=== PATIENT | female | born 1960 | race Caucasian/White ===

== ENCOUNTER 2019-12-05 07:01 | Outpatient (REF) | payer OTHER, SELFPAY ==
[2019-12-05 08:02] LABS: Alanine Aminotransferase 41 U/L (0-31); Albumin Level 3.9 g/dL (3.5-5.0); Alkaline Phosphatase 91 U/L (39-117); Anion Gap 11 (12-20); Aspartate Amino Transferase 25 U/L (5-31); Bilirubin Total 0.2 mg/dL (0.0-1.0); Blood Urea Nitrogen 30 mg/dL (9-16); Calcium 10.3 mg/dL (8.4-10.2); Carbon Dioxide 30 mmol/L (22-29); Chloride 102 mmol/L (96-108); Cholesterol 210 mg/dL; Estimated Glomerular Filt Rate > 60; Glucose Fasting 180 mg/dL (60-99); HDL Cholesterol 51 mg/dL; LDL Cholesterol Calculated 131 mg/dl; Potassium 4.8 mmol/l (3.3-5.1); Sodium 138 mmol/L (135-145); Triglycerides 143 mg/dL
[2019-12-05 08:11] LABS: Creatinine Urine 54.71 mg/dL
[2019-12-05 08:23] LABS: Microalbum/Creatinine Ratio Ur 1612.1 ug/mg cr
== END 2019-12-05 07:02 | disposition home or self-care (01) ==
LOC: HO.LAB 07:01
PROVIDERS: PCP Internal Medicine; Visit Provider Internal Medicine
DX: E11.29 Type 2 diabetes mellitus with other diabetic kidney complication (principal)
CPT/HCPCS: 80053; 80061; 82043

== ENCOUNTER → 2019-12-25 08:56 | Outpatient (BNVA) | payer OTHER, SELFPAY | PROVIDERS: PCP Internal Medicine; Visit Provider Surgery Vascular Surgery | DX: I73.9 Peripheral vascular disease, unspecified (principal) | CPT/HCPCS: 99212 ==

== ENCOUNTER 2020-03-13 09:48 | Outpatient (REF) | payer OTHER, SELFPAY ==
[2020-03-13 10:31] LABS: MANUAL DIFF FLAG NO
[2020-03-13 10:33] LABS: Basophils Absolute Auto 0.1 X10*3/uL (0.0-0.2); Eosinophils Absolute Auto 0.2 X10*3/uL (0.0-0.4); Hemoglobin 12.7 g/dl (12.0-16.0); Imm Gran Abs Auto 0.01 X10*3/uL (0.00-0.03); Imm Gran Pct Auto 0.2 % (0.0-0.4); Lymphocytes Absolute Auto 2.4 X10*3/uL (1.2-4.9); Lymphocytes Percent Auto 40.1 % (20-40); Mean Corpuscular HGB Conc 31.8 g/dl (31.0-35.0); Mean Corpuscular Hemoglobin 26.8 pg (27.0-33.0); Mean Corpuscular Volume 84.6 fL (80-98); Mean Platelet Volume 11.4 fL (9.4-12.3); Monocytes Absolute Auto 0.5 X10*3/uL (0.1-1.2); Monocytes Percent Auto 7.6 % (2-11); Neutrophils Absolute Auto 2.9 X10*3/uL (2.0-8.3); Neutrophils Percent Auto 48.1 % (45-73); Platelet Count 348 X10*3/uL (160-400); Red Blood Count 4.73 X10*6/uL (4.20-5.50); Red Cell Distribution Width 12.9 % (11.0-16.0); White Blood Count 6.1 X10*3/uL (4.8-10.8)
[2020-03-13 10:47] LABS: Glucose Urine UA NEG (NEG); Leukocyte Esterase Urine NEG (NEG); Nitrite Urine NEG (NEG); Specific Gravity - Urine 1.015 (1.005-1.025); Urine Blood NEG (NEG); Urine Ketones NEG (NEG); Urine Protein 2+ MG/DL (NEG-TRACE)
[2020-03-13 10:50] LABS: Appearance Urine CLEAR; Color Urine YELLOW
[2020-03-13 10:58] LABS: Alanine Aminotransferase 17 U/L (0-31); Albumin Level 4.1 g/dL (3.5-5.0); Alkaline Phosphatase 94 U/L (39-117); Anion Gap 13 (12-20); Aspartate Amino Transferase 14 U/L (5-31); Bilirubin Total 0.3 mg/dL (0.0-1.0); Blood Urea Nitrogen 22 mg/dL (9-16); Calcium 9.4 mg/dL (8.4-10.2); Carbon Dioxide 29 mmol/L (22-29); Chloride 102 mmol/L (96-108); Cholesterol 175 mg/dL; Estimated Glomerular Filt Rate > 60; Glucose Fasting 155 mg/dL (60-99); HDL Cholesterol 47 mg/dL; LDL Cholesterol Calculated 104 mg/dl; Potassium 4.7 mmol/l (3.3-5.1); Sodium 139 mmol/L (135-145); Triglycerides 124 mg/dL
[2020-03-13 11:00] LABS: Anion Gap 13 (12-20); Blood Urea Nitrogen 22 mg/dL (9-16); Calcium 9.3 mg/dL (8.4-10.2); Carbon Dioxide 29 mmol/L (22-29); Chloride 103 mmol/L (96-108); Estimated Glomerular Filt Rate > 60; Magnesium 1.6 mg/dL (1.6-2.6); Potassium 4.9 mmol/l (3.3-5.1); Sodium 140 mmol/L (135-145)
[2020-03-13 11:03] LABS: RBC Urine 0-2 /HPF (0); Renal w Reflex-LAB USE ONLY Order Verified; Squamous Epithelial Cell Urine TRACE /LPF; WBC Urine 0-2 /HPF (0-4)
[2020-03-13 11:05] LABS: Protein/Creatinine Ratio, Ur 1.93 (<0.2); Total Protein Urine Random 92 mg/dL (<12)
[2020-03-13 11:22] LABS: Vitamin D 25-OH Total 25.4 ng/mL (>30)
[2020-03-13 11:29] LABS: Creatinine Urine 48.06 mg/dL; Total Protein Urine Random 90 mg/dL (<12)
[2020-03-13 11:49] LABS: Microalbum/Creatinine Ratio Ur 1344.1 ug/mg cr
[2020-03-13 13:31] LABS: Renal w Reflex Lab Use Only Order verified
[2020-03-15 16:22] LABS: Calcium (PTHI) 9.7 mg/dL (8.6-10.4); PTHI 48 pg/mL (14-64)
== END 2020-03-13 09:49 | disposition home or self-care (01) ==
LOC: HO.LAB 09:48
PROVIDERS: Absent Provider Internal Medicine; PCP Internal Medicine; Visit Provider Internal Medicine Nephrology
DX: E11.29 Type 2 diabetes mellitus with other diabetic kidney complication (principal); E11.22 Type 2 diabetes mellitus with diabetic chronic kidney disease; I12.9 Hypertensive chronic kidney disease with stage 1 through stage 4 chronic kidney disease, or unspecified chronic kidney disease; N18.2 Chronic kidney disease, stage 2 (mild); I10 Essential (primary) hypertension; R80.9 Proteinuria, unspecified
CPT/HCPCS: 36415; 80051; 80053; 80061; 81001; 82040; 82043; 82306; 82310; 82565; 83735; 83970; 84100; 84156; 84520; 85025

== ENCOUNTER 2020-04-17 10:40 | Outpatient (REF) | payer OTHER, SELFPAY ==
--- NOTE | ~2020-04-17 | MM_ITS ---
EXAMINATION: MM SCREENING DIGITAL BREAST TOMOSYNTHESIS, BILATERAL CLINICAL INFORMATION: Screening. Asymptomatic. The lifetime risk of breast cancer based on the Tyrer-Cuzick Model is 5%. COMPARISON: Mammography: 04/12/2019, 04/06/2018, 03/31/2017 TECHNIQUE: Digital breast tomosynthesis is performed in both the craniocaudal and mediolateral oblique views along with computer-aided detection (CAD). Synthesized 2D images are generated from the tomosynthesis. Additional left MLO view is provided. FINDINGS: There are scattered areas of fibroglandular density (ACR BI-RADS breast composition Category b). There are no significant masses, abnormal calcifications, or other abnormalities. Parenchymal pattern is similar to prior exams. No significant changes. MM/MM tomosynthesis screening BI IMPRESSION: No mammographic evidence of malignancy. ASSESSMENT: BI-RADS 1: Negative RECOMMENDATION: Routine annual mammography screening. This patient's information was entered into a reminder system with a target due date for their next mammogram.
== END 2020-04-17 10:41 | disposition home or self-care (01) ==
LOC: HO.MAMMO 10:40
PROVIDERS: PCP Internal Medicine; Visit Provider Internal Medicine
DX: Z12.31 Encounter for screening mammogram for malignant neoplasm of breast (principal)
CPT/HCPCS: 77063; 77067

== ENCOUNTER 2020-07-07 13:44 | Outpatient (REF) | payer OTHER, SELFPAY ==
--- NOTE | ~2020-07-07 | US_ITS ---
EXAMINATION: US NONINVASIVE ASSESSMENT OF THE ARTERIES OF BOTH LOWER EXTREMITIES INCLUDING PVR EXAM AND BILATERAL LOWER EXTREMITY DUPLEX CLINICAL INFORMATION: Occlusion and stenosis of unspecified carotid artery. COMPARISON: Lower extremity ultrasound 11/11/2019 TECHNIQUE: Ankle pulse volume recordings, ankle pressure measurements and ankle brachial indices were obtained of the lower extremity arterial system bilaterally in addition to duplex Doppler techniques with wave form analysis and measurement of velocities in the common femoral, profunda femoral, superficial femoral, popliteal, tibial and peroneal arteries. The study was performed only at rest. FINDINGS: RIGHT LEG 1. Right Ankle-Brachial Index: 0.64, previously 0.61 >0.97-1.25 = normal - no significant arterial disease 0.75-0.96 = mild peripheral arterial disease 0.5-0.74 = moderate peripheral arterial disease <0.50 = severe peripheral arterial disease <0.30 = critical arterial disease 2. Segmental Pressures (mmHg): Ankle: PT 93, DP 94 3. PVR Waveforms: Ankle: Somewhat low amplitude, question decreased dicrotic notch. 4. Direct Duplex: Common femoral artery: 205 cm/s, multiphasic Profunda femoris artery: 154 cm/s, monophasic Superficial femoral artery (proximal): 134 cm/s, monophasic. A collateral vessel arises at this level. Superficial femoral artery (mid): 99 cm/s, monophasic. There appears to be reversal of direction of flow. While an occlusion of the proximal/mid SFA is not directly visualized, this would be suggestive of either a severe stenosis or occlusion. Superficial femoral artery (distal): There is turbulent flow at a distal segment SFA in the region of a collateral joining vessel at this level. In the region of the turbulent flow, flow velocity measures 350 cm/s. Beyond this level of turbulent flow, the peak systolic velocity is 60.1 cm/s, and waveform is monophasic. Popliteal artery: 54.6 cm/s, monophasic Mid posterior tibial artery: 41.6 cm/s, monophasic Peroneal artery: 38.1 cm/s, monophasic LEFT LE. Left Ankle-Brachial Index: 0.62 , previously 0.54 >0.97-1.25 = normal - no significant arterial disease 0.75-0.96 = mild peripheral arterial disease 0.5-0.74 = moderate peripheral arterial disease <0.50 = severe peripheral arterial disease <0.30 = critical arterial disease 2. Segmental Pressures: Ankle: PT 90, DP 93 3. PVR Waveforms: Ankle: Somewhat low amplitude, question decreased dicrotic notch. 4. Direct Duplex: Common femoral artery: 250 cm/s, biphasic Profunda femoris artery: 309 cm/s, biphasic Superficial femoral artery (proximal): 189 cm/s, monophasic. There is significant plaque at the junction of the proximal and middle thirds of the SFA. Superficial femoral artery (mid): 49.3 cm/s, monophasic. A collateral vessel is visualized at this level. Superficial femoral artery (distal): Two collateral vessels join the SFA at this level. At the level of anastomosis, there is somewhat turbulent flow velocities measured as high as 244 cm/s. In a nonturbulent segment of the vessel, velocity measures 85.6 to 176 cm/s, and waveform is monophasic. Popliteal artery: 51.9 cm/s, monophasic Mid posterior tibial artery: 37.3 cm/s, monophasic Peroneal artery: 30.6 cm/s, monophasic US/US arterial duplex LE BI IMPRESSION: FITO on the right 0.64 and on the left 0.62 indicative of at least moderate peripheral arterial disease. On direct duplex evaluation, there are collateral vessels to the superficial femoral artery bilaterally. In particular, on the right, there is retrograde flow within the midportion of the SFA suggestive of a severe stenosis or occlusion of the SFA which was not directly visualized. On the left, there is a region of significant plaque at the proximal to midportion beyond which there is significant drop in peak systolic velocity suggestive of a severe, near-occlusive stenosis. Further evaluation could be obtained with CTA runoff.
== END 2020-07-07 13:45 | disposition home or self-care (01) ==
LOC: HO.US 13:44
PROVIDERS: PCP Internal Medicine; Visit Provider Surgery Vascular Surgery
DX: I70.213 Atherosclerosis of native arteries of extremities with intermittent claudication, bilateral legs (principal); I65.29 Occlusion and stenosis of unspecified carotid artery
CPT/HCPCS: 93923; 93925

== ENCOUNTER 2020-07-31 06:45 | Outpatient (REF) | payer OTHER, SELFPAY ==
[2020-07-31 08:46] LABS: Alanine Aminotransferase 18 U/L (0-31); Albumin Level 3.9 g/dL (3.5-5.0); Alkaline Phosphatase 81 U/L (39-117); Anion Gap 12 (12-20); Aspartate Amino Transferase 15 U/L (5-31); Bilirubin Total 0.2 mg/dL (0.0-1.0); Blood Urea Nitrogen 28 mg/dL (9-16); Calcium 9.5 mg/dL (8.4-10.2); Carbon Dioxide 30 mmol/L (22-29); Chloride 104 mmol/L (96-108); Cholesterol 178 mg/dL; Estimated Glomerular Filt Rate > 60; Glucose Fasting 92 mg/dL (60-99); HDL Cholesterol 47 mg/dL; LDL Cholesterol Calculated 112 mg/dl; Potassium 4.5 mmol/L (3.3-5.1); Sodium 141 mmol/L (135-145); Total Protein 6.8 g/dL (6.5-8.0); Triglycerides 95 mg/dL
[2020-07-31 08:55] LABS: Creatinine Urine 34.71 mg/dL
[2020-07-31 09:22] LABS: Microalbum/Creatinine Ratio Ur 1820.8 ug/mg cr
[2020-08-03 20:32] LABS: Vitamin D 25-OH, D2 <4 ng/mL; Vitamin D 25-OH, D3 41 ng/mL; Vitamin D 25-OH, Total 41 ng/mL (30-100)
== END 2020-07-31 06:46 | disposition home or self-care (01) ==
LOC: HO.LAB 06:45
PROVIDERS: PCP Internal Medicine; Visit Provider Internal Medicine
DX: R80.9 Proteinuria, unspecified (principal); E55.9 Vitamin D deficiency, unspecified; E11.29 Type 2 diabetes mellitus with other diabetic kidney complication; E78.5 Hyperlipidemia, unspecified; Z79.4 Long term (current) use of insulin
CPT/HCPCS: 36415; 80053; 80061; 82043; 82306

== ENCOUNTER → 2020-08-02 14:35 | Outpatient (BNVA) | payer OTHER, SELFPAY | PROVIDERS: PCP Internal Medicine; Visit Provider Surgery Vascular Surgery | DX: I73.9 Peripheral vascular disease, unspecified (principal) | CPT/HCPCS: 99212 ==

== ENCOUNTER 2020-09-23 10:31 | Outpatient (REF) | payer OTHER, SELFPAY ==
[2020-09-26 14:31] LABS: TS Negative Control Passed; TS Panel A 23; TS Panel B 7; TS Positive Control Passed; TSpotTB POSITIVE (SeeBelow)
== END 2020-09-23 10:32 | disposition home or self-care (01) ==
LOC: HO.LAB 10:31
PROVIDERS: PCP Internal Medicine; Visit Provider Internal Medicine
DX: Z11.1 Encounter for screening for respiratory tuberculosis (principal)
CPT/HCPCS: 36415; 86481

== ENCOUNTER 2020-10-01 12:27 | Outpatient (REF) | payer OTHER, SELFPAY ==
--- NOTE | ~2020-10-01 | XR_ITS ---
EXAMINATION: XR CHEST CLINICAL INFORMATION: Respiratory tuberculosis. COMPARISON: None TECHNIQUE: 2 views of the chest were obtained. FINDINGS: The lungs are clear. The cardiomediastinal silhouette is normal in size. There is no pleural effusion or pneumothorax. No acute osseous abnormality. XR/XR chest 2V IMPRESSION: No acute cardiopulmonary findings.
== END 2020-10-01 12:28 | disposition home or self-care (01) ==
LOC: HO.XRAY 12:27
PROVIDERS: PCP Internal Medicine; Visit Provider Nurse Practitioner Family
DX: Z11.1 Encounter for screening for respiratory tuberculosis (principal)
CPT/HCPCS: 71046

== ENCOUNTER 2020-11-06 07:32 | Outpatient (REF) | payer OTHER, SELFPAY ==
[2020-11-06 07:51] LABS: MANUAL DIFF FLAG NO
[2020-11-06 08:02] LABS: Basophils Absolute Auto 0.1 X10*3/uL (0.0-0.2); Basophils Percent Auto 0.7 % (0-2); Eosinophils Absolute Auto 0.1 X10*3/uL (0.0-0.4); Hematocrit 39.3 % (37-47); Hemoglobin 12.4 g/dl (12.0-16.0); Imm Gran Abs Auto 0.03 X10*3/uL (0.00-0.03); Imm Gran Pct Auto 0.4 % (0.0-0.4); Lymphocytes Absolute Auto 2.3 X10*3/uL (1.2-4.9); Lymphocytes Percent Auto 30.4 % (20-40); Mean Corpuscular HGB Conc 31.6 g/dl (31.0-35.0); Mean Corpuscular Hemoglobin 26.1 pg (27.0-33.0); Mean Corpuscular Volume 82.6 fL (80-98); Mean Platelet Volume 11.2 fL (9.4-12.3); Monocytes Absolute Auto 0.5 X10*3/uL (0.1-1.2); Monocytes Percent Auto 6.8 % (2-11); Neutrophils Absolute Auto 4.7 X10*3/uL (2.0-8.3); Neutrophils Percent Auto 60.7 % (45-73); Platelet Count 353 X10*3/uL (160-400); Red Blood Count 4.76 X10*6/uL (4.20-5.50); Red Cell Distribution Width 13.8 % (11.0-16.0); White Blood Count 7.7 X10*3/uL (4.8-10.8)
[2020-11-06 10:09] LABS: Appearance Urine CLEAR; Color Urine STRAW; Glucose Urine UA NEG (NEG); Leukocyte Esterase Urine NEG (NEG); Nitrite Urine NEG (NEG); Urine Blood NEG (NEG); Urine Ketones NEG (NEG); Urine Protein 2+ MG/DL (NEG-TRACE)
[2020-11-06 10:14] LABS: Anion Gap 12 (12-20); Blood Urea Nitrogen 17 mg/dL (9-16); Calcium 9.4 mg/dL (8.4-10.2); Carbon Dioxide 28 mmol/L (22-29); Chloride 105 mmol/L (96-108); Cholesterol 207 mg/dL; Estimated Glomerular Filt Rate > 60; HDL Cholesterol 57 mg/dL; LDL Cholesterol Calculated 130 mg/dl; Magnesium 1.5 mg/dL (1.6-2.6); Phosphorus 3.2 mg/dL (2.7-4.5); Potassium 4.4 mmol/L (3.3-5.1); Sodium 141 mmol/L (135-145); Triglycerides 102 mg/dL
[2020-11-06 10:24] LABS: RBC Urine 0 /HPF (0); Squamous Epithelial Cell Urine TRACE /LPF; WBC Urine 0-2 /HPF (0-4)
[2020-11-06 10:41] LABS: Creatinine Urine 26.56 mg/dL; Protein/Creatinine Ratio, Ur 6.51 (<0.2); Total Protein Urine Random 173 mg/dL (<12)
[2020-11-06 10:58] LABS: Microalbum/Creatinine Ratio Ur 4442.7 ug/mg cr
== END 2020-11-06 07:33 | disposition home or self-care (01) ==
LOC: HO.LAB 07:32
PROVIDERS: Internal Medicine Nephrology; PCP Internal Medicine; Visit Provider Internal Medicine
DX: R80.8 Other proteinuria (principal); I12.9 Hypertensive chronic kidney disease with stage 1 through stage 4 chronic kidney disease, or unspecified chronic kidney disease; N18.2 Chronic kidney disease, stage 2 (mild); E11.22 Type 2 diabetes mellitus with diabetic chronic kidney disease; E11.21 Type 2 diabetes mellitus with diabetic nephropathy
CPT/HCPCS: 36415; 80051; 80061; 81001; 82043; 82310; 82565; 83735; 84100; 84156; 84520; 85025; 87086

== ENCOUNTER 2020-12-24 09:58 | Outpatient (REF) | payer OTHER, SELFPAY ==
--- NOTE | ~2020-12-24 | XR_ITS ---
EXAMINATION: XR FOOT, RIGHT CLINICAL INFORMATION: Pain in the right foot COMPARISON: 10/08/2017 TECHNIQUE: AP, lateral, and oblique views of the right foot. FINDINGS: There is a mildly impacted fracture of the distal shaft of the third digit proximal phalanx. Alignment is otherwise maintained. No definite intra-articular extension. Joint spaces are maintained. Soft tissue swelling at the fracture site. Moderate hypertrophic spurring at the plantar aponeurosis and Achilles insertion to the calcaneus. XR/XR foot RT 2V IMPRESSION: Mildly impacted fracture of the distal shaft of the third digit proximal phalanx.
== END 2020-12-24 09:59 | disposition home or self-care (01) ==
LOC: HO.XRAY 09:58
PROVIDERS: PCP Internal Medicine; Visit Provider Nurse Practitioner Family
DX: M79.671 Pain in right foot (principal); M79.674 Pain in right toe(s)
CPT/HCPCS: 73620

== ENCOUNTER → 2020-12-27 13:20 | Outpatient (BNVA) | payer OTHER, SELFPAY | PROVIDERS: PCP Internal Medicine; Visit Provider Physician Assistant Medical | DX: S92.524D Nondisplaced fracture of middle phalanx of right lesser toe(s), subsequent encounter for fracture with routine healing (principal); W22.8XXD Striking against or struck by other objects, subsequent encounter | CPT/HCPCS: 99203 ==

== ENCOUNTER 2020-12-30 08:40 | Outpatient (REF) | payer OTHER, SELFPAY ==
--- NOTE | ~2020-12-30 | XR_ITS ---
EXAMINATION: XR FOOT, RIGHT CLINICAL INFORMATION: Fracture third toe. Follow-up. COMPARISON: Radiographs right foot 12/24/2020. TECHNIQUE: Right foot is imaged in 3 views. FINDINGS: Fracture involving head/neck third toe proximal phalanx is without significant change in alignment from prior study 12/24/2020. Fracture lines are still visible. There is no new fracture or dislocation or destructive process. Again, there are posterior and plantar calcaneal spurs. XR/XR foot RT min 3V IMPRESSION: Fracture third toe without significant change in alignment from recent exam 12/24/2020. No acute bony abnormality.
== END 2020-12-30 08:41 | disposition home or self-care (01) ==
LOC: HO.HOSX 08:40
PROVIDERS: Visit Provider Physician Assistant
DX: S92.911A Unspecified fracture of right toe(s), initial encounter for closed fracture (principal)
CPT/HCPCS: 73630; 99202

== ENCOUNTER 2021-04-02 07:10 | Outpatient (REF) | payer OTHER, SELFPAY ==
[2021-04-02 08:16] LABS: Alanine Aminotransferase 35 U/L (0-31); Albumin Level 3.9 g/dL (3.5-5.0); Alkaline Phosphatase 67 U/L (39-117); Anion Gap 11 (12-20); Aspartate Amino Transferase 23 U/L (5-31); Bilirubin Total < 0.2 mg/dL (0.0-1.0); Blood Urea Nitrogen 31 mg/dL (9-16); Calcium 10.2 mg/dL (8.4-10.2); Carbon Dioxide 32 mmol/L (22-29); Chloride 102 mmol/L (96-108); Cholesterol 180 mg/dL; Estimated Glomerular Filt Rate 56; Glucose Fasting 88 mg/dL (60-99); HDL Cholesterol 49 mg/dL; LDL Cholesterol Calculated 115 mg/dl; Potassium 4.4 mmol/L (3.3-5.1); Sodium 141 mmol/L (135-145); Total Protein 6.8 g/dL (6.5-8.0); Triglycerides 80 mg/dL
[2021-04-02 08:17] LABS: Creatinine Urine 92.43 mg/dL
[2021-04-02 08:29] LABS: Microalbum/Creatinine Ratio Ur 2137.8 ug/mg cr
[2021-04-07 13:11] LABS: Vitamin D 25-OH, D2 <4 ng/mL; Vitamin D 25-OH, D3 34 ng/mL; Vitamin D 25-OH, Total 34 ng/mL (30-100)
== END 2021-04-02 07:11 | disposition home or self-care (01) ==
LOC: HO.LAB 07:10
PROVIDERS: PCP Internal Medicine; Visit Provider Internal Medicine
DX: E78.5 Hyperlipidemia, unspecified (principal); E55.9 Vitamin D deficiency, unspecified; E11.29 Type 2 diabetes mellitus with other diabetic kidney complication; R80.9 Proteinuria, unspecified; Z79.4 Long term (current) use of insulin
CPT/HCPCS: 36415; 80053; 80061; 82043; 82306

== ENCOUNTER 2021-04-13 10:49 | Outpatient (REF) | payer OTHER, SELFPAY ==
--- NOTE | ~2021-04-13 | MM_ITS ---
EXAMINATION: BONE DENSITOMETRY CLINICAL INDICATION: Unspecified fracture of right toe(s), initial. COMPARISON: None (current study represents initial baseline exam). TECHNIQUE: Using a [employer] DXA System (software version: 13.1) manufactured by [employer], dual-energy x-ray absorptiometry was performed of the lumbar spine and left hip. The images are of good technical quality. Summary results are attached. FINDINGS: AP SPINE L1-L4: BMD 1.144 g/cm2, Z-score 0.9, T-score -0.3, normal. LEFT FEMUR, NECK: BMD 1.014 g/cm2, Z-score 1.1, T-score -0.2, normal. LEFT FEMUR, TOTAL: BMD 1.046 g/cm2, Z-score 1.2, T-score 0.3, normal. IDENTIFIED RISK FACTORS: Menopause, secondary osteoporosis. HISTORY OF FRACTURE: None listed. MEDICATIONS: Vitamin D. MM/XR DEXA axial skeleton IMPRESSION: 1. DIAGNOSIS: Normal bone density based on the lowest T-score value of -0.3 in the lumbar spine applying World Health Organization criteria. 2. 10-YEAR FRACTURE RISK PREDICTION, FRAX: According to the guidelines, FRAX calculation should only be performed on patients in the osteopenia bone density category. Therefore, FRAX was not performed on this patient. 3. Treatment Recommendations: NOF guidelines recommend consideration for treatment in postmenopausal women and men age 50 and older presenting with the following: -A hip or vertebral (clinical or morphometric) fracture. -T-score less than or equal to -2.5 at the femoral neck or spine after appropriate evaluation to exclude secondary causes. -Low bone mass at the hip or spine and a 10-year fracture probability by FRAX of greater than or equal to 3% for hip fracture or greater than or equal to 20% for major osteoporotic fracture based on the [place] adapted WHO algorithm. 4. Other Recommendations: All treatment decisions require clinical judgment and consideration of individual patient factors, including patient preferences, comorbidities, previous drug use, risk factors not captured in the FRAX model (e.g. frailty, falls, vitamin D deficiency, increased bone turnover, interval significant decline in bone density) and possible under or overestimation of fracture risk by FRAX. FUTURE SCAN RECOMMENDATION: People with diagnosed cases of osteoporosis or at high risk for fracture should have regular bone mineral density tests. For patients eligible for Medicare, routine testing is allowed once every 2 years. The testing frequency can be increased to one year for patients who have rapidly progressing disease, those who are receiving or discontinuing medical therapy to restore bone mass, or have additional risk factors.
== END 2021-04-13 10:50 | disposition home or self-care (01) ==
LOC: HO.MAMMO 10:49
PROVIDERS: Visit Provider Nurse Practitioner Family
DX: Z13.820 Encounter for screening for osteoporosis (principal); S92.911D Unspecified fracture of right toe(s), subsequent encounter for fracture with routine healing; Z78.0 Asymptomatic menopausal state; Z79.899 Other long term (current) drug therapy
CPT/HCPCS: 77080

== ENCOUNTER 2021-07-23 06:57 | Outpatient (REF) | payer OTHER, SELFPAY ==
[2021-07-23 07:09] LABS: MANUAL DIFF FLAG NO
[2021-07-23 07:58] LABS: Basophils Absolute Auto 0.1 X10*3/uL (0.0-0.2); Basophils Percent Auto 0.7 % (0-2); Eosinophils Absolute Auto 0.1 X10*3/uL (0.0-0.4); Eosinophils Percent Auto 1.5 % (0-4); Hematocrit 43.9 % (37.0-47.0); Hemoglobin 13.8 g/dl (12.0-16.0); Imm Gran Abs Auto 0.02 X10*3/uL (0.00-0.03); Imm Gran Pct Auto 0.3 % (0.0-0.4); Lymphocytes Absolute Auto 2.1 X10*3/uL (1.2-4.9); Lymphocytes Percent Auto 28.5 % (20-40); Mean Corpuscular HGB Conc 31.4 g/dl (31.0-35.0); Mean Corpuscular Volume 82.7 fL (80.0-98.0); Mean Platelet Volume 11.4 fL (9.4-12.3); Monocytes Absolute Auto 0.5 X10*3/uL (0.1-1.2); Monocytes Percent Auto 6.8 % (2-11); Neutrophils Absolute Auto 4.6 x10*3/uL (2.0-8.3); Neutrophils Percent Auto 62.2 % (45-73); Platelet Count 365 X10*3/uL (160-400); Red Blood Count 5.31 X10*6/uL (4.20-5.50); Red Cell Distribution Width 13.2 % (11.0-16.0); White Blood Count 7.5 X10*3/uL (4.8-10.8)
[2021-07-23 08:40] LABS: Creatinine Urine 36.99 mg/dL
[2021-07-23 08:44] LABS: Alanine Aminotransferase 27 U/L (0-31); Albumin Level 4.1 g/dL (3.5-5.0); Alkaline Phosphatase 85 U/L (39-117); Anion Gap 15 (12-20); Aspartate Amino Transferase 20 U/L (5-31); Bilirubin Total 0.3 mg/dL (0.0-1.0); Blood Urea Nitrogen 34 mg/dL (9-16); Calcium 10.9 mg/dL (8.4-10.2); Carbon Dioxide 27 mmol/L (22-29); Chloride 102 mmol/L (96-108); Cholesterol 168 mg/dL; Estimated Glomerular Filt Rate 57; Glucose Fasting 91 mg/dL (60-99); HDL Cholesterol 50 mg/dL; LDL Cholesterol Calculated 93 mg/dl; Potassium 4.9 mmol/L (3.3-5.1); Sodium 139 mmol/L (135-145); Total Protein 7.4 g/dL (6.5-8.0); Triglycerides 126 mg/dL
[2021-07-23 09:40] LABS: Microalbum/Creatinine Ratio Ur 6166.5 ug/mg cr
[2021-07-28 12:46] LABS: Vitamin D 25-OH, D2 <4 ng/mL; Vitamin D 25-OH, D3 34 ng/mL; Vitamin D 25-OH, Total 34 ng/mL (30-100)
== END 2021-07-23 06:58 | disposition home or self-care (01) ==
LOC: HO.LAB 06:57
PROVIDERS: PCP Internal Medicine; Visit Provider Internal Medicine
DX: E78.5 Hyperlipidemia, unspecified (principal); E11.29 Type 2 diabetes mellitus with other diabetic kidney complication; R80.9 Proteinuria, unspecified; D64.9 Anemia, unspecified; E55.9 Vitamin D deficiency, unspecified; Z79.4 Long term (current) use of insulin
CPT/HCPCS: 36415; 80053; 80061; 82043; 82306; 85025

== ENCOUNTER 2021-09-27 13:44 | Outpatient (REF) | payer OTHER, SELFPAY ==
[2021-10-01 18:42] LABS: Glutamic acid decarboxylase Ab <5 IU/mL (<5)
== END 2021-09-27 13:45 | disposition home or self-care (01) ==
LOC: HO.LAB 13:44
PROVIDERS: PCP Internal Medicine; Visit Provider Internal Medicine Endocrinology, Diabetes & Metabolism
DX: E11.29 Type 2 diabetes mellitus with other diabetic kidney complication (principal); R80.9 Proteinuria, unspecified; Z79.4 Long term (current) use of insulin
CPT/HCPCS: 36415; 82947; 86341; 99202

== ENCOUNTER 2021-09-28 12:30 | Outpatient (REF) | payer OTHER, SELFPAY ==
--- NOTE | ~2021-09-28 | US_ITS ---
EXAMINATION: COLOR-FLOW DUPLEX IMAGING OF THE BILATERAL LOWER EXTREMITY ARTERIAL SYSTEM. VELOCITY MEASUREMENTS THROUGHOUT THE FEMORAL ARTERIES WITH ANKLE-BRACHIAL PERIPHERAL ARTERIAL TESTING. Interventional Radiologist: Levi Hidalgo M.D., F.S.I.R., F.A.C.R. CLINICAL INFORMATION: This is a 61-year-old female with bilateral peripheral vascular disease. COMPARISON: Comparison is made to the previous study dated 07/07/2020. TECHNIQUE: Ankle pulse volume recordings, ankle pressure measurements and ankle brachial indices were obtained of the lower extremity arterial system bilaterally in addition to duplex Doppler techniques with wave form analysis and measurement of velocities in the common femoral, profunda femoral, superficial femoral, popliteal, tibial and peroneal arteries. The study was performed only at rest. FINDINGS: RIGHT LEG 1. Right Ankle-Brachial Index: 0.68, previously 0.64 >0.97-1.25 = normal - no significant arterial disease 0.75-0.96 = mild peripheral arterial disease 0.5-0.74 = moderate peripheral arterial disease <0.50 = severe peripheral arterial disease <0.30 = critical arterial disease 2. Segmental Pressures (mmHg): Ankle: PT 94, DP 100 3. PVR Waveforms: Ankle: Low amplitude with decreased notch.. 4. Direct Duplex: Common femoral artery: 147 cm/s and monophasic. Previously, 205 cm/s, multiphasic Profunda femoris artery: 118 cm/s and triphasic. Previously, 154 cm/s, monophasic Superficial femoral artery (proximal): The proximal right superficial femoral artery now appears to be occluded. Previously, 134 cm/s, monophasic. A collateral vessel arises at this level. Superficial femoral artery (mid): 310 cm/s and monophasic. Previously, 99 cm/s, monophasic. Superficial femoral artery (distal): 52 cm/s and monophasic. Previously, Popliteal artery: 43 cm/s and monophasic. Previously, 54.6 cm/s, monophasic Mid posterior tibial artery: 33 cm/s and monophasic. Previously, 41.6 cm/s, monophasic LEFT LE. Left Ankle-Brachial Index: 0.59. Previously, 0.62 , >0.97-1.25 = normal - no significant arterial disease 0.75-0.96 = mild peripheral arterial disease 0.5-0.74 = moderate peripheral arterial disease <0.50 = severe peripheral arterial disease <0.30 = critical arterial disease 2. Segmental Pressures: Ankle: PT 77, DP 88 3. PVR Waveforms: Ankle: Low amplitude, question decreased dicrotic notch. 4. Direct Duplex: Common femoral artery: 78 cm/s and monophasic. Previously, 250 cm/s, biphasic Profunda femoris artery: 91 cm/s and monophasic. Previously, 309 cm/s, biphasic Superficial femoral artery (proximal): 64 cm/s and monophasic. Previously, 189 cm/s, monophasic. Superficial femoral artery (mid): Occluded. Previously, 49.3 cm/s, monophasic. Superficial femoral artery (distal): 49 cm/s and monophasic. Previously, Two collateral vessels join the SFA at this level. At the level of anastomosis, there is somewhat turbulent flow velocities measured as high as 244 cm/s. In a nonturbulent segment of the vessel, velocity measures 85.6 to 176 cm/s, and waveform is monophasic. Popliteal artery: 36 cm/s and monophasic. Previously, 51.9 cm/s, monophasic Mid posterior tibial artery: 30 cm/s. Previously, 37.3 cm/s, monophasic US/US arterial duplex LE BI IMPRESSION: 1. RIGHT SIDE: There is moderate hemodynamically significant peripheral vascular disease on the right. There now appears to be an occlusion present within the superficial femoral artery. 2. LEFT SIDE: There is a moderate hemodynamically significant peripheral vascular disease on the left. There now appears to be an occlusion present within the superficial femoral artery.
== END 2021-09-28 12:31 | disposition home or self-care (01) ==
LOC: HO.US 12:30
PROVIDERS: Visit Provider Surgery Vascular Surgery
DX: I73.9 Peripheral vascular disease, unspecified (principal)
CPT/HCPCS: 93923; 93925

== ENCOUNTER 2021-11-05 07:10 | Outpatient (REF) | payer OTHER, SELFPAY ==
[2021-11-05 08:25] LABS: Anion Gap 14 (12-20); Blood Urea Nitrogen 37 mg/dL (9-16); Calcium 9.9 mg/dL (8.4-10.2); Carbon Dioxide 27 mmol/L (22-29); Chloride 105 mmol/L (96-108); Estimated Glomerular Filt Rate 59; Potassium 5.2 mmol/L (3.3-5.1); Sodium 141 mmol/L (135-145)
[2021-11-05 09:23] LABS: Appearance Urine Clear; Color Urine Yellow; Glucose Urine UA >=1000 mg/dL (Negative); Leukocyte Esterase Urine Trace (Negative); Nitrite Urine Negative (Negative); PH 5.5 (5.0-9.0); UMIC TRIGGER UA YES; Urine Blood Negative (Negative); Urine Ketones Negative (Negative); Urine Protein 300 (3+) mg/dL (Neg-Trace)
[2021-11-05 09:26] LABS: Bacteria Urine None Seen (None Seen); Hyaline Casts Urine 0-2 /LPF (0-2); RBC Urine 0-2 /HPF (0-2); Squamous Epithelial Cell Urine 0-2 /HPF (0-2); WBC Urine 0-5 /HPF (0-5)
[2021-11-05 10:00] LABS: Creatinine Urine 44.95 mg/dL; Total Protein Urine Random 187 mg/dL (<12)
[2021-11-05 10:19] LABS: Microalbum/Creatinine Ratio Ur 3038.9 ug/mg cr
== END 2021-11-05 07:11 | disposition home or self-care (01) ==
LOC: HO.LAB 07:10
PROVIDERS: PCP Internal Medicine; Visit Provider Internal Medicine Nephrology
DX: N18.2 Chronic kidney disease, stage 2 (mild) (principal); N04.1 Nephrotic syndrome with focal and segmental glomerular lesions
CPT/HCPCS: 36415; 80051; 81001; 82043; 82310; 82565; 84156; 84520

== ENCOUNTER → 2021-11-15 14:48 | Outpatient (BNVA) | payer OTHER, SELFPAY | PROVIDERS: PCP Internal Medicine; Visit Provider Surgery Vascular Surgery | DX: I73.9 Peripheral vascular disease, unspecified (principal) | CPT/HCPCS: 99212 ==

== ENCOUNTER → 2021-11-21 13:31 | Outpatient (BNVA) | payer OTHER, SELFPAY | PROVIDERS: PCP Internal Medicine; Visit Provider Dietitian, Registered | DX: E11.29 Type 2 diabetes mellitus with other diabetic kidney complication (principal); R80.9 Proteinuria, unspecified; Z79.4 Long term (current) use of insulin; Z71.3 Dietary counseling and surveillance | CPT/HCPCS: 97802 ==

== ENCOUNTER 2021-12-03 07:12 | Outpatient (REF) | payer OTHER, SELFPAY ==
[2021-12-03 08:13] LABS: Alanine Aminotransferase 27 U/L (0-31); Alkaline Phosphatase 73 U/L (39-117); Anion Gap 17 (12-20); Aspartate Amino Transferase 20 U/L (5-31); Bilirubin Total 0.2 mg/dL (0.0-1.0); Blood Urea Nitrogen 37 mg/dL (9-16); Carbon Dioxide 26 mmol/L (22-29); Chloride 104 mmol/L (96-108); Cholesterol 144 mg/dL; Estimated Glomerular Filt Rate 53; Glucose Fasting 79 mg/dL (60-99); HDL Cholesterol 50 mg/dL; LDL Cholesterol Calculated 77 mg/dl; Potassium 4.5 mmol/L (3.3-5.1); Sodium 142 mmol/L (135-145); Triglycerides 87 mg/dL
[2021-12-03 08:35] LABS: Vitamin D 25-OH Total 42.6 ng/mL (>30)
[2021-12-03 14:06] LABS: Creatinine Urine 55.19 mg/dL
== END 2021-12-03 07:13 | disposition home or self-care (01) ==
LOC: HO.LAB 07:12
PROVIDERS: PCP Internal Medicine; Visit Provider Internal Medicine
DX: E11.29 Type 2 diabetes mellitus with other diabetic kidney complication (principal); R80.9 Proteinuria, unspecified; E55.9 Vitamin D deficiency, unspecified; E78.5 Hyperlipidemia, unspecified; Z79.4 Long term (current) use of insulin
CPT/HCPCS: 36415; 80053; 80061; 82043; 82306

== ENCOUNTER → 2022-01-18 14:44 | Outpatient (BNVA) | payer OTHER, SELFPAY | PROVIDERS: PCP Internal Medicine; Visit Provider Internal Medicine Endocrinology, Diabetes & Metabolism | DX: E11.29 Type 2 diabetes mellitus with other diabetic kidney complication (principal); R80.9 Proteinuria, unspecified; Z79.4 Long term (current) use of insulin; Z79.84 Long term (current) use of oral hypoglycemic drugs | CPT/HCPCS: 82947; 99212 ==

== ENCOUNTER → 2022-02-28 14:46 | Outpatient (BNVA) | payer OTHER, SELFPAY | PROVIDERS: PCP Internal Medicine; Visit Provider Registered Nurse Diabetes Educator | DX: E11.29 Type 2 diabetes mellitus with other diabetic kidney complication (principal); R80.9 Proteinuria, unspecified; Z79.4 Long term (current) use of insulin | CPT/HCPCS: 99211 ==

== ENCOUNTER → 2022-03-28 14:04 | Outpatient (BNVA) | payer OTHER, SELFPAY | PROVIDERS: PCP Internal Medicine; Visit Provider Internal Medicine Endocrinology, Diabetes & Metabolism | DX: Z13.89 Encounter for screening for other disorder (principal) ==

== ENCOUNTER 2022-04-08 07:01 | Outpatient (REF) | payer OTHER, SELFPAY ==
[2022-04-08 08:28] LABS: Creatinine Urine 48.93 mg/dL
[2022-04-08 08:41] LABS: Alanine Aminotransferase 24 U/L (0-31); Albumin Level 3.7 g/dL (3.5-5.0); Alkaline Phosphatase 70 U/L (39-117); Anion Gap 14 (12-20); Aspartate Amino Transferase 21 U/L (5-31); Bilirubin Total 0.2 mg/dL (0.0-1.0); Blood Urea Nitrogen 27 mg/dL (9-16); Calcium 9.7 mg/dL (8.4-10.2); Carbon Dioxide 27 mmol/L (22-29); Chloride 107 mmol/L (96-108); Cholesterol 161 mg/dL; Estimated Glomerular Filt Rate 57; Glucose Fasting 80 mg/dL (60-99); HDL Cholesterol 48 mg/dL; LDL Cholesterol Calculated 100 mg/dl; Potassium 5.1 mmol/L (3.3-5.1); Sodium 143 mmol/L (135-145); Total Protein 6.4 g/dL (6.5-8.0); Triglycerides 67 mg/dL
[2022-04-08 08:42] LABS: Microalbum/Creatinine Ratio Ur 1927.2 ug/mg cr
[2022-04-08 08:49] LABS: Vitamin D 25-OH Total 43.3 ng/mL (>30)
== END 2022-04-08 07:02 | disposition home or self-care (01) ==
LOC: HO.LAB 07:01
PROVIDERS: PCP Internal Medicine; Visit Provider Internal Medicine
DX: Z00.00 Encounter for general adult medical examination without abnormal findings (principal); E55.9 Vitamin D deficiency, unspecified; E78.5 Hyperlipidemia, unspecified; E11.9 Type 2 diabetes mellitus without complications
CPT/HCPCS: 36415; 80053; 80061; 82043; 82306

== ENCOUNTER → 2022-04-11 15:33 | Outpatient (BNVA) | payer OTHER, SELFPAY | PROVIDERS: PCP Internal Medicine; Visit Provider Internal Medicine Endocrinology, Diabetes & Metabolism | DX: E11.29 Type 2 diabetes mellitus with other diabetic kidney complication (principal); R80.9 Proteinuria, unspecified; Z79.4 Long term (current) use of insulin; Z79.84 Long term (current) use of oral hypoglycemic drugs | CPT/HCPCS: 82947; 99212 ==

== ENCOUNTER 2022-04-18 12:40 | Outpatient (REF) | payer OTHER, SELFPAY ==
[2022-04-19 02:17] LABS: CT PCR NOT DETECTED (Not Detect.); NG PCR NOT DETECTED (Not Detect.)
[2022-04-19 13:17] LABS: BV Int Neg Control Negative (Negative); BV Int Pos Control Positive (Positive)
[2022-04-20 22:03] LABS: HPV mRNA E6/E7 rflx Not Detected (Not Detected)
== END 2022-04-18 12:41 | disposition home or self-care (01) ==
LOC: HO.LNP 12:40
PROVIDERS: PCP Internal Medicine; Visit Provider Advanced Practice Midwife
DX: Z01.419 Encounter for gynecological examination (general) (routine) without abnormal findings (principal); Z11.51 Encounter for screening for human papillomavirus (HPV); I10 Essential (primary) hypertension; N95.2 Postmenopausal atrophic vaginitis
CPT/HCPCS: 0353U; 87480; 87510; 87624; 87660; 88142

== ENCOUNTER 2022-05-04 14:46 | Outpatient (REF) | payer OTHER, SELFPAY ==
--- NOTE | ~2022-05-04 | US_ITS ---
EXAMINATION: US PELVIS CLINICAL INFORMATION: Malignant neoplasm of cervix. COMPARISON: None available. TECHNIQUE: Ultrasound of the pelvis is performed using both transabdominal and transvaginal transducers along with Doppler. Transvaginal imaging is performed due to inadequate visualization transabdominally. FINDINGS: UTERUS: The uterus demonstrates heterogeneous echotexture with multiple fibroids and is retroflexed and retroverted measuring 7.1 x 4.0 x 5.1 cm for a volume of 76 mL. The double wall endometrial thickness is 1.1 mm. The uterus has multiple fibroids with the 4 largest ranging in size from 1.5 to 2.0 cm. There are some calcifications seen in the cervix. ADNEXA: Both ovaries are visualized. There is normal color flow to the adnexa. There is no ovarian torsion. There is a small amount of pelvic fluid. Right ovary measures 2.1 x 1.2 x 1.4 cm for a volume 1.8 mL. Left ovary measures 2.4 x 0.9 x 1.3 cm for a volume of 1.5 mL. US/US pelvic and transvaginal IMPRESSION: Multiple uterine fibroids.
== END 2022-05-04 14:47 | disposition home or self-care (01) ==
LOC: HO.US 14:46
PROVIDERS: Visit Provider Advanced Practice Midwife
DX: N95.2 Postmenopausal atrophic vaginitis (principal); I10 Essential (primary) hypertension
CPT/HCPCS: 76830; 76856

== ENCOUNTER 2022-05-22 16:10 | Outpatient (REF) | payer OTHER, SELFPAY ==
--- NOTE | ~2022-05-22 | MM_ITS ---
EXAMINATION: MM SCREENING DIGITAL BREAST TOMOSYNTHESIS, BILATERAL CLINICAL INFORMATION: Screening. Asymptomatic. The lifetime risk of breast cancer based on the Tyrer-Cuzick Model is 5%. COMPARISON: Mammography: 04/17/2020, 04/12/2019, 04/06/2018 TECHNIQUE: Digital breast tomosynthesis is performed in both the craniocaudal and mediolateral oblique views along with computer-aided detection (CAD). Synthesized 2D images are generated from the tomosynthesis. FINDINGS: There are scattered areas of fibroglandular density (ACR BI-RADS breast composition Category b). There are no significant masses, abnormal calcifications, or other abnormalities. Parenchymal pattern is similar to prior studies. There is no developing density or architectural abnormality. The axilla and skin contours are unremarkable. No significant changes. MM/MM tomosynthesis screening BI IMPRESSION: No mammographic evidence of malignancy. ASSESSMENT: BI-RADS 1: Negative RECOMMENDATION: Routine annual mammography screening. This patient's information was entered into a reminder system with a target due date for their next mammogram.
== END 2022-05-22 16:11 | disposition home or self-care (01) ==
LOC: HO.MAMMO 16:10
PROVIDERS: PCP Internal Medicine; Visit Provider Internal Medicine
DX: Z12.31 Encounter for screening mammogram for malignant neoplasm of breast (principal)
CPT/HCPCS: 77063; 77067

== ENCOUNTER → 2022-05-25 13:26 | Outpatient (BNVA) | payer OTHER, SELFPAY | PROVIDERS: PCP Internal Medicine; Visit Provider Advanced Practice Midwife | DX: N95.2 Postmenopausal atrophic vaginitis (principal); Z12.4 Encounter for screening for malignant neoplasm of cervix; D21.9 Benign neoplasm of connective and other soft tissue, unspecified | CPT/HCPCS: 99212 ==

== ENCOUNTER → 2022-06-21 14:06 | Outpatient (BNVA) | payer OTHER, SELFPAY | PROVIDERS: PCP Internal Medicine; Visit Provider Dietitian, Registered | DX: E11.29 Type 2 diabetes mellitus with other diabetic kidney complication (principal); R80.9 Proteinuria, unspecified; Z79.4 Long term (current) use of insulin; Z71.3 Dietary counseling and surveillance | CPT/HCPCS: 97803 ==

== ENCOUNTER → 2022-07-13 14:46 | Outpatient (BNVA) | payer OTHER, SELFPAY | PROVIDERS: PCP Internal Medicine; Visit Provider Internal Medicine Endocrinology, Diabetes & Metabolism | DX: E11.29 Type 2 diabetes mellitus with other diabetic kidney complication (principal); R80.9 Proteinuria, unspecified; Z79.4 Long term (current) use of insulin | CPT/HCPCS: 82947; 83036; 99212 ==

== ENCOUNTER 2022-08-04 06:08 | Outpatient (REF) | payer OTHER, SELFPAY ==
[2022-08-10 21:03] LABS: Apolipoprotein B 90 mg/dL (<90)
[2022-08-10 23:07] LABS: Lipoprotein A 552 nmol/L (<75)
[2022-08-12 09:09] LABS: Lipoprotein Asso Phospholip A2 67 (<124)
== END 2022-08-04 06:09 | disposition home or self-care (01) ==
LOC: HO.LAB 06:08
PROVIDERS: PCP Internal Medicine; Visit Provider Internal Medicine
DX: E78.00 Pure hypercholesterolemia, unspecified (principal)
CPT/HCPCS: 36415; 82172; 83695; 83698

== ENCOUNTER 2022-09-28 14:13 | Outpatient (AMB) | payer OTHER, SELFPAY ==
--- NOTE | 2022-09-28 14:55 | MHC.AMDMED ---
Intake Intake Visit Reasons: DM Tool Maker Required: Yes Tool Maker Language: Explosives Worker Name: Christen [id number] Information Interpreted: non-clinical & clinical Accompanied by: Self / Same As Patient Allergies No Known Allergies [No Known Allergies*] Allergy (Verified 08/07/22 16:05) HPI Comprehensive Diabetes Asmnt Most Recent Diabetes Results: No Data to Display [facility] Medical History Diabetes mellitus Essential hypertension Hypovitaminosis D Latent tuberculosis by blood test Microalbuminuria Pure hypercholesterolemia S/P angiogram of extremity (~02/13/19) Surgical History History of bilateral tubal ligation History of renal artery stenosis Family History Father No problems noted. Mother Hypertension Social History Housing: Apartment Alcohol intake: never Patient Tobacco Use Status: Never used Tobacco e-Cigarette/Vaping Use: Never Used Second Hand Smoke Exposure: No service: No Current occupational status: employed Current occupational exposures/hazards: No Cognitive needs: No Hearing needs: No Vision needs: No Assessment & Plan Assessment & Plan (1) Diabetes mellitus: Code(s): E11.9 - Type 2 diabetes mellitus without complications Qualifiers: Diabetes mellitus type: type 2 Diabetes mellitus correction insulin use: with correction use Diabetes mellitus complication status: with kidney complications Diabetes mellitus complication detail: with microalbuminuria Qualified Code(s): E11.29 - Type 2 diabetes mellitus with other diabetic kidney complication; R80.9 - Proteinuria, unspecified; Z79.4 - skilled nursing (current) use of insulin Plan: Personal Continuous Glucose Monitor: Patients CGM information reviewed Reviewed patient's sensor data: Hypoglycemia: ? 2% Hyperglycemia:? 18% Time in Range:? 80 % Average glucose for the last 2 weeks?141 mg/dL Patient is having overnight and if you postprandial hypoglycemic event Patient is currently taking Toujeo 40 units Lispro 18 units before meals Trulicity 3 mg weekly Jardiance 10 mg daily Reviewed with patient how to treat hypoglycemia with rule of 15s, hypoglycemia treatment Stateless handout given Instructed patient to reduce Toujeo to 36 units If she continues to experience hypoglycemia contact Diabetes Education Reviewed how to interpret trend arrows Reminded patient that to check finger sticks if symptoms do not match sensor reading. Discussed lag time between finger stick and sensor data.? Patient able to insert sensor independently at home without issue.? Follow-up with early childhood special educator in 3 months Patient Instructions: Reducir toujeo de 40 unidades a 36 unidades Tratar cualquier episodio de hipoglucemia, con pennie de 15 Seguimiento con enfermera de Educaci?n en Diabetes en 3 meses Coding Level of Care Code Est Pt Level 1 (66281) Diagnoses Diabetes mellitus E11.29; R80.9; Z79.4 Diabetes mellitus type: type 2 Diabetes mellitus correction insulin use: with tank terminal gauger use Diabetes mellitus complication status: with kidney complications Diabetes mellitus complication detail: with microalbuminuria
== END 2022-09-28 14:58 | disposition home or self-care (01) ==
PROVIDERS: PCP Internal Medicine; Visit Provider Registered Nurse Diabetes Educator
DX: E11.29 Type 2 diabetes mellitus with other diabetic kidney complication (principal); R80.9 Proteinuria, unspecified; Z79.4 Long term (current) use of insulin

== ENCOUNTER → 2022-09-28 14:13 | Outpatient (BNVA) | payer OTHER, SELFPAY | PROVIDERS: Visit Provider Registered Nurse Diabetes Educator | DX: E11.29 Type 2 diabetes mellitus with other diabetic kidney complication (principal); R80.9 Proteinuria, unspecified; Z79.4 Long term (current) use of insulin | CPT/HCPCS: 99211 ==

== ENCOUNTER 2022-10-21 07:01 | Outpatient (REF) | payer OTHER, SELFPAY ==
[2022-10-21 07:23] LABS: MANUAL DIFF FLAG NO
[2022-10-21 08:03] LABS: Basophils Absolute Auto 0.1 X10*3/uL (0.0-0.2); Eosinophils Absolute Auto 0.3 X10*3/uL (0.0-0.4); Eosinophils Percent Auto 6.1 % (0-4); Hematocrit 44.7 % (37.0-47.0); Hemoglobin 14.1 g/dl (12.0-16.0); Imm Gran Abs Auto 0.01 X10*3/uL (0.00-0.03); Imm Gran Pct Auto 0.2 % (0.0-0.4); Lymphocytes Absolute Auto 2.5 X10*3/uL (1.2-4.9); Lymphocytes Percent Auto 46.4 % (20-40); Mean Corpuscular HGB Conc 31.5 g/dl (31.0-35.0); Mean Corpuscular Volume 85.5 fL (80.0-98.0); Mean Platelet Volume 11.4 fL (9.4-12.3); Monocytes Absolute Auto 0.5 X10*3/uL (0.1-1.2); Monocytes Percent Auto 8.5 % (2-11); Neutrophils Percent Auto 36.8 % (45-73); Platelet Count 321 X10*3/uL (160-400); Red Blood Count 5.23 X10*6/uL (4.20-5.50); Red Cell Distribution Width 13.3 % (11.0-16.0); White Blood Count 5.4 X10*3/uL (4.8-10.8)
[2022-10-21 08:09] LABS: Appearance Urine Clear; Color Urine Yellow; Glucose Urine UA >=1000 mg/dL (Negative); Leukocyte Esterase Urine Negative (Negative); Nitrite Urine Negative (Negative); PH 5.5 (5.0-9.0); UMIC TRIGGER UA YES; Urine Blood Negative (Negative); Urine Ketones Negative (Negative); Urine Protein 300 (3+) mg/dL (Neg-Trace)
[2022-10-21 08:15] LABS: Bacteria Urine None Seen (None Seen); Hyaline Casts Urine 0-2 /LPF (0-2); RBC Urine 0-2 /HPF (0-2); Squamous Epithelial Cell Urine 0-2 /HPF (0-2); WBC Urine 0-5 /HPF (0-5)
[2022-10-21 08:21] LABS: Calcium 10.1 mg/dL (8.4-10.2); Magnesium 2.1 mg/dL (1.6-2.6); Phosphorus 3.7 mg/dL (2.7-4.5)
[2022-10-21 08:31] LABS: Protein/Creatinine Ratio, Ur 2.86 (<0.2); Total Protein Urine Random 199 mg/dL (<12)
[2022-10-22 14:59] LABS: Calcium (PTHI) 9.8 mg/dL (8.6-10.4); PTHI 50 pg/mL (16-77)
== END 2022-10-21 07:02 | disposition home or self-care (01) ==
LOC: HO.LAB 07:01
PROVIDERS: PCP Internal Medicine; Visit Provider Internal Medicine Nephrology
DX: R80.1 Persistent proteinuria, unspecified (principal); E11.21 Type 2 diabetes mellitus with diabetic nephropathy; I12.9 Hypertensive chronic kidney disease with stage 1 through stage 4 chronic kidney disease, or unspecified chronic kidney disease; E11.22 Type 2 diabetes mellitus with diabetic chronic kidney disease; N18.2 Chronic kidney disease, stage 2 (mild); I10 Essential (primary) hypertension
CPT/HCPCS: 36415; 81001; 81003; 82040; 82310; 82570; 83735; 83970; 84100; 84156; 85025; 87086

== ENCOUNTER 2022-10-24 14:16 | Outpatient (AMB) | payer OTHER, SELFPAY ==
[2022-10-24 14:26] VITALS: BMI 23.6
--- NOTE | 2022-10-24 14:26 | A.OFFVIS_ITS ---
Intake VS Expanded 10/24/22 14:26 Height 5 ft 6 in Weight 146 lb 6.191 oz BMI 23.6 Intake Visit Reasons: T2DM Allergies No Known Allergies [No Known Allergies*] Allergy (Verified 08/07/22 16:05) HPI Nutrition Presentation Details Pt presents for MNT for T2DM. Pt expresses concerns with blood sugar fluctuation regardless of what she consumes. Pt has met with DM Educator, last bg report in 09/2022 showed 80% of bg within target. Pt reports having questions regarding carbohydrates, simple sugar food frequency fruits: 0-1/d ve-5/wk dairy: 3 daily protein: fish/beef/pork/poultry 8-12 oz/d starches > 20 serving fluids: water, juice, soda, coffee varies physical activity: walks [place] ETOH/Smoking: denies PMH-Vnzqpoy-Bv.Jeor Equation Height 5 ft 6 in Weight 147 lb Resting Metabolic Rate 1257.66 Calculated Activity Level Mild Activity Calories Needed to Maintain Weight 1729.28 Diagnosis Nutrition problem #1 food nutri know defi As related to (etiology) #1 diagnosis As evidenced by (sign/symptom) #1 knowledge deficit of diet Monitoring/Goals Nutrition problem monitoring level of knowledge/skill and total CHO intake Nutrition goal/outcome list 3 CHO foods and list 3 high fiber foods Most Recent Diabetes Results: Calcium 10.1 mg/dL (8.4-10.2) 10/21/22 Albumin 4.0 g/dL (3.5-5.0) 10/21/22 [facility] Medical History Diabetes mellitus Essential hypertension Hypovitaminosis D Latent tuberculosis by blood test Microalbuminuria Pure hypercholesterolemia S/P angiogram of extremity (~02/13/19) Surgical History History of bilateral tubal ligation History of renal artery stenosis Family History Father No problems noted. Mother Hypertension Social History Housing: Apartment Alcohol intake: never Patient Tobacco Use Status: Never used Tobacco e-Cigarette/Vaping Use: Never Used Second Hand Smoke Exposure: No service: No Current occupational status: employed Current occupational exposures/hazards: No Cognitive needs: No Hearing needs: No Vision needs: No Assessment & Plan Assessment & Plan (1) Diabetes mellitus: Code(s): E11.9 - Type 2 diabetes mellitus without complications Qualifiers: Diabetes mellitus type: type 2 Diabetes mellitus senior living insulin use: with senior living use Diabetes mellitus complication status: with kidney co mplications Diabetes mellitus complication detail: with microalbuminuria Qualified Code(s): E11.29 - Type 2 diabetes mellitus with other diabetic kidney complication; R80.9 - Proteinuria, unspecified; Z79.4 - long-term (current) use of insulin Plan: wt: 66 kg Est kcal needs as per MSJ: 1700 (40% carb, 30% protein/fat) Est fluid needs as per 25-30 ml/d: 1700 Est prot per day as per 1 g/kg bw: 66 Recommend fiber intake : 8-10 g per day and gradually increase to 25-28 g per day for women and 35-38 g for men or as tolerated Recommend sodium intake per day : less than 1500 mg less than 2000 mg Educated patient on: ( R = reviewed V = verbalizes understanding N/R = needs review N/A = not applicable * Food sources of carbohydrate, adequate serving sizes and its role in various health conditions: R * Differences between complex carbohydrates a simple carbohydrates, role of fiber in diet: R * Differences between types of fats and role in diet (mono on saturated fat fatty acids, saturated fatty acids, trans fats): R low fat basic * Food sources of sodium in salt and healthy modifications for heart health in kidney health: NR * Healthy plate method concept: R V * Physical activity: Benefits a precaution: R * Hypoglycemia protocol (rule of 15): R * Dietary prevention of Hyperglycemia: R Patient Instructions: Become familiar with amount of carbohydrate at a meal Measure portion sizes and count g of carbs - see list of foods /carbs per serving size, read labels, Familiaricese con la cantidad de g de carbohidratos en alok comida. Mida la racion, cuente los gramos de carbohidratos en la divya (alok comida ) bakari la lista de comidas/porciones y gramos de carb, yvonne las etiquetas Coding Level of Care Code Nutr Indiv Intake (29893) Diagnoses Type 2 diabetes mellitus with microalbuminuria, with long-term current use of insulin E11.29; R80.9; Z79.4 Diabetes mellitus type: type 2 Diabetes mellitus senior living insulin use: with terminal operator use Diabetes mellitus complication status: with kidney complications Diabetes mellitus complication detail: with microalbuminuria Time Spent (min) 30
[2022-10-30 11:28] VITALS: BMI 23.7
== END 2022-10-24 15:12 | disposition home or self-care (01) ==
PROVIDERS: PCP Internal Medicine; Visit Provider Dietitian, Registered
DX: E11.29 Type 2 diabetes mellitus with other diabetic kidney complication (principal); R80.9 Proteinuria, unspecified; Z79.4 Long term (current) use of insulin

== ENCOUNTER → 2022-10-24 14:16 | Outpatient (BNVA) | payer OTHER, SELFPAY | PROVIDERS: Visit Provider Dietitian, Registered | DX: E11.29 Type 2 diabetes mellitus with other diabetic kidney complication (principal); R80.9 Proteinuria, unspecified; Z79.4 Long term (current) use of insulin; Z71.3 Dietary counseling and surveillance | CPT/HCPCS: 97802 ==

== ENCOUNTER 2022-11-14 14:33 | Outpatient (AMB) | payer OTHER, SELFPAY ==
[2022-11-14 14:39] VITALS: BP 172/80; PULSE 106; BMI 23.5
--- NOTE | 2022-11-14 14:39 | MHC.OFFVIS ---
Intake Vital Signs 11/14/22 14:39 Height 5 ft 6 in Weight 145 lb 11.609 oz BMI 23.5 BP 172/80 H Blood Pressure Location Lt brachial Position Sitting Pulse 106 H Pulse Source Pulse Oximeter Intake Visit Reasons: f/u Type 2 DM/LVM Intake Note: Patient presents today to follow up on Type 2 Diabetes Mellitus. Patient receives DME supplies through: Last Diabetic Eye exam: 06/2022 Last Podiatry Visit:None Random Glucose 136: mg/dl HgA1C: 8.0% Poultry Buyer Required: Yes Poultry Buyer Language: Developmental Mathematics Instructor Name: Rebeca- Medical staff Information Interpreted: non-clinical & clinical Accompanied by: Self / Same As Patient Allergies No Known Allergies [No Known Allergies*] Allergy (Verified 11/14/22 14:45) HPI HPI Comments History of Present Illness Details 62 YO F who is seen in consultation for T2DM at the request of PCP. Initially diagnosed with T2DM in 7-8 yrs ago . Saw jaden when first diagnosed Was initially started on treatment with metformin . Current regimen Jardiance 10 mg QD metformin 1000 mg BID Toujeo 40 units . Humalog pre breakfast and pre lunch 151-200 4 units , 201-250 6 units and >250 8 units Trulicity 3 mg Qwkly Rosa Isela download shows she use the sensor 96% of the time. Average glucose 158 with G mi of 7.1% and variability 34.3%. 74% range with 26% hyperglycemia and no hypoglycemia. Hypoglycemia is occurring primarily after breakfast but pt states POC goes up without eating No hypoglycemia No Family history of T2DM. Has eyes checked yearly, last eye exam last appt 07/14/2022 , has retinopathy. Denies neuropathy, , does not sees podiatry. Has nephropathy, on MALACHI/ARB. Has HLD, on statin. Denies CAD. Not Had diabetes education. [facility] Medical History Diabetes mellitus Essential hypertension Hypovitaminosis D Latent tuberculosis by blood test Microalbuminuria Pure hypercholesterolemia S/P angiogram of extremity (~02/13/19) Surgical History History of bilateral tubal ligation History of renal artery stenosis Family History Father No problems noted. Mother Hypertension Social History Housing: Apartment Alcohol intake: never Patient Tobacco Use Status: Never used Tobacco e-Cigarette/Vaping Use: Never Used Second Hand Smoke Exposure: No service: No Current occupational status: employed Current occupational exposures/hazards: No Cognitive needs: No Hearing needs: No Vision needs: No Physical Exam Vital Signs: Last Vital Signs Pulse 106 H 11/14/22 14:39 BP 172/80 H 11/14/22 14:39 BMI result Body Mass Index 23.5 Absence of Cushingoid features. Absence of acromegalic features. Neck exam reveals nl size thyroid about 15 gms. No thyroid nodules palpable. No carotid bruits present. Lungs CTA. Heart S1 S2, Reg R/R. No M/R/ G. Skin exam reveals absence of vitiligo or acanthosis nigricans. Abdominal exam reveals Soft NT/ND with NA BS. No organomegaly present. Neck Other: . Extrem Other: Visual exam of foot performed. No ulcerations or open lesions. No onchomycosis, no callouses.Pulses 2 + distally Sensation intact to monofilament exam. Vibratory sensation sensed is intact with 128 Hz tuning fork Results AMB Hemoglobin A1c AMB Hemoglobin A1c 8.0 % Last Edit by Sabi Sifuentes on 11/14/22 14:59 Results Reviewed Results Reviewed: 11/14/22 14:49 Glucose, Whole Blood Routine Laboratory Last Values Glucose (Clinic) 136 mg/dL (60-115) H 11/14/22 14:49 Hgb A1c (Clinic) 8.0 % (4.0-6.0) H 11/14/22 14:53 Assessment & Plan Assessment & Plan (1) Diabetes mellitus: Code(s): E11.9 - Type 2 diabetes mellitus without complications Qualifiers: Diabetes mellitus type: type 2 Diabetes mellitus shelter insulin use: with executive coordinator use Diabetes mellitus complication status: with kidney complications Diabetes mellitus complication detail: with microalbuminuria Qualified Code(s): E11.29 - Type 2 diabetes mellitus with other diabetic kidney complication; R80.9 - Proteinuria, unspecified; Z79.4 - orientation and mobility instructor (current) use of insulin Plan: This 62-year-old female with a history of type 2 diabetes being treated with metformin, Janett Worthingtonance and basal-bolus insulin with improved good glycemic control and known microvascular and macrovascular complications namely PVD and microalbuminuria The plan is to increase the Humalog pre breakfast by 4 units. We also talked about modifying the diet and possibly meal substitution with Glucerna shakes. Orders: Orders AMB Hemoglobin A1c Today E11.9 - Type 2 diabetes mellitus without complications Coding Level of Care Code Est Pt Level 4 (44352) Diagnoses Type 2 diabetes mellitus with microalbuminuria, with long-term current use of insulin E11.29; R80.9; Z79.4 Diabetes mellitus type: type 2 Diabetes mellitus executive coordinator insulin use: with shelter use Diabetes mellitus complication status: with kidney complications Diabetes mellitus complication detail: with microalbuminuria
[2022-11-14 14:53] LABS: Glucose, Whole Blood 136 mg/dL (60-115)
== END 2022-11-14 15:13 | disposition home or self-care (01) ==
PROVIDERS: PCP Internal Medicine; Visit Provider Internal Medicine Endocrinology, Diabetes & Metabolism
DX: E11.29 Type 2 diabetes mellitus with other diabetic kidney complication (principal); R80.9 Proteinuria, unspecified; Z79.4 Long term (current) use of insulin
CPT/HCPCS: 99214

== ENCOUNTER → 2022-11-14 14:33 | Outpatient (BNVA) | payer OTHER, SELFPAY | PROVIDERS: Visit Provider Internal Medicine Endocrinology, Diabetes & Metabolism | DX: E11.29 Type 2 diabetes mellitus with other diabetic kidney complication (principal); R80.9 Proteinuria, unspecified; Z79.4 Long term (current) use of insulin | CPT/HCPCS: 82947; 83036; 99212 ==

== ENCOUNTER 2022-12-28 14:29 | Outpatient (AMB) | payer OTHER, SELFPAY ==
--- NOTE | 2022-12-28 14:55 | A.OFFVIS_ITS ---
Intake Intake Visit Reasons: DM Stone Sandblaster Required: Yes Stone Sandblaster Language: Power Shovel Mechanic Name: Tom Valdovinos Accompanied by: Self / Same As Patient Allergies No Known Allergies [No Known Allergies*] Allergy (Verified 11/14/22 14:45) HPI Comprehensive Diabetes Asmnt Most Recent Diabetes Results: Calcium 10.1 mg/dL (8.4-10.2) 10/21/22 Albumin 4.0 g/dL (3.5-5.0) 10/21/22 [facility] Medical History Diabetes mellitus Essential hypertension Hypovitaminosis D Latent tuberculosis by blood test Microalbuminuria Pure hypercholesterolemia S/P angiogram of extremity (~02/13/19) Surgical History History of renal artery stenosis History of bilateral tubal ligation Family History Father No problems noted. Mother Hypertension Social History Housing: Apartment Alcohol intake: never Patient Tobacco Use Status: Never used Tobacco e-Cigarette/Vaping Use: Never Used Second Hand Smoke Exposure: No service: No Current occupational status: employed Current occupational exposures/hazards: No Cognitive needs: No Hearing needs: No Vision needs: No Assessment & Plan Assessment & Plan (1) Diabetes mellitus: Code(s): E11.9 - Type 2 diabetes mellitus without complications Qualifiers: Diabetes mellitus type: type 2 Diabetes mellitus retirement insulin use: with retirement use Diabetes mellitus complication status: with kidney complications Diabetes mellitus complication detail: with microalbuminuria Qualified Code(s): E11.29 - Type 2 diabetes mellitus with other diabetic kidney complication; R80.9 - Proteinuria, unspecified; Z79.4 - terminal operations manager (current) use of insulin Plan: Learning objectives: The patient was provided with verbal and written education on the following topics as outlined below. Assess patient education level/literacy/barriers Patient questions/concerns, patient did not bring meter to today's visit were unable to review patient's glucose numbers. patient denies having hypoglycemia since last visit. At last visit recommended to patient to decrease Toujeo to 36 unit, however patient continues to take 40 units. patient's last A1c on 11/14/2022 8% The patient met all learning objectives and was able to verbalize understanding and provide teach back of education topics discussed . The patient was provided with the opportunity to ask questions and all questions were answered. Topics covered in today?s session included: Insulin/Injectables (If applicable) ? Storage/care of insulin? Injection sites? Site rotation? Onset, peak, duration ? Drawing up insulin? Injecting insulin/other injectables? Sharps disposal Continuous blood glucose monitoring (if applicable) Hypoglycemia and Hyperglycemia ? Signs and symptoms? Causes? Treatment? Preventing hypoglycemia? When to seek medical attention ?Blood glucose targets and how you feel when your blood glucose is in and out of your target ranges. ?Monitoring and knowing your A1C. ?What can make blood glucose go up and down and preventing high and low blood glucose. ?Review of blood sugar targets in expected goal range and outside of expected goal range. ?Problem solving and preventing hyper/hypoglycemia. ?Sick day management of diabetes. ?Using blood sugar results in decision making process in managing diabetes. ?Patient was receptive to information provided and participated in the discussion. Asked?appropriate questions and demonstrated good understanding of the topics discussed.? ? Educational Materials: The patient was provided with the following written educational materials: Target Goal handout New Smart Goal: patient will bring meter to every visit Patient Response to instructions: Comprehension of Instructions: fair Readiness to make changes:? pre contemplation How confident they feel about making changes: fair Patient Instructions: patient follow-up with Diabetes Education nurse 5 months Coding Level of Care Code Est Pt Level 1 (75833) Diagnoses Type 2 diabetes mellitus with microalbuminuria, with long-term current use of insulin E11.29; R80.9; Z79.4 Diabetes mellitus type: type 2 Diabetes mellitus termite control representative insulin use: with retirement use Diabetes mellitus complication status: with kidney complications Diabetes mellitus complication detail: with microalbuminuria
== END 2022-12-28 15:01 | disposition home or self-care (01) ==
PROVIDERS: PCP Internal Medicine; Visit Provider Registered Nurse Diabetes Educator
DX: E11.29 Type 2 diabetes mellitus with other diabetic kidney complication (principal); R80.9 Proteinuria, unspecified; Z79.4 Long term (current) use of insulin

== ENCOUNTER → 2022-12-28 14:29 | Outpatient (BNVA) | payer OTHER, SELFPAY | PROVIDERS: PCP Internal Medicine; Visit Provider Registered Nurse Diabetes Educator | DX: E11.29 Type 2 diabetes mellitus with other diabetic kidney complication (principal); R80.9 Proteinuria, unspecified; Z79.4 Long term (current) use of insulin | CPT/HCPCS: 99211 ==

== ENCOUNTER 2023-01-06 07:24 | Outpatient (REF) | payer OTHER, SELFPAY ==
[2023-01-06 08:56] LABS: Alanine Aminotransferase 27 U/L (0-31); Albumin Level 3.9 g/dL (3.5-5.0); Alkaline Phosphatase 75 U/L (39-117); Anion Gap 11 (12-20); Aspartate Amino Transferase 23 U/L (5-31); Bilirubin Total 0.2 mg/dL (0.0-1.0); Blood Urea Nitrogen 33 mg/dL (9-16); Carbon Dioxide 26 mmol/L (22-29); Chloride 109 mmol/L (96-108); Cholesterol 145 mg/dL (<200); Estimated Glomerular Filt Rate 49; Glucose Random 134 mg/dL (60-115); HDL Cholesterol 44 mg/dL (>40); LDL Cholesterol Calculated 88 mg/dL (<100); Potassium 4.8 mmol/L (3.3-5.1); Sodium 141 mmol/L (135-145); Total Protein 7.2 g/dL (6.5-8.0); Triglycerides 69 mg/dL (<150)
== END 2023-01-06 07:25 | disposition home or self-care (01) ==
LOC: HO.LAB 07:24
PROVIDERS: PCP Internal Medicine; Visit Provider Internal Medicine
DX: E11.29 Type 2 diabetes mellitus with other diabetic kidney complication (principal); E78.5 Hyperlipidemia, unspecified; R80.9 Proteinuria, unspecified; Z79.4 Long term (current) use of insulin
CPT/HCPCS: 36415; 80053; 80061; 82043; 82570

== ENCOUNTER 2023-01-09 16:09 | Outpatient (AMB) | payer OTHER, SELFPAY ==
--- NOTE | 2023-01-09 16:18 | A.OFFPC_ITS ---
Vital Signs 01/09/23 16:20 Height 5 ft 6 in Weight 142 lb BMI 22.9 BP 152/80 H Blood Pressure Location Lt brachial Position Sitting Intake Visit Reasons: Annual exam Intake Note: Patient here for an annual physical exam Shaper Operator Required: No Accompanied by: Self / Same As Patient Allergies No Known Allergies [No Known Allergies*] Allergy (Verified 01/09/23 16:34) Medication List - Last Reconciled 01/09/23 by Urszula Taylor MD atorvastatin 80 mg PO BEDTIME 90 days blood sugar diagnostic (FreeStyle Lite Strips) As directed 1-2x daily blood-glucose meter (FreeStyle Lite Meter kit) As directed chlorthalidone 25 mg PO DAILY 90 days cholecalciferol (vitamin D3) 25 mcg PO DAILY 90 days clonidine HCl 0.2 mg PO TID 90 days dulaglutide (Trulicity) 3 mg (0.5 mL) subcut QWEEK empagliflozin (Jardiance) 10 mg PO DAILY ezetimibe 10 mg PO DAILY 90 days flash glucose scanning reader (HeyAnitaStyle Rosa Isela 2 Riner) As directed flash glucose sensor (FreeStyle Rosa Isela 2 Sensor kit) USE DIRECTED TO TEST BLOOD SUGAR CHANGE EVERY 14 DAYS insulin glargine U-300 conc (Toujeo SoloStar U-300 Insulin) 40 units (0.1333 mL) subcut BEDTIME insulin lispro 4 - 8 units (0.04 - 0.08 mL) subcut BID lancets (TRUEplus Lancets) TEST BLOOD SUGAR ONE OR TWO TIMES DAILY DIRECTED losartan 100 mg PO DAILY metformin 1,000 mg PO BID 90 days miscellaneous medical supply (Blood Pressure Cuff) As directed pen needle, diabetic (Pentips) As directed Tobacco use date assessed: 04/11/22 Dental Screening Dental Screen Date: 01/09/23 Did you have a dental visit in the last 12 months?: Yes Did you have a dental problem in the last 6 months where you did not have access to dental care?: No Was dental information given to patient?: Patient has dentist HPI HPI Comments History of Present Illness Details This is a 62-year-old female with diabetes mellitus type 2 that comes for her physical exam. Last A1c was elevated and this is follow by Endocrinology. Last mammogram was 2022 and was normal. Last Pap smear was 2022 and was normal. Last colonoscopy was 2015 showing hyperplastic polyp and next colonoscopy should be 2025. No chest pain or shortness of breath. Follows with Nephrology her microalbuminuria. Blood pressure elevated and I will increase clonidine from 0.2 mg 3 times a day to 0.3 mg 3 times a day. [facility] Medical History (Updated 01/09/23 @ 16:48 by Urszula Taylor MD) Latent tuberculosis by blood test Hypovitaminosis D S/P angiogram of extremity (~02/13/19) Microalbuminuria Pure hypercholesterolemia Diabetes mellitus Essential hypertension Surgical History History of renal artery stenosis History of bilateral tubal ligation Family History Father No problems noted. Mother Hypertension Housing: Apartment Alcohol intake: never Patient Tobacco Use Status: Never used Tobacco e-Cigarette/Vaping Use: Never Used Second Hand Smoke Exposure: No service: No Current occupational status: employed Current occupational exposures/hazards: No Cognitive needs: No Hearing needs: No Vision needs: No Questionnaire Thrive Questionnaire Date Thrive assessed: 04/11/22 LIA-7 AMB Questionnaire LIA-7 Date LIA - 7 assessed: 04/11/22 Source: Developed by Drs. Saurabh Cason, Reina Marcelo, Orlando Ivey and colleagues, with an educational seema from [employer]. Review of Systems Const All systems reviewed & are unremarkable except as noted in HPI and below Eyes Reports no additional complaints, Denies change in vision and Denies other visual disturbances Card Denies chest pain at rest, Denies chest pain with activity, Denies edema, Denies irregular heart rhythm, Denies claudication, Denies dyspnea, Denies dyspnea on exertion, Denies orthopnea, Denies paroxysmal nocturnal dyspnea and Denies slow heart rate Resp Denies cough, Denies dyspnea and Denies dyspnea on exertion GI Denies abdominal pain, Denies change in bowel habits, Denies excessive flatus, Denies nausea and Denies vomiting Denies urinary incontinence, Denies urinary hesitancy and Denies urinary urgency Musc Denies abnormal gait, Denies atrophy, Denies deformity and Denies limited range of motion Skin/Breast Denies bleeding lesions, Denies changing lesions and Denies rash Neuro Denies abnormal gait and Denies lack of coordination Physical exam (Primary Care) Vital Signs: Last Vital Signs BP 152/80 H 01/09/23 16:20 BMI result Body Mass Index 22.9 Tobacco/Smoking Status: Tobacco use Status Tobacco use date assessed 04/11/22 01/09/23 16:18 Patient Tobacco Use Status Never used Tobacco 01/09/23 16:18 e-Cigarette/Vaping Use Never Used 01/09/23 16:18 Thrive Assessment: Date of Thrive Assessment Date Thrive assessed 04/11/22 01/09/23 16:18 Const Orientation/consciousness: patient oriented x3 HENMT Head: Yes normal to inspection, Yes normocephalic and Yes atraumatic Ears: external ears normal Eyes General: appearance normal, both eyes and all related structures Eyelids: Yes eyelids normal Conjunctivae: conjunctivae normal Neck Neck: Yes normal visual inspection and Yes supple Resp Effort & Inspection: normal respiratory effort Auscultation: clear to auscultation bilaterally Cardio Jugular venous distension: no JVD Rate: regular rate Rhythm: regular rhythm Heart sounds: S1 normal heart sound present and S2 normal heart sound present GI Inspection: Yes normal to inspection Palpation (GI): Soft to palpation and nontender Auscultation: normal bowel sounds Skin General skin exam: no rashes or lesions noted Neuro General: patient oriented x3 and no focal motor deficits Extrem General: Yes full ROM Psych Appearance: grossly normal Office Procedures Flu Questionnaire Does the patient have a severe egg allergy?: No Does the patient have severe life threatening allergies?: No Does the patient have a fever or illness today?: No Has the patient ever had Guillain-[place] Syndrome?: No Has the patient ever had any past reaction to a flu shot?: No Immunizations flu vacc [id number] 6mos up(PF) 60 mcg(15 mcgx4)/0.5 mL IM syringe Performing Provider: Urszula Taylor MD [facility] Administered by: ROSLYN Hernandez on 01/09/23 16:58 Dose Route Admin Location Dispensed Lot Number Expiration Date NDC Principal Accounts Clerk 0.5 mL IM Right Deltoid 0.5 mL [id number] 08/19/23 [id number] [place] VIS Given Date VIS Provided VIS Publication Date 01/09/23 Single Vaccine 20 Eligibility Eligibility Date Funding Source Not [facility] Eligible 01/09/23 Private Assessment and Plan Assessment & Plan (1) Physical exam: Code(s): Z00.00 - Encounter for general adult medical examination without abnormal findings Plan: Repeat in a year. (2) Diabetes mellitus: Code(s): E11.9 - Type 2 diabetes mellitus without complications Qualifiers: Diabetes mellitus type: type 2 Diabetes mellitus termination clerk insulin use: with termination clerk use Diabetes mellitus complication status: with kidney complications Diabetes mellitus complication detail: with microalbuminuria Francisco lified Code(s): E11.29 - Type 2 diabetes mellitus with other diabetic kidney complication; R80.9 - Proteinuria, unspecified; Z79.4 - bed bug exterminator (current) use of insulin Plan: Continue insulin. Follow-up with endocrinology. A1c goal is equal or less than 7% Orders: Orders Influenza [id number] Immunization 01/09/23 Z23 - Encounter for immunization Lipid Panel 4 Months E78.5 - Hyperlipidemia, unspecified Vitamin D 25-OH Total 4 Months E55.9 - Vitamin D deficiency, unspecified Comprehensive [place]. Panel Fast 4 Months Z00.00 - Encounter for general adult medical examination without abnormal findings Microalbumin, Random (w Creat) 4 Months E11.9 - Type 2 diabetes mellitus without complications Referrals Orthopedics Referral M65.331 - Trigger finger, right middle finger Medications: New clonidine HCl 0.3 mg PO TID 270 tabs 0RF 90 days empagliflozin (Jardiance) 25 mg PO DAILY 90 tabs 1RF 90 days E11.9 - Type 2 diabetes mellitus without complications Discontinued clonidine HCl Discontinued Reason: Patient Completed Course 0.2 mg PO TID 90 days 270 tabs 3RF Coding Level of Care Code Est Pt Prev Care 40-64y(70530) Diagnoses Physical exam Z00.00 Type 2 diabetes mellitus with microalbuminuria, with long-term current use of insulin E11.29; R80.9; Z79.4 Diabetes mellitus type: type 2 Diabetes mellitus intermediate insulin use: with intermediate use Diabetes mellitus complication status: with kidney complications Diabetes mellitus complication detail: with microalbuminuria Time Spent (min) 33
[2023-01-09 16:20] VITALS: BP 152/80; BMI 22.9
== END 2023-01-09 16:54 | disposition home or self-care (01) ==
PROVIDERS: Visit Provider Internal Medicine
DX: Z23 Encounter for immunization (principal)
CPT/HCPCS: 90471; 90686; 99396

== ENCOUNTER 2023-01-16 14:19 | Outpatient (AMB) | payer OTHER, SELFPAY ==
[2023-01-16 14:53] VITALS: BMI 22.3
--- NOTE | 2023-01-16 14:53 | A.OFFVIS_ITS ---
Intake Vital Signs 01/16/23 14:53 Height 5 ft 6 in Weight 138 lb BMI 22.3 Intake Visit Reasons: Newprob-Trigger finger, right middle finger Intake Note: Joy 62 yr old female who is right hand dominant presents today for a new problem visit for her right ring finger is locking. States this started about 5- 6 months ago and has worsen. States she is not able to fully extend her finger. Patient is diabetic , last A1C was 11/09/22 at 8.0. No injury she can recall. Denies numbness or tingling in hands. Allergies cortison Adverse Reaction (Mild, Uncoded 01/16/23 14:58) elevated sugers HPI Newprob-Trigger finger, right middle finger HPI Details Joy is a 62 year old right hand dominant Upper Sorbian speaking woman who presents with complaints of painful locking of her right middle finger. She complains of locking of her right middle finger, which has been present for ~6 months. She says this is worst in the mornings and she wakes up with her finger locked. She denies any falls or known injury. She denies any numbness or tingling. She is a Diabetic and is not particularly well controlled. Her most recent HgA1c was 8.0% on 11/14/22. She says she had an allergic reaction to a previous cortisone shot, resulting in elevated blood sugars and blood pressure. She says she had a more recent HgA1c but this is not on file yet. [facility] Medical History Latent tuberculosis by blood test Hypovitaminosis D S/P angiogram of extremity (~02/13/19) Microalbuminuria Pure hypercholesterolemia Diabetes mellitus Essential hypertension Surgical History History of renal artery stenosis History of bilateral tubal ligation Family History Father No problems noted. Mother Hypertension Social History Housing: Apartment Alcohol intake: never Patient Tobacco Use Status: Never used Tobacco e-Cigarette/Vaping Use: Never Used Second Hand Smoke Exposure: No service: No Current occupational status: employed Current occupational exposures/hazards: No Cognitive needs: No Hearing needs: No Vision needs: No Review of Systems Const All systems reviewed & are unremarkable except as noted in HPI and below Physical Exam Vital Signs: BMI result Body Mass Index 22.3 Const General: cooperative, healthy appearing and no acute distress Orientation/consciousness: patient oriented x3 HEENT Head: Yes normocephalic and Yes atraumatic Eyes EOM: EOMs intact bilaterally Resp Effort & Inspection: normal respiratory effort and able to speak in complete sentences Cardio Jugular venous distension: no JVD Skin General skin exam: turgor normal Rashes: no rashes Neuro General: patient oriented x3 Extrem Other: Evaluation of Right Upper Extremity: The patient is alert, oriented, and in no acute distress Neuro: Median, Ulnar, Radial nerves motor and sensory intact and sensation is normal to the tips of all digits Vascular: Cap refill brisk ROM: She can make a fist and extend all her digits No locking or catching visible today in clinic Tender over the a1 dustin of the middle finger Skin: No lacerations or abrasions. General: No Ecchymosis. No Erythema or evidence of infection. Psych Appearance: grossly normal Affect: normal affect Attitude: cooperative Assessment & Plan Assessment & Plan (1) Trigger middle finger of right hand: Code(s): M65.331 - Trigger finger, right middle finger (2) Diabetes mellitus: Code(s): E11.9 - Type 2 diabetes mellitus without complications Qualifiers: Diabetes mellitus complication detail: with microalbuminuria Diabetes mellitus complication status: with kidney complications Diabetes mellitus alf insulin use: with legal coordinator use Diabetes mellitus type: type 2 Qualified Code(s): E11.29 - Type 2 diabetes mellitus with other diabetic kidney complication; R80.9 - Proteinuria, unspecified; Z79.4 - pharmacy district manager (current) use of insulin Plan Assessment & Plan: 1. Right middle finger trigger finger I educated her about this condition I discussed operative and non-operative treatment options The patient would like to proceed witsurgery The risks and benefits of operative treatment were discussed with the patient and the patient wishes to proceed with surgery. These risks include, but are not limited to risk of damage to blood vessels, nerves, tendons, infection, recurrence, incomplete relief of preoperative symptoms, persistent pain, possible need for further surgery and the risks associated with regional blocks and anesthesia. The plan is to take the patient to the operating room sometime in the next few weeks for the following procedures: 1. Right middle finger trigger release, under local All of the preoperative paperwork including the consent was filled out today. All the patient's questions were answered. The patient understands that they will be contacted by our computer processing scheduler soon to schedule this procedure She denies blood thinners, asthma, heart, lung, kidney issues She is a Diabetic, her most recent HgA1c was 8.0% on 11/14/22. She reports having a more recent HgA1c but we do not have this on reinaldo. i explained that in order to proceed with surgery her HgA1c needs to be <8.0%. She wants to wait and signed the consent on the day of surgery or after she knows about her hemoglobin A1c. Scribed for Tasneem Collins MD by Ruben Baker, medical records technician, on 01/16/23 at 3:05 PM, EST. Coding Level of Care Code Est Pt Level 4 (82433) Diagnoses Trigger middle finger of right hand M65.331 Type 2 diabetes mellitus with microalbuminuria, with long-term current use of in sulin E11.29; R80.9; Z79.4 Diabetes mellitus complication detail: with microalbuminuria Diabetes mellitus complication status: with kidney complications Diabetes mellitus legal coordinator insulin use: with alf use Diabetes mellitus type: type 2
== END 2023-01-16 15:25 | disposition home or self-care (01) ==
LOC: HO.HOS 14:19
PROVIDERS: PCP Internal Medicine; Visit Provider Orthopaedic Surgery
DX: M65.331 Trigger finger, right middle finger (principal); E11.29 Type 2 diabetes mellitus with other diabetic kidney complication; R80.9 Proteinuria, unspecified; Z79.4 Long term (current) use of insulin
CPT/HCPCS: 99214

== ENCOUNTER → 2023-01-16 14:19 | Outpatient (BNVA) | payer OTHER, SELFPAY | PROVIDERS: PCP Internal Medicine; Visit Provider Orthopaedic Surgery | DX: M65.331 Trigger finger, right middle finger (principal); E11.29 Type 2 diabetes mellitus with other diabetic kidney complication; R80.9 Proteinuria, unspecified; Z79.4 Long term (current) use of insulin | CPT/HCPCS: 99212 ==

== ENCOUNTER 2023-02-03 00:18 | Emergency (ER) | payer OTHER, SELFPAY ==
[2023-02-03 00:32] VITALS: BP 140/84; BP 161/74; PULSE 86; PULSE 94; RESP 20; TEMP 36.9; O2SAT 100; BMI 25.1
--- NOTE | 2023-02-03 00:46 | PC.NURSE ---
pt brought in by ambulance. Pt reports she woke up approximately 30 minutes ago with leg cramps that she has never experienced before; reporting unable to walk . Abdominal pain 2/10 burning in nature across abdomen
--- NOTE | 2023-02-03 01:11 | ECG_ITS ---
Test Reason : WEAKNESS Blood Pressure : / mmHG Vent. Rate : 085 BPM Atrial Rate : 085 BPM P-R Int : 152 ms QRS Dur : 080 ms QT Int : 376 ms P-R-T Axes : 030 009 041 degrees QTc Int : 447 ms Normal sinus rhythm Normal ECG When compared with ECG of 06-MAY-2018 18:12, No significant change was found Referred By: Josie Davey Electronically Signed By:Fredy Corbett
--- NOTE | 2023-02-03 01:16 | ED.GENADULT ---
HPI - General Adult General Chief complaint: General Medical Stated complaint: unwell left leg pain Time Seen by Provider: 02/03/23 00:42 History of Present Illness HPI narrative: Patient is a 62-year-old female presents today with having leg cramps for about 2 3 minutes. Question abdominal pain has completely gone away patient is totally asymptomatic has a history of diabetes. No fever no chills. Positive history of hypertension. History of peripheral vascular disease. Patient from home. There is no chest pain. There is no diaphoresis. There was cramping in the legs that has completely gone. Related Data Home Medications Medication Instructions Recorded Confirmed losartan 100 mg tablet 100 mg PO DAILY 12/08/19 01/09/23 pen needle, diabetic 32 gauge x #50 ea 07/13/22 01/09/23 (Pentips) Previous Rx's Medication Instructions Recorded blood-glucose meter (FreeStyle #1 ea 07/24/20 Lite Meter kit) miscellaneous medical supply #1 ea 04/21/21 (Blood Pressure Cuff) lancets 33 gauge (TRUEplus Lancets) ##100 09/26/21 cholecalciferol (vitamin D3) 25 25 mcg PO DAILY 90 days #90 caps 06/21/22 mcg (1,000 unit) capsule flash glucose scanning reader #1 ea 07/13/22 (FreeStyle Rosa Isela 2 Newberry) ezetimibe 10 mg tablet 10 mg PO DAILY 90 days #90 tabs 09/18/22 insulin glargine U-300 conc 300 40 unit (0.1333 mL) subcut BEDTIME 09/25/22 unit/mL (1.5 mL) subcutaneous pen #13.5 mL (Toujeo SoloStar U-300 Insulin) blood sugar diagnostic (FreeStyle #100 ea 10/02/22 Lite Strips) atorvastatin 80 mg tablet 80 mg PO BEDTIME 90 days #90 tabs 10/03/22 insulin lispro 100 unit/mL 4 - 8 unit (0.04 - 0.08 mL) subcut 11/28/22 subcutaneous pen BID #15 mL chlorthalidone 25 mg tablet 25 mg PO DAILY 90 days #90 tabs 12/24/22 metformin 1,000 mg tablet 1,000 mg PO BID 90 days #180 tabs 12/24/22 dulaglutide 3 mg/0.5 mL 3 mg (0.5 mL) subcut QWEEK #2 mL 12/26/22 subcutaneous pen injector (TrulicAutekBio) flash glucose sensor (FreeStyle #2 kits 12/26/22 Rosa Isela 2 Sensor kit) clonidine HCl 0.3 mg tablet 0.3 mg PO TID 90 days #270 tabs 01/09/23 empagliflozin 25 mg tablet 25 mg PO DAILY 90 days #90 tabs 01/09/23 (Jardiance) Allergies Allergy/AdvReac Type Severity Reaction Status Date / Time cortison AdvReac Mild elevated Uncoded 02/03/23 00:29 amy Review of Systems Review of Systems: No fever no chills no focal weakness PMFSH Past Medical History Attestation statement: The following information was validated with the patient. Medical History Latent tuberculosis by blood test Hypovitaminosis D S/P angiogram of extremity (~02/13/19) Microalbuminuria Pure hypercholesterolemia Diabetes mellitus Essential hypertension Surgical History History of renal artery stenosis History of bilateral tubal ligation Family History Family History Father No problems noted. Mother Hypertension Social History Social History Housing: Apartment Alcohol intake: never Patient Tobacco Use Status: Never used Tobacco e-Cigarette/Vaping Use: Never Used Second Hand Smoke Exposure: No Advance Directives: No Advance Directives Information Provided: No service: No Current occupational status: employed Current occupational exposures/hazards: No Cognitive needs: No Hearing needs: No Vision needs: No Physical Exam ED Vital Signs: Vital Signs - 24 hr 02/03/23 00:32 02/03/23 01:25 Temperature 98.4 F 98.8 F Pulse Rate 86 83 Respiratory Rate 20 18 Blood Pressure 161/74 H 128/68 Pulse Oximetry 100 97 Oxygen Delivery Method Room Air Room Air BMI result Body Mass Index 25.1 Appearance: Alert. Oriented X3. No acute distress. Eyes: Pupils equal, round and reactive to light. ENT: Pharynx normal. Neck: Normal inspection. Neck supple. No lymph nodes noted. No crepitus CVS: Normal heart rate and rhythm. Pulses normal. Normal S1 and S2 Respiratory: No respiratory distress. Breath sounds normal. No Wheezing. No rales Abdomen: Soft and nontender. No rigidity. No distention. good BS x4 Skin: Skin warm and dry. Normal skin color. Normal skin turgor. Extremities: No lower extremity edema. Neurovascular intact to all extremities. No Lacerations. No Rash Neuro: Oriented X 3. No motor deficit. No sensory deficit. Moving all extermities. No slurred speech Medical Decision Making Medical Decision Making [facility] Narrative: Patient's sugar was normal there is no evidence of hypoglycemia. Electrolytes unremarkable. Symptom has completely resolved. There is no pain in the legs bilaterally. Patient had cramping earlier. Potassium is normal. Patient denies any focal weakness. My interpretation of patient's EKG showed a sinus rhythm heart rate is 60 MA QRS QTC within normal limits shows no acute ST segment elevations. Differential Diagnosis Differential Diagnoses: The differential diagnosis associated with the presentation includes Well-appearing no distress neurologically intact positive crampy to bilateral lower extremity which has resolved. Will discharge patient home. There is no evidence of electrolyte disturbances no evidence of hypoglycemia EKG is normal there is no evidence of arrhythmia she is currently in stable condition her hemoglobin is 12.8 she had had that in the past Admission/Observation Consideration of admission/observation: Escalation of care including admission/observation considered Not needed as patient's symptoms completely resolved Lab Data [facility] Lab Attestation statement: I reviewed the patient's lab results. 02/03/23 01:24 02/03/23 01:24 Labs: Lab Results 02/03/23 Range/Units 01:24 WBC 6.9 (4.8-10.8) X10*3/uL RBC 4.44 (4.20-5.50) X10*6/uL Hgb 12.2 (12.0-16.0) g/dl Hct 36.8 L (37.0-47.0) % MCV 82.9 (80.0-98.0) fL MCH 27.5 (27.0-33.0) pg MCHC 33.2 (31.0-35.0) g/dl RDW 13.0 (11.0-16.0) % Plt Count 264 (160-400) X10*3/uL MPV 10.5 (9.4-12.3) fL Immature Gran % (Auto) 0.3 (0.0-0.4) % Neut % (Auto) 54.9 (45-73) % Lymph % (Auto) 30.5 (20-40) % [place] % (Auto) 9.3 (2-11) % Eos % (Auto) 3.8 (0-4) % Baso % (Auto) 1.2 (0-2) % Lymph # (Auto) 2.1 (1.2-4.9) X10*3/uL [place] # (Auto) 0.6 (0.1-1.2) X10*3/uL Eos # (Auto) 0.3 (0.0-0.4) X10*3/uL Baso # (Auto) 0.1 (0.0-0.2) X10*3/uL Abs Immat Gran (auto) 0.02 (0.00-0.03) X10*3/uL Absolute Neuts (auto) 3.8 (2.0-8.3) x10*3/uL Absolute Nucleated RBC 0.000 (0.0-0.012) X10*3/uL Nucleated RBC % (auto) 0.0 (0.0-0.2) /100WBC Sodium 140 (135-145) mmol/L Potassium 3.8 D (3.3-5.1) mmol/L Chloride 107 (96-108) mmol/L Carbon Dioxide 23 (22-29) mmol/L Anion Gap 14 (12-20) BUN 46 H (9-16) mg/dL Creatinine 1.14 (0.5-1.4) mg/dL Estim Creat Clear Calc 49.1 Estimated GFR 49 Random Glucose 96 (60-115) mg/dL Calcium 9.3 D (8.4-10.2) mg/dL Magnesium 2.1 (1.6-2.6) mg/dL Total Bilirubin 0.2 (0.0-1.0) mg/dL Direct Bilirubin < 0.2 (0.0-0.5) mg/dL AST 20 (5-31) U/L ALT 24 (0-31) U/L Alkaline Phosphatase 80 (39-117) U/L Total Protein 6.8 (6.5-8.0) g/dL Albumin 3.6 (3.5-5.0) g/dL Independent Interpretation I performed an independent interpretation of an: EKG (Sinus heart rate is 80 MA QRS QTC within normal limits is no acute ST segment elevation) External Record Review External record reviewed: Office record Previous primary care note reviewed Prescription Management No additional medications will be given Chronic Conditions Patient?s care impacted by: Diabetes and Hypertension Discharge Plan Discharge Clinical Impression: Cramp in lower leg Patient Disposition: Home, Self-Care Instructions: Leg Cramps (ED) Prescriptions: No Action (DME) blood-glucose meter [FreeStyle Lite Meter] Kit See Rx Instructions .ROUTE .MEDSUPPLY Qty: 1 0RF Rx Instructions: As directed (DME) lancets [TRUEplus Lancets] 33 gauge misc See Rx Instructions .ROUTE .COMPLEX Qty: 100 12RF Dose Instruction: TEST BLOOD SUGAR ONE OR TWO TIMES DAILY DIRECTED Rx Instructions: TEST BLOOD SUGAR ONE OR TWO TIMES DAILY DIRECTED cholecalciferol (vitamin D3) 25 mcg (1,000 unit) capsule 25 mcg PO DAILY 90 Days Qty: 90 3RF ezetimibe 10 mg tablet 10 mg PO DAILY 90 Days Qty: 90 1RF Toujeo SoloStar U-300 Insulin 300 unit/mL (1.5 mL) insulin pen 40 unit subcut BEDTIME Qty: 13.5 1RF (DME) FreeStyle Lite Strips Strip See Rx Instructions .ROUTE .MEDSUPPLY Qty: 100 12RF Rx Instructions: As directed 1-2x daily atorvastatin 80 mg tablet 80 mg PO BEDTIME 90 Days Qty: 90 1RF insulin lispro 100 unit/mL insulin pen 4 - 8 unit subcut BID Qty: 15 3RF chlorthalidone 25 mg tablet 25 mg PO DAILY 90 Days Qty: 90 1RF metformin 1,000 mg tablet 1,000 mg PO BID 90 Days Qty: 180 1RF Trulicity 3 mg/0.5 mL pen injector 3 mg subcut QWEEK Qty: 2 5RF (DME) FreeStyle Rosa Isela 2 Sensor Kit See Rx Instructions .ROUTE .COMPLEX Qty: 2 5RF Dose Instruction: USE DIRECTED TO TEST BLOOD SUGAR CHANGE EVERY 14 DAYS Rx Instructions: USE DIRECTED TO TEST BLOOD SUGAR CHANGE EVERY 14 DAYS losartan 100 mg tablet 100 mg PO DAILY clonidine HCl 0.3 mg tablet 0.3 mg PO TID 90 Days Qty: 270 0RF Jardiance 25 mg tablet 25 mg PO DAILY 90 Days Qty: 90 1RF (DME) Blood Pressure Cuff Misc See Rx Instructions .Route Qty: 1 0RF Rx Instructions: As directed (DME) pen needle, diabetic [Pentips] 32 gauge x 5/32 needle See Rx Instructions .ROUTE .MEDSUPPLY Qty: 50 Rx Instructions: As directed (DME) FreeStyle Rosa Isela 2 Newberry Misc See Rx Instructions .Route Qty: 1 0RF Rx Instructions: As directed Referrals: Urszula Reyna MD [Primary Care Provider] - 02/05/23
[2023-02-03 01:25] VITALS: BP 128/68; PULSE 83; RESP 18; TEMP 37.1; O2SAT 97
--- NOTE | 2023-02-03 01:27 | MHC.EDTECH ---
Patient came in by ambulance changed into hospital attire,EKG and vitals taken. Labs were obtained and sent to lab.family at bedside and call flaherty within reach
[2023-02-03 01:30] LABS: MANUAL DIFF FLAG NO
[2023-02-03 01:32] LABS: Basophils Absolute Auto 0.1 X10*3/uL (0.0-0.2); Basophils Percent Auto 1.2 % (0-2); Eosinophils Absolute Auto 0.3 X10*3/uL (0.0-0.4); Eosinophils Percent Auto 3.8 % (0-4); Hematocrit 36.8 % (37.0-47.0); Hemoglobin 12.2 g/dl (12.0-16.0); Imm Gran Abs Auto 0.02 X10*3/uL (0.00-0.03); Imm Gran Pct Auto 0.3 % (0.0-0.4); Lymphocytes Absolute Auto 2.1 X10*3/uL (1.2-4.9); Lymphocytes Percent Auto 30.5 % (20-40); Mean Corpuscular HGB Conc 33.2 g/dl (31.0-35.0); Mean Corpuscular Hemoglobin 27.5 pg (27.0-33.0); Mean Corpuscular Volume 82.9 fL (80.0-98.0); Mean Platelet Volume 10.5 fL (9.4-12.3); Monocytes Absolute Auto 0.6 X10*3/uL (0.1-1.2); Monocytes Percent Auto 9.3 % (2-11); Neutrophils Absolute Auto 3.8 x10*3/uL (2.0-8.3); Neutrophils Percent Auto 54.9 % (45-73); Platelet Count 264 X10*3/uL (160-400); Red Blood Count 4.44 X10*6/uL (4.20-5.50); White Blood Count 6.9 X10*3/uL (4.8-10.8)
[2023-02-03 01:59] LABS: Alanine Aminotransferase 24 U/L (0-31); Albumin Level 3.6 g/dL (3.5-5.0); Alkaline Phosphatase 80 U/L (39-117); Anion Gap 14 (12-20); Aspartate Amino Transferase 20 U/L (5-31); Bilirubin Direct < 0.2 mg/dL (0.0-0.5); Bilirubin Total 0.2 mg/dL (0.0-1.0); Blood Urea Nitrogen 46 mg/dL (9-16); Calcium 9.3 mg/dL (8.4-10.2); Carbon Dioxide 23 mmol/L (22-29); Chloride 107 mmol/L (96-108); Creatinine Clr Calc Pharmacy 49.1; Estimated Glomerular Filt Rate 49; Glucose Random 96 mg/dL (60-115); Magnesium 2.1 mg/dL (1.6-2.6); Potassium 3.8 mmol/L (3.3-5.1); Sodium 140 mmol/L (135-145); Total Protein 6.8 g/dL (6.5-8.0)
== END 2023-02-03 02:30 | disposition home or self-care (01) ==
PROVIDERS: Emergency Provider Emergency Medicine Emergency Medical Services; PCP Internal Medicine
DX: R25.2 Cramp and spasm (principal); M79.605 Pain in left leg; E11.9 Type 2 diabetes mellitus without complications; I10 Essential (primary) hypertension; E78.00 Pure hypercholesterolemia, unspecified; Z79.4 Long term (current) use of insulin; Z79.02 Long term (current) use of antithrombotics/antiplatelets; Z79.899 Other long term (current) drug therapy
CPT/HCPCS: 36415; 80048; 80076; 83735; 85025; 93005; 99283; 99284

== ENCOUNTER → 2023-02-03 01:11 | Outpatient (BNV) | payer OTHER, SELFPAY | PROVIDERS: Emergency Provider Emergency Medicine Emergency Medical Services; PCP Internal Medicine; Visit Provider Internal Medicine Cardiovascular Disease | DX: R53.1 Weakness (principal) | CPT/HCPCS: 93010 ==

== ENCOUNTER 2023-02-13 09:09 | Outpatient (REF) | payer OTHER, SELFPAY ==
--- NOTE | ~2023-02-13 | US_ITS ---
EXAMINATION: US VENOUS ULTRASOUND WITH DOPPLER LOWER EXTREMITY, BILATERAL CLINICAL INFORMATION: Rule out DVT, pain in right leg. COMPARISON: Arterial exam 09/28/2021. TECHNIQUE: Ultrasound of the deep veins is performed from the hip to the calf with compression sonography and color and pulse Doppler assessment. Spectral analysis with color-flow imaging is performed. FINDINGS: RIGHT: There is normal venous compression and respiratory variation and augmented flow. The visualized common femoral vein, superficial femoral vein, profunda femoral vein, popliteal vein, and the trifurcation region shows no evidence of deep venous thrombosis. There is no significant popliteal fossa cyst. LEFT: There is normal venous compression and respiratory variation and augmented flow. The visualized common femoral vein, superficial femoral vein, profunda femoral vein, popliteal vein, and the trifurcation region shows no evidence of deep venous thrombosis. There is no significant popliteal fossa cyst. Incidental note of mid left SFA occlusion known from the 09/28/2021 arterial exam. US/US venous duplex LE BI IMPRESSION: No DVT demonstrated in the bilateral lower extremity.
== END 2023-02-13 09:10 | disposition home or self-care (01) ==
LOC: HO.US 09:09
PROVIDERS: PCP Internal Medicine; Visit Provider Internal Medicine
DX: M79.604 Pain in right leg (principal); M79.605 Pain in left leg
CPT/HCPCS: 93970

== ENCOUNTER 2023-02-17 07:22 | Outpatient (REF) | payer OTHER, SELFPAY ==
[2023-02-17 07:34] LABS: MANUAL DIFF FLAG NO
[2023-02-17 07:46] LABS: Basophils Absolute Auto 0.1 X10*3/uL (0.0-0.2); Basophils Percent Auto 1.3 % (0-2); Eosinophils Absolute Auto 0.4 X10*3/uL (0.0-0.4); Eosinophils Percent Auto 5.9 % (0-4); Hematocrit 41.2 % (37.0-47.0); Hemoglobin 13.1 g/dl (12.0-16.0); Imm Gran Abs Auto 0.01 X10*3/uL (0.00-0.03); Imm Gran Pct Auto 0.2 % (0.0-0.4); Lymphocytes Absolute Auto 2.5 X10*3/uL (1.2-4.9); Lymphocytes Percent Auto 40.4 % (20-40); Mean Corpuscular HGB Conc 31.8 g/dl (31.0-35.0); Mean Corpuscular Hemoglobin 27.2 pg (27.0-33.0); Mean Corpuscular Volume 85.5 fL (80.0-98.0); Monocytes Absolute Auto 0.5 X10*3/uL (0.1-1.2); Monocytes Percent Auto 8.3 % (2-11); Neutrophils Absolute Auto 2.7 x10*3/uL (2.0-8.3); Neutrophils Percent Auto 43.9 % (45-73); Platelet Count 292 X10*3/uL (160-400); Red Blood Count 4.82 X10*6/uL (4.20-5.50); Red Cell Distribution Width 13.2 % (11.0-16.0); White Blood Count 6.2 X10*3/uL (4.8-10.8)
[2023-02-17 08:19] LABS: Albumin Level 3.9 g/dL (3.5-5.0); Anion Gap 14 (12-20); Blood Urea Nitrogen 31 mg/dL (9-16); Calcium 9.6 mg/dL (8.4-10.2); Carbon Dioxide 25 mmol/L (22-29); Chloride 106 mmol/L (96-108); Estimated Glomerular Filt Rate 53; Phosphorus 4.6 mg/dL (2.7-4.5); Potassium 4.5 mmol/L (3.3-5.1); Sodium 140 mmol/L (135-145)
[2023-02-17 08:36] LABS: Vitamin D 25-OH Total 36.6 ng/mL (>30)
[2023-02-17 08:56] LABS: Appearance Urine Clear; Color Urine Yellow; Glucose Urine UA >=1000 mg/dL (Negative); Leukocyte Esterase Urine Negative (Negative); Nitrite Urine Negative (Negative); PH 5.5 (5.0-9.0); UMIC TRIGGER UA YES; Urine Blood Negative (Negative); Urine Ketones Negative (Negative); Urine Protein 100 (2+) mg/dL (Neg-Trace)
[2023-02-17 09:00] LABS: Bacteria Urine None Seen (None Seen); Hyaline Casts Urine 0-2 /LPF (0-2); RBC Urine 0-2 /HPF (0-2); Squamous Epithelial Cell Urine 0-2 /HPF (0-2); WBC Urine 0-5 /HPF (0-5)
[2023-02-17 09:17] LABS: Creatinine Urine 53.31 mg/dL; Protein/Creatinine Ratio, Ur 2.36 (<0.2); Total Protein Urine Random 126 mg/dL (<12)
[2023-02-17 09:30] LABS: Microalbum/Creatinine Ratio Ur 1663.8 ug/mg cr (<30)
== END 2023-02-17 07:23 | disposition home or self-care (01) ==
LOC: HO.LAB 07:22
PROVIDERS: PCP Internal Medicine; Visit Provider Internal Medicine Nephrology
DX: E11.21 Type 2 diabetes mellitus with diabetic nephropathy (principal); R80.1 Persistent proteinuria, unspecified; E11.22 Type 2 diabetes mellitus with diabetic chronic kidney disease; N18.2 Chronic kidney disease, stage 2 (mild)
CPT/HCPCS: 36415; 80051; 81001; 82040; 82043; 82306; 82310; 82565; 82570; 83735; 83970; 84100; 84156; 84520; 85025; 87086

== ENCOUNTER 2023-03-07 14:12 | Outpatient (AMB) | payer OTHER, SELFPAY ==
[2023-03-07 14:28] VITALS: BMI 24.8
--- NOTE | 2023-03-07 14:28 | A.OFFVIS_ITS ---
Intake VS Expanded 03/07/23 14:28 Height 5 ft 4 in Weight 144 lb 9.972 oz BMI 24.8 Intake Visit Reasons: T2DM/LVM Allergies cortison Adverse Reaction (Mild, Uncoded 02/03/23 00:29) elevated sugers HPI Nutrition Presentation Details Pt presents for MNT f/u for T2DM Pt reports irregular eating pattern Drinking water 24-23 oz -fish : 0-1 x/wk -beans: 3 x/wk non starchy ve x/wk milk/yogurt: 1 daily oatmeal nuts: 3 times/wk BG: did not bring to this appt Most Recent Diabetes Results: Microalb/Creat Ratio 1663.8 ug/mg cr (<30) H 02/17/23 Cholesterol 145 mg/dL (<200) 01/06/23 HDL Cholesterol 44 mg/dL (>40) 01/06/23 Triglycerides 69 mg/dL (<150) 01/06/23 Creatinine 1.05 mg/dL (0.5-1.4) 02/17/23 Blood Urea Nitrogen 31 mg/dL (9-16) H 02/17/23 Sodium 140 mmol/L (135-145) 02/17/23 Potassium 4.5 mmol/L (3.3-5.1) 02/17/23 Chloride 106 mmol/L (96-108) 02/17/23 Carbon Dioxide 25 mmol/L (22-29) 02/17/23 Calcium 9.6 mg/dL (8.4-10.2) 02/17/23 AST 20 U/L (5-31) 02/03/23 ALT 24 U/L (0-31) 02/03/23 Total Protein 6.8 g/dL (6.5-8.0) 02/03/23 Albumin 3.9 g/dL (3.5-5.0) 02/17/23 [facility] Medical History Latent tuberculosis by blood test Hypovitaminosis D S/P angiogram of extremity (~02/13/19) Microalbuminuria Pure hypercholesterolemia Diabetes mellitus Essential hypertension Surgical History History of renal artery stenosis History of bilateral tubal ligation Family History Father No problems noted. Mother Hypertension Social History Housing: Apartment Alcohol intake: never Patient Tobacco Use Status: Never used Tobacco e-Cigarette/Vaping Use: Never Used Second Hand Smoke Exposure: No service: No Current occupational status: employed Current occupational exposures/hazards: No Cognitive needs: No Hearing needs: No Vision needs: No Assessment & Plan Assessment & Plan (1) Diabetes mellitus: Code(s): E11.9 - Type 2 diabetes mellitus without complications Qualifiers: Diabetes mellitus type: type 2 Diabetes mellitus medical terminologist insulin use: with medical terminologist use Diabetes mellitus complication status: with kidney complications Diabetes mellitus complication detail: with microalbuminuria Qualified Code(s): E11.29 - Type 2 diabetes mellitus with other diabetic kidney complication; R80.9 - Proteinuria, unspecified; 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 Plan: wt: 65 kg (03/14) Est kcal needs as per MSJ: 1700 (40% carb, 30% protein/fat) Est fluid needs as per 25-30 ml/d: 1700 Est prot per day as per 1 g/kg bw: 66 Recommend fiber intake : 8-10 g per day and gradually increase to 25-28 g per day for women and 35-38 g for men or as tolerated Recommend sodium intake per day : less than 1500 mg less than 2000 mg Educated patient on: ( R = reviewed V = verbalizes understanding N/R = needs review N/A = not applicable * Food sources of carbohydrate, adequate serving sizes and its role in various health conditions: R * Differences between complex carbohydrates a simple carbohydrates, role of fiber in diet: R * Differences between types of fats and role in diet (mono on saturated fat fatty acids, saturated fatty acids, trans fats): R low fat basic * Food sources of sodium in salt and healthy modifications for heart health in kidney health: R * Healthy plate method concept: R V * Physical activity: Benefits a precaution: R * Hypoglycemia protocol (rule of 15): R * Dietary prevention of Hyperglycemia: R Patient Instructions: Choose low sodium foods choices- see list of options Continue working on following healthy plate method Monitor your blood sugar, fasting and 2 hours after a meal, communicate with your doctor if blood sugar are below 70 or higher than 180 for further assessment. Coding Level of Care Code Nutr Indiv Subseq (29122) Diagnoses Type 2 diabetes mellitus with microalbuminuria, with long-term current use of insulin E11.29; R80.9; Z79.4 Diabetes mellitus type: type 2 Diabetes mellitus medical terminologist insulin use: with medical terminologist use Diabetes mellitus complication status: with kidney complications Diabetes mellitus complication detail: with microalbuminuria Time Spent (min) 23
== END 2023-03-07 14:55 | disposition home or self-care (01) ==
PROVIDERS: PCP Internal Medicine; Visit Provider Dietitian, Registered
DX: E11.29 Type 2 diabetes mellitus with other diabetic kidney complication (principal); R80.9 Proteinuria, unspecified; Z79.4 Long term (current) use of insulin

== ENCOUNTER → 2023-03-07 14:12 | Outpatient (BNVA) | payer OTHER, SELFPAY | PROVIDERS: PCP Internal Medicine; Visit Provider Dietitian, Registered | DX: E11.29 Type 2 diabetes mellitus with other diabetic kidney complication (principal); R80.9 Proteinuria, unspecified; Z79.4 Long term (current) use of insulin; Z71.3 Dietary counseling and surveillance | CPT/HCPCS: 97803 ==

== ENCOUNTER 2023-03-22 14:12 | Outpatient (AMB) | payer OTHER, SELFPAY ==
[2023-03-22 14:14] VITALS: BP 180/82; PULSE 90; BMI 24.5
--- NOTE | 2023-03-22 14:14 | MHC.OFFVIS ---
Intake Vital Signs 03/22/23 14:14 Height 5 ft 4 in Weight 142 lb 10.225 oz BMI 24.5 BP 180/82 H Blood Pressure Location Lt brachial Position Sitting Pulse 90 Pulse Source Pulse Oximeter Intake Visit Reasons: f/u Type 2 DM-confirmed Intake Note: Patient presents today to follow up on D2MT. Last Diabetic Eye exam: 06/2022 Last Podiatry Visit:None Random Glucose: 111 mg/dl HgA1C:8.2% Deposit Refund Clerk Required: Yes Deposit Refund Clerk Language: Automatic Wheel Line Operator Name: Marni medical staff Information Interpreted: non-clinical & clinical Accompanied by: Self / Same As Patient Allergies cortison Adverse Reaction (Mild, Uncoded 02/03/23 00:29) elevated sugers Medication List - Last Reconciled 03/22/23 by Saurabh Parsons MD atorvastatin 80 mg PO BEDTIME 90 days blood sugar diagnostic (FreeStyle Lite Strips) As directed 1-2x daily blood-glucose meter (FreeStyle Lite Meter kit) As directed blood-glucose meter (FreeStyle [place] Lite kit) USE DIRECTED chlorthalidone 25 mg PO DAILY 90 days cholecalciferol (vitamin D3) 25 mcg PO DAILY 90 days clonidine HCl 0.3 mg PO TID 90 days dulaglutide (Trulicity) 3 mg (0.5 mL) subcut QWEEK empagliflozin (Jardiance) 25 mg PO DAILY 90 days ezetimibe 10 mg PO DAILY 90 days flash glucose scanning reader (FreeStyle Rosa Isela 2 [place]) As directed insulin glargine U-300 conc (Toujeo SoloStar U-300 Insulin) 40 units (0.1333 mL) subcut BEDTIME insulin lispro 4 - 8 units (0.04 - 0.08 mL) subcut BID lancets (TRUEplus Lancets) TEST BLOOD SUGAR ONE OR TWO TIMES DAILY DIRECTED losartan 100 mg PO DAILY metformin 1,000 mg PO BID 90 days miscellaneous medical supply (Blood Pressure Cuff) As directed pen needle, diabetic (Pentips) As directed HPI HPI Comments History of Present Illness Details 62 YO F who is seen in consultation for T2DM at the request of PCP. Initially diagnosed with T2DM in 7-8 yrs ago . Saw jaden when first diagnosed Was initially started on treatment with metformin . Current regimen Jardiance 25 mg QD metformin 1000 mg BID Toujeo 40 units . Humalog pre breakfast and pre lunch 151-200 4 units , 201-250 6 units and >250 8 units Trulicity 3 mg Qwkly Rosa Isela download shows she use the sensor 70% of the time. Average glucose 157 with G mi of 7.1% and variability 28.8%. 70% range with 29% hyperglycemia and 1% hypoglycemia. Hypoglycemia is occurring primarily after dinner but pt states POC goes up without eating Very infrequent hypoglycemia No Family history of T2DM. Has eyes checked yearly, last eye exam last appt 07/14/2022 , has retinopathy. Denies neuropathy, , does not sees podiatry. Has nephropathy, on MALACHI/ARB. Has HLD, on statin. Denies CAD. Not Had diabetes education. [facility] Medical History Latent tuberculosis by blood test Hypovitaminosis D S/P angiogram of extremity (~02/13/19) Microalbuminuria Pure hypercholesterolemia Diabetes mellitus Essential hypertension Surgical History History of renal artery stenosis History of bilateral tubal ligation Family History Father No problems noted. Mother Hypertension Social History Housing: Apartment Alcohol intake: never Patient Tobacco Use Status: Never used Tobacco e-Cigarette/Vaping Use: Never Used Second Hand Smoke Exposure: No service: No Current occupational status: employed Current occupational exposures/hazards: No Cognitive needs: No Hearing needs: No Vision needs: No Physical Exam Vital Signs: Last Vital Signs Pulse 90 03/22/23 14:14 BP 180/82 H 03/22/23 14:14 BMI result Body Mass Index 24.5 Absence of Cushingoid features. Absence of acromegalic features. Neck exam reveals nl size thyroid about 15 gms. No thyroid nodules palpable. No carotid bruits present. Lungs CTA. Heart S1 S2, Reg R/R. No M/R/ G. Skin exam reveals absence of vitiligo or acanthosis nigricans. Abdominal exam reveals Soft NT/ND with NA BS. No organomegaly present. Neck Other: . Extrem Other: Visual exam of foot performed. No ulcerations or open lesions. No onchomycosis, no callouses.Pulses 2 + distally Sensation intact to monofilament exam. Vibratory sensation sensed is intact with 128 Hz tuning fork Results Reviewed Results Reviewed: Laboratory Last Values Glucose (Clinic) 111 mg/dL (60-115) 03/22/23 14:23 Assessment & Plan Assessment & Plan (1) Diabetes mellitus: Code(s): E11.9 - Type 2 diabetes mellitus without complications Qualifiers: Diabetes mellitus complication detail: with microalbuminuria Diabetes mellitus complication status: with kidney complications Diabetes mellitus skilled nursing insulin use: with skilled nursing use Diabetes mellitus type: type 2 Qualified Code(s): E11.29 - Type 2 diabetes mellitus with other diabetic kidney complication; R80.9 - Proteinuria, unspecified; 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 Her Rosa Isela suggest much better control recently and blood sugars are target then A1c would reflect The plan is to i continue the current therapy. At This point, patient returned to the care of her primary care provider back to endocrinology should her HbA1c deteriorate Coding Level of Care Code Est Pt Level 4 (05621) Diagnoses Type 2 diabetes mellitus with microalbuminuria, with long-term current use of insulin E11.29; R80.9; Z79.4 Diabetes mellitus complication detail: with microalbuminuria Diabetes mellitus complication status: with kidney complications Diabetes mellitus terminal make up operator insulin use: with terminal make up operator use Diabetes mellitus type: type 2
[2023-03-22 14:27] LABS: Glucose, Whole Blood 111 mg/dL (60-115)
== END 2023-03-22 14:46 | disposition home or self-care (01) ==
PROVIDERS: PCP Internal Medicine; Visit Provider Internal Medicine Endocrinology, Diabetes & Metabolism
DX: E11.9 Type 2 diabetes mellitus without complications (principal)
CPT/HCPCS: 99214

== ENCOUNTER → 2023-03-22 14:12 | Outpatient (BNVA) | payer OTHER, SELFPAY | PROVIDERS: PCP Internal Medicine; Visit Provider Internal Medicine Endocrinology, Diabetes & Metabolism | DX: E11.29 Type 2 diabetes mellitus with other diabetic kidney complication (principal); R80.9 Proteinuria, unspecified; Z79.4 Long term (current) use of insulin | CPT/HCPCS: 82947; 83036; 99212 ==

== ENCOUNTER 2023-05-05 06:54 | Outpatient (REF) | payer OTHER, SELFPAY ==
[2023-05-05 07:46] LABS: Alanine Aminotransferase 37 U/L (0-31); Albumin Level 3.9 g/dL (3.5-5.0); Alkaline Phosphatase 93 U/L (39-117); Anion Gap 14 (12-20); Aspartate Amino Transferase 24 U/L (5-31); Bilirubin Total 0.3 mg/dL (0.0-1.0); Blood Urea Nitrogen 28 mg/dL (9-16); Carbon Dioxide 27 mmol/L (22-29); Chloride 106 mmol/L (96-108); Cholesterol 141 mg/dL (<200); Estimated Glomerular Filt Rate > 60; Glucose Fasting 97 mg/dL (60-99); HDL Cholesterol 46 mg/dL (>40); LDL Cholesterol Calculated 80 mg/dL (<100); Potassium 4.8 mmol/L (3.3-5.1); Sodium 142 mmol/L (135-145); Total Protein 7.3 g/dL (6.5-8.0); Triglycerides 79 mg/dL (<150)
[2023-05-05 08:04] LABS: Vitamin D 25-OH Total 47.9 ng/mL (>30)
[2023-05-05 08:25] LABS: Creatinine Urine 47.06 mg/dL
== END 2023-05-05 06:55 | disposition home or self-care (01) ==
LOC: HO.LAB 06:54
PROVIDERS: PCP Internal Medicine; Visit Provider Internal Medicine
DX: Z00.00 Encounter for general adult medical examination without abnormal findings (principal); E78.5 Hyperlipidemia, unspecified; E11.9 Type 2 diabetes mellitus without complications; E55.9 Vitamin D deficiency, unspecified
CPT/HCPCS: 36415; 80053; 80061; 82043; 82306; 82570

== ENCOUNTER 2023-05-10 16:04 | Outpatient (AMB) | payer OTHER, SELFPAY ==
[2023-05-10 16:23] VITALS: BP 152/80; BMI 24.5
--- NOTE | 2023-05-10 16:23 | MHC.PC.OV ---
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 Required: No Accompanied by: Self / Same As Patient Allergies cortison Adverse Reaction (Mild, Uncoded 05/10/23 16:47) elevated sugers Medication List - Last Reconciled 05/10/23 by Urszula Taylor MD atorvastatin 80 mg PO BEDTIME 90 days blood sugar diagnostic (FreeStyle Lite Strips) As directed 1-2x daily blood-glucose meter (FreeStyle Lite Meter kit) As directed blood-glucose meter (FreeStyle [place] Lite kit) USE DIRECTED chlorthalidone 25 mg PO DAILY 90 days cholecalciferol (vitamin D3) 25 mcg PO DAILY 90 days clonidine HCl 0.3 mg PO TID 90 days dulaglutide (Trulicity) 3 mg (0.5 mL) subcut QWEEK empagliflozin (Jardiance) 25 mg PO DAILY 90 days ezetimibe 10 mg PO DAILY 90 days flash glucose scanning reader (FreeStyle Rosa Isela [address] [place]) As directed insulin glargine U-300 conc (Toujeo SoloStar U-300 Insulin) 40 units (0.1333 mL) subcut BEDTIME insulin lispro 4 - 8 units (0.04 - 0.08 mL) subcut BID lancets (TRUEplus Lancets) TEST BLOOD SUGAR ONE OR TWO TIMES DAILY DIRECTED losartan 100 mg PO DAILY metformin 1,000 mg PO BID 90 days miscellaneous medical supply (Blood Pressure Cuff) As directed pen needle, diabetic (Pentips) As directed Tobacco use date assessed: 05/10/23 Dental Screening Dental Screen Date: 05/10/23 Did you have a dental visit in the last 12 months?: Yes Did you have a dental problem in the last 6 months where you did not have access to dental care?: No Was dental information given to patient?: Patient has dentist HPI HPI Comments History of Present Illness Details This is 62-year-old female with diabetes mellitus type 2, hypertension, pure hypercholesterolemia, microalbuminuria and peripheral arterial disease that comes today for follow-up on her conditions. A1c within goal. LDL within goal. Blood pressure elevated and I will add verapamil. She use amlodipine in the past having leg edema. Microalbuminuria is follow by Nephrology. Has peripheral arterial disease evaluated by vascular surgery in January and she missed an appointment and would like to reconnect again. Vascular surgery has for a new referral. She denies any chest pain or shortness of breath. Blood pressure will be recheck in 3 weeks by nurse navigator. [facility], LAT[facility] Medical History (Updated 05/11/23 @ 08:40 by Urszula Taylor MD) Femoral artery occlusion Latent tuberculosis by blood test Hypovitaminosis D S/P angiogram of extremity (~02/13/19) Microalbuminuria Pure hypercholesterolemia Diabetes mellitus Essential hypertension Surgical History History of renal artery stenosis History of bilateral tubal ligation Family History Father No problems noted. Mother Hypertension Social History Housing: Apartment Alcohol intake: never Patient Tobacco Use Status: Never used Tobacco e-Cigarette/Vaping Use: Never Used Second Hand Smoke Exposure: No service: No Current occupational status: employed Current occupational exposures/hazards: No Cognitive needs: No Hearing needs: No Vision needs: No Questionnaire PHQ-9 Over the last 2 weeks, how often have you been bothered by any of the following problems? 1. Little interest or pleasure in doing things: not at all 2. Feeling down, depressed, or hopeless: not at all 3. Trouble falling or staying asleep, or sleeping too much: not at all 4. Feeling tired or having little energy: not at all 5. Poor appetite or overeating: not at all 6. Feeling bad about yourself - or that you are a failure or have let yourself or your family down: not at all 7. Trouble concentrating on things, such as reading the newspaper or watching television: not at all 8. Moving or speaking so slowly that other people could have noticed. Or the opposite - being so fidgety or restless that you have been moving around a lot more than usual: not at all 9. Thoughts that you would be better off or of hurting yourself in some way: not at all Total score: 0 Depression Screening Interpretation: Negative Depression Screening Done: Yes 48759 - PHQ-9 Billing: Yes Source: Developed by Drs. Saurabh Cason, Orlando Ware and colleagues, with an educational seema from [employer]. Thrive Questionnaire Date Thrive assessed: 05/10/23 I am a: Patient What is your living situation today?: I have a steady place to live Within the past 12 months, did the food you bought not last and you didn't have the money to get more?: Never true Within the past 12 months, did you worry whether your food would run out before you got money to buy more?: Never true Do you have trouble paying for medicines?: No Do you have trouble getting transportation to medical appointments?: No Do you have trouble paying your heating and electricity bill?: No Do you have trouble taking care of your child, family member or friend?: No Do you have trouble with day-to-day activities such as bathing, preparing meals, shopping, managing finances, etc.?: No Are you currently unemployed and looking for a job?: No Are you interested in more education?: No Please select the resources that you would like help with: None Currently or been in a relationship where the following occur: no concerns reported THRIVE Score: 0 AUDIT C Alcohol Use Questionnaire (AUDIT-C) 1. How often do you have a drink containing alcohol?: Never Total Score: 0 Score Reviewed/Action Taken: No LIA-7 AMB Questionnaire LIA-7 Date LIA - 7 assessed: 05/10/23 Feeling nervous, anxious, or on edge: 0 = Not at all Not being able to stop or control worryin = Not at all Worrying too much about different things: 0 = Not at all Trouble relaxin = Not at all Being so restless that it is hard to sit still: 0 = Not at all Becoming easily annoyed or irritable: 0 = Not at all Feeling afraid as if something awful might happen: 0 = Not at all Total LIA-7 score (0-4 normal; 5-9 mild; 10-14 moderate; 15-21 severe): 0 Source: Developed by Reina Burdick Kurt Kroenke and colleagues, with an educational seema from [employer]. LIA-7 Assessment Billing LIA-7 Assessment Tool: LIA-7 Assessment 10278 Review of Systems Const All systems reviewed & are unremarkable except as noted in HPI and below Eyes Reports no additional complaints, Denies change in vision and Denies other visual disturbances Card Denies chest pain at rest, Denies chest pain with activity, Denies edema, Denies irregular heart rhythm, Denies claudication, Denies dyspnea, Denies dyspnea on exertion, Denies orthopnea, Denies paroxysmal nocturnal dyspnea and Denies slow heart rate Resp Denies cough, Denies dyspnea and Denies dyspnea on exertion GI Denies abdominal pain, Denies change in bowel habits, Denies excessive flatus, Denies nausea and Denies vomiting Denies urinary incontinence, Denies urinary hesitancy and Denies urinary urgency Musc Denies abnormal gait, Denies atrophy, Denies deformity and Denies limited range of motion Skin/Breast Denies bleeding lesions, Denies changing lesions and Denies rash Neuro Denies abnormal gait and Denies lack of coordination Physical exam (Primary Care) Vital Signs: Last Vital Signs BP 152/80 H 05/10/23 16:23 BMI result Body Mass Index 24.5 Tobacco/Smoking Status: Tobacco use Status Tobacco use date assessed 05/10/23 05/10/23 16:30 Patient Tobacco Use Status Never used Tobacco 05/10/23 16:30 e-Cigarette/Vaping Use Never Used 05/10/23 16:30 PHQ-9: PHQ-9 Score PHQ-9: Total score 0 05/10/23 16:50 Depression Screening Interpretation: Negative Thrive Assessment: Date of Thrive Assessment Date Thrive assessed 05/10/23 05/10/23 16:30 Currently or been in a relationship where the following occur: no concerns reported Eyes General: appearance normal, both eyes and all related structures Eyelids: Yes eyelids normal Conjunctivae: conjunctivae normal Neck Neck: Yes normal visual inspection and Yes supple Resp Effort & Inspection: normal respiratory effort Auscultation: clear to auscultation bilaterally Cardio Jugular venous distension: no JVD Rate: regular rate Rhythm: regular rhythm Heart sounds: S1 normal heart sound present and S2 normal heart sound present Extrem General: Yes full ROM Assessment and Plan Assessment & Plan (1) Diabetes mellitus: Code(s): E11.9 - Type 2 diabetes mellitus without complications Qualifiers: Diabetes mellitus type: type 2 Diabetes mellitus terminal system operator insulin use: with correction use Diabetes mellitus complication status: with kidney complications Diabetes mellitus complication detail: with microalbuminuria Qualified Code(s): E11.29 - Type 2 diabetes mellitus with other diabetic kidney complication; R80.9 - Proteinuria, unspecified; 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 A1c goal is equal or less than 7%. (2) Essential hypertension: Code(s): I10 - Essential (primary) hypertension Plan: Continue losartan, chlorthalidone and clonidine. Start verapamil. Blood pressure goal is equal or less than 130/80. Recheck blood pressure with nurse navigator in 3 weeks. (3) Pure hypercholesterolemia: Code(s): E78.00 - Pure hypercholesterolemia, unspecified Plan: Continue statins and Zetia. LDL goal is less than 70. (4) Microalbuminuria: Code(s): R80.9 - Proteinuria, unspecified Plan: Follow-up with nephrology. Get blood pressure within goal. Avoid NSAIDs. (5) PAD (peripheral artery disease): Comment: 02/13/2019- left common iliac stent Code(s): I73.9 - Peripheral vascular disease, unspecified Plan: Referred to vascular surgery again Orders: Referrals Vascular Surgery Referral I70.209 - Unspecified atherosclerosis of the [place] arteries of extremities, unspecified extremity, I73.9 - Peripheral vascular disease, unspecified Medications: New verapamil ER 120 mg PO DAILY 90 days 90 caps 0RF Coding Level of Care Code Est Pt Level 4 (85769) Diagnoses Type 2 diabetes mellitus with microalbuminuria, with long-term current use of insulin E11.29; R80.9; Z79.4 Diabetes mellitus type: type 2 Diabetes mellitus terminal system operator insulin use: with correction use Diabetes mellitus complication status: with kidney complications Diabetes mellitus complication detail: with microalbuminuria Essential hypertension I10 Pure hypercholesterolemia E78.00 Microalbuminuria R80.9 PAD (peripheral artery disease) I73.9 Additional Codes LIA-7 Assessment Billing - LIA-7 Assessment Tool: LIA-7 Assessment 99753 ([id number]) Time Spent (min) 25
[2023-05-11 08:36] VITALS: BP 150/80
== END 2023-05-10 16:58 | disposition home or self-care (01) ==
LOC: HO.HMGH 16:04
PROVIDERS: PCP Internal Medicine; Visit Provider Internal Medicine
DX: E11.29 Type 2 diabetes mellitus with other diabetic kidney complication (principal); Z79.4 Long term (current) use of insulin; I73.9 Peripheral vascular disease, unspecified; R80.9 Proteinuria, unspecified; I10 Essential (primary) hypertension; E78.00 Pure hypercholesterolemia, unspecified
CPT/HCPCS: 99214

== ENCOUNTER 2023-05-23 14:36 | Outpatient (AMB) | payer OTHER, SELFPAY ==
[2023-05-23 14:37] VITALS: BP 160/62; BMI 24.7
--- NOTE | 2023-05-23 14:37 | MHC.OFFVIS ---
Intake Vital Signs 05/23/23 14:37 Height 5 ft 4 in Weight 144 lb BMI 24.7 BP 160/62 H Intake Visit Reasons: Annual Life Skills Specialist Required: Yes Life Skills Specialist Language: Norwegian Information Interpreted: non-clinical & clinical Needle Grinder: Needle Grinder Present (Xeniayn) Allergies cortison Adverse Reaction (Mild, Uncoded 05/23/23 14:40) elevated sugers Medication List - Last Reconciled 05/23/23 by Temitope Alcantara CNM atorvastatin 80 mg PO BEDTIME 90 days blood sugar diagnostic (FreeStyle Lite Strips) As directed 1-2x daily blood-glucose meter (FreeStyle Lite Meter kit) As directed blood-glucose meter (FreeStyle [place] Lite kit) USE DIRECTED chlorthalidone 25 mg PO DAILY 90 days cholecalciferol (vitamin D3) 25 mcg PO DAILY 90 days clonidine HCl 0.3 mg PO TID 90 days dulaglutide (Trulicity) 3 mg (0.5 mL) subcut QWEEK empagliflozin (Jardiance) 25 mg PO DAILY 90 days ezetimibe 10 mg PO DAILY 90 days flash glucose scanning reader (FreeStyle Rosa Isela 2 [place]) As directed insulin glargine U-300 conc (Toujeo SoloStar U-300 Insulin) 40 units (0.1333 mL) subcut BEDTIME insulin lispro 4 - 8 units (0.04 - 0.08 mL) subcut BID lancets (TRUEplus Lancets) TEST BLOOD SUGAR ONE OR TWO TIMES DAILY DIRECTED losartan 100 mg PO DAILY metformin 1,000 mg PO BID 90 days miscellaneous medical supply (Blood Pressure Cuff) As directed pen needle, diabetic (Pentips) As directed verapamil ER 120 mg PO DAILY 90 days Is last menstrual period known: No Post menopausal: Yes Patient : No HPI Annual HPI Details 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 She follows up with Dr. Ortez every 3 months. She has her mammogram tomorrow she and her are not very sexually active and have not had sex in about 7 years and neither them are interested at this time there other health concerns. 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 She keeps herself healthy. [facility] Medical History Femoral artery occlusion Latent tuberculosis by blood test Hypovitaminosis D S/P angiogram of extremity (~02/13/19) Microalbuminuria Pure hypercholesterolemia Diabetes mellitus Essential hypertension Surgical History History of renal artery stenosis History of bilateral tubal ligation Family History Father No problems noted. Mother Hypertension Social History Housing: Apartment Alcohol intake: never Patient Tobacco Use Status: Never used Tobacco e-Cigarette/Vaping Use: Never Used Second Hand Smoke Exposure: No service: No Current occupational status: employed Current occupational exposures/hazards: No Cognitive needs: No Hearing needs: No Vision needs: No Female Reproductive History Menstrual Age of Menarche: 18 control method: other (tubal ligation) Total pregnancies: 3 Full term: 3 Number of Living Children: 3 Date of last pap smear: 04/19/22 (negative) History of abnormal pap smear: No Date of Mammogram: 05/22/22 Date of last Bone Density Screenin04/13/21 Physical Exam Vital Signs: Last Vital Signs BP 160/62 H 05/23/23 14:37 BMI result Body Mass Index 24.7 Const General: healthy appearing, comfortable, no acute distress, well developed and alert Nutritional Appearance: average body habitus Orientation/consciousness: patient oriented x3 Limitations: no limitations HEENT Head: Yes normocephalic Neck Neck: Yes normal visual inspection Chest Chest palpation & inspection: normal inspection of the chest Breast/axilla inspection: normal inspection of the breasts and normal inspection of the axillae Breast/axilla palpation: normal palpation of the breasts and normal palpation of the axillae Resp Effort & Inspection: normal respiratory effort GI Inspection: Yes normal to inspection, No Abdominal wall edema and No distended Palpation (GI): Soft to palpation and nontender Other: Vagina atrophic cervix small but palpable no uterine enlargement that could be discerned, (fibroids seen on ultrasound). No adnexal tenderness unable to communicate how to do a Kegel during the exam to test muscle tone.I am giving her instructions in Norwegian so she can practice them at home should she need to. General: Yes bladder normal to palpation External Female Exam: normal external appearance and normal appearance of the urethra Speculum Exam - Vagina: normal appearance of the vagina, normal palpation and normal vaginal discharge Speculum Exam - Cervix: normal appearance of the cervix, normal palpation and nontender Bimanual exam- vagina & uterus: normal bimanual exam, normal palpation, uterine size normal, bladder normal to palpation, consistency normal, normal palpation, uterine mobility normal, uterine shape normal, No Cervical tenderness present, non-tender and no cervical motion tenderness Bimanual Exam- Adnexa, other: normal adnexae, no masses, normal and No adnexal tenderness Neuro General: patient oriented x3 Results Reviewed Results Reviewed: Name: Monikagiancarlo Ford VilaJoy Z Age/Sex: 61/F Attending: Temitope Alcantara CNM : 1960 Submitted by: Temitope Alcantara CNM Copies to: Urszula Reyna MD MR #: [id number] Status: DEP REF Collected: 04/18/22 Location: [facility] Received: 04/19/22 Interpretation Satisfactory for evaluation. Negative for intraepithelial lesion or malignancy. Obscuring inflammation. Atrophic. HPV mRNA E6/E7: NOT DETECTED This assay detects E6/E7 viral messenger RNA (mRNA) from 14 high-risk HPV types (16, 18, 31, 33, 35, 39, 45, 51, 52, 56, 58, 59, 66, 68) HPV testing performed by [facility], [place], [place]. See reference laboratory portion of the EMR for entire report. Clinical Information LMP: No menses Previous PAP test: Unknown Material Received ThinPrep-Cervical Copies To Temitope Alcantara CNM [address] [place] [address] Dr. Ortez [address] [place] [address] Urszula Reyna MD [address] [place] [address] Dr. [address] [place] [address] Electronically Signed By: Chuyita Panda 04/23/22 1543 The Pap Test is a screening procedure with the inherent possibility of both false negative and false positive results. Results should be interpreted in the context of historic and current clinical findings. Reliability of the Pap Test is enhanced by performing the test on a regular repetitive basis. Patient: Joy Cristina Age/Sex: 61/F MR#: [id number] Page [address] of [address] [address] Ultrasound Report Signed Patient: Joy Cristina MR#: [id number] : 1960 Acct:[id number] Age/Sex: 61 / F ADM Date: 05/04/22 Loc: . Attending Dr: Temitope Alcantara CNM Ordering Physician: Temitope Alcantara CNM Date of Service: 05/04/22 Procedure(s): US pelvic and transvaginal Accession Number(s): [id number] cc: Temitope Alcantara CNM~ EXAMINATION: US PELVIS CLINICAL INFORMATION: Malignant neoplasm of cervix. COMPARISON: None available. TECHNIQUE: Ultrasound of the pelvis is performed using both transabdominal and transvaginal transducers along with Doppler. Transvaginal imaging is performed due to inadequate visualization transabdominally. FINDINGS: UTERUS: The uterus demonstrates heterogeneous echotexture with multiple fibroids and is retroflexed and retroverted measuring 7.1 x 4.0 x 5.1 cm for a volume of 76 mL. The double wall endometrial thickness is 1.1 mm. The uterus has multiple fibroids with the 4 largest ranging in size from 1.5 to 2.0 cm. There are some calcifications seen in the cervix. ADNEXA: Both ovaries are visualized. There is normal color flow to the adnexa. There is no ovarian torsion. There is a small amount of pelvic fluid. Right ovary measures 2.1 x 1.2 x 1.4 cm for a volume 1.8 mL. Left ovary measures 2.4 x 0.9 x 1.3 cm for a volume of 1.5 mL. US/US pelvic and transvaginal IMPRESSION: Multiple uterine fibroids. Assessment & Plan Assessment & Plan (1) Fibroids: Code(s): D21.9 - Benign neoplasm of connective and other soft tissue, unspecified (2) Postmenopausal atrophic vaginitis: Comment: Unable to fully palpate and visualize cervix will get ultrasound to verify structures; fibroids noted on ultrasound. Unable to communicate how to do Kegel during exam so I can not say if she has poor or strong tone but I did give her instructions on Kegel exercises nevertheless. Patient states she has no longer sexually active or interested. Code(s): N95.2 - Postmenopausal atrophic vaginitis (3) Cervical cancer screening: Comment: unable to visualize cervix ( ? vs vag cuff???)pap taken, but await pap results, and u/s. 04/18/2022 Pap is negative with negative HPV, atrophic...... Await ultrasound as well...-within normal limits with fibroids Code(s): Z12.4 - Encounter for screening for malignant neoplasm of cervix (4) Women's annual routine gynecological examination: Code(s): Z01.419 - Encounter for gynecological examination (general) (routine) without abnormal findings (5) Breast cancer screening: Comment: Getting yearly mammograms, next 1 is tomorrow. Code(s): Z12.39 - Encounter for other screening for malignant neoplasm of breast Plan -----Discussed in this visit the following: healthy balanced diet, regular and consistent exercise, getting recommended health screens, doing the best she can for her particular health concerns, kegel exercises, pap smear screening and followup recommendations, mammography screening and SBE, normal changes in cycles in her life stage--- .---I tried to have the patient and demonstrate a Kegel contraction at the end of the exam, in order to explain a Kegel exercise, and instructed the patient on doing the same exercises several times a day with increasing strength each time. HOWEVER I WAS UNABLE TO EXPLAIN HOW TO DO THIS SUFFICIENTLY DURING THE EXAM AND SO I GAVE HER WRITTEN INSTRUCTIONS IN BRAZILIAN INSTEAD One useful tool is to imagine pursestring around the vagina and pulling it tight and upwards as if raising the vagina, or imagining that her tight muscles are on the 1st floor and she is trying to pull them up to the 5th floor and then slowly letting them go down. To try to do these several times a day but focus on the quality and the strength of the exercises more than the quantity, and tried isolate just those muscles and not involve other body parts. I gave her written instructions in Norwegian cyst I was not able to communicate during the exam about how to try to do them. She is getting her mammogram tomorrow. She follows up with her primary care provider as eat in moderation and healthfully to moderate her blood sugars. She is wearing the sensor now She is not interested in sex anymore and neither is her and that is okay with them. I did discuss atrophic vaginal changes and that if she did try to have sex now it would probably be uncomfortable. Speculum exam was done very gently. She is keeping herself healthy by being active and working. Coding Level of Care Code Est Pt Prev Care 40-64y(05932) Diagnoses Fibroids D21.9 Postmenopausal atrophic vaginitis N95.2 Cervical cancer screening Z12.4 Women's annual routine gynecological examination Z01.419 Breast cancer screening Z12.39
== END 2023-05-23 15:30 | disposition home or self-care (01) ==
LOC: HO.HWS 14:36
PROVIDERS: PCP Internal Medicine; Visit Provider Advanced Practice Midwife
DX: Z01.419 Encounter for gynecological examination (general) (routine) without abnormal findings (principal); D21.9 Benign neoplasm of connective and other soft tissue, unspecified; N95.2 Postmenopausal atrophic vaginitis
CPT/HCPCS: 99396

== ENCOUNTER → 2023-05-23 14:36 | Outpatient (BNVA) | payer OTHER, SELFPAY | PROVIDERS: PCP Internal Medicine; Visit Provider Advanced Practice Midwife | DX: Z01.419 Encounter for gynecological examination (general) (routine) without abnormal findings (principal); N95.2 Postmenopausal atrophic vaginitis; D21.9 Benign neoplasm of connective and other soft tissue, unspecified; Z98.51 Tubal ligation status; Z78.0 Asymptomatic menopausal state | CPT/HCPCS: 99396 ==

== ENCOUNTER 2023-05-24 14:34 | Outpatient (REF) | payer OTHER, SELFPAY | END 2023-05-24 14:35 | disposition home or self-care (01) | LOC: HO.MAMMO 14:34 | PROVIDERS: PCP Internal Medicine; Visit Provider Internal Medicine | DX: Z12.31 Encounter for screening mammogram for malignant neoplasm of breast (principal) | CPT/HCPCS: 77063; 77067 ==

== ENCOUNTER → 2023-05-24 15:15 | Outpatient (BNV) | payer OTHER, SELFPAY | PROVIDERS: PCP Internal Medicine; Visit Provider Radiology Diagnostic Radiology | DX: Z12.31 Encounter for screening mammogram for malignant neoplasm of breast (principal) | CPT/HCPCS: 77063; 77067 ==

== ENCOUNTER 2023-06-05 13:32 | Outpatient (REF) | payer OTHER, SELFPAY ==
--- NOTE | ~2023-06-05 | US_ITS ---
EXAMINATION: NONINVASIVE ASSESSMENT OF THE ARTERIES OF BOTH LOWER EXTREMITIES Jayson Anderson MD CLINICAL INFORMATION: Peripheral vascular disease TECHNIQUE: Bilateral lower extremity duplex ultrasound was performed with velocity measurements and waveform analysis in the common femoral arteries, profunda femoris arteries, proximal mid and distal superficial femoral arteries, popliteal arteries and tibial vessels. ABIs were also calculated. This study was performed only at rest. COMPARISON: None FINDINGS: Velocities in cm/sec and phasicity as well as the presence of plaque are reported below. RIGHT LEG: Some mild plaque is present proximally. The mid SFA is occluded. There is a tight stenosis seen in the reconstituted distal SFA. Monophasic flow is present throughout. FITO: 0.67 (previously 0.68) Common Femoral: 126 Profunda Femoris: 107 Proximal SFA: 26 Mid SFA: Occluded Distal SFA: 205 Popliteal: 52 Posterior tibial: 31 Peroneal: 35 Anterior tibial artery: 29 Dorsalis pedis artery 28 LEFT LEG: Common femoral demonstrates mild plaque. Moderate plaque present in the profunda femoris with the stenosis and velocity acceleration to 185. The proximal SFA is diseased with a stenosis. Left-sided triphasic flow down to the level of an occluded mid SFA with monophasic flow noted beyond this FITO: 0.53 (previously 0.59) Common Femoral: 145 Profunda Femoris: 185 Proximal SFA: 165 Mid SFA: Occluded Distal SFA: Occluded Popliteal: 36 Posterior tibial: 21 Peroneal: 18 Anterior tibial: 4 Dorsalis pedis: 6 US/US arterial duplex BI w/ FITO IMPRESSION: 1. Bilateral SFA occlusions with monophasic flow beyond the occlusions. 2. ABIs are significantly decreased bilaterally consistent with moderate peripheral vascular disease.
== END 2023-06-05 13:33 | disposition home or self-care (01) ==
LOC: HO.US 13:32
PROVIDERS: PCP Internal Medicine; Visit Provider Surgery Vascular Surgery
DX: I70.213 Atherosclerosis of native arteries of extremities with intermittent claudication, bilateral legs (principal)
CPT/HCPCS: 93922; 93925

== ENCOUNTER 2023-06-06 08:11 | Outpatient (AMB) | payer OTHER, SELFPAY ==
--- NOTE | 2023-06-06 08:35 | A.OFFVIS_ITS ---
Intake Intake Visit Reasons: DM/CONFIRMED Allergies cortison Adverse Reaction (Mild, Uncoded 05/23/23 14:40) elevated [facility] Diabetes Asmnt Most Recent Diabetes Results: Microalb/Creat Ratio 2354.4 ug/mg cr (<30) H 05/05/23 Cholesterol 141 mg/dL (<200) 05/05/23 HDL Cholesterol 46 mg/dL (>40) 05/05/23 Triglycerides 79 mg/dL (<150) 05/05/23 Creatinine 0.92 mg/dL (0.5-1.4) 05/05/23 Blood Urea Nitrogen 28 mg/dL (9-16) H 05/05/23 Sodium 142 mmol/L (135-145) 05/05/23 Potassium 4.8 mmol/L (3.3-5.1) 05/05/23 Chloride 106 mmol/L (96-108) 05/05/23 Carbon Dioxide 27 mmol/L (22-29) 05/05/23 Calcium 10.0 mg/dL (8.4-10.2) 05/05/23 AST 24 U/L (5-31) 05/05/23 ALT 37 U/L (0-31) H 05/05/23 Total Protein 7.3 g/dL (6.5-8.0) 05/05/23 Albumin 3.9 g/dL (3.5-5.0) 05/05/23 [facility] Medical History Femoral artery occlusion Latent tuberculosis by blood test Hypovitaminosis D S/P angiogram of extremity (~02/13/19) Microalbuminuria Pure hypercholesterolemia Diabetes mellitus Essential hypertension Surgical History History of renal artery stenosis History of bilateral tubal ligation Family History Father No problems noted. Mother Hypertension Social History Housing: Apartment Alcohol intake: never Patient Tobacco Use Status: Never used Tobacco e-Cigarette/Vaping Use: Never Used Second Hand Smoke Exposure: No service: No Current occupational status: employed Current occupational exposures/hazards: No Cognitive needs: No Hearing needs: No Vision needs: No Female Reproductive History Menstrual Age of Menarche: 18 Assessment & Plan Assessment & Plan (1) Diabetes mellitus: Code(s): E11.9 - Type 2 diabetes mellitus without complications Qualifiers: Diabetes mellitus type: type 2 Diabetes mellitus jail insulin use: with manager steel use Diabetes mellitus complication status: with kidney complications Diabetes mellitus complication detail: with microalbuminuria Qualified Code(s): E11.29 - Type 2 diabetes mellitus with other diabetic kidney complication; R80.9 - Proteinuria, unspecified; Z79.4 - [facility] (current) use of insulin Plan: Learning objectives: The patient was provided with verbal and written education on the following topics as outlined below. The patient met all learning objectives and was able to verbalize understanding and provide teach back of education topics discussed . The patient was provided with the opportunity to ask questions and all questions were answered. Patient Assessment Assess patient education level/literacy/barriers Patient questions/concerns, patient's last A1c on then to 03/10/2023 8.2%, patient uses uTest Rosa Isela 2 to monitor glucose Patient's average glucose for the past 14 days 150 mg/dL Above target 22% At target 78% Below target 0% Patient did have some hypoglycemia events on CGM report, however patient reports that she test blood sugar with glucometer when glucose sensor gives her warning glucose is generally within target. Patient does report if she experiences glucose under 70 mg/dL she drinks fruit juice to treat Exercise Medical clearance Effect of exercise on blood sugar Start slowly and gradually increase pace/duration over time Goal amount of exercise Checking blood glucose/have a source of carbs with you Medications (If applicable) * Name of medication * Dosing/administration instructions * Mechanism of action * Potential side effects * Potential adverse reaction and appropriate treatment * Review onset, peak, duration Assess for concerns re: insurance coverage, cost, barriers to compliance Insulin/Injectables (If applicable) * Storage/care of insulin * Injection sites * Site rotation * Onset, peak, duration * Drawing up insulin * Injecting insulin/other injectables * Sharps disposal Continuous blood glucose monitoring (if applicable) Hypoglycemia and Hyperglycemia * Signs and symptoms * Causes * Treatment * Preventing hypoglycemia * When to seek medical attention Medical alert bracelet Lifestyle * Work * Travel * Stress management * Problem solving Know your goals * A1C * Blood sugar targets * Blood pressure * Cholesterol/LDL Urine microalbumin New Goal:?Have A1c drawn in the next 3 months Educational Materials: The patient was provided with the following written educational materials: ADCES 7 Self-Care Behavior Patient Response to instructions: Comprehension of Instructions: good Readiness to make changes: action How confident they feel about making changes: positive Patient Instructions: Incluir actividad diaria regular. ADA recomienda 30 minutos de ejercicio 5 d?as a la semana. P?rdida de peso, hable con el PCP o el cardi?logo antes de comenzar un nuevo plan. Mida el nivel de az?car en la taylor seg?n las indicaciones; Ayuno y comida m?s rodrigo de 2hpp. Observe las tendencias en los resultados. Utilice los resultados y eval?e c?mo los alimentos, la actividad f?irving y los medicamentos afectan los resultados de az?car en la taylor. Lleve el gluc?metro o CGM a la pr?xima visita. Conocer los medicamentos para la diabetes, horn acci?n, los efectos secundarios, la eficacia, la toxicidad, la dosis prescrita, el momento y la frecuencia de administraci?n apropiados, el efecto de las dosis olvidadas y retrasadas y las instrucciones de almacenamiento, viaje y seguridad. T?cnicas de resoluci?n de problemas para el seguimiento de episodios de hipo/hiperglucemia y tratamientos. Reducir los comportamientos de reducci?n de riesgos, dejar de fumar, ex?menes regulares de ojos, pies y dentales. Coding Level of Care Code Est Pt Level 1 (10609) Diagnoses Type 2 diabetes mellitus with microalbuminuria, with long-term current use of insulin E11.29; R80.9; Z79.4 Diabetes mellitus type: type 2 Diabetes mellitus manager steel insulin use: with manager steel use Diabetes mellitus complication status: with kidney complications Diabetes mellitus complication detail: with microalbuminuria
== END 2023-06-06 08:53 | disposition home or self-care (01) ==
PROVIDERS: PCP Internal Medicine; Visit Provider Registered Nurse Diabetes Educator
DX: E11.29 Type 2 diabetes mellitus with other diabetic kidney complication (principal); R80.9 Proteinuria, unspecified; Z79.4 Long term (current) use of insulin

== ENCOUNTER → 2023-06-06 08:11 | Outpatient (BNVA) | payer OTHER, SELFPAY | PROVIDERS: PCP Internal Medicine; Visit Provider Registered Nurse Diabetes Educator | DX: E11.29 Type 2 diabetes mellitus with other diabetic kidney complication (principal); R80.9 Proteinuria, unspecified; Z79.4 Long term (current) use of insulin | CPT/HCPCS: 99211 ==

== ENCOUNTER 2023-07-19 14:13 | Outpatient (AMB) | payer OTHER, SELFPAY ==
--- NOTE | 2023-07-19 14:16 | A.OFFVIS_ITS ---
Intake Visit Reasons: Follow Up 06/04 Arterial US Intake Note: Patient presents for follow up 06/04 arterial US. Patient states she has no swelling or cramping. She also states she gets what she believes is muscle spasms at night in her left calf. Allergies cortison Adverse Reaction (Mild, Uncoded 05/23/23 14:40) elevated sugers HPI HPI Follow Up 06/04 Arterial US: Details: Pleasant 63-year-old female presents for follow-up regarding peripheral vascular disease. She would undergone previous left iliac stenting nearly 5 years ago. Reports she is ambulating fairly well and has had no significant interval issues. She now presents for surveillance follow-up with noninvasive arterial testing. [facility] Medical History Femoral artery occlusion Latent tuberculosis by blood test Hypovitaminosis D S/P angiogram of extremity (~02/13/19) Microalbuminuria Pure hypercholesterolemia Diabetes mellitus Essential hypertension Surgical History History of renal artery stenosis History of bilateral tubal ligation Family History Father No problems noted. Mother Hypertension Social History Housing: Apartment Alcohol intake: never Patient Tobacco Use Status: Never used Tobacco e-Cigarette/Vaping Use: Never Used Second Hand Smoke Exposure: No service: No Current occupational status: employed Current occupational exposures/hazards: No Cognitive needs: No Hearing needs: No Vision needs: No Female Reproductive History Menstrual Age of Menarche: 18 Review of Systems Const All systems reviewed & are unremarkable except as noted in HPI and below Reports no additional complaints ENT Reports Normal hearing present Card Denies chest pain, Denies chest pain at rest, Denies chest pain with activity and Denies pedal edema Resp Denies cough GI Denies abdominal pain Musc Denies abnormal gait, Denies muscle cramps and Denies radiating pain into limb Skin/Breast Denies skin ulcer and Denies wounds Neuro Reports Normal hearing present and Denies abnormal gait Psych Reports no additional complaints Physical Exam Const General: cooperative, healthy appearing and comfortable Orientation/consciousness: oriented to person, oriented to place and oriented to time HEENT Head: Yes normal to inspection Neck Neck: Yes normal visual inspection Carotids: no bruits Chest Chest palpation & inspection: normal inspection of the chest Resp Effort & Inspection: normal respiratory effort and able to speak in complete sentences Auscultation: clear to auscultation bilaterally, no crackles, no rales, no rhonchi and no wheezes Cardio Other: Bilateral DP signals Rate: regular rate Rhythm: regular rhythm Heart sounds: S1 normal heart sound present and S2 normal heart sound present Bruits: no carotid bruits GI Inspection: Yes normal to inspection Skin Wounds: no wounds Hair: normal Neuro General: oriented to person, oriented to place and oriented to time Cranial nerves: Yes CN's II-XII intact bilaterally and Yes Normal hearing present Cognition (Neuro): normal cognition Motor exam (neuro): 5/5 motor strength present throughout Extrem Other: venous exam: No significant superficial varicosities or spider telangiectasias, minimal edema General: No clubbing, No cyanosis and No edema Psych Appearance: grossly normal Mental Status: mental status grossly normal Speech and movement: Normal speech and movement present Results Reviewed Results Reviewed: Noninvasive arterial testing dated [id number] demonstrates FITO on the right of 0.67 and on the left 0.53. She does have bilateral SFA occlusions. Written report and images were reviewed. Assessment & Plan Assessment & Plan (1) PAD (peripheral artery disease): Comment: 02/13/2019- left common iliac stent Code(s): I73.9 - Peripheral vascular disease, unspecified Category: Medical Plan: In short patient has stable claudication. I did review the pathophysiology of peripheral vascular disease with the patient. In addition we did discuss routi ne conservative measures including a healthy diet and the importance of exercise and ambulation. We did discuss risk factor modification. The patient will continue to to follow-up with surveillance follow-up in approximately 1 year. Thank you for allowing us to participate in this patient's care. If there are any questions or concerns please do not hesitate to contact us. Orders: Orders US arterial duplex LE BI 1 Year I73.9 - Peripheral vascular disease, unspecified US abdominal aortic aneurysm 1 Year I73.9 - Peripheral vascular disease, unspecified Coding Level of Care Code Est Pt Level 4 (98342) Diagnoses PAD (peripheral artery disease) I73.9
== END 2023-07-19 14:38 | disposition home or self-care (01) ==
PROVIDERS: PCP Internal Medicine; Visit Provider Surgery Vascular Surgery
DX: I73.9 Peripheral vascular disease, unspecified (principal)
CPT/HCPCS: 99213

== ENCOUNTER → 2023-07-19 14:13 | Outpatient (BNVA) | payer OTHER, SELFPAY | PROVIDERS: PCP Internal Medicine; Visit Provider Surgery Vascular Surgery | DX: I73.9 Peripheral vascular disease, unspecified (principal) | CPT/HCPCS: 99212 ==

== ENCOUNTER 2023-08-04 07:15 | Outpatient (REF) | payer OTHER, SELFPAY ==
[2023-08-04 07:45] LABS: Appearance Urine Clear; Color Urine Yellow; Glucose Urine UA >=1000 mg/dL (Negative); Leukocyte Esterase Urine Negative (Negative); Nitrite Urine Negative (Negative); PH 5.5 (5.0-9.0); UMIC TRIGGER UA YES; Urine Blood Negative (Negative); Urine Ketones Negative (Negative); Urine Protein 300 (3+) mg/dL (Neg-Trace)
[2023-08-04 07:50] LABS: Bacteria Urine None Seen (None Seen); Hyaline Casts Urine 0-2 /LPF (0-2); RBC Urine 0-2 /HPF (0-2); Squamous Epithelial Cell Urine 0-2 /HPF (0-2); WBC Urine 0-5 /HPF (0-5)
[2023-08-04 08:17] LABS: Anion Gap 11 (12-20); Blood Urea Nitrogen 30 mg/dL (9-16); Calcium 9.6 mg/dL (8.4-10.2); Carbon Dioxide 26 mmol/L (22-29); Chloride 109 mmol/L (96-108); Estimated Glomerular Filt Rate > 60; Potassium 4.3 mmol/L (3.3-5.1); Sodium 142 mmol/L (135-145)
[2023-08-04 08:19] LABS: Creatinine Urine 73.42 mg/dL; Protein/Creatinine Ratio, Ur 1.96 (<0.2); Total Protein Urine Random 144 mg/dL (<12)
[2023-08-04 08:29] LABS: Microalbum/Creatinine Ratio Ur 1391.9 ug/mg cr (<30)
== END 2023-08-04 07:16 | disposition home or self-care (01) ==
LOC: HO.LAB 07:15
PROVIDERS: PCP Internal Medicine; Visit Provider Internal Medicine Nephrology
DX: N18.2 Chronic kidney disease, stage 2 (mild) (principal); R80.1 Persistent proteinuria, unspecified; E11.21 Type 2 diabetes mellitus with diabetic nephropathy
CPT/HCPCS: 36415; 80051; 81001; 82043; 82310; 82565; 82570; 84156; 84520

== ENCOUNTER 2023-09-17 06:59 | Outpatient (REF) | payer OTHER, SELFPAY ==
[2023-09-17 07:50] LABS: Anion Gap 12 (12-20); Blood Urea Nitrogen 40 mg/dL (9-16); Calcium 10.7 mg/dL (8.4-10.2); Carbon Dioxide 27 mmol/L (22-29); Chloride 106 mmol/L (96-108); Estimated Glomerular Filt Rate 49; Potassium 4.9 mmol/L (3.3-5.1); Sodium 140 mmol/L (135-145)
== END 2023-09-17 07:00 | disposition home or self-care (01) ==
LOC: HO.LAB 06:59
PROVIDERS: PCP Internal Medicine; Visit Provider Internal Medicine Nephrology
DX: E11.21 Type 2 diabetes mellitus with diabetic nephropathy (principal); R80.1 Persistent proteinuria, unspecified
CPT/HCPCS: 36415; 80051; 82310; 82565; 84520

== ENCOUNTER 2023-10-15 14:16 | Outpatient (AMB) | payer OTHER, SELFPAY ==
[2023-10-15 14:28] VITALS: BMI 25.7
--- NOTE | 2023-10-15 14:28 | A.OFFVIS_ITS ---
VS Expanded 10/15/23 14:28 Height 5 ft 4 in Weight 149 lb 14.629 oz BMI 25.7 Intake Visit Reasons: T2DM Allergies cortison Adverse Reaction (Mild, Uncoded 05/23/23 14:40) elevated sugers Nutrition Presentation Details: Pt presents for MNT f/u for T2DM Pt reports feeling well, working on diet modifications reports not including fruits related to amount of carbs BS Monitoring Most Recent Diabetes Results: Microalb/Creat Ratio 1391.9 ug/mg cr (<30) H 08/04/23 Creatinine 1.13 mg/dL (0.5-1.4) 09/17/23 Blood Urea Nitrogen 40 mg/dL (9-16) H 09/17/23 Sodium 140 mmol/L (135-145) 09/17/23 Potassium 4.9 mmol/L (3.3-5.1) 09/17/23 Chloride 106 mmol/L (96-108) 09/17/23 Carbon Dioxide 27 mmol/L (22-29) 09/17/23 Calcium 10.7 mg/dL (8.4-10.2) H 09/17/23 [facility] Medical History Femoral artery occlusion Latent tuberculosis by blood test Hypovitaminosis D S/P angiogram of extremity (~02/13/19) Microalbuminuria Pure hypercholesterolemia Diabetes mellitus Essential hypertension Surgical History History of renal artery stenosis History of bilateral tubal ligation Family History Father No problems noted. 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: with intermodal truck driver use Diabetes mellitus complication status: with kidney complications Diabetes mellitus complication detail: with microalbuminuria Qualified Code(s): E11.29 - Type 2 diabetes mellitus with other diabetic kidney complication; R80.9 - Proteinuria, unspecified; Z79.4 - residential (current) use of insulin Plan: Review misconceptions regarding fruits and its carb content wt: 65 kg (03/14) Est kcal needs as per MSJ: 1700 (40% carb, 30% protein/fat) Est fluid needs as per 25-30 ml/d: 1700 Est prot per day as per 1 g/kg bw: 66 Recommend fiber intake : 8-10 g per day and gradually increase to 25-28 g per day for women and 35-38 g for men or as tolerated Recommend sodium intake per day : less than 1500 mg less than 2000 mg Educated patient on: ( R = reviewed V = verbalizes understanding N/R = needs review N/A = not applicable * Food sources of carbohydrate, adequate serving sizes and its role in various health conditions: R * Differences between complex carbohydrates a simple carbohydrates, role of fiber in diet: R * Differences between types of fats and role in diet (mono on saturated fat fatty acids, saturated fatty acids, trans fats): R low fat basic * Food sources of sodium in salt and healthy modifications for heart health in kidney health: R * Healthy plate method concept: R V * Physical activity: Benefits a precaution: R * Hypoglycemia protocol (rule of 15): R * Dietary prevention of Hyperglycemia: R Patient Instructions: Have a fruit in place of pastries/cookies , working on reducing salt/sodium intake Coding Level of Care Code Nutr Indiv Subseq (69141) Diagnoses Type 2 diabetes mellitus with microalbuminuria, with long-term current use of insulin E11.29; R80.9; Z79.4 Diabetes mellitus type: type 2 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
== END 2023-10-15 14:46 | disposition home or self-care (01) ==
PROVIDERS: PCP Internal Medicine; Visit Provider Dietitian, Registered
DX: E11.29 Type 2 diabetes mellitus with other diabetic kidney complication (principal); R80.9 Proteinuria, unspecified; Z79.4 Long term (current) use of insulin

== ENCOUNTER → 2023-10-15 14:16 | Outpatient (BNVA) | payer OTHER, SELFPAY | PROVIDERS: PCP Internal Medicine; Visit Provider Dietitian, Registered | DX: E11.29 Type 2 diabetes mellitus with other diabetic kidney complication (principal); R80.9 Proteinuria, unspecified; Z79.4 Long term (current) use of insulin | CPT/HCPCS: 97803 ==

== ENCOUNTER 2023-10-27 07:06 | Outpatient (REF) | payer OTHER, SELFPAY ==
[2023-10-27 09:05] LABS: Alanine Aminotransferase 23 U/L (0-31); Albumin Level 3.9 g/dL (3.5-5.0); Alkaline Phosphatase 85 U/L (39-117); Anion Gap 14 (12-20); Aspartate Amino Transferase 17 U/L (5-31); Bilirubin Total 0.3 mg/dL (0.0-1.0); Blood Urea Nitrogen 35 mg/dL (9-16); Carbon Dioxide 24 mmol/L (22-29); Chloride 107 mmol/L (96-108); Cholesterol 143 mg/dL (<200); Estimated Glomerular Filt Rate 51; Glucose Fasting 76 mg/dL (60-99); HDL Cholesterol 43 mg/dL (>40); LDL Cholesterol Calculated 82 mg/dL (<100); Potassium 4.6 mmol/L (3.3-5.1); Sodium 140 mmol/L (135-145); Total Protein 7.4 g/dL (6.5-8.0); Triglycerides 94 mg/dL (<150)
[2023-10-27 09:22] LABS: Vitamin D 25-OH Total 37.2 ng/mL (>30)
[2023-10-27 09:43] LABS: Creatinine Urine 64.11 mg/dL
[2023-10-27 09:53] LABS: Microalbum/Creatinine Ratio Ur 1350.8 ug/mg cr (<30)
== END 2023-10-27 07:07 | disposition home or self-care (01) ==
LOC: HO.LAB 07:06
PROVIDERS: PCP Internal Medicine; Visit Provider Internal Medicine
DX: E78.5 Hyperlipidemia, unspecified (principal); E11.29 Type 2 diabetes mellitus with other diabetic kidney complication; R80.9 Proteinuria, unspecified; Z79.4 Long term (current) use of insulin; E11.9 Type 2 diabetes mellitus without complications; E55.9 Vitamin D deficiency, unspecified
CPT/HCPCS: 36415; 80053; 80061; 82043; 82306; 82570

== ENCOUNTER 2023-11-01 15:13 | Outpatient (AMB) | payer OTHER, SELFPAY ==
[2023-11-01 15:19] VITALS: BP 184/82; BMI 25.7
--- NOTE | 2023-11-01 15:19 | A.OFFPC_ITS ---
Vital Signs 11/01/23 15:19 Height 5 ft 4 in Weight 150 lb BMI 25.7 BP 184/82 H Blood Pressure Location Lt brachial Position Sitting Intake Visit Reasons: PHYSICAL Intake Note: Patient here for a physical exam Personal Banking Officer Required: No Accompanied by: Self / Same As Patient Allergies cortison Adverse Reaction (Mild, Uncoded 11/01/23 15:35) elevated sugers Medication List - Last Reconciled 11/01/23 by Urszula Taylor MD atorvastatin 80 mg PO BEDTIME 90 days blood sugar diagnostic (FreeStyle Lite Strips) As directed 1-2x daily blood-glucose meter (FreeStyle Lite Meter kit) As directed blood-glucose meter (FreeStyle [place] Lite kit) USE DIRECTED chlorthalidone 25 mg PO DAILY 90 days cholecalciferol (vitamin D3) 25 mcg PO DAILY 90 days clonidine HCl 0.3 mg PO TID 90 days dulaglutide (Trulicity) 3 mg (0.5 mL) subcut QWEEK empagliflozin (Jardiance) 25 mg PO DAILY 90 days ezetimibe 10 mg PO DAILY 90 days flash glucose scanning reader (FreeStyle Rosa Isela 2 [place]) As directed flash glucose sensor (FreeStyle Rosa Isela 2 Sensor kit) As directed change every 14 days insulin glargine U-300 conc (Toujeo SoloStar U-300 Insulin) 40 units (0.1333 mL) subcut BEDTIME insulin lispro 4 - 8 units (0.04 - 0.08 mL) subcut BID lancets (TRUEplus Lancets) TEST BLOOD SUGAR ONE OR TWO TIMES DAILY DIRECTED losartan 100 mg PO DAILY metformin 1,000 mg PO BID 90 days miscellaneous medical supply (Blood Pressure Cuff) As directed pen needle, diabetic (Pentips) USE DIRECTED THREE TIMES DAILY WITH INSULIN verapamil ER 120 mg PO DAILY 90 days Tobacco use date assessed: 05/10/23 Dental Screening Dental Screen Date: 05/10/23 HPI HPI Comments History of Present Illness Details This is a 63-year-old female with diabetes mellitus type 2 and peripheral arterial disease that comes for her physical exam. A1c has improved and diabetes is follow by Endocrinology. Mammogram done 2023 was normal. Pap smear done 2022. Colonoscopy done 2015 and next colonoscopy should be 2025. Blood pressure elevated and will be recheck in 3 weeks by nurse navigator. Pe ripheral arterial disease follow by vascular surgery. PENDING SALE TO [facility] Medical History Femoral artery occlusion Latent tuberculosis by blood test Hypovitaminosis D S/P angiogram of extremity (~02/13/19) Microalbuminuria Pure hypercholesterolemia Diabetes mellitus Essential hypertension Surgical History History of renal artery stenosis History of bilateral tubal ligation Family History Father No problems noted. Mother Hypertension Social History Housing: Apartment Alcohol intake: never Patient Tobacco Use Status: Never used Tobacco e-Cigarette/Vaping Use: Never Used Second Hand Smoke Exposure: No service: No Current occupational status: employed Current occupational exposures/hazards: No Cognitive needs: No Hearing needs: No Vision needs: No Female Reproductive History Menstrual Age of Menarche: 18 Questionnaire Thrive Questionnaire Date Thrive assessed: 05/10/23 LIA-7 AMB Questionnaire LIA-7 Date LIA - 7 assessed: 05/10/23 Source: Developed by Drs. Saurabh Cason, Reina Marcelo, Orlando Ivey and colleagues, with an educational seema from [employer]. Review of Systems Const All systems reviewed & are unremarkable except as noted in HPI and below Card Denies chest pain at rest, Denies chest pain with activity, Denies edema, Denies irregular heart rhythm, Denies claudication, Denies dyspnea, Denies dyspnea on exertion, Denies orthopnea, Denies paroxysmal nocturnal dyspnea and Denies slow heart rate Resp Denies cough, Denies dyspnea and Denies dyspnea on exertion GI Denies abdominal pain, Denies change in bowel habits, Denies excessive flatus, Denies nausea and Denies vomiting Denies urinary incontinence, Denies urinary hesitancy and Denies urinary urgency Musc Denies atrophy, Denies deformity and Denies limited range of motion Skin/Breast Denies bleeding lesions, Denies changing lesions and Denies rash Physical exam (Primary Care) Vital Signs: Last Vital Signs BP 184/82 H 11/01/23 15:19 BMI result Body Mass Index 25.7 Tobacco/Smoking Status: Tobacco use Status Tobacco use date assessed 05/10/23 11/01/23 15:24 Patient Tobacco Use Status Never used Tobacco 11/01/23 15:24 e-Cigarette/Vaping Use Never Used 11/01/23 15:24 Thrive Assessment: Date of Thrive Assessment Date Thrive assessed 05/10/23 11/01/23 15:24 [facility] Head: Yes normal to inspection, Yes normocephalic and Yes atraumatic Ears: external ears normal Eyes General: appearance normal, both eyes and all related structures Eyelids: Yes eyelids normal Conjunctivae: conjunctivae normal Neck Neck: Yes normal visual inspection and Yes supple Resp Effort & Inspection: normal respiratory effort Auscultation: clear to auscultation bilaterally Cardio Jugular venous distension: no JVD Rate: regular rate Rhythm: regular rhythm Heart sounds: S1 normal heart sound present and S2 normal heart sound present GI Inspection: Yes normal to inspection Palpation (GI): Soft to palpation and nontender Auscultation: normal bowel sounds Skin General skin exam: no rashes or lesions noted Neuro General: no focal motor deficits Extrem General: Yes full ROM Psych Appearance: grossly normal Results AMB Hemoglobin A1c AMB Hemoglobin A1c 7.6 % Last Edit by ROSLYN Hernandez on 11/01/23 15:2 6 Results Reviewed Results Reviewed: Laboratory Last Values Hgb A1c (Clinic) 7.6 % (4.0-6.0) H 11/01/23 15:24 Assessment and Plan Assessment & Plan (1) Physical exam: Code(s): Z00.00 - Encounter for general adult medical examination without abnormal findings Plan: Repeat in a year. (2) Diabetes mellitus: Code(s): E11.9 - Type 2 diabetes mellitus without complications Qualifiers: Diabetes mellitus type: type 2 Diabetes mellitus residential insulin use: with residential use Diabetes mellitus complication status: with kidney complications Diabetes mellitus complication detail: with microalbuminuria Qualified Code(s): E11.29 - Type 2 diabetes mellitus with other diabetic kidney complication; R80.9 - Proteinuria, unspecified; Z79.4 - intermediate (current) use of insulin Plan: Continue insulin. A1c goal is equal or less than 7%. (3) PAD (peripheral artery disease): Comment: 02/13/2019- left common iliac stent Code(s): I73.9 - Peripheral vascular disease, unspecified Plan: Follow-up with vascular surgery. Orders: Orders Lipid Panel 4 Months E78.5 - Hyperlipidemia, unspecified Microalbumin, Random (w Creat) 4 Months E11.9 - Type 2 diabetes mellitus without complications AMB Hemoglobin A1c Today E11.29 - Type 2 diabetes mellitus with other diabetic kidney complication, R80.9 - Proteinuria, unspecified, Z79.4 - terminal carman (current) use of insulin Vitamin D 25-OH Total 4 Months E55.9 - Vitamin D deficiency, unspecified Comprehensive [place]. Panel Fast 4 Months E11.29 - Type 2 diabetes mellitus with other diabetic kidney complication, R80.9 - Proteinuria, unspecified, Z79.4 - intermediate (current) use of insulin Medications: Refilled empagliflozin (Jardiance) 25 mg PO DAILY 90 days 90 tabs 1RF E11.9 - Type 2 diabetes mellitus without complications Coding Level of Care Code Est Pt Prev Care 40-64y(63573) Diagnoses Physical exam Z00.00 Type 2 diabetes mellitus with microalbuminuria, with long-term current use of insulin E11.29; R80.9; Z79.4 Diabetes mellitus type: type 2 Diabetes mellitus residential insulin use: with long term care phlebotomist use Diabetes mellitus complication status: with kidney complications Diabetes mellitus complication detail: with microalbuminuria PAD (peripheral artery disease) I73.9 Time Spent (min) 32
== END 2023-11-01 15:46 | disposition home or self-care (01) ==
PROVIDERS: PCP Internal Medicine; Visit Provider Internal Medicine
DX: Z00.00 Encounter for general adult medical examination without abnormal findings (principal); E11.29 Type 2 diabetes mellitus with other diabetic kidney complication; Z79.4 Long term (current) use of insulin; I73.9 Peripheral vascular disease, unspecified; R80.9 Proteinuria, unspecified
CPT/HCPCS: 83036; 99396

== ENCOUNTER 2023-11-06 15:49 | Outpatient (AMB) | payer OTHER, SELFPAY ==
--- NOTE | 2023-11-06 15:05 | A.OFFVIS_ITS ---
Vital Signs 11/06/23 15:57 Height 5 ft 4 in Weight 149 lb 14.629 oz BMI 25.7 BP 132/78 Blood Pressure Location Rt brachial Position Sitting Pulse 85 Pulse Source Pulse Oximeter Intake Visit Reasons: T2DM/CONFIRMED Intake Note: Patient presents today to re-establish treatment for Diabetes Mellitus Type 2: Last Diabetic eye exam was on: DUE Last Podiatry exam was on: Does not see a Proofer Black And White Most recent HbA1c: 7.6%, 11/01/2023 Random Glucose- 193 mg/dL, Today Tire Servicer Required: Yes Tire Servicer Language: Tube Room Cashier Services: Tire Servicer Present Tire Servicer Name: ROSLYN Gonzalez/SIMA BARRERA Information Interpreted: non-clinical & clinical Accompanied by: Self / Same As Patient Allergies cortison Adverse Reaction (Mild, Uncoded 11/06/23 16:01) elevated sugers HPI Comments Details: 63 YO F who is seen in followup for type 2 diabetes. She was last seen by the special educator 06/12 for general diabetes education and by Dr. Parsons 03/22/2023. Her most recent A1c was 7.6% on 11/01/2023. This was down from 8.4% earlier in the year. Initially diagnosed with T2DM in 2014. She was seen by endocrine when first diagnosed and has been followed by Dr. Parsons since 09/2021. Was initially started on treatment with metformin . Current regimen Jardiance 25 mg QD metformin 1000 mg BID Toujeo 40 units Humalog twice per day 8 with breakfast 12 units with supper Trulicity 3 mg Qwkly Toujeo had been increased by her PCP to 50 units however, it was reduced back to 40 units due to lows. She is checking her glucose 1-2 times daily via fingerstick. She ran out of FS 2 sensors and was unable to refill. Am readings:118-150, occ higher (She reports she has been under a great deal of stress secondary to sister in laws murder) later in the day:few scattered readings 73,, 87 150's No Family history of T2DM. Has eyes checked yearly, last eye exam 11/12 stable retinopathy Neuropathy: denies no c/o numbness, tingling and cramping, does not see podiatry. Has nephropathy, on MALACHI labs: 10/26/2022 eGFR [address]album[address] Stovall, last seen september 2023 Has HLD, on statin. Most recent ldl: 82 on 10/27/2023 CAD Denies PVD: followed by vascular last seen 06/2023 Has had diabetes education [id number] [facility] screen Fibrosis-4 (Fib-4) Index for liver fibrosis (calculated on lab work done: 10/27/23) [0.74 ] points Advanced fibrosis [excluded ] Approximate Fibrosis stage Radha [0-1 ] *Use with caution in patients <35 or >65 years old, as the score has been shown to be less reliable in these patients. Prior Imaging [] Action Plan: [] rescreen two years from date of screening labs[10/2025 ] FORMERLY [facility] Medical History Femoral artery occlusion Latent tuberculosis by blood test Hypovitaminosis D S/P angiogram of extremity (~02/13/19) Microalbuminuria Pure hypercholesterolemia Diabetes mellitus Essential hypertension Surgical History History of renal artery stenosis History of bilateral tubal ligation Family History Father No problems noted. Mother Hypertension Social History Housing: Apartment Alcohol intake: never Patient Tobacco Use Status: Never used Tobacco e-Cigarette/Vaping Use: Never Used Second Hand Smoke Exposure: No service: No Current occupational status: employed Current occupational exposures/hazards: No Cognitive needs: No Hearing needs: No Vision needs: No Female Reproductive History Menstrual Age of Menarche: 18 Physical Exam Vital Signs: Last Vital Signs Pulse 85 11/06/23 15:57 BP 132/78 11/06/23 15:57 BMI result Body Mass Index 25.7 Const Other: Absence of Cushingoid features. Absence of acromegalic features. Neck exam reveals nl size thyroid about 15 gms. No thyroid nodules palpable. No carotid br uits present. Lungs CTA. Heart S1 S2, Reg R/R. No M/R G. Skin exam reveals absence of vitiligo or acanthosis nigricans. No edema Extrem Other: Visual exam of foot performed. No ulcerations or open lesions. No inter digit maceration or fissuring. No onychomycosis, no callouses. Sensation intact to monofilament exam. Vibratory sensation is normal with 128 Hz tuning fork. Results Reviewed Results Reviewed: Laboratory Last Values Glucose (Clinic) 193 mg/dL (60-115) H 11/06/23 16:07 Laboratory Tests 03/22/23 11/01/23 15:28 15:24 Hgb A1c (Clinic) 8.2 H 7.6 H Laboratory Tests 10/27/23 11/01/23 07:40 15:24 Hgb A1c (Clinic) 7.6 H Calcium 10.0 D AST 17 ALT 23 Urine Creatinine 64.11 Urine Microalbumin 866.0 Laboratory Tests 02/17/23 10/27/23 07:34 07:40 Plt Count 292 Potassium 4.6 Creatinine 1.09 Estimated GFR 51 Cholesterol 143 LDL Cholesterol, Calc 82 HDL Cholesterol 43 25-OH Vitamin D Total 37.2 Microalb/Creat Ratio 1350.8 H Assessment & Plan Assessment & Plan (1) Diabetes mellitus: Code(s): E11.9 - Type 2 diabetes mellitus without complications Category: Medical Qualifiers: Diabetes mellitus complication detail: with microalbuminuria Diabetes mellitus complication status: with kidney complications Diabetes mellitus long term care social worker insulin use: with long term care social worker use Diabetes mellitus type: type 2 Qualified Code(s): E11.29 - Type 2 diabetes mellitus with other diabetic kidney complication; R80.9 - Proteinuria, unspecified; Z79.4 - long term care social worker (current) use of insulin Plan: Type 2 diabetic with stable retinopathy, nephropathy followed by Nephrology and PVD followed by vascular with improving A1C. Last A1c was 7.6%. Did not titrate short-acting insulin doses today as patient is primarily testing just once daily. She will go back on a freestyle Rosa Isela 2 and scan both pre and 2 hours postprandial and follow back up in 3 months. Medications: Refilled flash glucose sensor (FreeStyle Rosa Isela 2 Sensor kit) As directed change every 14 days 2 ea 11RF Patient Instructions: The patient was counseled to achieve a target A1C of 7% (154 avg). Fasting blood sugars should be 90-130 in the morning and less than 180 two hours after meals. Reviewed the relationship between poor diabetic control and the developeent of complications Coding Level of Care Code Est Pt Level 4 (32454) Complex EM visit Add On G2211 Diagnoses Type 2 diabetes mellitus with microalbuminuria, with long-term current use of insulin E11.29; R80.9; Z79.4 Diabetes mellitus complication detail: with microalbuminuria Diabetes mellitus complication status: with kidney complications Diabetes mellitus long term care social worker insulin use: with long term care social worker use Diabetes mellitus type: type 2 Time Spent (min) 40 Comment Time spent reviewing labs/provider notes, face to face, chart doc
[2023-11-06 15:57] VITALS: BP 132/78; PULSE 85; BMI 25.7
[2023-11-06 16:11] LABS: Glucose, Whole Blood 193 mg/dL (60-115)
== END 2023-11-06 16:25 | disposition home or self-care (01) ==
PROVIDERS: PCP Internal Medicine; Visit Provider Nurse Practitioner Adult Health
DX: E11.29 Type 2 diabetes mellitus with other diabetic kidney complication (principal); R80.9 Proteinuria, unspecified; Z79.4 Long term (current) use of insulin
CPT/HCPCS: 99214; G2211

== ENCOUNTER → 2023-11-06 15:49 | Outpatient (BNVA) | payer OTHER, SELFPAY | PROVIDERS: PCP Internal Medicine; Visit Provider Nurse Practitioner Adult Health | DX: E11.29 Type 2 diabetes mellitus with other diabetic kidney complication (principal); R80.9 Proteinuria, unspecified; Z79.4 Long term (current) use of insulin | CPT/HCPCS: 82947; 99212 ==

== ENCOUNTER 2024-03-05 14:14 | Outpatient (AMB) | payer OTHER, SELFPAY ==
[2024-03-05 14:25] VITALS: BP 128/74; PULSE 75; BMI 26.1
--- NOTE | 2024-03-05 14:25 | A.OFFVIS_ITS ---
Vital Signs 03/05/24 14:25 Height 5 ft Weight 152 lb 1.903 oz BMI 29.7 Intake Visit Reasons: T2DM Intake Note: Patient presents today for a follow-up on Diabetes Mellitus Type 2: Last Diabetic eye exam was on: DUE Last Podiatry exam was on: Does not see a Transfer Operator Most recent HbA1c: due%, 03/05/2024 Random Glucose- mg/dL, Today Esthetics Instructor Required: Yes Esthetics Instructor Language: Rn Surgery Icu Services: Esthetics Instructor Present Esthetics Instructor Name: ROSLYN Gonzalez/SIMA BARRERA Information Interpreted: non-clinical & clinical Accompanied by: Self / Same As Patient Allergies cortison Adverse Reaction (Mild, Uncoded 11/06/23 16:01) elevated sugers [facility] Medical History Femoral artery occlusion Latent tuberculosis by blood test Hypovitaminosis D S/P angiogram of extremity (~02/13/19) Microalbuminuria Pure hypercholesterolemia Diabetes mellitus Essential hypertension Surgical History History of renal artery stenosis History of bilateral tubal ligation Family History Father No problems noted. Mother Hypertension Social History Housing: Apartment Alcohol intake: never Patient Tobacco Use Status: Never used Tobacco e-Cigarette/Vaping Use: Never Used Second Hand Smoke Exposure: No service: No Current occupational status: employed Current occupational exposures/hazards: No Cognitive needs: No Hearing needs: No Vision needs: No Female Reproductive History Menstrual Age of Menarche: 18 Coding
--- NOTE | 2024-03-05 14:31 | A.OFFVIS_ITS ---
Vital Signs 03/05/24 14:25 Height 5 ft 4 in Weight 152 lb 1.903 oz BMI 26.1 BP 128/74 Blood Pressure Location Rt brachial Position Sitting Pulse 75 Pulse Source Pulse Oximeter Intake Visit Reasons: T2DM Intake Note: Patient presents today for a follow-up on Diabetes Mellitus Type 2: Last Diabetic eye exam was on: DUE Last Podiatry exam was on: Does not see a Enamel Dipper Most recent HbA1c: 7.9%, 03/05/2024 Random Glucose- 132 mg/dL, Today Breadman Required: Yes Breadman Language: Manager Language Services: Breadman Present Breadman Name: ROSLYN Gonzalez/SIMA BARRERA Information Interpreted: non-clinical & clinical Accompanied by: Self / Same As Patient Allergies cortison Adverse Reaction (Mild, Uncoded 03/05/24 14:34) elevated sugers HPI Comments Details: 63 YO F who is seen in followup for type 2 diabetes. She was last seen by the remarketing rep 06/12 for general diabetes education and by myself in October. 03/05/24 7.9%, A1c was 7.6% on 11/01/2023. This was down from 8.4% earlier in the year. Initially diagnosed with T2DM in 2014. She was seen by endocrine when first diagnosed and has been followed by Dr. Parsons since 09/2021. Was initially started on treatment with metformin . Current regimen Jardiance 25 mg QD metformin 1000 mg BID Toujeo 40 units Lispro twice per day 8 with breakfast 12 units with supper Trulicity 3 mg Qwkly She is on a sensor which she did not bring in today. She reports her readings in the morning are 90-110. Later in the day is high as 230 No Family history of T2DM. Has eyes checked yearly, last eye exam 07/12 stable retinopathy goes twice yearly ususally Neuropathy: denies no c/o numbness, tingling and cramping, does not see podiatry. Has nephropathy, on MALACHI labs: 10/26/2022 eGFR 51 microalbumin [address] Stovall, last seen september 2023 Has HLD, on statin. Most recent ldl: 82 on 10/27/2023 CAD Denies PVD: followed by vascular last seen 06/2023 seen annually Has had diabetes education [id number] [facility] screen Fibrosis-4 (Fib-4) Index for liver fibrosis (calculated on lab work done: 10/27/23) [0.74 ] points Advanced fibrosis [excluded ] Approximate Fibrosis stage Radha [0-1 ] *Use with caution in patients <35 or >65 years old, as the score has been shown to be less reliable in these patients. Prior Imaging [] Action Plan: [] rescreen two years from date of screening labs[10/2025 ] [facility]LY [facility] Medical History (Updated 03/05/24 @ 14:58 by Davina Erazo NP) Goiter Femoral artery occlusion Latent tuberculosis by blood test Hypovitaminosis D S/P angiogram of extremity (~02/13/19) Microalbuminuria Pure hypercholesterolemia Diabetes mellitus Essential hypertension Surgical History History of renal artery stenosis History of bilateral tubal ligation Family History Father No problems noted. Mother Hypertension Social History Housing: Apartment Alcohol intake: never Patient Tobacco Use Status: Never used Tobacco e-Cigarette/Vaping Use: Never Used Second Hand Smoke Exposure: No service: No Current occupational status: employed Current occupational exposures/hazards: No Cognitive needs: No Hearing needs: No Vision needs: No Female Reproductive History Menstrual Age of Menarche: 18 Physical Exam Vital Signs: Last Vital Signs Pulse 75 03/05/24 14:25 BP 128/74 03/05/24 14:25 BMI result Body Mass Index 26.1 Const Other: Absence of Cushingoid features. Absence of acromegalic features. Neck exam revealsslight enlarged thyroid gland. No thyroid nodules palpable. No carotid bruits present. Lungs CTA. Heart S1 S2, Reg R/R. No M/R G. Skin exam reveals absence of vitiligo or acanthosis nigricans. No edema Visual exam of foot performed. No ulcerations or open lesions. No inter digit maceration or fissuring. No onychomycosis, no callouses. Sensation intact to monofilament exam. Vibratory sensation is normal with 128 Hz tuning fork. Good capillary refill with positive pulses. Results AMB Hemoglobin A1c AMB Hemoglobin A1c 7.9 % Last Edit by ROSLYN Gonzalez on 03/05/24 14:49 Results Reviewed Results Reviewed: Laboratory Last Values Glucose (Clinic) 132 mg/dL (60-115) H 03/05/24 14:31 Hgb A1c (Clinic) 7.9 % (4.0-6.0) H 03/05/24 14:48 Assessment & Plan Assessment & Plan (1) Diabetes mellitus: Code(s): E11.9 - Type 2 diabetes mellitus without complications Category: Medical Qualifiers: Diabetes mellitus complication detail: with microalbuminuria Diabetes mellitus complication status: with kidney complications Diabetes mellitus termite helper insulin use: with assisted use Diabetes mellitus type: type 2 Qualified Code(s): E11.29 - Type 2 diabetes mellitus with other diabetic kidney complication; R80.9 - Proteinuria, unspecified; Z79.4 - intermediate school teacher (current) use of insulin Plan: 63-year-old type 2 diabetic with stable retinopathy and stable nephropathy followed by alarm installation technician with good a.m. readings but higher postprandial. Increase pre meal insulin. She was asked to call and ask to speak with the [place]-speaking MA next week to report her numbers if not improving otherwise I will see her in 4 weeks' time. New dosing Jardiance 25 mg QD metformin 1000 mg BID Toujeo 40 units Lispro twice per day 10 with breakfast 14 units with supper Trulicity 3 mg Qwkly small goiter: ultrasound of the thyroid was ordered She was encouraged to continue to follow up with vascular, Nephrology and Ophthalmology The patient had an opportunity to ask questions regarding treatment plan. The patient expressed understanding and agreement with the above treatment plan. The patient is aware they should contact our office by phone for worsening glucose readings or for any low blood sugars which may warrant a change in diabetes medication. Compliance is encouraged with medications and any followup testing/consults which may have been ordered. Plan Jardiance 25 mg QD metformin 1000 mg BID Toujeo 40 units Lispro twice per day 10 with breakfast 14 units with supper Trulicity 3 mg Qwkly Orders: Orders US thyroid Today E04.9 - Nontoxic goiter, unspecified AMB Hemoglobin A1c Today E11.29 - Type 2 diabetes mellitus with other diabetic kidney complication, R80.9 - Proteinuria, unspecified, Z79.4 - snf (current) use of insulin Patient Instructions: The patient was counseled to always carry a source of sugar and on the rule of 15's: Take 3 glucose tablets and repeat again in 15 minutes if blood sugar is not in normal range. Continue to repeat every 15 minutes until blood sugar is normal. Check your feet daily looking for any signs of infection, ulceration and seek medical attention if this occurs. Break in shoes gradually and do not wear open-toed shoes or walk barefooted. The patient was counseled to achieve a target A1C of 7% (154 avg). Fasting blood sugars should be 90-130 in the morning and less than 180 two hours after meals. Reviewed the relationship between poor diabetic control and the development of complications. Coding Level of Care Code Est Pt Level 4 (53580) Complex EM visit Add On G2211 Diagnoses Type 2 diabetes mellitus with microalbuminuria, with long-term current use of insulin E11.29; R80.9; Z79.4 Diabetes mellitus complication detail: with microalbuminuria Diabetes mellitus complication status: with kidney complications Diabetes mellitus termite helper insulin use: with termite helper use Diabetes mellitus type: type 2 Time Spent (min) 30 Comment Time spent reviewing labs/provider notes, face to face, chart doc
[2024-03-05 14:40] LABS: Glucose, Whole Blood 132 mg/dL (60-115)
== END 2024-03-05 14:57 | disposition home or self-care (01) ==
PROVIDERS: PCP Internal Medicine; Visit Provider Nurse Practitioner Adult Health
DX: E11.29 Type 2 diabetes mellitus with other diabetic kidney complication (principal); R80.9 Proteinuria, unspecified; Z79.4 Long term (current) use of insulin

== ENCOUNTER → 2024-03-05 14:14 | Outpatient (BNVA) | payer OTHER, SELFPAY | PROVIDERS: PCP Internal Medicine; Visit Provider Nurse Practitioner Adult Health | DX: E11.29 Type 2 diabetes mellitus with other diabetic kidney complication (principal); R80.9 Proteinuria, unspecified; E04.9 Nontoxic goiter, unspecified; Z79.84 Long term (current) use of oral hypoglycemic drugs; Z79.899 Other long term (current) drug therapy | CPT/HCPCS: 82947; 83036; 99212 ==

== ENCOUNTER 2024-03-14 06:11 | Outpatient (REF) | payer OTHER, SELFPAY ==
--- OUTSIDE RECORDS SUMMARY | 2024-03-14 06:14 | XMS_ITS | Encounter Summary ---
Author Organization [facility] Address [address] [place] [address] Care Team Providers Care Greenhouse Transplanter Name Role Phone Unavailable Primary Care Provider Unavailabl e Encounter Details Date Type Department Care Team (Latest Contact Info) Description 02/24/[address] [facility] CONVERSIONS Dental, Provider, DDS Social History Tobacco Use Types Packs/Day Years Used Date Smoking Tobacco: Never Assessed Comments Unknown Sex and Gender Information Value Date Recorded Sex Assigned at Female 12/19/2021 10:28 AM EDT Legal Sex Female 10:28 AM EDT Gender Identity Female 12/19/2021 10:28 AM EDT Sexual Orientation Straight 12/19/2021 10 :28 AM EDT documented as of this encounter Plan of Treatment Upcoming Encounters Date Type Department Care Team (Late st Contact Info) Description 05/20/2024 3:00 PM EDT Office Visit [facility] ADULT DENTAL [address] [place] [address] Dariusz Joy [address] [place] [address] documented as of this encounter Visit Diagnoses Not on filedocumented in this encounter
--- OUTSIDE RECORDS SUMMARY | 2024-03-14 06:14 | XMS_ITS | Encounter Summary ---
Author Organization [facility] Address [address] [place] [address] Care Team Providers Care Medical Claims Analyst Name Role Phone Unavailable Primary Care Provider Unavailabl e Encounter Details Date Type Department Care Team (Latest Contact Info) Description 06/23/2020 Abstract [facility] CONVERSIONS Dental, Provider, DDS Social History [...] Description 05/20/2024 3:00 PM EDT Office Visit [facility] ADULT DENTAL [address] [place] [address] Joy Arzola [address] [place] [address] documented as of this encounter Visit Diagnoses Not on filedocumented in this encounter
--- OUTSIDE RECORDS SUMMARY | 2024-03-14 06:14 | XMS_ITS | Clinical Summary ---
Author Organization [employer] Address [address] [place] [address] Care Team Providers Care Economic Research Analyst Name Role Phone Unavailable Primary Care Provider Unavailabl e Allergies No known active allergies Medications atorvastatin (Lipitor) 80 MG tablet Take 80 mg by mouth at bedtime. 3 Active chlorthalidone (Hygroton) 25 MG tablet Take 25 mg by mouth in the morning. 3 Active Vitamin D High Potency 25 MCG (1000 UT) capsule Take 25 mcg by mouth in the morning. 3 Active cloNIDine (Catapres) 0.2 MG tablet Take 0.2 mg by mouth 3 times daily. 3 Active Trulicity 1.5 MG/0.5ML solution pen-injector INJECT ONE PEN (=1.5MG) SUBCUTANEOUSLY ONCE A WEEK DIRECTED 3 Active Jardiance 10 MG Take 10 mg by mouth in the morning. 3 Active ezetimibe (Zetia) 10 MG tablet Take 10 mg by mouth in the morning. 3 Active Toujeo SoloStar 300 UNIT/ML injection INJECT 40 UNITS SUBCUTANEOUSLY AT BEDTIME 3 Active insulin lispro (HumaLOG) 100 UNIT/ML injection INJECT 4 TO 8 UNITS SUBCUTANEOUSLY TWICE DAILY BEFORE BREAKFAST AND LUNCH 3 Active losartan (Cozaar) 100 MG tablet Take 100 mg by mouth in the morning. 3 Active metFORMIN (Glucophage) 1000 MG tablet Take 1,000 mg by mouth 2 times daily. 3 Active Active Problems Problem Noted Date Diagnosed Date Missing teeth, acquired 11/19/2023 Dental calculus 07/14/2022 Localized gingival recession 07/14/2022 Social History Tobacco Use Types Packs/Day Years Used Date Smoking Tobacco: Never Smokeless Tobacco: Never Tobacco Cessation:Counseling Given: Not Answered Comments Unknown Sex and Gender Information Value Date Recorded Sex Assigned at Female 12/19/2021 10:28 AM EDT Legal Sex Female 10:28 AM EDT Gender Identity Female 12/19/2021 10:28 AM EDT Sexual Orientation Straight 12/19/2021 10 :28 AM EDT Last Filed Vital Signs Vital Sign Reading Time Taken Comments Blood Pressure 126/68 11/19/2023 2:53 PM EDT Pulse 74 03/28/2023 2:37 PM EST Temperature - - Respiratory Rate - - Oxygen Saturation - - Inhaled Oxygen Concentration - - Weight - - Height - - Body Mass Index - - Plan of Treatment Upcoming Encounters Date Type Department Care Team (Late st Contact Info) Description 05/20/2024 3:00 PM EDT Office Visit [facility] D[facility] [address] [place] [address] Dariusz, Joy [address] [place] [address] Health Maintenance Due Date Last Done Comments CT Colonography 1962 Colonoscopy 1962 Colorectal Cancer Screening 1962 Depression Screening 1962 FIT DNA/Cologuard 1962 FIT 1962 FOBT 1962 HIV Screening 1962 Lipid Panel 1962 SDOH Screening 1962 Sigmoidoscopy 1962 Alcohol/Substance Use Screening 1974 Hepatitis C Screening 1980 Pap Smear 07/13/1983 Cervical Cancer Screening 1992 HPV/Cotest 1992 Mammogram 2002 Zoster Vaccines (1 of 2) 2012 Dental X-Ray: Full Mouth 06/25/2023 021, 04/23/2015, 11/30/2014 Dental Oral Exam 09/27/2023 03/28/2023, , 10/05/2021, Additional history exists COVID-19 Vaccine ( season) 2023 02/02/2021 Influenza Vaccine (#1) 2023 , 12/07/2017, 11/10/2016, Additional history exists Dental X-Ray: Bitewings 03/29/2024 03/28/19 24, 07/14/2022, 10/05/2021, Additional history exists Dental Prophylaxis 05/19/2024 11/19/2023, 0 03/28/2023, 07/14/2022, Additional history exists Tobacco Screening 11/18/2024 11/19/2023 DTaP/Tdap/Td Vaccines (2 - Td or Tdap) 12/14/2025 12/15/2015 RSV Patients and Patients Aged 60 years or older (1 - 1-dose 75+ series) 2037 HIB Vaccines Aged Out No longer eligi ble based on patient's age to complete this topic HPV Vaccines Aged Out No longer eligi ble based on patient's age to complete this topic Hepatitis A Vaccines Aged Out No long er eligible based on patient's age to complete this topic Hepatitis B Vaccines Aged Out No long er eligible based on patient's age to complete this topic IPV Vaccines Aged Out No longer eligi ble based on patient's age to complete this topic Meningococcal Vaccine Aged Out No yesenia erwin eligible based on patient's age to complete this topic Pneumococcal Vaccine: Pediatrics (0 to 5 Years) and At-Risk Patients (6 to 64 Years) Aged Out No longer eligible based on patient's age to complete this topic RSV under 20 months Aged Out No longe r eligible based on patient's age to complete this topic Rotavirus Vaccines Aged Out No longer eligible based on patient's age to complete this topic Procedures Procedure Name Priority Date/Time Associated Diagnosis Comments PROPHYLAXIS - ADULT Routine 11/19/2023 3 :00 PM EDT Dental calculus BITEWINGS - 4 RADIOGRAPHIC IMAGES Routine 03/28/2023 3:00 PM EST Localized gingival recession Dental calculus PERIODIC ORAL EVALUATION - ESTABLISHED PATIENT Routine 03/28/2023 3:00 PM EST DIAGNOSTIC - DIAGNOSTIC IMAGING - INTRAORAL - COMPREHENSIVE SERIES OF RADIOGRAPHIC IMAGES Routine 06/23/2020 12:00 AM EDT from Last 3 Months or Most Recently Relevant to Health Maintenance Insurance [facility] MEDICAID STAND ADULT [facility]
--- OUTSIDE RECORDS SUMMARY | 2024-03-14 06:14 | XMS_ITS | Encounter Summary ---
Author Organization [facility] Address [address] [facility] [address] [place] [address] Phone Care Team Providers Care Biology Teacher Name Role Phone Urszula Reyna MD Primary Care Provider [phone] Encounter Details Date Type Department Care Team (Late st Contact Info) Description 12/12/2021 Documentation Only [facility] [address] [facility] [address] [place] [phone] Isabella Sifuentes Social History Tobacco Use Types Packs/Day Years Used Date Smoking Tobacco: Never Alcohol Use Standard Drinks/Week Comments No 0 (1 standard drink = 0.6 oz pur e alcohol) Comments Unknown Sex and Gender Information Value Date Recorded Sex Assigned at Not on file Legal Sex Female 4:42 PM EST Gender Identity Not on file Sexual Orientation Not on file documented as of this encounter Plan of Treatment Upcoming Encounters Date Type Department Care Team (Late st Contact Info) Description 06/16/2024 4:15 PM EDT Office Visit [facility] [address] [place] [address] Saad Stovall MD [address] [facility] [address] [place] [phone] documented as of this encounter Visit Diagnoses Not on filedocumented in this encounter Care Teams Biology Teacher Relationship Specialty Start Date End Date Urszula Reyna MD [address] [place], [place] PCP - General 03/01/20 documented as of this encounter
--- OUTSIDE RECORDS SUMMARY | 2024-03-14 06:14 | XMS_ITS | Clinical Summary ---
Author Organization [facility] Facility Address [address] [facility] [address] [place] [address] Care Team Providers Care Continuing Education Instructor Name Role Phone Urszula Reyna MD Primary Care Provider [phone] Allergies No known active allergies Medications insulin glargine (Lantus) 100 UNIT/ML injection Active Toujeo SoloStar 300 UNIT/ML solution pen-injector INJECT 60 UNITS SUBCUTANEOUSLY AT BEDTIME 1 Active cloNIDine (CATAPRES) 0.2 MG tablet 0.3 mg in the morning and 0.3 mg in the evening. 6 Active chlorthalidone (HYGROTON) 25 MG tablet Take 1 tablet by mouth 1 (one) time each day 9 Active aspirin (ST ISAAK) 81 MG EC tablet Take 1 tablet by mouth 1 (one) time each day Active atorvastatin (LIPITOR) 80 MG tablet Take 80 mg by mouth at bed time 1 Active metFORMIN (GLUCOPHAGE) 1000 MG tablet Take 1,000 mg by mouth 2 (two) times a day 1 Active isoniazid (NYDRAZID) 300 MG tablet TAKE 1 TABLET BY MOUTH EVERY DAY por 90 DAYS 1 Active FREESTYLE LITE test strip TEST BLOOD SUGAR ONE OR TWO TIMES DAILY DIRECTED 1 Active rifAMPin (RIFADIN) 300 MG capsule TAKE 2 CAPSULES BY MOUTH EVERY DAY por 90 DAYS 1 Active losartan (COZAAR) 100 MG tablet TAKE 1 TABLET BY MOUTH EVERY DAY 30 tablet 3 4 Active Finerenone (Kerendia) 10 MG tablet Take 10 mg by mouth 1 (one) time each day 90 tablet 2 4 025 Active Active Problems Problem Noted Date Diagnosed Date Localized gingival recession 07/14/20223 Dental calculus 07/14/2022 10/26/2022 Chronic kidney disease stage 2 07/05/2020 Essential hypertension 07/05/2020 Proteinuria 07/05/2020 Renal disorder due to type 2 diabetes mellitus 0 07/05/2020 Encounters Date Type Department Care Team Description 02/06/2024 Office Communication [facility] [address] [phone] Saad Stovall MD 02/06/2024 Telephone [facility] [address] [phone] Isabella Christensen 02/06/2024 Orders Only [facility] [address] [phone] Saad Stovall MD Chronic kidney disease, stage 4 (severe) (HCC) (Primary Dx); Anemia in chronic kidney disease; Hyperkalemia; Hypertension from Last 3 Months Family History Medical History Relation Comments Hypertension Father Hypertension Mother Relation Status Comments Father Mother Social History Tobacco Use Types Packs/Day Years Used Date Smoking Tobacco: Never Alcohol Use Standard Drinks/Week Comments No 0 (1 standard drink = 0.6 oz pur e alcohol) Comments Unknown Sex and Gender Information Value Date Recorded Sex Assigned at Not on file Legal Sex Female 4:42 PM EST Gender Identity Not on file Sexual Orientation Not on file Last Filed Vital Signs Vital Sign Reading Time Taken Comments Blood Pressure 150/82 08/06/2023 3:47 PM EDT Pulse 100 08/06/2023 3:47 PM EDT Temperature - - Respiratory Rate - - Oxygen Saturation 98% 08/06/2023 3:47 PM EDT Inhaled Oxygen Concentration - - Weight 67 kg (147 lb 9.6 oz) 08/06/2023 3:47 PM EDT Height 162.6 cm (5' 4 ) 03/11/2019 12:00 PM EST Body Mass Index 25.34 03/11/2019 12:00 PM EST Plan of Treatment Upcoming Encounters Date Type Department Care Team (Late st Contact Info) Description 06/16/2024 4:15 PM EDT Office Visit [facility] [address] [place] [address] Saad Stovall MD [address] [facility] [address] [place] [address] Health Maintenance Due Date Last Done Comments Breast Cancer Screening 1962 Pneumococcal Vaccine: Pediat rics (0 to 5 Years) and At-Risk Patients (6 to 64 Years) (1 of 2 - PCV) 1968 Colorectal Cancer Screening: Annual FOBT 07/13/2011 Colorectal Cancer Screening: Colonoscopy 07/13/2011 Colorectal Cancer Screening: Sigmoidoscopy 07/13/2011 Diabetes: Hemoglobin A1C 03/21/2020 Diabetes: Ophthalmology Exam 03/21/2020 Diabetes: Pedal Pulse Checked 03/21/2020 Diabetes: Sensory Foot Exam 03/21/2020 Diabetes: Visual Foot Exam 03/21/2020 Influenza Vaccine (#1) 2023 Hepatitis B Vaccine Aged Out No longe r eligible based on patient's age to complete this topic Insurance Care Teams Continuing Education Instructor Relationship Specialty Start Date End Date Urszula Reyna MD [address] [address] [address] [place], [place] PCP - General 03/01/20
--- OUTSIDE RECORDS SUMMARY | 2024-03-14 06:14 | XMS_ITS | Encounter Summary ---
Author Organization [facility] Address [address] [facility] 7t [place] [address] Care Team Providers Care Boarder Machine Name Role Phone Unavailable Primary Care Provider Unavailabl e Encounter Details Date Type Department Care Team (Latest Contact Info) Description 10/05/2021 Abstract [facility] CONVERSIONS Dental, Provider, DDS Social History Tobacco [...] Description 05/20/2024 3:00 PM EDT Office Visit [facility] ADULT DENTAL [address] [place] [address] Joy Arzola [address] [place] [address] documented as of this encounter Visit Diagnoses Not on filedocumented in this encounter
[2024-03-14 07:35] LABS: Alanine Aminotransferase 31 U/L (0-31); Albumin Level 3.8 g/dL (3.5-5.0); Alkaline Phosphatase 88 U/L (39-117); Anion Gap 11 (12-20); Aspartate Amino Transferase 25 U/L (5-31); Bilirubin Total 0.3 mg/dL (0.0-1.0); Blood Urea Nitrogen 32 mg/dL (9-16); Calcium 9.2 mg/dL (8.4-10.2); Carbon Dioxide 27 mmol/L (22-29); Chloride 107 mmol/L (96-108); Cholesterol 164 mg/dL (<200); Estimated Glomerular Filt Rate 54; Glucose Fasting 93 mg/dL (60-99); HDL Cholesterol 50 mg/dL (>40); LDL Cholesterol Calculated 98 mg/dL (<100); Potassium 4.3 mmol/L (3.3-5.1); Sodium 141 mmol/L (135-145); Total Protein 7.6 g/dL (6.5-8.0); Triglycerides 80 mg/dL (<150)
[2024-03-14 07:49] LABS: Vitamin D 25-OH Total 36.9 ng/mL (>30)
[2024-03-14 11:12] LABS: Microalbum/Creatinine Ratio Ur 2305.6 ug/mg cr (<30)
== END 2024-03-14 06:12 | disposition home or self-care (01) ==
LOC: HO.LAB 06:11
PROVIDERS: PCP Internal Medicine; Visit Provider Internal Medicine
DX: E78.5 Hyperlipidemia, unspecified (principal); E55.9 Vitamin D deficiency, unspecified; E11.29 Type 2 diabetes mellitus with other diabetic kidney complication; R80.9 Proteinuria, unspecified; Z79.4 Long term (current) use of insulin
CPT/HCPCS: 36415; 80053; 80061; 82043; 82306; 82570

== ENCOUNTER 2024-03-19 15:11 | Outpatient (AMB) | payer OTHER, SELFPAY ==
[2024-03-19 15:27] VITALS: BP 132/70; PULSE 98; TEMP 36.2; O2SAT 97; BMI 25.9
--- NOTE | 2024-03-19 15:27 | MHC.PC.OV ---
Vital Signs 03/19/24 15:27 Height 5 ft 4 in Weight 151 lb 2 oz BMI 25.9 BP 132/70 Blood Pressure Location Lt brachial Position Sitting Pulse 98 Pulse Source Pulse Oximeter Temp 97.1 F Temp Source Temporal Artery Scan Pulse Oximetry (%) 97 Intake Visit Reasons: dm Career Development Counselor Required: Yes Career Development Counselor Language: Assistant Administrator Name: Urszula Taylor MD Information Interpreted: non-clinical & clinical Accompanied by: Self / Same As Patient Allergies cortison Adverse Reaction (Mild, Uncoded 03/19/24 16:01) elevated sugers Medication List - Last Reconciled 03/19/24 by Urszula Taylor MD atorvastatin 80 mg PO BEDTIME 90 days blood sugar diagnostic (FreeStyle Lite Strips) As directed 1-2x daily blood-glucose meter (FreeStyle Lite Meter kit) As directed blood-glucose meter (FreeStyle [place] Lite kit) USE DIRECTED chlorthalidone 25 mg PO DAILY 90 days cholecalciferol (vitamin D3) 25 mcg PO DAILY 90 days clonidine HCl 0.3 mg PO TID 90 days dulaglutide (Trulicity) 1 mg (0.1667 mL) subcut QWEEK empagliflozin (Jardiance) 25 mg PO DAILY 90 days ezetimibe 10 mg PO DAILY 90 days finerenone (Kerendia) 10 mg PO DAILY 90 days flash glucose scanning reader (FreeStyle Rosa Isela 2 [place]) As directed flash glucose sensor (FreeStyle Rosa Isela 2 Sensor kit) As directed change every 14 days insulin degludec (Tresiba FlexTouch U-200 insulin) 40 units (0.2 mL) subcut DAILY 30 days insulin lispro 4 - 8 units (0.04 - 0.08 mL) subcut BID lancets (TRUEplus Lancets) TEST BLOOD SUGAR ONE OR TWO TIMES DAILY DIRECTED losartan 100 mg PO DAILY metformin 1,000 mg PO BID 90 days miscellaneous medical supply (Blood Pressure Cuff) As directed pen needle, diabetic (Pentips Pen Needle) USE DIRECTED THREE TIMES DAILY WITH INSULIN verapamil ER 120 mg PO DAILY 90 days Tobacco use date assessed: 05/10/23 Dental Screening Dental Screen Date: 05/10/23 HPI HPI Comments History of Present Illness Details The patient is a 63-year-old female presenting with diabetes mellitus which is poorly controlled as noted by an A1c of 7.9%. She monitors her blood glucose at home, reporting a spike to 200-300 mg/dL post-prandial, although morning levels are within target range. She reports a history of microalbuminuria with regular monitoring, and recent chronic kidney disease management has included medication adjustments. The patient has hypertension managed with clonidine and chlorthalidone, with current readings of 132/70 mmHg. She also has hyperlipidemia successfully managed with atorvastatin, maintaining LDL levels around 98 mg/dL. She is currently undergoing endocrine evaluation. She is complaining about vaginal pruritus most likely due to Jardiance and I will prescribe fluconazole. Patient will let me know if vaginal pruritus due to candidiasis is still present and then I will have to consider discontinuing Jardiance. [facility] Medical History (Updated 03/19/24 @ 19:56 by Urszula Taylor MD) PAD (peripheral artery disease) Goiter Femoral artery occlusion Latent tuberculosis by blood test Hypovitaminosis D S/P angiogram of extremity (~02/13/19) Microalbuminuria Pure hypercholesterolemia Diabetes mellitus Essential hypertension Surgical History History of renal artery stenosis History of bilateral tubal ligation Family History Father No problems noted. Mother Hypertension Social History Housing: Apartment Alcohol intake: never Patient Tobacco Use Status: Never used Tobacco e-Cigarette/Vaping Use: Never Used Second Hand Smoke Exposure: No service: No Current occupational status: employed Current occupational exposures/hazards: No Cognitive needs: No Hearing needs: No Vision needs: No Female Reproductive History Menstrual Age of Menarche: 18 Questionnaire PHQ-9 Over the last 2 weeks, how often have you been bothered by any of the following problems? 1. Little interest or pleasure in doing things: not at all 2. Feeling down, depressed, or hopeless: not at all 3. Trouble falling or staying asleep, or sleeping too much: not at all 4. Feeling tired or having little energy: not at all 5. Poor appetite or overeating: not at all 6. Feeling bad about yourself - or that you are a failure or have let yourself or your family down: not at all 7. Trouble concentrating on things, such as reading the newspaper or watching television: not at all 8. Moving or speaking so slowly that other people could have noticed. Or the opposite - being so fidgety or restless that you have been moving around a lot more than usual: not at all 9. Thoughts that you would be better off or of hurting yourself in some way: not at all Total score: 0 Depression Screening Interpretation: Negative Depression Screening Done: Yes 93599 - PHQ-9 Billing: Yes Source: Developed by Drs. Saurabh Cason, Reina Marcelo, Orlando Ivey and colleagues, with an educational seema from [employer]. Thrive Questionnaire Date Thrive assessed: 03/19/24 I am a: Patient What is your living situation today?: I have a steady place to live Within the past 12 months, did the food you bought not last and you didn't have the money to get more?: Never true Within the past 12 months, did you worry whether your food would run out before you got money to buy more?: Never true Do you have trouble paying for medicines?: No Do you have trouble getting transportation to medical appointments?: No Do you have trouble paying your heating and electricity bill?: No Do you have trouble taking care of your child, family member or friend?: No Do you have trouble with day-to-day activities such as bathing, preparing meals, shopping, managing finances, etc.?: No Are you currently unemployed and looking for a job?: No Are you interested in more education?: No Please select the resources that you would like help with: None Currently or been in a relationship where the following occur: No concerns reported THRIVE Score: 0 AUDIT C Alcohol Use Questionnaire (AUDIT-C) 1. How often do you have a drink containing alcohol?: Never 3. How often do you have six or more drinks on one occasion?: Never Total Score: 0 LIA-7 AMB Questionnaire LIA-7 Date LIA - 7 assessed: 03/19/24 Feeling nervous, anxious, or on edge: 0 = Not at all Not being able to stop or control worryin = Not at all Worrying too much about different things: 0 = Not at all Trouble relaxin = Not at all Being so restless that it is hard to sit still: 0 = Not at all Becoming easily annoyed or irritable: 0 = Not at all Feeling afraid as if something awful might happen: 0 = Not at all Total LIA-7 score (0-4 normal; 5-9 mild; 10-14 moderate; 15-21 severe): 0 Source: Developed by Drs. Saurabh Cason, Reina Marcelo, Orlando Ivey and colleagues, with an educational seema from [employer]. LIA-7 Assessment Billing LIA-7 Assessment Tool: LIA-7 Assessment 29748 Review of Systems Const All systems reviewed & are unremarkable except as noted in HPI and below Card Denies chest pain at rest, Denies chest pain with activity, Denies edema, Denies irregular heart rhythm, Denies claudication, Denies dyspnea, Denies dyspnea on exertion, Denies orthopnea, Denies paroxysmal nocturnal dyspnea and Denies slow heart rate Resp Denies cough, Denies dyspnea and Denies dyspnea on exertion Skin/Breast Denies bleeding lesions, Denies changing lesions and Denies rash Physical exam (Primary Care) Vital Signs: Last Vital Signs Temp 97.1 F 03/19/24 15:27 Pulse 98 03/19/24 15:27 BP 132/70 03/19/24 15:27 Pulse Ox 97 03/19/24 15:27 BMI result Body Mass Index 25.9 Tobacco/Smoking Status: Tobacco use Status Tobacco use date assessed 05/10/23 03/19/24 15:32 Patient Tobacco Use Status Never used Tobacco 03/19/24 15:32 e-Cigarette/Vaping Use Never Used 03/19/24 15:32 PHQ-9: PHQ-9 Score PHQ-9: Total score 0 03/19/24 16:05 Depression Screening Interpretation: Negative Thrive Assessment: Date of Thrive Assessment Date Thrive assessed 03/19/24 03/19/24 15:34 Currently or been in a relationship where the following occur: No concerns reported Resp Effort & Inspection: normal respiratory effort Auscultation: clear to auscultation bilaterally Cardio Jugular venous distension: no JVD Rate: regular rate Rhythm: regular rhythm Heart sounds: S1 normal heart sound present and S2 normal heart sound present Extrem General: Yes full ROM Coding Level of Care Code Est Pt Level 4 (07515) Complex EM visit Add On G2211 Diagnoses Type 2 diabetes mellitus with microalbuminuria, with long-term current use of insulin E11.29; R80.9; Z79.4 Diabetes mellitus type: type 2 Diabetes mellitus manager long term care insulin use: with residential use Diabetes mellitus complication status: with kidney complications Diabetes mellitus complication detail: with microalbuminuria Essential hypertension I10 Pure hypercholesterolemia E78.00 Vaginal candidiasis B37.31 Microalbuminuria R80.9 Additional Codes LIA-7 Assessment Billing - LIA-7 Assessment Tool: LIA-7 Assessment 45708 ([id number]) PHQ-9 - 81823 - PHQ-9 Billing: Yes ([id number]) Time Spent (min) 22 Assessment & Plan Assessment & Plan (1) Diabetes mellitus: Code(s): E11.9 - Type 2 diabetes mellitus without complications Category: Medical Qualifiers: Diabetes mellitus type: type 2 Diabetes mellitus manager long term care insulin use: with manager long term care use Diabetes mellitus complication status: with kidney complications Diabetes mellitus complication detail: with microalbuminuria Qualified Code(s): E11.29 - Type 2 diabetes mellitus with other diabetic kidney complication; R80.9 - Proteinuria, unspecified; Z79.4 - residential (current) use of insulin (2) Essential hypertension: Code(s): I10 - Essential (primary) hypertension Category: Medical (3) Pure hypercholesterolemia: Code(s): E78.00 - Pure hypercholesterolemia, unspecified Category: Medical (4) Vaginal candidiasis: Code(s): B37.31 - Acute candidiasis of vulva and vagina Category: Medical (5) Microalbuminuria: Code(s): R80.9 - Proteinuria, unspecified Category: Medical Plan - Adjust Tresiba insulin to 45 units to better manage blood sugar levels. - Continue atorvastatin and monitor lipid profile. - Continue current hypertension management with clonidine and chlorthalidone. - Monitor microalbuminuria and renal function via future urine tests. - Address endocrine disorder through ongoing consultation with personnel technician. Patient was informed and verbally consented to the use of an ambient scribe for clinic note documentation during this visit. I discussed with the patient the need to increase her insulin dosage to improve glycemic control. We reviewed her current A1c levels and blood glucose readings, and the importance of maintaining her LDL at current levels with atorvastatin. The potential side effects of increased insulin and its benefits were explained, along with the need for regular follow-ups with her personnel technician. The risks of uncontrolled diabetes were outlined, including potential impact on kidney health, and strategies for urine monitoring were discussed. Orders: Orders Lipid Panel 4 Months E78.5 - Hyperlipidemia, unspecified Microalbumin, Random (w Creat) 4 Months R80.9 - Proteinuria, unspecified Comprehensive [place]. Panel Fast 4 Months E11.29 - Type 2 diabetes mellitus with other diabetic kidney complication, R80.9 - Proteinuria, unspecified, Z79.4 - residential (current) use of insulin Medications: New fluconazole 150 mg PO Q3D 2 tabs 0RF 2 doses B37.31 - Acute candidiasis of vulva and vagina Changed From insulin degludec (Tresiba FlexTouch U-200 insulin) 40 units (0.2 mL) subcut DAILY 30 days 6 mL 5RF E11.29 - Type 2 diabetes mellitus with other diabetic kidney complication, R80.9 - Proteinuria, unspecified, Z79.4 - joint terminal attack controller (current) use of insulin To insulin degludec (Tresiba FlexTouch U-200 insulin) 45 units (0.225 mL) subcut DAILY 6.75 mL 5RF 30 days E11.29 - Type 2 diabetes mellitus with other diabetic kidney complication, R80.9 - Proteinuria, unspecified, Z79.4 - residential (current) use of insulin Patient Instructions: - Begin increased dose of Tresiba insulin at 45 units as directed. - Continue current medications for blood pressure and cholesterol. - Monitor blood sugar levels continuously and maintain dietary adjustments as per personnel technician's advice. - Schedule a follow-up with the personnel technician. - Report any significant changes in symptoms, especially related to blood pressure, cholesterol, or blood sugar levels.
== END 2024-03-19 16:10 | disposition home or self-care (01) ==
PROVIDERS: PCP Internal Medicine; Visit Provider Internal Medicine
DX: E11.29 Type 2 diabetes mellitus with other diabetic kidney complication (principal); R80.9 Proteinuria, unspecified; Z79.4 Long term (current) use of insulin; I10 Essential (primary) hypertension; E78.00 Pure hypercholesterolemia, unspecified; B37.31 Acute candidiasis of vulva and vagina

== ENCOUNTER → 2024-03-19 15:11 | Outpatient (BNVA) | payer OTHER, SELFPAY | PROVIDERS: PCP Internal Medicine; Visit Provider Internal Medicine | DX: E11.29 Type 2 diabetes mellitus with other diabetic kidney complication (principal); R80.9 Proteinuria, unspecified; Z79.4 Long term (current) use of insulin; I10 Essential (primary) hypertension; E78.00 Pure hypercholesterolemia, unspecified; B37.31 Acute candidiasis of vulva and vagina | CPT/HCPCS: 96127; 99212 ==

== ENCOUNTER 2024-04-10 15:11 | Outpatient (REF) | payer OTHER, SELFPAY ==
--- OUTSIDE RECORDS SUMMARY | 2024-04-10 16:12 | XMS_ITS | Clinical Summary ---
Author Organization [employer] Address [address] [facility] 7t [place] [address] Care Team Providers Care Pig Machine Supervisor Name Role Phone Unavailable Primary Care Provider [...] Description 05/20/2024 3:00 PM EDT Office Visit [facility]ULT D[facility] [address] [place] [address] Dariusz Joy [address] [place] [address] Health Maintenance Due Date Last Done Comments CT Colonography 1962 Colonoscopy 1962 Colorectal Cancer Screening 1962 Depression Screening 1962 FIT DNA/Cologuard 1962 FIT 1962 FOBT 1962 HIV Screening 1962 Lipid Panel 1962 SDOH Screening 1962 Sigmoidoscopy 1962 Alcohol/Substance Use Screening 1974 Hepatitis C Screening 1980 Pap Smear 07/13/1983 Cervical Cancer Screening 1992 HPV/Cotest 1992 Mammogram 2002 Pneumococcal Vaccine: 50+ Years (1 of 1 - PCV) 2012 Zoster Vaccines (1 of 2) 2012 Dental X-Ray: Full Mouth 06/25/2023 021, 04/23/2015, 11/30/2014 Dental Oral Exam 09/27/2023 03/28/2023, , 10/05/2021, Additional history exists COVID-19 Vaccine ( - season) 2023 02/02/2021 Influenza Vaccine (#1) 2023 9, 12/07/2017, 11/10/2016, Additional history exists Dental X-Ray: [...] ESTABLISHED PATIENT Routine 03/28/2023 3:00 PM EST INTRAORAL - COMPLETE SERIES OF RADIOGRAPHIC IMAGES Routine 06/23/2020 12:00 AM EDT from Last 3 Months or Most Recently Relevant to Health Maintenance Insurance [facility] STAND ADULT [facility]
--- OUTSIDE RECORDS SUMMARY | 2024-04-10 16:12 | XMS_ITS | Clinical Summary ---
Author Organization [facility] Facility Address [address] [facility] [address] RODRIG[address]Z [address] [place] [address] Care Team Providers Care Civil Lawyer Name Role Phone Urszula Reyna MD Primary Care Provider [phone] Allergies No known active allergies Medications insulin glargine (Lantus) 100 UNIT/ML injection Active Toujeo SoloStar 300 UNIT/ML solution pen-injector INJECT 60 UNITS SUBCUTANEOUSLY AT BEDTIME 06/29/19 21 Active cloNIDine (CATAPRES) 0.2 MG tablet 0.3 mg in the morning and 0.3 mg in the evening. 03/04/19 16 Active chlorthalidon e (HYGROTON) 25 MG tablet Take 1 tablet by mouth 1 (one) time each day 11/19/19 19 Active aspirin (ST ISAAK) 81 MG EC tablet Take 1 tablet by mouth 1 (one) time each day Active atorvastatin (LIPITOR) 80 MG tablet Take 80 mg by mouth at bed time 11/04/19 21 Active metFORMIN (GLUCOPHAGE) 1000 MG tablet Take 1,000 mg by mouth 2 (two) times a day 10/30/19 21 Active isoniazid (NYDRAZID) 300 MG tablet TAKE 1 TABLET BY MOUTH EVERY DAY por 90 DAYS 11/03/19 21 Active FREESTYLE LITE test strip TEST BLOOD SUGAR ONE OR TWO TIMES DAILY DIRECTED 09/21/19 21 Active rifAMPin (RIFADIN) 300 MG capsule TAKE 2 CAPSULES BY MOUTH EVERY DAY por 90 DAYS 11/03/19 21 Active Finerenone (Kerendia) 10 MG tablet Take 10 mg by mouth 1 (one) time each day 90 tablet 2 02/06/20 24 2024 Active losartan (COZAAR) 100 MG tablet TAKE 1 TABLET BY MOUTH EVERY DAY 30 tablet 3 03/17/19 25 Active losartan (COZAAR) 100 MG tablet TAKE 1 TABLET BY MOUTH EVERY DAY 30 tablet 3 12/06/19 24 2024 Discontinued Active Problems Problem Noted Date Diagnosed Date Localized gingival recession 07/14/202208/2022 Dental calculus 07/14/2022 10/26/2022 Chronic kidney disease stage 2 07/05/2020 Essential hypertension 07/05/2020 Proteinuria 07/05/2020 Renal disorder due to type 2 diabetes mellitus 0 07/05/2020 Encounters Date Type Department Care Team Description 03/16/2024 Refill [facility] [address] [place] [address] Saad Stovall MD 02/06/2024 Office Communication [facility] [address] [facility] [address] [place] [phone] Saad Stovall MD 02/06/2024 Telephone [facility] [address] [facility] [address] [place] [phone] Isabella Christensen 02/06/2024 Orders Only [facility] [address] [facility] [address] [place] [address] Saad Stovall MD Chronic kidney disease, stage [...] Visit [facility] [address] RODRIGUEZ [address] [place] [phone] Saad Stovall MD [address] [facility] [address] [place] [phone] Health Maintenance Due Date Last Done Comments [...] patient's age to complete this topic Insurance [facility] Care Teams Civil Lawyer Relationship Specialty Start Date End Date Urszula Reyna MD [address] [place], [place] PCP - General 03/01/20
--- OUTSIDE RECORDS SUMMARY | 2024-04-10 16:12 | XMS_ITS | Encounter Summary ---
Author Organization [facility] Address [address] [address] Phone Care Team Providers Care Fire Investigation Lieutenant Name Role Phone Urszula Reyna MD Primary Care Provider [phone] Encounter Details Date Type Department Care Team (Late st Contact Info) Description 02/06/2024 Office Communication [facility] [address] [place] [address] Saad Stovall MD [address] [address] Social History Tobacco Use Types Packs/Day Years [...] Office Visit [facility] [address] [place] [address] Saad Stovall MD [address] [address] documented as of this encounter Visit Diagnoses Not on filedocumented in this encounter Care Teams Fire Investigation Lieutenant Relationship Specialty Start Date End Date Urszula Reyna MD [address] [place], [place] PCP - General 03/01/20 documented as of this encounter
--- OUTSIDE RECORDS SUMMARY | 2024-04-10 16:12 | XMS_ITS | Encounter Summary ---
Author Organization [facility] Address [address] [employer] 7t [place] [address] Care Team Providers Care Outside Residential Sales Professional Name Role Phone Unavailable Primary Care Provider Unavailabl e Encounter Details Date Type Department Care Team (Latest Contact Info) Description 06/23/2020 Abstract [facility] CONVERSIONS Dental, Provider, DDS Social History [...] Description 05/20/2024 3:00 PM EDT Office Visit [facility] ADULT DENTAL [address] [place] [address] Joy Arzola [address] [place] [address] documented as of this encounter Visit Diagnoses Not on filedocumented in this encounter
--- OUTSIDE RECORDS SUMMARY | 2024-04-10 16:12 | XMS_ITS | Encounter Summary ---
Author Organization [employer] [facility] Address [address] [facility] 7t [place] [address] Care Team Providers Care Director Of Cardiac Cath Lab Name Role Phone Unavailable Primary Care Provider Unavailabl e Encounter Details Date Type Department Care Team (Latest Contact Info) Description 10/05/2021 Abstract [facility] CONVERSIONS Dental, Provider, DDS Social History [...] Description 05/20/2024 3:00 PM EDT Office Visit [facility] ADULT DENTAL [address] [place] [address] Joy Arzola [address] [place] [address] documented as of this encounter Visit Diagnoses Not on filedocumented in this encounter
--- OUTSIDE RECORDS SUMMARY | 2024-04-10 16:12 | XMS_ITS | Encounter Summary ---
Author Organization [employer] [facility] Address [address] [facility] 7t [place] [address] Care Team Providers Care Barber Shop Manager Name Role Phone Unavailable Primary Care Provider Unavailabl e Encounter Details Date Type Department Care Team (Latest Contact Info) Description 02/24/2019 Abstract [facility] CONVERSIONS Dental, Provider, DDS Social History Tobacco [...] Description 05/20/2024 3:00 PM EDT Office Visit [facility] ADULT DENTAL [address] [place] [address] Dariusz Joy [address] [place] [address] documented as of this encounter Visit Diagnoses Not on filedocumented in this encounter
--- OUTSIDE RECORDS SUMMARY | 2024-04-10 16:12 | XMS_ITS | Encounter Summary ---
Author Organization [facility] Address [address] [facility] [address] [place] [address] Phone Care Team Providers Care Cable Assembler And Swager Name Role Phone Urszula Reyna MD Primary Care Provider [phone] Reason for Visit * Reason Comments Med Refill Encounter Details Date Type Department Care Team (Late Contact Info) Description 03/16/2024 Refill [facility] [address] [facility] [address] [place] [address] Saad Stovall MD [address] [address] Social History Tobacco Use Types [...] Visit [facility] [address] [place] [address] Saad Stovall MD [address] [address] documented as of this encounter Visit Diagnoses Not on filedocumented in this encounter Care Teams Cable Assembler And Swager Relationship Specialty Start Date End Date Urszula Reyna MD [address] [place], [place] PCP - General 03/01/20 documented as of this encounter
--- OUTSIDE RECORDS SUMMARY | 2024-04-10 16:12 | XMS_ITS | Encounter Summary ---
Author Organization [facility] Address [address] [facility] 200 [place] [address] Phone Care Team Providers Care Gas Shovel Operator Name Role Phone Urszula Reyna MD Primary Care Provider [phone] Encounter Details Date Type Department Care Team (Late st Contact Info) Description 12/12/2021 Documentation Only [facility] [address] [facility] [address] [place] [phone] Isabella Sifuentes Social History Tobacco Use Types [...] Visit [facility] [address] [place] [address] Saad Stovall MD [address] [facility] [address] [place] [phone] documented as of this encounter Visit Diagnoses Not on filedocumented in this encounter Care Teams Gas Shovel Operator Relationship Specialty Start Date End Date Urszula Reyna MD [address] [place], [place] PCP - General 03/01/20 documented as of this encounter
== END 2024-04-10 15:12 | disposition home or self-care (01) ==
LOC: HO.US 15:11
PROVIDERS: PCP Internal Medicine; Visit Provider Nurse Practitioner Adult Health
DX: E04.9 Nontoxic goiter, unspecified (principal)
CPT/HCPCS: 76536

== ENCOUNTER → 2024-04-10 15:13 | Outpatient (BNV) | payer OTHER, SELFPAY | PROVIDERS: PCP Internal Medicine; Visit Provider Radiology Diagnostic Radiology | DX: E04.1 Nontoxic single thyroid nodule (principal) | CPT/HCPCS: 76536 ==

== ENCOUNTER 2024-05-22 14:18 | Outpatient (AMB) | payer OTHER, SELFPAY ==
[2024-05-22 14:28] VITALS: BMI 26.3
--- NOTE | 2024-05-22 14:28 | A.OFFVIS_ITS ---
VS Expanded 05/22/24 14:28 Height 5 ft 4 in Weight 153 lb 7.068 oz BMI 26.3 Intake Visit Reasons: T2DM Allergies cortison Adverse Reaction (Mild, Uncoded 06/06/24 14:47) elevated sugers Nutrition Presentation Details: Pt presents for MNT f/u for t2DM Pt reports working on having small meals throughout the day, no consistency in portions beverages: water, diluted juices with water reading foods labels: on an off food frequency fish : 2/wk fruits: 2-3/d starches 18-20/d combination of starchy vegetables dairy: variety including non dairy alternative 1-2/d vex/wk BS Monitoring Most Recent Diabetes Results: Microalb/Creat Ratio 2305.6 ug/mg cr (<30) H 03/14/24 Cholesterol 164 mg/dL (<200) 03/14/24 HDL Cholesterol 50 mg/dL (>40) 03/14/24 Triglycerides 80 mg/dL (<150) 03/14/24 Creatinine 1.04 mg/dL (0.5-1.4) 03/14/24 Blood Urea Nitrogen 32 mg/dL (9-16) H 03/14/24 Sodium 141 mmol/L (135-145) 03/14/24 Potassium 4.3 mmol/L (3.3-5.1) 03/14/24 Chloride 107 mmol/L (96-108) 03/14/24 Carbon Dioxide 27 mmol/L (22-29) 03/14/24 Calcium 9.2 mg/dL (8.4-10.2) 03/14/24 AST 25 U/L (5-31) 03/14/24 ALT 31 U/L (0-31) 03/14/24 Total Protein 7.6 g/dL (6.5-8.0) 03/14/24 Albumin 3.8 g/dL (3.5-5.0) 03/14/24 VZH-Gsihdzv-Hm.Jeor Equation Height: 5 ft 4 in Weight: 153 lb Resting Metabolic Rate: 1248.18 Calculated Activity Level: Mild Activity Calories Needed to Maintain Weight: 1716.25 [facility] Medical History PAD (peripheral artery disease) Goiter Femoral artery occlusion Latent tuberculosis by blood test Hypovitaminosis D S/P angiogram of extremity (~02/13/19) Microalbuminuria Pure hypercholesterolemia Diabetes mellitus Essential hypertension Surgical History History of renal artery stenosis History of bilateral tubal ligation Family History Father No problems noted. Mother Hypertension Social History (System 06/06/24 @ 14:47 by Tatiana Webb) Housing: Apartment Alcohol intake: never Patient Tobacco Use Status: Never used Tobacco e-Cigarette/Vaping Use: Never Used Second Hand Smoke Exposure: No service: No Current occupational status: employed Current occupational exposures/hazards: No Cognitive needs: No Hearing needs: No Vision needs: No Female Reproductive History Menstrual Age of Menarche: 18 Assessment & Plan Assessment & Plan (1) Diabetes mellitus: Code(s): E11.9 - Type 2 diabetes mellitus without complications Category: Medical Qualifiers: Diabetes mellitus complication detail: with microalbuminuria Diabetes mellitus complication status: with kidney complications Diabetes mellitus skilled nursing insulin use: with skilled nursing use Diabetes mellitus type: type 2 Qualified Code(s): E11.29 - Type 2 diabetes mellitus with other diabetic kidney complication; R80.9 - Proteinuria, unspecified; Z79.4 - longterm (current) use of insulin Plan: Review misconceptions regarding fruits and its carb content wt: 65 kg (03/14), 69.5 (06/13) Est kcal needs as per MSJ: 1700 (40% carb, 30% protein/fat) Est fluid needs as per 25-30 ml/d: 1700 Est prot per day as per 1 g/kg bw: 66 Recommend fiber intake : 8-10 g per day and gradually increase to 25-28 g per day for women and 35-38 g for men or as tolerated Recommend sodium intake per day : less than 1500 mg less than 2000 mg Educated patient on: ( R = reviewed V = verbalizes understanding N/R = needs review N/A = not applicable * Food sources of carbohydrate, adequate serving sizes and its role in various health conditions: R * Differences between complex carbohydrates a simple carbohydrates, role of fiber in diet: R * Differences between types of fats and role in diet (mono on saturated fat fatty acids, saturated fatty acids, trans fats): R low fat basic * Food sources of sodium in salt and healthy modifications for heart health in kidney health: R * Healthy plate method concept: R V * Physical activity: Benefits a precaution: R * Hypoglycemia protocol (rule of 15): R * Dietary prevention of Hyperglycemia: R Patient Instructions: Have a fruit in place of crackers - working on choosing fiber rich and low sodium snack Try tofu as your protein in the evening Work on consistency in amount of carb ,example 1 cup portion of cooked starches at dinner time (45- 60 g carbs) Coding Level of Care Code Nutr Indiv Subseq (80332) Diagnoses Type 2 diabetes mellitus with microalbuminuria, with long-term current use of insulin E11.29; R80.9; Z79.4 Diabetes mellitus complication detail: with microalbuminuria Diabetes mellitus complication status: with kidney complications Diabetes mellitus maintenance department manager insulin use: with maintenance department manager use Diabetes mellitus type: type 2 Time Spent (min) 30
--- OUTSIDE RECORDS SUMMARY | 2024-05-22 15:46 | XMS_ITS | Encounter Summary ---
Author Organization [employer] [facility] Address [address] [place] [address] 7t [place] [address] Care Team Providers Care Phone Specialist Name Role Phone Unavailable Primary Care Provider Unavailabl e Reason for Visit * Reason Comments Routine Cleaning Dental Exam FMX Perio chart Encounter Details Date Type Department Care Team (Late st Contact Info) Description 05/20/2024 3:00 PM EDT Office Visit [facility] ADULT DENTAL [address] [place] [address] Joy Arzola [address] [place] [address] Dental calculus (Primary Dx); Localized gingival recession; Missing teeth, acquired Social History Tobacco Use Types Packs/Day Years Used Date Smoking Tobacco: Never Smokeless Tobacco: Never Comments Unknown Sex and Gender Information Value Date Recorded Sex Assigned at Female 12/19/2021 10:28 AM EDT Legal Sex Female 10:28 AM EDT Gender Identity Female 12/19/2021 10:28 AM EDT Sexual Orientation Straight 12/19/2021 10 :28 AM EDT documented as of this encounter Last Filed Vital Signs Vital Sign Reading Time Taken Comments Blood Pressure 122/70 05/20/2024 2:39 PM EDT Pulse - - Temperature - - Respiratory Rate - - Oxygen Saturation - - Inhaled Oxygen Concentration - - Weight - - Height - - Body Mass Index - - documented in this encounter Progress Notes * Joy Arzola - 05/20/2024 3:00 PM EDT Patient ID: Joy Vila is a 63 y.o. female. Time Out: Timeout Date: 05/20/24, Timeout Time: 1441 (FMX, Prophy, Perio chart, P. exam.) Location: [facility] Tooth: Maxilla and Mandible Procedure: Exam, X-rays, Prophylaxis, and Perio chart Verified the above with patient, recruitment and outreach assistant, and provider. Confirmed via patient's chart, intraorally and by radiographs. Senior Risk Analyst: not applicable Medical Hx: Vitals: Blood pressure 122/70. Medications, Med Hx reviewed with patient and updated in chart. Treatment Provided Dental procedures in this visit D0210 - INTRAORAL - COMPLETE SERIES OF RADIOGRAPHIC IMAGES (Completed) Service provider: Joy Arzola Billgael provider: Carlos Woodard DDS D1110 - PROPHYLAXIS - ADULT (Completed) Service provider: Joy Arzola Billgael provider: Carlos Woodard DDS D1330 - ORAL HYGIENE INSTRUCTIONS (Completed) Service provider: Joy Park provider: Carlos Woodard DDS D9450 - CASE PRESENTATION, DETAILED AND EXTENSIVE TREATMENT PLANNING (Completed) Service provider: Joy Park provider: Carlos Woodard DDS Instruments Used: Ultrasonic Scalers, Hand Scalers, and Prophy angle Fluoride: N/A Oral Cancer Screening: No lesions Head/Neck Exam: No Lesions Calculus: Light Plaque: Light Stain: Light Bleeding: Light Gingiva: Recession- localized and pink OH: Good Perio Chart: Completed Oral hygiene instructions provided to patient including brushing technique and flossing. Recommendations: [place] two times daily, modified santillan technique, Floss daily, Electric toothbrush, Soft bristle toothbrush, [place] Tongue, Anti-sensitivity toothpaste Recall Frequency: 6 mo NV: 6 months Hygienist: Joy Arzola RDH * Carlos Woodard DDS - 05/20/2024 3:00 PM EDT Dental procedures in this visit D0210 - INTRAORAL - COMPLETE SERIES OF RADIOGRAPHIC IMAGES (Completed) Service provider: Joy Park provider: JAYASHREE Melendez - PROPHYLAXIS - ADULT (Completed) Service provider: Joy Arzola Billgael provider: Carlos Woodard DDS D1330 - ORAL HYGIENE INSTRUCTIONS (Completed) Service provider: Joy Arzola Billgael provider: Carlos Woodard DDS D9450 - CASE PRESENTATION, DETAILED AND EXTENSIVE TREATMENT PLANNING (Completed) Service provider: Joy Arzola Billing provider: Carlos Woodard DDS D0120 - PERIODIC ORAL EVALUATION - ESTABLISHED PATIENT (Completed) Service provider: Carlos Woodard DDS Billing provider: Carlos Woodard DDS Patient ID: Joy Vila is a 63 y.o. female. Time Out: Timeout Date: 05/20/24, Timeout Time: 1441 (FMX, Prophy, Perio chart, P. exam.) Location: [facility] Tooth: Maxilla and Mandible Procedure: Exam, X-rays, and Prophylaxis Verified the above with patient, recruitment and outreach assistant, and provider. Confirmed via patient's chart, intraorally and by radiographs. Senior Risk Analyst: not applicable Chief Complaint Patient presents with Routine Cleaning Dental Exam FMX Perio chart Medical Hx: Vitals: Blood pressure 122/70. Past Medical History: Diagnosis Date Diabetes mellitus ([facility]) High cholesterol Hypertension Medications: Outpatient Encounter Medications as of 05/20/2024 Medication Sig Dispense Refill atorvastatin (Lipitor) 80 MG tablet Take 80 mg by mouth at bedtime. chlorthalidone (Hygroton) 25 MG tablet Take 25 mg by mouth in the morning. cloNIDine (Catapres) 0.2 MG tablet Take 0.2 mg by mouth 3 times daily. ezetimibe (Zetia) 10 MG tablet Take 10 mg by mouth in the morning. insulin lispro (HumaLOG) 100 UNIT/ML injection INJECT 4 TO 8 UNITS SUBCUTANEOUSLY TWICE DAILY BEFORE BREAKFAST AND LUNCH Jardiance 10 MG Take 10 mg by mouth in the morning. Kerendia 10 MG tablet Take 1 tablet by mouth Once per day. losartan (Cozaar) 100 MG tablet Take 100 mg by mouth in the morning. metFORMIN (Glucophage) 1000 MG tablet Take 1,000 mg by mouth 2 times daily. Toujeo SoloStar 300 UNIT/ML injection INJECT 40 UNITS SUBCUTANEOUSLY AT BEDTIME Trulicity 1.5 MG/0.5ML solution pen-injector INJECT ONE PEN (=1.5MG) SUBCUTANEOUSLY ONCE A WEEK DIRECTED Vitamin D High Potency 25 MCG (1000 UT) capsule Take 25 mcg by mouth in the morning. No facility-administered encounter medications on file as of 05/20/2024. Objective HPI Asymptomatic Head and Neck Exam: Lymph Nodes, Lips, Palate, Buccal Mucosa, Floor of Mouth, Tongue, Tonsils, Alveolar Ridges, Oropharynx, Salivary Ducts, and Vestibules presents normal appearance. Details: Skin WNL OCS: negative Dental Exam As charted Plaque Calculus Loc Recession Restorations functionally sound Reference tooth chart for additional findings. Oral Cancer Risk: Low Risk Oral Hygiene Instructions: [place] two times daily, modified santillan technique, Floss daily, Electric toothbrush, Soft bristle toothbrush, [place] Tongue Caries Risk Assessment: Low- no risk factor Assessment/Plan SHANNAN X rays Hygiene Patient tolerated procedure well, all questions answered and expressed understanding. Dismissed in good condition. NV: 6 mos recall Transplant Rn: Joy Arzola RDH Dentist: Carlos Woodard DDS documented in this encounter Plan of Treatment Upcoming Encounters Date Type Department Care Team (Late st Contact Info) Description 11/21/2024 3:00 PM EDT Office Visit [facility] ADULT DENTAL [address] [place] [address] Joy Arzola [address] [place] [address] Scheduled Orders Name Type Priority Associated Diagnoses Orde r Schedule PROPHYLAXIS - ADULT Dental Routine 1 Occ urrences starting 05/20/2024 ORAL HYGIENE INSTRUCTIONS Dental Routine 1 Occurrences starting 05/20/2024 CASE PRESENTATION, DETAILED AND EXTENSIVE TREATMENT PLANNING Dental Routine 1 Occurrences starting 05/20/2024 documented as of this encounter Procedures Procedure Name Priority Date/Time Associated Diagnosis Comments PROPHYLAXIS - ADULT Routine 05/20/2024 3 :00 PM EDT Dental calculus PERIODIC ORAL EVALUATION - ESTABLISHED PATIENT Routine 05/20/2024 3:00 PM EDT ORAL HYGIENE INSTRUCTIONS Routine 05/20/2024 3:00 PM EDT Dental calculus Localized gingival recession Missing teeth, acquired INTRAORAL - COMPLETE SERIES OF RADIOGRAPHIC IMAGES Routine 05/20/2024 3:00 PM EDT Dental calculus Localized gingival recession Missing teeth, acquired CASE PRESENTATION, DETAILED AND EXTENSIVE TREATMENT PLANNING Routine 05/20/2024 3:00 PM EDT Dental calculus Localized gingival recession Missing teeth, acquired documented in this encounter Visit Diagnoses Diagnosis Dental calculus- Primary Accretions on teeth Localized gingival recession Gingival recession, localized Missing teeth, acquired documented in this encounter
--- OUTSIDE RECORDS SUMMARY | 2024-05-22 15:46 | XMS_ITS | Encounter Summary ---
Author Organization [employer] [facility] Address [address] [facility] 7t [place] [address] Care Team Providers Care Business Office Specialist Name Role Phone Unavailable Primary Care Provider Unavailabl e Encounter Details Date Type Department Care Team (Latest Contact Info) Description 02/24/[address] [facility] CONVERSIONS Dental, Provider, DDS Social History [...] Description 11/21/2024 3:00 PM EDT Office Visit [facility] ADULT DENTAL [address] [place] [address] Dariusz Joy [address] [place] [address] documented as of this encounter Visit Diagnoses Not on filedocumented in this encounter
--- OUTSIDE RECORDS SUMMARY | 2024-05-22 15:46 | XMS_ITS | Encounter Summary ---
Author Organization [facility] Address [address] [facility] [address] [place] [address] Phone Care Team Providers Care Rivers And Lakes Leverman Name Role Phone Urszula Reyna MD Primary Care Provider [phone] Encounter Details Date Type Department Care Team (Late st Contact Info) Description 12/12/2021 Documentation Only [facility] [address] [facility] [address] [place] [phone] Isabella Sifuentes Social History Tobacco Use Types [...] Visit [facility] [address] [place] [address] Saad Stovall MD [address] [facility] [address] [place] [phone] documented as of this encounter Visit Diagnoses Not on filedocumented in this encounter Care Teams [place] Leverman Relationship Specialty Start Date End Date Urszula Reyna MD [address] [place], [place] PCP - General 03/01/20 documented as of this encounter
--- OUTSIDE RECORDS SUMMARY | 2024-05-22 15:46 | XMS_ITS | Clinical Summary ---
Author Organization [facility] Address [address] [facility] [address] [place] [address] Care Team Providers Care Game Tester Name Role Phone Urszula Reyna MD Primary Care Provider [phone] Allergies No known active allergies Medications insulin [...] EVERY DAY por 90 DAYS 1 Active Finerenone (Kerendia) 10 MG tablet Take 10 mg by mouth 1 (one) time each day 90 tablet 2 4 025 Active losartan (COZAAR) 100 MG tablet TAKE 1 TABLET BY MOUTH EVERY DAY 30 tablet 3 5 Active Active Problems Problem Noted Date Diagnosed Date Localized gingival recession 07/14/20223 Dental calculus 07/14/2022 10/26/2022 Chronic kidney disease stage 2 07/05/2020 Essential hypertension 07/05/2020 Proteinuria 07/05/2020 Renal disorder due to type 2 diabetes mellitus 0 07/05/2020 Encounters Date Type Department Care Team Description 03/16/2024 Refill [facility] [address] [facility] [address] [place] [phone] Saad Stovall MD from Last 3 Months Family History Medical [...] Visit [facility] [address] [place] [address] Saad Stovall MD [address] [facility] [address] [place] [phone] Health Maintenance Due Date Last Done Comments [...] on patient's age to complete this topic Care Teams Game Tester Relationship Specialty Start Date End Date Urszula Reyna MD [address] [place], [place] PCP - General 03/01/20
--- OUTSIDE RECORDS SUMMARY | 2024-05-22 15:46 | XMS_ITS | Encounter Summary ---
Author Organization [employer] [facility] Address [address] [facility] 7t [place] [address] Care Team Providers Care Deep Fat Cook Fry Name Role Phone Unavailable Primary Care Provider Unavailabl e Encounter Details Date Type Department Care Team (Latest Contact Info) Description 10/05/2021 Abstract [facility] CONVERSIONS Dental, Provider, DDS Social History Tobacco [...] Description 11/21/2024 3:00 PM EDT Office Visit [facility] ADULT DENTAL [address] [place] [address] Joy Arzola [address] [place] [address] documented as of this encounter Visit Diagnoses Not on filedocumented in this encounter
--- OUTSIDE RECORDS SUMMARY | 2024-05-22 15:46 | XMS_ITS | Encounter Summary ---
Author Organization [employer] [facility] Address [address] [facility] 7t [place] [address] Care Team Providers Care Guitar Repairer Name Role Phone Unavailable Primary Care Provider Unavailabl e Encounter Details Date Type Department Care Team (Latest Contact Info) Description 06/23/2020 Abstract [facility] CONVERSIONS Dental, Provider, DDS Social History [...] Description 11/21/2024 3:00 PM EDT Office Visit [facility] ADULT DENTAL [address] [place] [address] Joy Arzola [address] [place] [address] documented as of this encounter Visit Diagnoses Not on filedocumented in this encounter
--- OUTSIDE RECORDS SUMMARY | 2024-05-22 15:46 | XMS_ITS | Clinical Summary ---
Author Organization [employer] Address [address] [facility] 7t [place] [address] Care Team Providers Care Apricot Washer Name Role Phone Unavailable Primary Care Provider [...] by mouth 2 times daily. 3 Active Kerendia 10 MG tablet Take 1 tablet by mouth Once per day. Active Active Problems Problem Noted Date Diagnosed Date Missing teeth, acquired 11/19/2023 Dental calculus 07/14/2022 Localized gingival recession 07/14/2022 Encounters Date Type Department Care Team Description 05/20/2024 3:00 PM EDT Office Visit [facility] ADULT D[facility]AL [address] [place] [address] Joy Arzola Dental calculus (Primary Dx); Localized gingival recession; Missing teeth, acquired from Last 3 Months Social History Tobacco Use Types Packs/Day Years [...] Pressure 122/70 05/20/2024 2:39 PM EDT Pulse 74 03/28/2023 2:37 PM EST Temperature - - Respiratory Rate - - Oxygen Saturation - - Inhaled Oxygen Concentration - - Weight - - Height - - Body Mass Index - - Plan of Treatment Upcoming Encounters Date Type Department Care Team (Late st Contact Info) Description 11/21/2024 3:00 PM EDT Office Visit [facility] ADULT [facility] [address] [place] [address] Joy Arzola [address] [place] [address] Health Maintenance Due Date Last Done Comments [...] 2012 Zoster Vaccines (1 of 2) 2012 COVID-19 Vaccine ( season) 2023 02/02/2021 Influenza Vaccine (#1) 2023 9, 12/07/2017, 11/10/2016, Additional history exists Dental Oral Exam 11/20/2024 05/20/2024, 08/2023, 07/14/2022, Additional history exists Dental Prophylaxis 11/20/2024 05/20/2024, 0 11/19/2023, 03/28/2023, Additional history exists Tobacco Screening 05/20/2025 05/20/2024 Dental X-Ray: Bitewings 05/21/2025 05/21/19, 03/28/2023, 07/14/2022, Additional history exists DTaP/Tdap/Td Vaccines (2 - Td or Tdap) 12/14/2025 12/15/2015 Dental X-Ray: Full Mouth 05/22/2027 025, 06/23/2020, 04/23/2015, Additional history exists RSV Patients and Patients Aged 60 years [...] Procedure Name Priority Date/Time Associated Diagnosis Comments PERIODIC ORAL EVALUATION - ESTABLISHED PATIENT Routine 05/20/2024 3:00 PM EDT CASE PRESENTATION, DETAILED AND EXTENSIVE TREATMENT PLANNING Routine 05/20/2024 3:00 PM EDT Dental calculus Localized gingival recession Missing teeth, acquired ORAL HYGIENE INSTRUCTIONS Routine 05/20/2024 3:00 PM EDT Dental calculus Localized gingival recession Missing teeth, acquired PROPHYLAXIS - ADULT Routine 05/20/2024 3 :00 PM EDT Dental calculus INTRAORAL - COMPLETE SERIES OF RADIOGRAPHIC IMAGES Routine 05/20/2024 3:00 PM EDT Dental calculus Localized gingival recession Missing teeth, acquired from Last 3 Months Insurance [facility] DENTAL - HSN PARTIAL (MEDICAID)
[2024-06-10 14:14] VITALS: BMI 26.3
== END 2024-05-22 14:59 | disposition home or self-care (01) ==
PROVIDERS: PCP Internal Medicine; Visit Provider Dietitian, Registered
DX: E11.29 Type 2 diabetes mellitus with other diabetic kidney complication (principal); R80.9 Proteinuria, unspecified; Z79.4 Long term (current) use of insulin

== ENCOUNTER → 2024-05-22 14:18 | Outpatient (BNVA) | payer OTHER, SELFPAY | PROVIDERS: PCP Internal Medicine; Visit Provider Dietitian, Registered | DX: E11.29 Type 2 diabetes mellitus with other diabetic kidney complication (principal); R80.9 Proteinuria, unspecified; Z79.4 Long term (current) use of insulin | CPT/HCPCS: 97803 ==

== ENCOUNTER 2024-05-27 14:30 | Outpatient (AMB) | payer OTHER, SELFPAY ==
[2024-05-27 14:48] VITALS: BMI 26.1
--- NOTE | 2024-05-27 14:48 | A.OFFVIS_ITS ---
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 Assistant Health Educator Services: Assistant Health Educator Present Information Interpreted: clinical only Allergies cortison Adverse Reaction (Mild, Uncoded 05/27/24 14:49) elevated sugers Medication List - Last Reconciled 05/27/24 by Temitope Alcantara CNM atorvastatin 80 mg PO BEDTIME 90 days blood sugar diagnostic (FreeStyle Lite Strips) As directed 1-2x daily blood-glucose meter (FreeStyle Lite Meter kit) As directed blood-glucose meter (FreeStyle [place] Lite kit) USE DIRECTED chlorthalidone 25 mg PO DAILY 90 days cholecalciferol (vitamin D3) 25 mcg PO DAILY 90 days clonidine HCl 0.3 mg PO TID 90 days dulaglutide (Trulicity) 1 mg (0.1667 mL) subcut QWEEK empagliflozin (Jardiance) 25 mg PO DAILY 90 days ezetimibe 10 mg PO DAILY 90 days finerenone (Kerendia) 10 mg PO DAILY 90 days flash glucose scanning reader (FreeStyle Rosa Isela 2 Picacho) As directed flash glucose sensor (FreeStyle Rosa Isela 2 Sensor kit) As directed change every 14 days fluconazole 150 mg PO Q3D 2 doses insulin glargine U-300 conc (Toujeo Max U-300 SoloStar) 45 units (0.15 mL) subcut BEDTIME 30 days insulin lispro 4 - 8 units (0.04 - 0.08 mL) subcut BID lancets (TRUEplus Lancets) TEST BLOOD SUGAR ONE OR TWO TIMES DAILY DIRECTED losartan 100 mg PO DAILY metformin 1,000 mg PO BID 90 days miscellaneous medical supply (Blood Pressure Cuff) As directed pen needle, diabetic (Pentips Pen Needle) USE DIRECTED THREE TIMES DAILY WITH INSULIN verapamil ER 120 mg PO DAILY 90 days Post menopausal: Yes HPI 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 She is not having any insurance appraiser problems or concerns whatsoever. She is what she is no longer sexually active. She is not having any concerns at all about infection or anything else she has never had an abnormal Pap smear and her last Pap smear was negative in 2022. She is menopausal she is diabetic and she says her sugars are more or less controlled. She follows up with her primary care provider for all over appointments as she does with all of the other care provider's including getting I checks. She says she is up-to-date on her mammograms as well. . She walks for exercise and takes care of herself. [facility] Medical History PAD (peripheral artery disease) Goiter Femoral artery occlusion Latent tuberculosis by blood test Hypovitaminosis D S/P angiogram of extremity (~02/13/19) Microalbuminuria Pure hypercholesterolemia Diabetes mellitus Essential hypertension Surgical History History of renal artery stenosis History of bilateral tubal ligation Family History Father No problems noted. Mother Hypertension Social History Housing: Apartment Alcohol intake: never Patient Tobacco Use Status: Never used Tobacco e-Cigarette/Vaping Use: Never Used Second Hand Smoke Exposure: No service: No Current occupational status: employed Current occupational exposures/hazards: No Cognitive needs: No Hearing needs: No Vision needs: No Female Reproductive History Menstrual Age of Menarche: 18 control method: permanent sterilization Total pregnancies: 5 Full term: 5 Date of last pap smear: 04/19/22 (negative) Physical Exam Vital Signs: BMI result Body Mass Index 26.1 Const General: healthy appearing, comfortable, no acute distress, well developed and alert Nutritional Appearance: average body habitus Orientation/consciousness: patient oriented x3 Limitations: no limitations HEENT Head: Yes normocephalic Neck Neck: Yes normal visual inspection Chest Chest palpation & inspection: normal inspection of the chest Breast/axilla inspection: normal inspection of the breasts and normal inspection of the axillae Breast/axilla palpation: normal palpation of the breasts and normal palpation of the axillae Resp Effort & Inspection: normal respiratory effort GI Inspection: Yes normal to inspection, No Abdominal wall edema and No distended Palpation (GI): Soft to palpation and nontender Other: postmenopausal changes evident atrophic changes to vagina but mucosa is moist. Cervix long close thick mobile nontender uterus midposition mobile nontender adnexa nontender nonenlarged good tone with Kegel. General: Yes bladder normal to palpation External Female Exam: normal external appearance and normal appearance of the urethra Speculum Exam - Vagina: normal appearance of the vagina, normal palpation and normal vaginal discharge Speculum Exam - Cervix: normal appearance of the cervix, normal palpation and nontender Bimanual exam- vagina & uterus: normal bimanual exam, normal palpation, uterine size normal, bladder normal to palpation, consistency normal, normal palpation, uterine mobility normal, uterine shape normal, No Cervical tenderness present, non-tender and no cervical motion tenderness Bimanual Exam- Adnexa, other: normal adnexae, no masses, normal and No adnexal tenderness Neuro General: patient oriented x3 Assessment & Plan Assessment & Plan (1) Cervical cancer screening: Comment: unable to visualize cervix ( ? vs vag cuff???)pap taken, but await pap results, and u/s. 04/18/2022 Pap is negative with negative HPV, atrophic...... Await ultrasound as well...-within normal limits with fibroids Code(s): Z12.4 - Encounter for screening for malignant neoplasm of cervix Category: Medical (2) Postmenopausal atrophic vaginitis: Comment: Unable to fully palpate and visualize cervix will get ultrasound to verify structures; fibroids noted on ultrasound. Unable to communicate how to do Kegel during exam so I can not say if she has poor or strong tone but I did give her instructions on Kegel exercises nevertheless. Patient states she has no longer sexually active or interested. Code(s): N95.2 - Postmenopausal atrophic vaginitis Category: Medical (3) Breast cancer screening: Comment: Getting yearly mammograms, next 1 is tomorrow. Code(s): Z12.39 - Encounter for other screening for malignant neoplasm of breast Category: Medical (4) Women's annual routine gynecological examination: Code(s): Z01.419 - Encounter for gynecological examination (general) (routine) without abnormal findings Category: Medical Plan -----Discussed in this visit the following: healthy balanced diet, regular and consistent exercise, getting recommended health screens, doing the best she can for her particular health concerns, kegel exercises, pap smear screening and followup recommendations, mammography screening and SBE, normal changes in cycles in her life stage--- . reviewed that she will probably only need 1 more Pap smear which will probably lands when she is about 66 years old and that is screening for somebody with no history of abnormals would end At age 67. reviewed how well she is taking care of herself. Discussed that if she has no insurance appraiser concerns at all if she wanted to space her insurance appraiser annual to 2 years that would be acceptable. Coding Level of Care Code Est Pt Prev Care 40-64y(65688) Diagnoses Cervical cancer screening Z12.4 Postmenopausal atrophic vaginitis N95.2 Breast cancer screening Z12.39 Women's annual routine gynecological examination Z01.419
--- OUTSIDE RECORDS SUMMARY | 2024-05-27 17:39 | XMS_ITS | Clinical Summary ---
Author Organization [employer] Address [address] [facility] 7t [place] [address] Care Team Providers Care Compugraph Operator Name Role Phone Unavailable Primary Care Provider [...] Description 05/20/2024 3:00 PM EDT Office Visit [facility] ADULT DENTAL [address] [place] [address] Joy Arzola Dental calculus (Primary Dx); Localized [...] Description 11/21/2024 3:00 PM EDT Office Visit [facility] ADULT DENT[facility] [address] [place] [address] Joy Arzola [address] [place] [address] Health Maintenance Due Date Last Done Comments [...] teeth, acquired from Last 3 Months Insurance [facility] DENTAL - HSN PARTIAL (MEDICAID)
--- OUTSIDE RECORDS SUMMARY | 2024-05-27 17:40 | XMS_ITS | Encounter Summary ---
Author Organization [employer] [facility] Address [address] [facility] 7t [place] [address] Care Team Providers Care Payroll Coordinator Name Role Phone Unavailable Primary Care Provider Unavailabl e Encounter Details Date Type Department Care Team (Latest Contact Info) Description 02/24/2019 Abstract [facility] CONVERSIONS Dental, Provider, DDS Social History Tobacco [...] Office Visit [facility] ADULT DENTAL [address] [place] [address] Joy Arzola [address] [place] [address] documented as of this encounter Visit Diagnoses Not on filedocumented in this encounter
--- OUTSIDE RECORDS SUMMARY | 2024-05-27 17:40 | XMS_ITS | Clinical Summary ---
Author Organization [facility] Address [address] [facility] [address] [place] [address] Care Team Providers Care Pecan Cleaner Name Role Phone Urszula Reyna MD Primary Care Provider [phone] Allergies No known active allergies Medications insulin [...] [facility] [address] [facility] [address] [place] [phone] Saad Stovall MD from Last 3 Months [...] Visit [facility] [address] [place] [address] Saad Stovall MD [address] [facility] [address] [place] [phone] Health Maintenance Due Date Last Done Comments [...] Diabetes: Visual Foot Exam 03/21/2020 Influenza Vaccine (Season Ended) 2024 Hepatitis B Vaccine Aged Out No longe r eligible based on patient's age to complete this topic Care Teams Pecan Cleaner Relationship Specialty Start Date End Date Urszula Reyna MD [address] [place], [place] PCP - General 03/01/20
--- OUTSIDE RECORDS SUMMARY | 2024-05-27 17:40 | XMS_ITS | Encounter Summary ---
Author Organization [facility] Address [address] [facility] 7t [place] [address] Care Team Providers Care Sheet Cutting Operator Name Role Phone Unavailable Primary Care Provider Unavailabl e Encounter Details Date Type Department Care Team (Latest Contact Info) Description 06/23/2020 Abstract [facility] CONVERSIONS Dental, Provider, DDS Social History [...] Description 11/21/2024 3:00 PM EDT Office Visit [facility] ADULT DENTAL [address] [place] [address] Joy Arzola [address] [place] [address] documented as of this encounter Visit Diagnoses Not on filedocumented in this encounter
--- OUTSIDE RECORDS SUMMARY | 2024-05-27 17:40 | XMS_ITS | Encounter Summary ---
Author Organization [employer] [facility] Address [address] [facility] 7t [place] [address] Care Team Providers Care Mountain Guide Name Role Phone Unavailable Primary Care Provider Unavailabl e Encounter Details Date Type Department Care Team (Latest Contact Info) Description 10/05/2021 Abstract [facility] CONVERSIONS Dental, Provider, DDS Social History [...] Description 11/21/2024 3:00 PM EDT Office Visit [facility] ADULT DENTAL [address] [place] [address] Joy Arzola [address] [place] [address] documented as of this encounter Visit Diagnoses Not on filedocumented in this encounter
--- OUTSIDE RECORDS SUMMARY | 2024-05-27 17:40 | XMS_ITS | Encounter Summary ---
Author Organization [facility] Address [address] [facility] [address] [place] [address] Phone Care Team Providers Care Instrument Repair Supervisor Name Role Phone Urszula Reyna MD Primary Care Provider Encounter Details Date Type Department Care Team (Late st Contact Info) Description 12/12/2021 Documentation Only [facility] [address] [facility] [address] [place] [phone] Isabella Sifuentes Social History Tobacco Use Types [...] Visit [facility] [address] [place] [address] Saad Stovall MD [address] [facility] [address] [place] [phone] documented as of this encounter Visit Diagnoses Not on filedocumented in this encounter Care Teams Instrument Repair Supervisor Relationship Specialty Start Date End Date Urszula Reyna MD [address] [place], [place] PCP - General 03/01/20 documented as of this encounter
== END 2024-05-27 16:03 | disposition home or self-care (01) ==
LOC: HO.HWSM 14:30
PROVIDERS: PCP Internal Medicine; Visit Provider Advanced Practice Midwife
DX: Z01.419 Encounter for gynecological examination (general) (routine) without abnormal findings (principal); N95.2 Postmenopausal atrophic vaginitis
CPT/HCPCS: 99396; 99459

== ENCOUNTER → 2024-05-27 14:30 | Outpatient (BNVA) | payer OTHER, SELFPAY | PROVIDERS: PCP Internal Medicine; Visit Provider Advanced Practice Midwife | DX: Z01.419 Encounter for gynecological examination (general) (routine) without abnormal findings (principal); Z12.39 Encounter for other screening for malignant neoplasm of breast; Z12.4 Encounter for screening for malignant neoplasm of cervix; N95.2 Postmenopausal atrophic vaginitis | CPT/HCPCS: 99396; 99459 ==

== ENCOUNTER 2024-06-12 07:15 | Outpatient (REF) | payer OTHER, SELFPAY ==
--- OUTSIDE RECORDS SUMMARY | 2024-06-12 07:19 | XMS_ITS | Encounter Summary ---
Author Organization [facility] Address [address] [facility] [address] [place] [address] Phone Care Team Providers Care Melter Supervisor Name Role Phone Urszula Reyna MD Primary Care Provider [phone] Encounter Details Date Type Department Care Team (Late st Contact Info) Description 12/12/2021 Documentation Only [facility] [address] [facility] [address] [place] [phone] Isabella Sifuentes Social History Tobacco Use Types [...] Visit [facility] [address] [place] [address] Saad Stovall MD [address] [facility] [address] [place] [phone] documented as of this encounter Visit Diagnoses Not on filedocumented in this encounter Care Teams Melter Supervisor Relationship Specialty Start Date End Date Urszula Reyna MD [address] [place], [place] PCP - General 03/01/20 documented as of this encounter
--- OUTSIDE RECORDS SUMMARY | 2024-06-12 07:19 | XMS_ITS | Encounter Summary ---
Author Organization [employer] [facility] Address [address] [facility] 7t [place] [address] Care Team Providers Care Archaeology Professor Name Role Phone Unavailable Primary Care Provider Unavailabl e Encounter Details Date Type Department Care Team (Latest Contact Info) Description 02/24/2019 Abstract [facility] CONVERSIONS Dental, Provider, DDS Social History Tobacco [...] Description 11/21/2024 3:00 PM EDT Office Visit [facility] ADULT DENTAL [address] [place] [address] Dariusz Joy [address] [place] [address] documented as of this encounter Visit Diagnoses Not on filedocumented in this encounter
--- OUTSIDE RECORDS SUMMARY | 2024-06-12 07:19 | XMS_ITS | Clinical Summary ---
Author Organization [facility] Facility Address [address] [facility] [address] [place] [address] Care Team Providers Care Assistant Clinical Nurse Manager Name Role Phone Urszula Reyna MD Primary Care Provider [phone] Allergies No known active allergies Medications insulin [...] [facility] [address] [facility] [address] [place] [phone] Saad Stovall MD from Last 3 Months [...] Visit [facility] [address]IG[address] [place] [phone] Saad Stovall MD [address] [facility] [address] [place] [phone] Health Maintenance Due Date Last Done Comments Breast Cancer Screening 1962 Pneumococcal Vaccine: 50+ Ye ars (1 of 2 - PCV) 1981 Colorectal Cancer Screening: Annual FOBT 07/13/2011 Colorectal Cancer Screening: Colonoscopy 07/13/2011 Colorectal Cancer Screening: Sigmoidoscopy 07/13/2011 Diabetes: Hemoglobin A1C 03/21/2020 Diabetes: Ophthalmology Exam 03/21/2020 Diabetes: Pedal Pulse Checked 03/21/2020 Diabetes: Sensory Foot Exam 03/21/2020 Diabetes: Visual Foot Exam 03/21/2020 Influenza Vaccine (Season Ended) 2024 Hepatitis B Vaccine Aged Out No longe r eligible based on patient's age to complete this topic Care Teams Assistant Clinical Nurse Manager Relationship Specialty Start Date End Date Urszula Reyna MD [address] [place], [place] PCP - General 03/01/20
--- OUTSIDE RECORDS SUMMARY | 2024-06-12 07:19 | XMS_ITS | Encounter Summary ---
Author Organization [employer] [facility] Address [address] [facility] 7t [place] [address] Care Team Providers Care Esthetician Name Role Phone Unavailable Primary Care Provider Unavailabl e Encounter Details Date Type Department Care Team (Latest Contact Info) Description 06/23/[address] [facility] CONVERSIONS Dental, Provider, DDS Social History [...] 11/21/2024 3:00 PM EDT Office Visit [facility] ADULT DENTAL [address] [place] [address] Joy Arzola [address] [place] [address] documented as of this encounter Visit Diagnoses Not on filedocumented in this encounter
--- OUTSIDE RECORDS SUMMARY | 2024-06-12 07:19 | XMS_ITS | Encounter Summary ---
Author Organization [employer] [facility] Address [address] [facility] 7t [place] [address] Care Team Providers Care Pressing Machine Tender Name Role Phone Unavailable Primary Care Provider Unavailabl e Encounter Details Date Type Department Care Team (Latest Contact Info) Description 10/05/2021 Abstract [facility] CONVERSIONS Dental, Provider, DDS Social History Tobacco [...] Description 11/21/2024 3:00 PM EDT Office Visit [facility] [address] [place] [address] Joy Arzola [address] [place] [address] documented as of this encounter Visit Diagnoses Not on filedocumented in this encounter
[2024-06-12 07:32] LABS: MANUAL DIFF FLAG NO
[2024-06-12 07:46] LABS: Basophils Absolute Auto 0.1 X10*3/uL (0.0-0.2); Basophils Percent Auto 1.3 % (0-2); Eosinophils Absolute Auto 0.4 X10*3/uL (0.0-0.4); Eosinophils Percent Auto 6.4 % (0-4); Hematocrit 41.8 % (37.0-47.0); Hemoglobin 13.5 g/dl (12.0-16.0); Imm Gran Abs Auto 0.01 X10*3/uL (0.00-0.03); Imm Gran Pct Auto 0.2 % (0.0-0.4); Lymphocytes Absolute Auto 2.5 X10*3/uL (1.2-4.9); Lymphocytes Percent Auto 40.6 % (20-40); Mean Corpuscular HGB Conc 32.3 g/dl (31.0-35.0); Mean Corpuscular Volume 83.6 fL (80.0-98.0); Mean Platelet Volume 10.9 fL (9.4-12.3); Monocytes Absolute Auto 0.6 X10*3/uL (0.1-1.2); Neutrophils Absolute Auto 2.6 x10*3/uL (2.0-8.3); Neutrophils Percent Auto 42.5 % (45-73); Platelet Count 306 X10*3/uL (160-400); Red Cell Distribution Width 13.7 % (11.0-16.0); White Blood Count 6.1 X10*3/uL (4.8-10.8)
[2024-06-12 08:13] LABS: Anion Gap 12 (12-20); Blood Urea Nitrogen 35 mg/dL (9-16); Calcium 9.9 mg/dL (8.4-10.2); Carbon Dioxide 27 mmol/L (22-29); Chloride 106 mmol/L (96-108); Estimated Glomerular Filt Rate 50; Potassium 4.8 mmol/L (3.3-5.1); Sodium 140 mmol/L (135-145)
[2024-06-12 08:14] LABS: Creatinine Urine 81.65 mg/dL; Protein/Creatinine Ratio, Ur 1.14 (<0.2); Total Protein Urine Random 93 mg/dL (<12)
== END 2024-06-12 07:16 | disposition home or self-care (01) ==
LOC: HO.LAB 07:15
PROVIDERS: PCP Internal Medicine; Visit Provider Internal Medicine Nephrology
DX: I12.9 Hypertensive chronic kidney disease with stage 1 through stage 4 chronic kidney disease, or unspecified chronic kidney disease (principal); E11.29 Type 2 diabetes mellitus with other diabetic kidney complication; R80.9 Proteinuria, unspecified; D63.1 Anemia in chronic kidney disease; N18.4 Chronic kidney disease, stage 4 (severe); E78.5 Hyperlipidemia, unspecified; Z79.4 Long term (current) use of insulin
CPT/HCPCS: 36415; 80051; 82310; 82565; 82570; 82947; 83036; 84156; 84520; 85025; 99212

== ENCOUNTER 2024-06-12 14:43 | Outpatient (AMB) | payer OTHER, SELFPAY ==
--- NOTE | 2024-06-12 14:44 | A.OFFVIS_ITS ---
Vital Signs 06/12/24 14:49 Height 5 ft 4 in Weight 152 lb 1.903 oz BMI 26.1 BP 128/68 Blood Pressure Location Rt brachial Position Sitting Pulse 83 Pulse Source Pulse Oximeter Pulse Oximetry (%) 98 Oxygen Delivery Method Room Air Intake Visit Reasons: T2DM Intake Note: Patient presents today for a follow-up on Type 2 Diabetes Mellitus: Last Diabetic eye exam was on: DUE Last Podiatry exam was on: Does not see a Humanities Division Chair Most recent HbA1c: 7.6%, 06/12/2024 Random Glucose- 152 mg/dL, Today Hydraulic Billet Maker Required: Yes Hydraulic Billet Maker Language: Railroad Surveyor Services: Hydraulic Billet Maker Present Hydraulic Billet Maker Name: ROSLYN Gonzalez/SIMA BARRERA Information Interpreted: non-clinical & clinical Accompanied by: Self / Same As Patient Allergies cortison Adverse Reaction (Mild, Uncoded 06/12/24 14:49) elevated sugers HPI Comments Details: 63 YO F who is seen in followup for type 2 diabetes. She was last seen by the bark scaler 06/05/24 for general diabetes education and by myself in February. A1C 06/12/24 7.6 %, 03/05/24 7.9%, A1c was 7.6% on 11/01/2023. This was down from 8.4% earlier in 2023 Initially diagnosed with T2DM in 2014. She was seen by endocrine when first diagnosed and has been followed by Dr. Parsons since 09/2021. Was initially started on treatment with metformin . Current regimen Jardiance 25 mg QD metformin 1000 mg BID Toujeo 40 units Lispro twice per day 10 with breakfast 14 units with supper Trulicity 3 mg Qwkly No Family history of T2DM. Has eyes checked yearly, last eye exam 07/12 stable retinopathy goes twice yearly has scheduled 07/13 Neuropathy: denies no c/o numbness, tingling and cramping, does not see podiatry. Has nephropathy, on MALACHI labs: 10/26/2022 eGFR 51 microalbumin [address] Stovall, last seen september 2023 appt scheduled later this month Has HLD, on statin. Most recent ldl: 82 on 10/27/2023 CAD Denies PVD: followed by vascular last seen 06/2023 seen annually has vasc ultrasound scheduled Has had diabetes education [id number] [facility] screen Fibrosis-4 (Fib-4) Index for liver fibrosis (calculated on lab work done: 10/27/23) [0.74 ] points Advanced fibrosis [excluded ] Approximate Fibrosis stage Radha [0-1 ] *Use with caution in patients <35 or >65 years old, as the score has been shown to be less reliable in these patients. Prior Imaging [] Action Plan: [] rescreen two years from date of screening labs[10/2025 ] [facility] Medical History PAD (peripheral artery disease) Goiter Femoral artery occlusion Latent tuberculosis by blood test Hypovitaminosis D S/P angiogram of extremity (~02/13/19) Microalbuminuria Pure hypercholesterolemia Diabetes mellitus Essential hypertension Surgical History History of renal artery stenosis History of bilateral tubal ligation Family History Father No problems noted. Mother Hypertension Social History Housing: Apartment Alcohol intake: never Patient Tobacco Use Status: Never used Tobacco e-Cigarette/Vaping Use: Never Used Second Hand Smoke Exposure: No service: No Current occupational status: employed Current occupational exposures/hazards: No Cognitive needs: No Hearing needs: No Vision needs: No Female Reproductive History Menstrual Age of Menarche: 18 Physical Exam Vital Signs: Last Vital Signs Pulse 83 06/12/24 14:49 BP 128/68 06/12/24 14:49 Pulse Ox 98 06/12/24 14:49 Oxygen Delivery Method Room Air 06/12/24 14:49 BMI result Body Mass Index 26.1 Results AMB Hemoglobin A1c AMB Hemoglobin A1c 7.6 % Last Edit by ROSLYN Gonzalez on 06/12/24 15:36 Results Reviewed Results Reviewed: Laboratory Last Values Glucose (Clinic) 152 mg/dL (60-115) H 06/12/24 14:58 Hgb A1c (Clinic) 7.6 % (4.0-6.0) H 06/12/24 15:34 Assessment & Plan Assessment & Plan (1) Diabetes mellitus: Code(s): E11.9 - Type 2 diabetes mellitus without complications Category: Medical Qualifiers: Diabetes mellitus complication detail: with microalbuminuria Diabetes mellitus complication status: with kidney complications Diabetes mellitus manager science insulin use: with fpc use Diabetes mellitus type: type 2 Qualified Code(s): E11.29 - Type 2 diabetes mellitus with other diabetic kidney complication; R80.9 - Proteinuria, unspecified; Z79.4 - nursing home (current) use of insulin Plan: Jardiance 25 mg QD metformin 1000 mg BID Toujeo 40 units Lispro twice per day 10 with breakfast 14 units with supper Trulicity 3 mg Qwkly Orders: Orders AMB Hemoglobin A1c Today E11.29 - Type 2 diabetes mellitus with other diabetic kidney complication, R80.9 - Proteinuria, unspecified, Z79.4 - vacuum cleaner repair person (current) use of insulin Medications: New FreeStyle Rosa Isela 3 [place] (blood-glucose,professional healthcare representative,cont) As directed for use with sensor 1 ea 0RF NS E11.29 - Type 2 diabetes mellitus with other diabetic kidney complication, R80.9 - Proteinuria, unspecified, Z79.4 - nursing home (current) use of insulin blood-glucose sensor (FreeStyle Rosa Isela 3 Plus Sensor device) As directed every 15 days 2 ea 11RF Changed From lancets (TRUEplus Lancets) TEST BLOOD SUGAR ONE OR TWO TIMES DAILY DIRECTED #100 12RF E11.29 - Type 2 diabetes mellitus with other diabetic kidney complication, R80.9 - Proteinuria, unspecified, Z79.4 - nursing home (current) use of insulin To lancets (TRUEplus Lancets) TEST BLOOD SUGAR 1-2 times daily 50 ea 12RF E11.29 - Type 2 diabetes mellitus with other diabetic kidney complication, R80.9 - Proteinuria, unspecified, Z79.4 - nursing home (current) use of insulin From insulin glargine U-300 conc (Toujeo Max U-300 SoloStar) 45 units (0.15 mL) subcut BEDTIME 4.5 mL 2RF 30 days To insulin glargine U-300 conc (Toujeo Max U-300 SoloStar) 40 units (0.1333 mL) subcut BEDTIME 6 mL 2RF 30 days Refilled blood-glucose meter (FreeStyle Lite Meter kit) As directed 1 ea 0RF E11.29 - Type 2 diabetes mellitus with other diabetic kidney complication, R80.9 - Proteinuria, unspecified, Z79.4 - nursing home (current) use of insulin empagliflozin (Jardiance) 25 mg PO DAILY 90 days 90 tabs 3RF E11.9 - Type 2 diabetes mellitus without complications empagliflozin (Jardiance) 25 mg PO DAILY 90 tabs 3RF 90 days E11.9 - Type 2 diabetes mellitus without complications metformin 1,000 mg PO BID 180 tabs 3RF 90 days blood sugar diagnostic (FreeStyle Lite Strips) As directed 1-2x daily 50 ea 12RF E11.29 - Type 2 diabetes mellitus with other diabetic kidney complication, R80.9 - Proteinuria, unspecified, Z79.4 - vacuum cleaner repair person (current) use of insulin blood sugar diagnostic (FreeStyle Lite Strips) As directed 1-2x daily 50 ea 12RF E11.29 - Type 2 diabetes mellitus with other diabetic kidney complication, R80.9 - Proteinuria, unspecified, Z79.4 - vacuum cleaner repair person (current) use of insulin blood-glucose meter (FreeStyle Lite Meter kit) As directed 1 ea 0RF E11.29 - Type 2 diabetes mellitus with other diabetic kidney complication, R80.9 - Proteinuria, unspecified, Z79.4 - nursing home (current) use of insulin lancets (TRUEplus Lancets) TEST BLOOD SUGAR 1-2 times daily 50 ea 12RF E11.29 - Type 2 diabetes mellitus with other diabetic kidney complication, R80.9 - Proteinuria, unspecified, Z79.4 - vacuum cleaner repair person (current) use of insulin Discontinued flash glucose scanning reader (FreeStyle Rosa Isela 2 [place]) Discontinued Reason: Doctor's Order As directed 1 ea 0RF flash glucose sensor (FreeStyle Rosa Isela 2 Sensor kit) Discontinued Reason: Doctor's Order As directed change every 14 days 2 ea 11RF On Hold dulaglutide (Trulicity) Hold Comment: Doctor's Order 1 mg (0.1667 mL) subcut QWEEK 2 mL 5RF Coding Diagnoses Type 2 diabetes mellitus with microalbuminuria, with long-term current use of insulin E11.29; R80.9; Z79.4 Diabetes mellitus complication detail: with microalbuminuria Diabetes mellitus complication status: with kidney complications Diabetes mellitus manager science insulin use: with fpc use Diabetes mellitus type: type 2
[2024-06-12 14:49] VITALS: BP 128/68; PULSE 83; O2SAT 98; BMI 26.1
[2024-06-12 15:05] LABS: Glucose, Whole Blood 152 mg/dL (60-115)
--- OUTSIDE RECORDS SUMMARY | 2024-06-12 17:25 | XMS_ITS | Clinical Summary ---
Author Organization [facility] Facility Address [address] [facility] [address] [place] [address] Care Team Providers Care Electronics Mechanic Name Role Phone Urszula Reyna MD Primary Care Provider [phone] Allergies No known active allergies Medications insulin [...] [facility] [address] [facility] [address] [place] [phone] Saad Stovall MD from Last 3 Months [...] Visit [facility] [address] [place] [phone] Saad Stovall MD [address] [facility] [address] [place] [phone] Health Maintenance Due Date Last Done Comments [...] Procedure Name Priority Date/Time Associated Diagnosis Comments PROTEIN / CREATININE RATIO, URINE Routine 06/12/2024 7:37 AM EDT CALCIUM Routine 06/12/2024 7:32 AM EDT CREATININE, BLOOD Routine 06/12/2024 7:3 2 AM EDT BUN Routine 06/12/2024 7:32 AM EDT ELECTROLYTE PANEL Routine 06/12/2024 7:3 2 AM EDT CBC AND DIFFERENTIAL Routine 06/12/2024 7:32 AM EDT from Last 3 Months Results * (ABNORMAL) Protein, Total, Random Urine w/Creatinine (Protein/Creat Ratio) (06/12/2024 7:37 AM EDT) Creatinine, Urine 81.65 mg/dL See order comments Protein Urine Random 93(H) <12 mg/dL See order comments Protein/Creati nine Ratio, Urine 1.14(H) <0.2 See order comments Comment: The spot urine protein:creatinine ratio may increase to 0.3 during normal . 06/12/2024 7:37 AM EDT 06/12/2024 7:37 AM EDT us Saad Stovall MD LAB URINE ORDERABLES Final Re sult [place] See order comments [place] [address] * Creatinine (06/12/2024 7:32 AM EDT) Creatinine Serum 1.11 0.5 - 1.4 mg/dL See order comments eGFR 50 See order comments Comment: Chronic Kidney Disease: ??Estimated GFR < 60 mL/min/1.73m2 Severe Kidney Disease: ??Estimated GFR < 15 mL/min/1.73m2 06/12/2024 7:32 AM EDT 06/12/2024 7:32 AM EDT us Saad Stovall MD LAB BLOOD ORDERABLES Final Re sult [place] See order comments [place] [address] * (ABNORMAL) CBC and Differential (06/12/2024 7:32 AM EDT) WBC 6.1 4.8 - 10.8 X10*3/uL See order comments RBC 5.00 4.20 - 5.50 X10*6/uL See order comments Hgb 13.5 12.0 - 16.0 g/dl See order comments Hematocrit 41.8 37.0 - 47.0 % See order comments MCV 83.6 80.0 - 98.0 fL See order comments MCH 27.0 27.0 - 33.0 pg See order comments MCHC 32.3 31.0 - 35.0 g/dl See order comments RDW 13.7 11.0 - 16.0 % See order comments Platelets 306 160 - 400 X10*3/uL See order comments MPV 10.9 9.4 - 12.3 fL See order comments Neutrophils % Auto 42.5(L) 45 - 73 % See order comments Immature Granulocytes 0.2 0.0 - 0.4 % See order comments Lymphocytes Relative 40.6(H) 20 - 40 % See order comments Monocytes 9.0 2 - 11 % See order comments Eosinophils Relative 6.4(H) 0 - 4 % See order comments Basophils Relative 1.3 0 - 2 % See order comments nRBC Count 0.0 0.0 - 0.2 /100WBC See order comments Neutrophils Absolute 2.6 2.0 - 8.3 x10*3/uL See order comments Immature Grans (Absolute) 0.01 0.00 - 0.03 X10*3/uL See order comments Lymphocytes Absolute 2.5 1.2 - 4.9 X10*3/uL See order comments Monocytes Absolute 0.6 0.1 - 1.2 X10*3/uL See order comments Eosinophils Absolute 0.4 0.0 - 0.4 X10*3/uL See order comments Basophils Absolute 0.1 0.0 - 0.2 X10*3/uL See order comments NRBC Absolute 0.000 0.0 - 0.012 X10*3/uL See order comments 06/12/2024 7:32 AM EDT 06/12/2024 7:32 AM EDT us Saad Stovall MD LAB BLOOD ORDERABLES Final Re sult Performing Organization Address [facility] Phone Number [place] See order comments [place] [address] * (ABNORMAL) BUN (06/12/2024 7:32 AM EDT) BUN 35(H) 9 - 16 mg/dL See order comments 06/12/2024 7:32 AM EDT 06/12/2024 7:32 AM EDT us Saad Stovall MD LAB BLOOD ORDERABLES Final Re sult Performing Organization Address [facility] Phone Number [place] See order comments [place] [address] * Calcium (06/12/2024 7:32 AM EDT) Calcium 9.9 8.4 - 10.2 mg/dL See order comments 06/12/2024 7:32 AM EDT 06/12/2024 7:32 AM EDT us Saad Stovall MD LAB BLOOD ORDERABLES Final Re sult Performing Organization Address [facility] Phone Number [place] See order comments [place] [address] * Electrolyte panel (06/12/2024 7:32 AM EDT) Sodium 140 135 - 145 mmol/L See order comments Potassium 4.8 3.3 - 5.1 mmol/L See order comments Chloride 106 96 - 108 mmol/L See order comments Bicarbonate (CO2) 27 22 - 29 mmol/L See order comments Anion Gap 12 12 - 20 See order comments 06/12/2024 7:32 AM EDT 06/12/2024 7:32 AM EDT us Saad Stovall MD LAB BLOOD ORDERABLES Final Re sult [place] See order comments [place] [address] from Last 3 Months Care Teams Electronics Mechanic Relationship Specialty Start Date End Date Urszula Reyna MD [address] [place] PCP - General 03/01/20
--- OUTSIDE RECORDS SUMMARY | 2024-06-12 17:25 | XMS_ITS | Encounter Summary ---
Author Organization [employer] [facility] Address [address] [facility] 7[address] [place] [address] Care Team Providers Care Valuation Consultant Name Role Phone Unavailable Primary Care Provider Unavailabl e Encounter Details Date Type Department Care Team (Latest Contact Info) Description 06/23/2020 Abstract [facility] CONVERSIONS Dental, Provider, DDS Social History [...] Description 11/21/2024 3:00 PM EDT Office Visit [facility] ADULT DENTAL [address] [place] [address] Joy Arzola [address] [place] [address] documented as of this encounter Visit Diagnoses Not on filedocumented in this encounter
--- OUTSIDE RECORDS SUMMARY | 2024-06-12 17:25 | XMS_ITS | Encounter Summary ---
Author Organization [facility] Address [address] [facility] [address] [place] [address] Phone Care Team Providers Care Director Group Sales Name Role Phone Urszula Reyna MD Primary Care Provider [phone] Encounter Details Date Type Department Care Team (Late st Contact Info) Description 12/12/2021 Documentation Only [facility] [address] [facility] [address] [place] [phone] Isabella Sifuentes Social History Tobacco Use Types [...] Visit [facility] [address] [place] [address] Saad Stovall MD [address] [facility] [address] [place] [phone] documented as of this encounter Visit Diagnoses Not on filedocumented in this encounter Care Teams Director Group Sales Relationship Specialty Start Date End Date Urszula Reyna MD [address] [place], [place] PCP - General 03/01/20 documented as of this encounter
--- OUTSIDE RECORDS SUMMARY | 2024-06-12 17:25 | XMS_ITS | Encounter Summary ---
Author Organization [employer] [facility] Address [address] [facility] [address] [place] [address] Care Team Providers Care Veterinary Virologist Name Role Phone Unavailable Primary Care Provider Unavailabl e Encounter Details Date Type Department Care Team (Latest Contact Info) Description 02/24/2019 Abstract [facility] CONVERSIONS Dental, Provider, DDS Social History [...] Description 11/21/2024 3:00 PM EDT Office Visit [facility] ADULT DENTAL [address] [place] [address] Dariusz Joy [address] [place] [address] documented as of this encounter Visit Diagnoses Not on filedocumented in this encounter
--- OUTSIDE RECORDS SUMMARY | 2024-06-12 17:25 | XMS_ITS | Clinical Summary ---
Author Organization [facility] Address [address] [facility] [address] [place] [address] Care Team Providers Care New Home Sales Consultant Name Role Phone Unavailable Primary Care [...] Description 05/20/2024 3:00 PM EDT Office Visit [facility] ADULT DENTAL [address] [place] [address] Joy Arzola Dental calculus (Primary Dx); Localized [...] Description 11/21/2024 3:00 PM EDT Office Visit [facility] ADULT DENTAL [address] [place] [address] Joy Arzola [address] [place] [address] Health Maintenance Due Date Last Done Comments [...] teeth, acquired from Last 3 Months Insurance [facility] - [facility]SN PARTIAL (MEDICAID)
--- OUTSIDE RECORDS SUMMARY | 2024-06-12 17:25 | XMS_ITS | Encounter Summary ---
Author Organization [employer] [facility] Address [address] [facility] 7t [place] [address] Care Team Providers Care Heater Engineer Helper Name Role Phone Unavailable Primary Care Provider Unavailabl e Encounter Details Date Type Department Care Team (Latest Contact Info) Description 10/05/2021 Abstract [facility] CONVERSIONS Dental, Provider, DDS Social [...] Description 11/21/2024 3:00 PM EDT Office Visit [facility] ADULT DENTAL [address] [place] [address] Joy rAzola [address] [place] [address] documented as of this encounter Visit Diagnoses Not on filedocumented in this encounter
== END 2024-06-12 15:31 | disposition home or self-care (01) ==
LOC: HO.ENCR 14:43
PROVIDERS: PCP Internal Medicine; Visit Provider Nurse Practitioner Adult Health
DX: E11.29 Type 2 diabetes mellitus with other diabetic kidney complication (principal); R80.9 Proteinuria, unspecified; Z79.4 Long term (current) use of insulin

== ENCOUNTER 2024-06-24 14:38 | Outpatient (REF) | payer OTHER, SELFPAY ==
--- OUTSIDE RECORDS SUMMARY | 2024-06-24 15:49 | XMS_ITS | Clinical Summary ---
Author Organization [facility] Address [address] [place] [phone] Phone Care Team Providers Care Cloth Doffer Name Role Phone Urszula Reyna MD Primary Care Provider [phone] Allergies No known active allergies Medications insulin glargine (Lantus) 100 UNIT/ML injection Active Toujeo SoloStar 300 UNIT/ML solution pen-injector INJECT 60 UNITS SUBCUTANEOUSLY AT BEDTIME 021 Active cloNIDine (CATAPRES) 0.2 MG tablet 0.3 mg in the morning and 0.3 mg in the evening. 016 Active chlorthalidon e (HYGROTON) 25 MG tablet Take 1 tablet by mouth 1 (one) time each day 019 Active aspirin (ST ISAAK) 81 MG EC tablet Take 1 tablet by mouth 1 (one) time each day Active atorvastatin (LIPITOR) 80 MG tablet Take 80 mg by mouth at bed time 021 Active metFORMIN (GLUCOPHAGE) 1000 MG tablet Take 1,000 mg by mouth 2 (two) times a day 021 Active isoniazid (NYDRAZID) 300 MG tablet TAKE 1 TABLET BY MOUTH EVERY DAY por 90 DAYS 021 Active FREESTYLE LITE test strip TEST BLOOD SUGAR ONE OR TWO TIMES DAILY DIRECTED 021 Active rifAMPin (RIFADIN) 300 MG capsule TAKE 2 CAPSULES BY MOUTH EVERY DAY por 90 DAYS 021 Active losartan (COZAAR) 100 MG tablet TAKE 1 TABLET BY MOUTH EVERY DAY 30 tablet 3 025 Active Finerenone (Kerendia) 10 MG tablet Take 10 mg by mouth 1 (one) time each day 90 tablet 2 025 2025 Active Finerenone (Kerendia) 10 MG tablet Take 10 mg by mouth 1 (one) time each day 90 tablet 2 024 2024 Discontinued(R eorder (does not appear on AVS)) losartan (COZAAR) 100 MG tablet TAKE 1 TABLET BY MOUTH EVERY DAY 30 tablet 3 025 2024 Discontinued Active Problems Problem Noted Date Diagnosed Date Localized gingival recession 07/14/202208/2022 Dental calculus 07/14/2022 10/26/2022 Chronic kidney disease stage 2 07/05/2020 Essential hypertension 07/05/2020 Proteinuria 07/05/2020 Renal disorder due to type 2 diabetes mellitus 0 07/05/2020 Encounters Date Type Department Care Team Description 06/16/2024 4:15 PM EDT Office Visit [facility] [address] [place] [address] Saad Stovall MD Stage 3a chronic kidney disease (HCC) (Primary Dx); Renal disorder due to type 2 diabetes mellitus <Diabetic nephropathy> (HCC); Persistent proteinuria; Essential hypertension 06/16/2024 Refill [facility] [address] [place] [address] Morris Lynch MD from Last 3 Months Family History [...] Sign Reading Time Taken Comments Blood Pressure 160/80 06/16/2024 3:48 PM EDT Pulse 87 06/16/2024 3:48 PM EDT Temperature - - Respiratory Rate - - Oxygen Saturation 97% 06/16/2024 3:48 PM EDT Inhaled Oxygen Concentration - - Weight 70.3 kg (155 lb) 06/16/2024 3:48 PM EDT Height 162.6 cm (5' 4 ) 03/11/2019 12:00 PM EST Body Mass Index 26.61 03/11/2019 12:00 PM EST Plan of Treatment Upcoming Encounters Date Type Department Care Team (Late st Contact Info) Description 06/15/2025 2:45 PM EDT Office Visit [facility] [address] [place] [phone] Saad Stovall MD [address] [facility] [address] [place] [address] Health Maintenance Due Date Last [...] 7:37 AM EDT 06/12/2024 7:37 AM EDT Saad Stovall MD LAB URINE ORDERABLES Final Re sult Performing Organization Address [facility] Co de Phone [facility] See order comments [place] [address] * Creatinine (06/12/2024 7:32 AM EDT) Creatinine Serum 1.11 0.5 - 1.4 mg/dL See order comments eGFR 50 See order comments Comment: Chronic Kidney Disease: ??Estimated GFR < 60 mL/min/1.73m2 Severe Kidney Disease: ??Estimated GFR < 15 mL/min/1.73m2 06/12/2024 7:32 AM EDT 06/12/2024 7:32 AM EDT Saad Stovall MD LAB BLOOD ORDERABLES Final Re sult Performing Organization Address [facility] Co de Phone Number [place] See order comments [place] [address] * (ABNORMAL) CBC and Differential (06/12/2024 7:32 [...] order comments [place] [address] * (ABNORMAL) BUN (06/12/2024 7:32 AM EDT) BUN 35(H) 9 - 16 mg/dL See order comments 06/12/2024 7:32 AM EDT 06/12/2024 7:32 AM EDT Saad Stovall MD LAB BLOOD ORDERABLES Final Re sult Performing Organization Address City/[facility]/ZIP Co de Phone Number [place] See order comments [place] [address] * Calcium (06/12/2024 7:32 AM EDT) Calcium 9.9 8.4 - 10.2 mg/dL See order comments 06/12/2024 7:32 AM EDT 06/12/2024 7:32 AM EDT Saad Stovall MD LAB BLOOD ORDERABLES Final Re sult Performing Organization Address City/[facility]/ZIP Co de Phone Number [place] See order comments [place] [address] * Electrolyte panel (06/12/2024 7:32 AM EDT) Sodium 140 135 - 145 mmol/L See order comments Potassium 4.8 3.3 - 5.1 mmol/L See order comments Chloride 106 96 - 108 mmol/L See order comments Bicarbonate (CO2) 27 22 - 29 mmol/L See order comments Anion Gap 12 12 - 20 See order comments 06/12/2024 7:32 AM EDT 06/12/2024 7:32 AM EDT Saad Stovall MD LAB BLOOD ORDERABLES Final Re sult Performing Organization Address [facility] Co de Phone Number [place] See order comments [place] [address] from Last 3 Months Care Teams Cloth Doffer Relationship Specialty Start Date End Date Urszula Reyna MD [address] [place] PCP - General 03/01/20
--- OUTSIDE RECORDS SUMMARY | 2024-06-24 15:49 | XMS_ITS | Encounter Summary ---
Author Organization [facility] Address [address] [facility] [address] [place] [address] Phone Care Team Providers Care Cyber Policy And Strategy Planner Name Role Phone Urszula Reyna MD Primary Care Provider [phone] Encounter Details Date Type Department Care Team (Late st Contact Info) Description 12/12/2021 Documentation Only [facility] [address] [facility] [address] [place] [phone] Isabella Sifuentes Social History Tobacco Use Types [...] Visit [facility] [address] [place] [address] Saad Stovall MD [address] [facility] [address] [place] [phone] documented as of this encounter Visit Diagnoses Not on filedocumented in this encounter Care Teams Cyber Policy And Strategy Planner Relationship Specialty Start Date End Date Urszula Reyna MD [address] [place], [place] PCP - General 03/01/20 documented as of this encounter
== END 2024-06-24 14:39 | disposition home or self-care (01) ==
LOC: HO.MAMMO 14:38
PROVIDERS: PCP Internal Medicine; Visit Provider Internal Medicine
DX: Z12.31 Encounter for screening mammogram for malignant neoplasm of breast (principal)
CPT/HCPCS: 77063; 77067

== ENCOUNTER → 2024-06-24 16:15 | Outpatient (BNV) | payer OTHER, SELFPAY | PROVIDERS: PCP Internal Medicine; Visit Provider Internal Medicine | DX: Z12.31 Encounter for screening mammogram for malignant neoplasm of breast (principal) | CPT/HCPCS: 77063; 77067 ==

== ENCOUNTER 2024-07-09 08:04 | Outpatient (REF) | payer OTHER, SELFPAY ==
--- NOTE | ~2024-07-09 | US_ITS ---
EXAMINATION: Noninvasive assessment of the bilateral lower extremities with ARTERIAL DUPLEX, ANKLE BRACHIAL INDICES (ABIs), and PULSE VOLUME RECORDINGS (PVRs). Ultrasound arterial duplex abdominal aorta and iliac arteries. CLINICAL INFORMATION: Left iliac artery stent. Peripheral vascular disease. TECHNIQUE: Duplex Doppler techniques with waveform analysis and measurement of velocities in the bilateral common femoral, profunda femoris, superficial femoral, popliteal and tibial arteries were performed. Additionally, ankle pulse volume recordings, ankle pressure measurements and ankle brachial indices were obtained of the lower extremity arterial system bilaterally. The study was performed only at rest. Doppler arterial ultrasound of the abdominal aorta and iliac arteries. COMPARISON: September 28, 2021. FINDINGS: DIRECT DUPLEX DOPPLER FINDINGS: RIGHT LEG: Common femoral artery: 64 cm/s, phasicity: Biphasic Profunda femoris artery: 83 cm/s, phasicity: Biphasic. Superficial femoral artery (proximal): No color Doppler flow/occluded. Superficial femoral artery (mid): No color Doppler flow/occluded. Superficial femoral artery (distal): 53 cm/s, phasicity: Monophasic Popliteal artery: 42 cm/s, phasicity: Monophasic. Posterior tibial artery: 27 cm/s, phasicity: Monophasic. Peroneal artery: 22 cm/s, phasicity: Monophasic. Anterior tibial artery: 26 cm/s, phasicity: Monophasic. Dorsalis pedis artery: 17 cm/s, phasicity:Monophasic. LEFT LEG: Common femoral artery: 66 cm/s, phasicity: Biphasic. Profunda femoris artery: 68 cm/s, phasicity: Biphasic. Superficial femoral artery (proximal): 91 cm/s, phasicity: Monophasic. Superficial femoral artery (mid): No color Doppler /occluded. Superficial femoral artery (distal): 296 cm/s, phasicity: Monophasic. Popliteal artery: 31 cm/s, phasicity: Monophasic. Posterior tibial artery: 18 cm/s, phasicity: Peroneal artery: 18 cm/s, phasicity: Monophasic. Anterior tibial artery: 18 cm/s, phasicity: Monophasic. Dorsalis pedis artery: 10 cm/s, phasicity: Monophasic. BRACHIAL PRESSURES: Right: 163 Left: 160 ANKLE PRESSURES: Right: PT 111, DP 113 Left: PT 83, DP 96 ANKLE-BRACHIAL INDEX: Right: 0.69 Left: 0.59 ANKLE PVR WAVEFORMS: Right: Abnormal Left: Abnormal ABDOMINAL AORTA: Proximal segment: 57 cm/s and 2.5 cm in maximum diameter. Midsegment: 34 cm/s and 1.4 cm in maximum diameter. Distal segment: 68 cm/s and 1.3 cm in maximum diameter. RIGHT ILIAC ARTERY: Common iliac artery: 86 cm/s. External iliac artery: 88 cm/s. LEFT ILIAC ARTERY: Common iliac artery: 135 cm/s. External iliac artery: 92 cm/s. Stent in the left iliac artery is not identified by the technologist. US/US abdominal aortic aneurysm IMPRESSION: Right leg: Severe inflow disease. Occluded superficial femoral artery, old. Left leg: Severe inflow disease. Occluded superficial femoral artery, old. No abdominal aortic aneurysm. Left iliac artery stent is not identified. FITO Reference: - >1.4 = calcified vessels - 0.9 - 1.4 = normal - no significant arterial disease - 0.7 - 0.89 = mild peripheral arterial disease - 0.51 - 0.69 = moderate peripheral arterial disease - d 0.50 = severe peripheral arterial disease - < .30 = critical arterial disease Electronically signed by: Rudy Goff MD 07/09/2024 12:56 PM EDT
== END 2024-07-09 08:05 | disposition home or self-care (01) ==
LOC: HO.US 08:04
PROVIDERS: PCP Internal Medicine; Visit Provider Surgery Vascular Surgery
DX: I73.9 Peripheral vascular disease, unspecified (principal)
CPT/HCPCS: 76706; 93925

== ENCOUNTER → 2024-07-09 08:06 | Outpatient (BNV) | payer OTHER, SELFPAY | PROVIDERS: PCP Internal Medicine; Visit Provider Radiology Diagnostic Radiology | DX: I73.9 Peripheral vascular disease, unspecified (principal) | CPT/HCPCS: 76706; 93925 ==

== ENCOUNTER 2024-07-19 07:01 | Outpatient (REF) | payer OTHER, SELFPAY ==
[2024-07-19 08:23] LABS: Alanine Aminotransferase 33 U/L (0-31); Alkaline Phosphatase 72 U/L (39-117); Anion Gap 11 (12-20); Aspartate Amino Transferase 28 U/L (5-31); Bilirubin Total 0.2 mg/dL (0.0-1.0); Blood Urea Nitrogen 56 mg/dL (9-16); Calcium 10.2 mg/dL (8.4-10.2); Carbon Dioxide 29 mmol/L (22-29); Chloride 105 mmol/L (96-108); Cholesterol 148 mg/dL (<200); Estimated Glomerular Filt Rate 39; Glucose Fasting 73 mg/dL (60-99); HDL Cholesterol 44 mg/dL (>40); LDL Cholesterol Calculated 84 mg/dL (<100); Potassium 4.2 mmol/L (3.3-5.1); Sodium 141 mmol/L (135-145); Total Protein 7.3 g/dL (6.5-8.0); Triglycerides 103 mg/dL (<150)
[2024-07-19 10:21] LABS: Creatinine Urine 54.97 mg/dL; Microalbum/Creatinine Ratio Ur 1398.9 ug/mg cr (<30)
== END 2024-07-19 07:02 | disposition home or self-care (01) ==
LOC: HO.LAB 07:01
PROVIDERS: PCP Internal Medicine; Visit Provider Internal Medicine
DX: E11.29 Type 2 diabetes mellitus with other diabetic kidney complication (principal); R80.9 Proteinuria, unspecified; Z79.4 Long term (current) use of insulin; E78.5 Hyperlipidemia, unspecified
CPT/HCPCS: 36415; 80053; 80061; 82043; 82570

== ENCOUNTER 2024-07-24 14:11 | Outpatient (AMB) | payer OTHER, SELFPAY ==
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
[2024-07-24 14:23] VITALS: BP 128/72; BMI 26.4
--- OUTSIDE RECORDS SUMMARY | 2024-07-24 16:49 | XMS_ITS | Clinical Summary ---
Author Organization [employer] Address [address] [facility] [address] [place] [address] Care Team Providers Care Liquid Yeast Supervisor Name Role Phone Unavailable Primary Care [...] Description 05/20/2024 3:00 PM EDT Office Visit [facility] [address] [place] [address] Joy Arzola Dental calculus (Primary Dx); Localized [...] Description 11/21/2024 3:00 PM EDT Office Visit [facility] [address] [place] [address] Joy Arzola [address] [place] [address] Health Maintenance Due Date Last Done Comments CT Colonography 1962 Colonoscopy 1962 Colorectal Cancer Screening 1962 Depression Screening 1962 FIT DNA/Cologuard 1962 FIT 1962 FOBT 1962 HIV Screening 1962 Lipid Panel 1962 SDOH Screening 1962 Sigmoidoscopy 1962 Disability Screening 1962 Alcohol/Substance Use Screening 1974 Hepatitis C Screening 1980 Pap Smear 07/13/1983 Cervical Cancer Screening 1992 HPV/Cotest 1992 Mammogram 2002 Pneumococcal Vaccine: 50+ Years (1 of 1 - PCV) 2012 Zoster Vaccines (1 of 2) 2012 COVID-19 Vaccine (2 - season) 2023 02/02/2021 Influenza Vaccine (Season Ended) 2024 11/28/2018, 12/07/2017, 11/10/2016, Additional history exists Dental Oral [...] patient's age to complete this topic Meningococcal B Vaccine Aged Out No l onger eligible based on patient's age to complete [...] teeth, acquired from Last 3 Months Insurance [facility] PARTIAL (MEDICAID)
== END 2024-07-24 15:08 | disposition home or self-care (01) ==
LOC: HO.HMCH 14:12
PROVIDERS: PCP Internal Medicine; Visit Provider Internal Medicine
DX: N18.30 Chronic kidney disease, stage 3 unspecified (principal); E11.29 Type 2 diabetes mellitus with other diabetic kidney complication; R80.9 Proteinuria, unspecified; Z79.4 Long term (current) use of insulin; I10 Essential (primary) hypertension; E78.00 Pure hypercholesterolemia, unspecified; E55.9 Vitamin D deficiency, unspecified

== ENCOUNTER → 2024-07-24 14:11 | Outpatient (BNVA) | payer OTHER, SELFPAY | PROVIDERS: PCP Internal Medicine; Visit Provider Internal Medicine | DX: Z00.00 Encounter for general adult medical examination without abnormal findings (principal); E11.22 Type 2 diabetes mellitus with diabetic chronic kidney disease; E11.29 Type 2 diabetes mellitus with other diabetic kidney complication; I12.9 Hypertensive chronic kidney disease with stage 1 through stage 4 chronic kidney disease, or unspecified chronic kidney disease; N18.30 Chronic kidney disease, stage 3 unspecified; B00.9 Herpesviral infection, unspecified; R80.9 Proteinuria, unspecified; E78.00 Pure hypercholesterolemia, unspecified; E55.9 Vitamin D deficiency, unspecified; Z79.4 Long term (current) use of insulin | CPT/HCPCS: 99212 ==

== ENCOUNTER 2024-07-29 14:16 | Outpatient (AMB) | payer OTHER, SELFPAY ==
--- NOTE | 2024-07-29 15:10 | A.OFFVIS_ITS ---
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 Installer Required: Yes Cabinet And Trim Installer Language: Power Press Tender Name: Urszula [facility] Accompanied by: Self / Same As Patient Allergies cortison Adverse Reaction (Mild, Uncoded 07/24/24 14:47) elevated sugers HPI Comprehensive Diabetes Asmnt Most Recent Diabetes Results: 2 Microalb/Creat Ratio 1398.9 ug/mg cr (<30) H 07/19/24 Cholesterol 148 mg/dL (<200) 07/19/24 HDL Cholesterol 44 mg/dL (>40) 07/19/24 Triglycerides 103 mg/dL (<150) 07/19/24 Creatinine 1.36 mg/dL (0.5-1.4) 07/19/24 Blood Urea Nitrogen 56 mg/dL (9-16) H 07/19/24 Sodium 141 mmol/L (135-145) 07/19/24 Potassium 4.2 mmol/L (3.3-5.1) 07/19/24 Chloride 105 mmol/L (96-108) 07/19/24 Carbon Dioxide 29 mmol/L (22-29) 07/19/24 Calcium 10.2 mg/dL (8.4-10.2) 07/19/24 AST 28 U/L (5-31) 07/19/24 ALT 33 U/L (0-31) H 07/19/24 Total Protein 7.3 g/dL (6.5-8.0) 07/19/24 Albumin 4.0 g/dL (3.5-5.0) 07/19/24 [facility] Medical History PAD (peripheral artery disease) Goiter Femoral artery occlusion Latent tuberculosis by blood test Hypovitaminosis D S/P angiogram of extremity (~02/13/19) Microalbuminuria Pure hypercholesterolemia Diabetes mellitus Essential hypertension Surgical History History of renal artery stenosis History of bilateral tubal ligation Family History Father No problems noted. Mother Hypertension Social History Housing: Apartment Alcohol intake: never Patient Tobacco Use Status: Never used Tobacco e-Cigarette/Vaping Use: Never Used Second Hand Smoke Exposure: No service: No Current occupational status: employed Current occupational exposures/hazards: No Cognitive needs: No Hearing needs: No Vision needs: No Female Reproductive History Menstrual Age of Menarche: 18 Assessment & Plan Assessment & Plan (1) Diabetes mellitus: Code(s): E11.9 - Type 2 diabetes mellitus without complications Qualifiers: Diabetes mellitus type: type 2 Diabetes mellitus jail insulin use: with jail use Diabetes mellitus complication status: with kidney complications Diabetes mellitus complication detail: with microalbuminuria Q ualified Code(s): E11.29 - Type 2 diabetes mellitus with other diabetic kidney complication; R80.9 - Proteinuria, unspecified; Z79.4 - jail (current) use of insulin Plan: Diabetes self-management education and support participation record Assessment/scale: 1= needs instructed? 2= needs review? 3= comprehend keep point? 4= demonstrates understanding/ competent? NC= Not Covered Topics Learning Objective: Initial visit Initial or post srvc Initial or post srvc Initial or post srvc Initial or post srvc Initial or post srvc Post srvc Comments Pre Edu-assessment/plan Outcome or reassess O utcome or reassess Outcome or reassess Outcome or reassess Outcome or reassess Outcome or reassess Diabetes pathophysiology 1 Healthy eating 1 Being active 1 Taking medication 1 Monitoring glucose 1 Acute complication 1 Chronic complicated 1 Lifestyle and healthy coping 1 Diabetes distress in support 1 ?Diabetes pathophysiology: ?Defined diabetes med identify own type of diabetes; list 3 options for treating diabetes Healthy eating: ?Described effect of type, amount and ?timing of food on blood glucose; list 3 methods for planning meal Being active: ?State effect of exercise on blood glucose level Taking medication: ?State effect of diabetes medications on diabetes; name diabetes medications taking, action and side effects Monitoring glucose: ?Identify recommended blood glucose targets and personal target Acute complication: ?List symptoms and treatment of hyper and hypoglycemia, DKA, sick day guidelines and guidelines for severe weather or situations of crisis and diabetes supply manage Chronic complication: ?To find the relationship of blood glucose levels to long- term complications of diabetes in screening and preventative measures Lifestyle and healthy coping: ?Described lifestyle and healthy coping strategies to rule out diabetes self-management Diabetes to stress and support: ?Recognize Diabetes to stress and be able to identified support options Learning objectives: The patient was provided with verbal and written education on the following topics as outlined below. The patient met all learning objectives and was able to verbalize understanding and provide teach back of education topics discussed . The patient was provided with the opportunity to ask questions and all questions were answered. Patient Assessment Assess patient education level/literacy/barriers, patient works for [employer] Last A1c on 06/12/2024 7.6% Patient uses [employer], with cell phone gela to review glucose Patient denies missing medications She is on Toujeo 40 units daily NovoLog 10 units at breakfast, 18 units at lunch patient reports she only eats twice a day she does not eat supper Patient started Ozempic 0.25 mg weekly, approximately 3 weeks ago. Reports she has been experiencing slight nausea especially after meals Patient questions/concerns What is Diabetes? Pathophysiology How the body produces and uses insulin Identify type of DM Risk factors Signs of Diabetes Brief overview of Diabetes Management Monitoring blood sugar Following a meal plan Regular exercise Maintaining a healthy weight Taking medication as needed Members of the care team (PCP, RN, MA, RD, CDE, furnace reliner) Blood glucose monitoring When/how often to test Target blood sugar ranges Introduction to Nutrition Importance of healthy diet in managing DM Diet is personalized to individual preference Review patient?s regular diet/food preferences Who prepares meals/does food shopping/ Dining out?/ Barriers? How diet effects glucose Eating 3 balanced meals a day with small, healthy snacks between meals Review food groups Carbohydrates: What is a carbohydrate/Which food/food groups are considered carbohydrates Effect of carbohydrates on blood glucose Portion sizes Reading food labels Basic carb counting (if applicable per nursing assessment) Plate method Meal planning Recommendations: Follow plate method, consistent carbs and read nutritional labels. Smart Goal: Patient will keep carbohydrate portion at meals consistent until next visit Educational Materials: The patient was provided with the following written educational materials: Planning Healthy Meals, how to treat hypoglycemia Handout in Yi Patient Response to instructions: Comprehension of Instructions: Fair Readiness to make changes: Contemplation How confident they feel about making changes: Fair Portions of this note were created using voice recognition software, please excuse any words or phrases that may have been misinterpreted. Patient Instructions: Incluir actividad diaria regular. ADA recomienda 30 minutos de ejercicio 5 d?as a la semana. P?rdida de peso, hable con el PCP o el cardi?logo antes de comenzar un nuevo plan. Mida el nivel de az?car en la taylor seg?n las indicaciones; Ayuno y comida m?s rodrigo de 2hpp. Observe las tendencias en los resultados. Utilice los resultados y eval?e c?mo los alimentos, la actividad f?irving y los medicamentos afectan los resultados de az?car en la taylor. Lleve el gluc?metro o CGM a la pr?xima visita. Conocer los medicamentos para la diabetes, horn acci?n, los efectos secundarios, la eficacia, la toxicidad, la dosis prescrita, el momento y la frecuencia de administraci?n apropiados, el efecto de las dosis olvidadas y retrasadas y las instrucciones de almacenamiento, viaje y seguridad. T?cnicas de resoluci?n de problemas para el seguimiento de episodios de hipo/hiperglucemia y tratamientos. Reducir los comportamientos de reducci?n de riesgos, dejar de fumar, ex?menes regulares de ojos, pies y dentales. Coding Level of Care Code Est Pt Level 1 (48543) Diagnoses Type 2 diabetes mellitus with microalbuminuria, with long-term current use of insulin E11.29; R80.9; Z79.4 Diabetes mellitus type: type 2 Diabetes mellitus jail insulin use: with encoding machine operator use Diabetes mellitus complication status: with kidney complications Diabetes mellitus complication detail: with microalbuminuria
--- OUTSIDE RECORDS SUMMARY | 2024-07-29 17:11 | XMS_ITS | Clinical Summary ---
Author Organization [employer] Address [address] [place] [address] Care Team Providers Care Interior Block Wirer Name Role Phone Unavailable Primary Care Provider [...] Description 05/20/2024 3:00 PM EDT Office Visit [facility] [address] [place] [address] Joy Arzola Dental calculus (Primary Dx); Localized [...] 3:00 PM EDT Office Visit [facility] [address] [place] [address] Joy Arzola [address] [place] [address] Health Maintenance Due Date Last Done Comments [...] teeth, acquired from Last 3 Months Insurance [facility] - HSN PARTIAL (MEDICAID)
== END 2024-07-29 15:18 | disposition home or self-care (01) ==
LOC: HO.ENCR 14:17
PROVIDERS: PCP Internal Medicine; Visit Provider Registered Nurse Diabetes Educator
DX: E11.29 Type 2 diabetes mellitus with other diabetic kidney complication (principal); R80.9 Proteinuria, unspecified; Z79.4 Long term (current) use of insulin

== ENCOUNTER → 2024-07-29 14:16 | Outpatient (BNVA) | payer OTHER, SELFPAY | PROVIDERS: PCP Internal Medicine; Visit Provider Registered Nurse Diabetes Educator | DX: E11.29 Type 2 diabetes mellitus with other diabetic kidney complication (principal); R80.9 Proteinuria, unspecified; Z79.4 Long term (current) use of insulin | CPT/HCPCS: 99211 ==

== ENCOUNTER 2024-07-31 15:05 | Outpatient (AMB) | payer OTHER, SELFPAY ==
--- NOTE | 2024-07-31 15:10 | A.OFFVIS_ITS ---
Vital Signs 07/31/24 15:11 Height 5 ft 4 in Weight 154 lb BMI 26.4 Intake Visit Reasons: 1y follow up s/p Arterial US 07/09/24 Intake Note: 1 yr follow up Arterial US 07/09/24, Pt states no complaints Clip On Sunglasses Assembler Required: Yes Clip On Sunglasses Assembler Language: Felt Hat Mellowing Machine Operator Services: Clip On Sunglasses Assembler Present Clip On Sunglasses Assembler Name: [id number] [email or web address] Information Interpreted: clinical only Accompanied by: Self / Same As Patient Allergies cortison Adverse Reaction (Mild, Uncoded 07/31/24 15:12) elevated sugers HPI HPI 1y follow up s/p Arterial US 07/09/24: Details: Joy is presenting today for a follow up to surveillance US, performed on 07/09/24. She is Taiwanese speaking only and we utilized the video spanish interpreter/translator. She denies any claudication symptoms. She continues on the ASA, Plavix, and statin. She states her diabetes has been well controlled. She has no new concerns today. [facility] Medical History (Updated 07/31/24 @ 15:30 by Karen Thomas PA-C) PAD (peripheral artery disease) Goiter Femoral artery occlusion Latent tuberculosis by blood test Hypovitaminosis D S/P angiogram of extremity (~02/13/19) Microalbuminuria Pure hypercholesterolemia Diabetes mellitus Essential hypertension Surgical History History of renal artery stenosis History of bilateral tubal ligation Family History Father No problems noted. Mother Hypertension Social History Housing: Apartment Alcohol intake: never Patient Tobacco Use Status: Never used Tobacco e-Cigarette/Vaping Use: Never Used Second Hand Smoke Exposure: No service: No Current occupational status: employed Current occupational exposures/hazards: No Cognitive needs: No Hearing needs: No Vision needs: No Female Reproductive History Menstrual Age of Menarche: 18 Review of Systems Const Reports as per HPI and Denies weakness ENT Reports Normal hearing present and Denies dizziness Card Reports as per HPI, Denies chest pain, Denies chest pain at rest, Denies chest pain with activity, Denies dyspnea and Denies dyspnea on exertion Resp Reports as per HPI, Denies cough, Denies dyspnea and Denies dyspnea on exertion GI Reports as per HPI, Denies abdominal pain, Denies nausea and Denies vomiting Musc Denies numbness Skin/Breast Reports as per HPI, Denies erythema and Denies wounds Neuro Reports Normal hearing present, Denies dizziness, Denies numbness, Denies Sensory deficit (Neuro) and Denies weakness Psych Reports no additional complaints Endo Reports no additional complaints Physical Exam Vital Signs: BMI result Body Mass Index 26.4 Const General: healthy appearing and no acute distress Orientation/consciousness: patient oriented x3 HEENT Head: Yes normal to inspection Ears: hearing grossly normal bilaterally Mouth: Normal oral and palatal mucosa present Resp Effort & Inspection: normal respiratory effort and able to speak in complete sentences Auscultation: clear to auscultation bilaterally Cardio Jugular venous distension: no JVD Rate: regular rate Rhythm: regular rhythm Heart sounds: S1 normal heart sound present and S2 normal heart sound present Bruits: no abdominal aortic bruits, no carotid bruits, no femoral bruits and no renal bruits Peripheral pulses: Peripheral pulses 2+ throughout GI Inspection: Yes normal to inspection Palpation (GI): No Abdominal aortic bruit present Skin General skin exam: no rashes or lesions noted Wounds: no wounds Hair: normal Neuro General: patient oriented x3 Cranial nerves: Yes Normal hearing present Cognition (Neuro): normal cognition Gait exam (Neuro): Normal gait present Motor exam (neuro): 5/5 motor strength present throughout Sensory Exam: No Sensory deficit (Neuro) Extrem Other: Bilateral lower extremities: warm to the touch. Palpable DP pulses. No wounds or discoloration noted. General: Yes normal to inspection, Yes full ROM, Yes capillary refill normal and Yes normal gait Results Reviewed Results Reviewed: Arterial duplex US 07/09/24: Right leg: Severe inflow disease. Occluded superficial femoral artery, old. Left leg: Severe inflow disease. Occluded superficial femoral artery, old. Right FITO: 0.69, increased from 0.67 last year Left FITO: 0.59, increased from 0.53 last year Assessment & Plan Assessment & Plan (1) PAD (peripheral artery disease): Comment: 02/13/2019- left common iliac stent Code(s): I73.9 - Peripheral vascular disease, unspecified Category: Medical Plan Joy is presenting today on a follow up to surveillance US for PAD. The US revealed severe inflow dx of bilateral lower extremities with occluded superficial femoral arteries, unchanged from last year; her ABIs increased slightly. In short, she continues with stable claudication. We discussed the importance of continuing with her current medication regimen and the importance of blood sugar control. We discussed the s/s of unstable claudication and critical limb ischemia. We discussed the importance of a healthy, well balanced diet and physical activity. We will have her follow up with us in 1y for co ntinued surveillance US. Thank you for allowing us to participate in the patient's care. If there are any questions or concerns, please do not hesitate to reach out to us. Orders: Orders US arterial duplex LE BI 1 Year I73.9 - Peripheral vascular disease, unspecified US abdominal aortic aneurysm 1 Year I73.9 - Peripheral vascular disease, unspecified Coding Level of Care Code Est Pt Level 4 (03338) Diagnoses PAD (peripheral artery disease) I73.9 Comment review of US
[2024-07-31 15:11] VITALS: BMI 26.4
--- OUTSIDE RECORDS SUMMARY | 2024-07-31 17:44 | XMS_ITS | Clinical Summary ---
Author Organization [facility] Address [address] [address] Phone Care Team Providers Care Municipal Clerk Name Role Phone Urszula Reyna MD Primary Care Provider [phone] Allergies No known active allergies Medications insulin [...] EVERY DAY 30 tablet 3 5 Active Finerenone (Kerendia) 10 MG tablet Take 10 mg by mouth 1 (one) time each day 90 tablet 2 5 026 Active Active Problems Problem Noted Date Diagnosed Date Localized gingival recession 07/14/202208/2022 Dental calculus 07/14/2022 10/26/2022 Chronic kidney disease stage 2 07/05/2020 Essential hypertension 07/05/2020 Proteinuria 07/05/2020 Renal disorder due to type 2 diabetes mellitus 0 07/05/2020 Encounters Date Type Department Care Team Description 06/16/2024 4:15 PM EDT Office Visit [facility] [address] [place] [address] Saad Stovall MD Stage 3a chronic kidney disease (HCC) (Primary Dx); Renal disorder due to type 2 diabetes mellitus <Diabetic nephropathy> (HCC); Persistent proteinuria; Essential hypertension 06/16/2024 Refill [facility] [place] [address] [place] [id number] Morris Lynch MD from Last 3 Months [...] Office Visit [facility] [address] [place] [address] Saad Stovall MD [address] [facility] [address] [place] [address] Health Maintenance Due Date Last [...] Stovall MD LAB URINE ORDERABLES Final Re sul Performing Organization Address City/[facility] Co de Phone Number [place] See order comments [place] [address] * Creatinine (06/12/2024 7:32 AM EDT) Creatinine Serum 1.11 0.5 - 1.4 mg/dL See order comments eGFR (Calc) 50 See orde r comments Comment: Chronic Kidney Disease: ??Estimated GFR < 60 mL/min/1.73m2 Severe Kidney Disease: ??Estimated GFR < 15 mL/min/1.73m2 06/12/2024 7:32 AM EDT 06/12/2024 7:32 AM EDT Saad Stovall MD LAB BLOOD ORDERABLES Final Re [facility] Performing Organization Address City/[facility] Co de Phone Number [place] See order comments [place] [address] * (ABNORMAL) CBC and Differential (06/12/2024 7:32 [...] ORDERABLES Final Re sult Performing Organization Address City/[facility] Co de Phone Number [place] See order comments [place] [address] * (ABNORMAL) BUN (06/12/2024 7:32 AM EDT) BUN 35(H) 9 - 16 mg/dL See order comments 06/12/2024 7:32 AM EDT 06/12/2024 7:32 AM EDT Saad Stovall MD LAB BLOOD ORDERABLES Final Re sult Performing Organization Address City/[facility] Co de Phone Number [place] See order comments [place] [address] * Calcium (06/12/2024 7:32 AM EDT) Calcium 9.9 8.4 - 10.2 mg/dL See order comments 06/12/2024 7:32 AM EDT 06/12/2024 7:32 AM EDT Saad Stovall MD LAB BLOOD ORDERABLES Final Re sult [place] See order comments [place] [address] * Electrolyte panel (06/12/2024 7:32 AM EDT) [...] MD LAB BLOOD ORDERABLES Final Re sult [place] See order comments [place] [address] from Last 3 Months Care Teams Municipal Clerk Relationship Specialty Start Date End Date Urszula Reyna MD [address] [place], [place] PCP - General 03/01/20
== END 2024-07-31 15:28 | disposition home or self-care (01) ==
LOC: HO.HVS 15:06
PROVIDERS: PCP Internal Medicine; Visit Provider Physician Assistant Surgical
DX: I73.9 Peripheral vascular disease, unspecified (principal)
CPT/HCPCS: 99214

== ENCOUNTER → 2024-07-31 15:05 | Outpatient (BNVA) | payer OTHER, SELFPAY | PROVIDERS: PCP Internal Medicine; Visit Provider Physician Assistant Surgical | DX: Z71.3 Dietary counseling and surveillance (principal); I73.9 Peripheral vascular disease, unspecified | CPT/HCPCS: 99212 ==

== ENCOUNTER 2024-08-18 10:02 | Outpatient (REF) | payer OTHER, SELFPAY ==
[2024-08-18 10:36] VITALS: BP 146/68; PULSE 79; RESP 18; TEMP 36.1; O2SAT 97; BMI 23.2
--- OUTSIDE RECORDS SUMMARY | 2024-08-18 10:38 | XMS_ITS | Clinical Summary ---
Author Organization [facility] Address [address] [address] Phone Care Team Providers Care Gelatin Plant Supervisor Name Role Phone Urszula Reyna MD Primary Care Provider [phone] Allergies No known active allergies Medications insulin [...] Office Visit [facility] [address] [place] [address] Saad Stovall MD Stage 3a chronic kidney disease (HCC) (Primary Dx); Renal disorder due to type 2 diabetes mellitus <Diabetic nephropathy> (HCC); Persistent proteinuria; Essential hypertension 06/16/2024 Refill [facility] [place] [address] [place] [phone] Morris Lynch MD from Last 3 Months [...] Office Visit [facility] [address] [place] [address] Saad Stovall MD [address] [facility] [address] [place] [address] Health Maintenance Due Date Last [...] order comments [place] [address] * Creatinine (06/12/2024 7:32 AM EDT) Creatinine Serum 1.11 0.5 - 1.4 mg/dL See order comments eGFR (Calc) 50 See orde r comments Comment: Chronic Kidney Disease: Estimated GFR < 60 mL/min/1.73m2 Severe Kidney Disease: Estimated GFR < 15 mL/min/1.73m2 06/12/2024 7:32 AM EDT 06/12/2024 7:32 AM EDT Saad Stovall MD LAB BLOOD ORDERABLES Final Re sult Performing Organization Address City/[facility] Co de Phone Number [place] See order comments [place] [address] * (ABNORMAL) CBC and Differential (06/12/2024 7:32 [...] ORDERABLES Final Re sult Performing Organization Address City/State/[facility] Co de Phone Number [place] See order comments [place] [address] * (ABNORMAL) BUN (06/12/2024 7:32 AM EDT) BUN 35(H) 9 - 16 mg/dL See order comments 06/12/2024 7:32 AM EDT 06/12/2024 7:32 AM EDT us Saad Stovall MD LAB BLOOD ORDERABLES Final Re sult [facility] See order comments [place] [address] * Calcium (06/12/2024 7:32 AM EDT) Calcium 9.9 8.4 - 10.2 mg/dL See order comments 06/12/2024 7:32 AM EDT 06/12/2024 7:32 AM EDT Saad Stovall MD LAB BLOOD ORDERABLES Final Re sult [place] See order comments [place] [address] * Electrolyte panel (06/12/2024 7:32 AM EDT) [...] ORDERABLES Final Re sult Performing Organization Address City/[facility] Co de Phone Number [place] See order comments [place] [address] from Last 3 Months Care Teams Gelatin Plant Supervisor Relationship Specialty Start Date End Date Urszula Reyna MD [address] [place], [place] PCP - General 03/01/20
== END 2024-08-18 10:03 | disposition home or self-care (01) ==
LOC: HO.MS 10:02
PROVIDERS: PCP Internal Medicine; Visit Provider Ophthalmology
PROC: (CPT 66821; principal; 2024-08-18 13:00)
DX: H26.492 Other secondary cataract, left eye (principal)
CPT/HCPCS: 66821

== ENCOUNTER 2024-10-13 14:19 | Outpatient (AMB) | payer OTHER, SELFPAY ==
--- NOTE | 2024-10-13 14:27 | A.OFFVIS_ITS ---
Vital Signs 10/13/24 14:30 Height 5 ft 4 in Weight 151 lb 0.266 oz BMI 25.9 BP 134/68 Blood Pressure Location Rt brachial Position Sitting Pulse 76 Pulse Source Pulse Oximeter Pulse Oximetry (%) 98 Oxygen Delivery Method Room Air Intake Visit Reasons: T2DM Intake Note: Patient present today for Type 2 Diabetes Mellitus Last Diabetic eye exam: August 27, 2024 Last Podiatry Visit: Does not see a Director Of Diversity And Inclusion Random Glucose: 152 mg/dl HgA1C: 8.7% 10/13/2024 Textiles And Clothing Teacher Required: Yes Textiles And Clothing Teacher Language: Reducing System Operator Services: Textiles And Clothing Teacher Present Textiles And Clothing Teacher Name: Cornelius [id number] Information Interpreted: non-clinical & clinical Accompanied by: Self / Same As Patient Allergies cortison Adverse Reaction (Mild, Uncoded 10/13/24 14:31) elevated sugers Medication List - Last Reconciled 10/13/24 by aAliyah Simmons PA-C atorvastatin 80 mg PO BEDTIME 90 days blood sugar diagnostic (FreeStyle Lite Strips) As directed 1-2x daily blood-glucose meter (FreeStyle [place] Lite kit) USE DIRECTED blood-glucose meter (FreeStyle Lite Meter kit) As directed blood-glucose sensor (FreeStyle Rosa Isela 3 Plus Sensor device) As directed every 15 days chlorthalidone 25 mg PO DAILY 90 days cholecalciferol (vitamin D3) 25 mcg PO DAILY 90 days clonidine HCl 0.3 mg PO TID 90 days empagliflozin (Jardiance) 25 mg PO DAILY 90 days ezetimibe 10 mg PO DAILY 90 days finerenone (Kerendia) 10 mg PO DAILY 90 days fluconazole 150 mg PO Q3D 2 doses FreeStyle Rosa Isela 3 [place] (blood-glucose,tank truck milk receiver,cont) As directed for use with sensor NS Humalog KwikPen Insulin (insulin lispro) Inject 12 units subcutaneously with breakfast, 18 units with dinner NS insulin glargine U-300 conc (Toujeo Max U-300 SoloStar) 34 units (0.1133 mL) subcut BEDTIME 30 days lancets (TRUEplus Lancets) TEST BLOOD SUGAR 1-2 times daily losartan 100 mg PO DAILY metformin 1,000 mg PO BID 90 days miscellaneous medical supply (Blood Pressure Cuff) As directed montelukast 10 mg PO BEDTIME 90 days pen needle, diabetic (Pentips Pen Needle) USE DIRECTED THREE TIMES DAILY WITH INSULIN tirzepatide (Mounjaro) 2.5 mg (0.5 mL) subcut QWEEK HPI HPI T2DM: Details: Patient is a 64-year-old female who was seen today for follow up of type 2 diabetes. She was previously managed by my colleague. Endo: Dm-most recent A1c 8.7.. Initially diagnosed with T2DM in 2014. She was seen by endocrine when first diagnosed and has been followed by Dr. Parsons since 09/2021. Current regimen Jardiance 25 mg daily Toujeo 30 units Lispro twice per day 12 with breakfast 18 units with supper Ozempic 0.25 mg weekly -noncompliant with metformin due to stomach upset -was previously on Trulicity but this was discontinued at her last visit for gi upset, ozempic is causing constipation. She stopped metformin due to gi upset (does not matter the dosage) cgm- GMI 7.5%. very hyperglycemic 10%, hyperglycemic 24%, in range 65%, hypoglycemic 1%, very hypoglycemic 0% No Family history of T2DM. CV: Blood pressure today in the office is 134/68. She is currently on chlorthalidone 25 mg daily, losartan 100 mg daily. Cholesterol is managed with Zetia 10 mg and atorvastatin 80 mg daily [facility] Medical History (Updated 10/13/24 @ 14:46 by Aaliyah Simmons PA-C) PAD (peripheral artery disease) Goiter Femoral artery occlusion Latent tuberculosis by blood test Hypovitaminosis D S/P angiogram of extremity (~02/13/19) Microalbuminuria Pure hypercholesterolemia Diabetes mellitus Essential hypertension Surgical History History of renal artery stenosis History of bilateral tubal ligation Family History Father No problems noted. Mother Hypertension Social History Housing: Apartment Alcohol intake: never Patient Tobacco Use Status: Never used Tobacco e-Cigarette/Vaping Use: Never Used Second Hand Smoke Exposure: No service: No Current occupational status: employed Current occupational exposures/hazards: No Cognitive needs: No Hearing needs: No Vision needs: No Female Reproductive History Menstrual Age of Menarche: 18 Physical Exam Vital Signs: Last Vital Signs Pulse 76 10/13/24 14:30 BP 134/68 10/13/24 14:30 Pulse Ox 98 10/13/24 14:30 Oxygen Delivery Method Room Air 10/13/24 14:30 BMI result Body Mass Index 25.9 Const Orientation/consciousness: patient oriented x3 HEENT Ears: hearing grossly normal bilaterally Neck Thyroid: Thyroid normal Lymphatic: no lymphadenopathy noted Resp Auscultation: clear to auscultation bilaterally Cardio Rate: regular rate Rhythm: regular rhythm Heart sounds: S1 normal heart sound present and S2 normal heart sound present GI Inspection: Yes normal to inspection Palpation (GI): Soft to palpation and Other GI palpation findings present (nontender, no cva tenderness) Auscultation: normoactive bowel sounds Rectal Exam - Female: deferred Skin General skin exam: no rashes or lesions noted Neuro General: patient oriented x3, gait normal and no focal motor deficits Results AMB Hemoglobin A1c AMB Hemoglobin A1c 8.7 % Last Edit by ROSLYN Briggs on 10/13/24 14:47 Results Reviewed Results Reviewed: Laboratory Last Values Glucose (Clinic) 152 mg/dL (60-115) H 10/13/24 14:37 Hgb A1c (Clinic) 8.7 % (4.0-6.0) H 10/13/24 14:39 Laboratory Tests 06/12/24 07/19/24 10/13/24 15:34 07:07 14:37 Creatinine 1.36 Estimated GFR 39 Glucose (Clinic) 152 H Hgb A1c (Clinic) 7.6 H AST 28 ALT 33 H Triglycerides 103 Cholesterol 148 LDL Cholesterol, Calc 84 HDL Cholesterol 44 Assessment & Plan Assessment & Plan (1) Uncontrolled type 2 diabetes mellitus with hyperglycemia, with long-term current use of insulin: Code(s): E11.65 - Type 2 diabetes mellitus with hyperglycemia; Z79.4 - exterminator (curren t) use of insulin Category: Medical Plan: we will d/c ozempic due to constipation start mounjaro 2.5 mg weekly increase toujeo 34 units continue humalog continue jardiance Colace order to use for constipation. 2-3 month f.u or sooner prn (2) Essential hypertension: Code(s): I10 - Essential (primary) hypertension Category: Medical Plan: wnl continue current plan (3) Pure hypercholesterolemia: Code(s): E78.00 - Pure hypercholesterolemia, unspecified Category: Medical Plan: continue current plan Orders: Orders AMB Hemoglobin A1c Today E11.29 - Type 2 diabetes mellitus with other diabetic kidney complication, R80.9 - Proteinuria, unspecified, Z79.4 - shelter (current) use of insulin Medications: New tirzepatide (Mounjaro) 2.5 mg (0.5 mL) subcut QWEEK 2 mL 3RF docusate sodium (Colace) 100 mg PO BID 180 caps 0RF Changed From Humalog KwikPen Insulin (insulin lispro) Inject 10 units subcutaneously with breakfast, 14 units with dinner 15 mL 3RF NS To Humalog KwikPen Insulin (insulin lispro) Inject 12 units subcutaneously with breakfast, 18 units with dinner 15 mL 3RF NS From insulin glargine U-300 conc (Toujeo Max U-300 SoloStar) 40 units (0.1333 mL) subcut BEDTIME 30 days 6 mL 2RF To insulin glargine U-300 conc (Toujeo Max U-300 SoloStar) 34 units (0.1133 mL) subcut BEDTIME 3.399 mL 2RF 30 days Discontinued dulaglutide (Trulicity) Discontinued Reason: Doctor's Order 1 mg (0.1667 mL) subcut QWEEK 2 mL 5RF metformin Discontinued Reason: Doctor's Order 1,000 mg PO BID 90 days 180 tabs 3RF semaglutide (Ozempic) for 4 weeks Discontinued Reason: Doctor's Order 0.25 mg (0.368 mL) subcut QWEEK 30 days 2 mL 11RF Coding Level of Care Code Est Pt Level 4 (18120) Complex EM visit Add On G2211 Diagnoses Uncontrolled type 2 diabetes mellitus with hyperglycemia, with long-term current use of insulin E11.65; Z79.4 Essential hypertension I10 Pure hypercholesterolemia E78.00
[2024-10-13 14:30] VITALS: BP 134/68; PULSE 76; O2SAT 98; BMI 25.9
[2024-10-13 14:41] LABS: Glucose, Whole Blood 152 mg/dL (60-115)
--- OUTSIDE RECORDS SUMMARY | 2024-10-13 15:55 | XMS_ITS | Clinical Summary ---
Author Organization [facility] Address [address] [address] Phone Care Team Providers Care Kier Pleater Name Role Phone Urszula Reyna MD Primary Care Provider [phone] Allergies No known active allergies Medications insulin [...] day 90 tablet 2 5 026 Active losartan (COZAAR) 100 MG tablet TAKE 1 TABLET BY MOUTH EVERY DAY 30 tablet 3 5 Active Active Problems Problem Noted Date Diagnosed Date Localized gingival recession 07/14/202208/2022 Dental calculus 07/14/2022 10/26/2022 Chronic kidney disease stage 2 07/05/2020 Essential hypertension 07/05/2020 Proteinuria 07/05/2020 Renal disorder due to type 2 diabetes mellitus 0 07/05/2020 Encounters Date Type Department Care Team Description 09/10/2024 Refill [facility] [place] [address] [facility] [address] [place] [phone] Saad Stovall MD from Last 3 Months [...] [facility] [address] [place] [address] Saad Stovall MD [address] [facility] [address] [place] [phone] Health Maintenance Due Date Last Done Comments [...] Visual Foot Exam 03/21/2020 Influenza Vaccine (#1) 2024 Hepatitis B Vaccine Aged Out No longe r eligible based on patient's age to complete this topic Insurance Medicaid [place] Care Teams Kier Pleater Relationship Specialty Start Date End Date Urszula Reyna MD [address] [place] [address] PCP - General 03/01/20
--- OUTSIDE RECORDS SUMMARY | 2024-10-13 15:55 | XMS_ITS | Encounter Summary ---
Author Organization [employer] Address [address] [facility] 7 [place] [address] Care Team Providers Care Acupuncture Physician Name Role Phone Unavailable Primary Care Provider Unavailabl e Encounter Details Date Type Department Care Team (Latest Contact Info) Description 02/24/2019 Abstract [facility] CONVERSIONS Dental, Provider, DDS Social [...] 11/21/2024 3:00 PM EDT Office Visit [facility] ADULT [facility]ENT[facility] [address] [place] [address] Joy Arzola [address] [place] [address] documented as of this encounter Visit Diagnoses Not on filedocumented in this encounter
--- OUTSIDE RECORDS SUMMARY | 2024-10-13 15:55 | XMS_ITS | Clinical Summary ---
Author Organization [employer] Address [address] [facility] 7t [place] [address] Care Team Providers Care R D Engineer Name Role Phone Unavailable Primary Care Provider [...] Description 11/21/2024 3:00 PM EDT Office Visit [facility] [address] [place] [address] Dariusz, Joy [address] [place] [address] Health Maintenance Due Date Last Done Comments [...] (2 - season) 2023 02/02/2021 Influenza Vaccine (#1) 2024 9, 12/07/2017, 11/10/2016, Additional history exists Dental Oral Exam 11/20/2024 05/20/2024, 08/2023, 07/14/2022, Additional history exists Dental Prophylaxis 11/20/2024 05/20/2024, 0 11/19/2023, 03/28/2023, Additional history exists Tobacco Screening 05/20/2025 05/20/2024 Dental X-Ray: Bitewings 05/21/2025 05/21/19 25, 03/28/2023, 07/14/2022, Additional history exists DTaP/Tdap/Td Vaccines [...] calculus Localized gingival recession Missing teeth, acquired PERIODIC ORAL EVALUATION - ESTABLISHED PATIENT Routine 05/20/2024 3:00 PM EDT from Last 3 Months or Most Recently Relevant to Health Maintenance Insurance [facility] (O) DENTAL - HSN PARTIAL (MEDICAID)
--- OUTSIDE RECORDS SUMMARY | 2024-10-13 15:55 | XMS_ITS | Encounter Summary ---
Author Organization [facility] [employer] Address [address] [facility] 7 [place] [address] Care Team Providers Care Steel Erector Apprentice Name Role Phone Unavailable Primary Care Provider Unavailabl e Encounter Details Date Type Department Care Team (Latest Contact Info) Description 10/05/2021 Abstract [facility] CONVERSIONS Dental, Provider, DDS Social History [...] Description 11/21/2024 3:00 PM EDT Office Visit [facility] ADULT DENTAL [address] [place] [address] Joy Arzola [address] [place] [address] documented as of this encounter Visit Diagnoses Not on filedocumented in this encounter
--- OUTSIDE RECORDS SUMMARY | 2024-10-13 15:55 | XMS_ITS | Encounter Summary ---
Author Organization [facility] Address [facility] [address] [place] [address] Phone Care Team Providers Care Progress Clerk Name Role Phone Urszula Reyna MD Primary Care Provider [phone] Encounter Details Date Type Department Care Team (Late st Contact Info) Description 12/12/2021 Documentation Only [facility] [address] [facility] [address] [place] [phone] Isabella Sifuentes Social History Tobacco Use Types [...] Visit [facility] [address] [place] [address] Saad Stovall MD [address] [facility] [address] [place] [phone] documented as of this encounter Visit Diagnoses Not on filedocumented in this encounter Care Teams Progress Clerk Relationship Specialty Start Date End Date Urszula Reyna MD [address] [place], [place] PCP - General 03/01/20 documented as of this encounter
--- OUTSIDE RECORDS SUMMARY | 2024-10-13 15:55 | XMS_ITS | Encounter Summary ---
Author Organization [employer] Address [address] [facility] 7 [place] [address] Care Team Providers Care Digital Content Specialist Name Role Phone Unavailable Primary Care Provider Unavailabl e Encounter Details Date Type Department Care Team (Latest Contact Info) Description 06/23/2020 Abstract [facility] CONVERSIONS Dental, Provider, DDS Social [...] Description 11/21/2024 3:00 PM EDT Office Visit [facility] ADULT DENTAL [address] [place] [address] Joy Arzola [address] [place] [address] documented as of this encounter Visit Diagnoses Not on filedocumented in this encounter
== END 2024-10-13 15:05 | disposition home or self-care (01) ==
PROVIDERS: PCP Internal Medicine; Visit Provider Physician Assistant
DX: E11.65 Type 2 diabetes mellitus with hyperglycemia (principal); Z79.4 Long term (current) use of insulin; I10 Essential (primary) hypertension; E78.00 Pure hypercholesterolemia, unspecified; E11.29 Type 2 diabetes mellitus with other diabetic kidney complication; R80.9 Proteinuria, unspecified

== ENCOUNTER → 2024-10-13 14:19 | Outpatient (BNVA) | payer OTHER, SELFPAY | PROVIDERS: PCP Internal Medicine; Visit Provider Physician Assistant | DX: E11.65 Type 2 diabetes mellitus with hyperglycemia (principal); E11.29 Type 2 diabetes mellitus with other diabetic kidney complication; I10 Essential (primary) hypertension; E78.00 Pure hypercholesterolemia, unspecified; R80.9 Proteinuria, unspecified; Z79.4 Long term (current) use of insulin | CPT/HCPCS: 82947; 83036; 99212 ==

== ENCOUNTER 2024-11-22 07:04 | Outpatient (REF) | payer OTHER, SELFPAY ==
--- OUTSIDE RECORDS SUMMARY | 2024-11-21 15:00 | XMS_ITS | Encounter Summary ---
Author Organization [email or web address] Address [address] [facility] 7 [place] [address] Care Team Providers Care Heating And Cooling Technician Name Role Phone Unavailable Primary Care Provider Unavailabl e Reason for Visit * Reason Comments Routine Cleaning Encounter Details Date Type Department Care Team (Late st Contact Info) Description 11/21/2024 3:00 PM EDT Office Visit [facility] ADULT DENTAL [address] [place] [address] Joy Arzola [address] [place] [address] Dental calculus (Primary Dx); Localized gingival recession; [...] Sign Reading Time Taken Comments Blood Pressure 138/70 11/21/2024 2:40 PM EDT Pulse - - Temperature - - Respiratory Rate - - Oxygen Saturation - - Inhaled Oxygen Concentration - - Weight - - Height - - Body Mass Index - - documented in this encounter Progress Notes * Joy Arzola - 11/21/2024 3:00 PM EDT Patient ID: Joy Vila is a 64 y.o. female. Time Out: Timeout Date: 11/21/24, Timeout Time: 1446 (Prophy) Pt came early and was seen early. Location: [facility] Tooth: Maxilla and Mandible Procedure: Prophylaxis Verified the above with patient, recreation assistant, and provider. Confirmed via patient's chart, intraorally and by radiographs. Supervisor Evaporator: not applicable Medical Hx: Vitals: Blood pressure 138/70. Medications, Med Hx reviewed with patient and updated in chart. Treatment Provided Dental procedures in this visit D1110 - PROPHYLAXIS - ADULT (Completed) Service provider: Joy Arzola Billgael provider: Carlos Woodard DDS D1330 - ORAL HYGIENE INSTRUCTIONS (Completed) Service provider: Joy Arzola Billing provider: Carlos Woodard DDS D9450 - CASE PRESENTATION, DETAILED AND EXTENSIVE TREATMENT PLANNING (Completed) Service provider: Joy Arzola Billing provider: Carlos Woodard DDS Instruments Used: Ultrasonic Scalers, Hand Scalers, and Prophy angle Oral Cancer Screening: No lesions Head/Neck Exam: No Lesions Calculus: Light Plaque: Light Stain: Light Bleeding: Light Gingiva: Recession- localized and pink OH: Good Perio Chart: not due yet Oral hygiene instructions provided to patient including brushing technique and flossing. Recommendations: Madison two times daily, modified santillan technique, Floss daily, Electric toothbrush, Soft bristle toothbrush, Madison Tongue, Anti-sensitivity toothpaste Recall Frequency: 6 mo NV: 6 months prophy, x-rays, perio chart, prophy Hygienist: Joy Arzola RDH documented in this encounter Plan of Treatment Upcoming Encounters Date Type Department Care Team (Late st Contact Info) Description 05/26/2025 2:15 PM EDT Office Visit [facility] ADULT DENTAL [address] [place] [address] Joy Arzola [address] [place] [address] Scheduled Orders Name Type Priority Associated Diagnoses Orde r Schedule PERIODIC ORAL EVALUATION - ESTABLISHED PATIENT Dental Routine 1 Occurren kameron starting 11/21/2024 BITEWINGS - 4 RADIOGRAPHIC IMAGES Dental Routine 1 Occurrence s starting 11/21/2024 INTRAORAL - PERIAPICAL FIRST RADIOGRAPHIC IMAGE Dental Routine 1 Occur rences starting 11/21/2024 INTRAORAL - PERIAPICAL EACH ADDITIONAL RADIOGRAPHIC IMAGE Dental Routine 1 Occurrences starting 11/21/2024 PROPHYLAXIS - ADULT Dental Routine 1 Occ urrences starting 11/21/2024 CASE PRESENTATION, DETAILED AND EXTENSIVE TREATMENT PLANNING Dental Routine 1 Occurrences starting 11/21/2024 ORAL HYGIENE INSTRUCTIONS Dental Routine 1 Occurrences starting 11/21/2024 documented as of this encounter Procedures Procedure Name Priority Date/Time Associated Diagnosis Comments PROPHYLAXIS - ADULT Routine 11/21/2024 3 :00 PM EDT Dental calculus ORAL HYGIENE INSTRUCTIONS Routine 11/21/2024 3:00 PM EDT Dental calculus Localized gingival recession Missing teeth, acquired CASE PRESENTATION, DETAILED AND EXTENSIVE TREATMENT PLANNING Routine 11/21/2024 3:00 PM EDT Localized gingival recession Missing teeth, acquired documented in this encounter Visit Diagnoses Diagnosis Dental calculus- Primary Accretions on teeth Localized gingival recession Gingival recession, localized Missing teeth, acquired documented in this encounter
--- OUTSIDE RECORDS SUMMARY | 2024-11-22 07:06 | XMS_ITS | Clinical Summary ---
Author Organization [facility] Address [address] [address] Phone Care Team Providers Care Manager Furniture Name Role Phone Urszula Reyna MD Primary Care Provider [phone] Allergies No known active allergies Medications insulin [...] [facility] [address] [facility] [address] [place] [phone] Saad Stovall MD from Last 3 Months [...] Visit [facility] [address] [place] [address] [place] [address] Saad Stovall MD [address] [facility] [address] [place] [phone] Health Maintenance Due Date Last Done Comments [...] Insurance Medicaid [place] Medicaid [place] Care Teams Manager Furniture Relationship Specialty Start Date End Date Urszula Reyna MD [address] [place] [address] PCP - General 03/01/20
--- OUTSIDE RECORDS SUMMARY | 2024-11-22 07:06 | XMS_ITS | Clinical Summary ---
Author Organization [employer] Address [address] [facility] 7t [place] [address] Care Team Providers Care Wire Dropper Name Role Phone Unavailable Primary Care Provider [...] Encounters Date Type Department Care Team Description 11/21/2024 3:00 PM EDT Office Visit [facility] ADULT DENTAL [address] [place] [address] Joy Arzola Dental calculus (Primary Dx); Localized [...] Pressure 138/70 11/21/2024 2:40 PM EDT Pulse 74 03/28/2023 2:37 PM EST Temperature - - Respiratory Rate - - Oxygen Saturation - - Inhaled Oxygen Concentration - - Weight - - Height - - Body Mass Index - - Plan of Treatment Upcoming Encounters Date Type Department Care Team (Late st Contact Info) Description 05/26/2025 2:15 PM EDT Office Visit [facility] ADULT DENTAL [address] [place] [address] Joy Arzola [address] [place] [address] Health Maintenance Due Date Last Done Comments [...] 2) 2012 COVID-19 Vaccine (2 - season) 2024 02/02/2021 Influenza Vaccine (#1) 2024 9, 12/07/2017, 11/10/2016, Additional history exists Dental Oral Exam 11/20/2024 05/20/2024, 08/2023, 07/14/2022, Additional history exists Dental X-Ray: Bitewings 05/21/2025 05/21/19 25, 03/28/2023, 07/14/2022, Additional history exists Dental Prophylaxis 05/23/2025 11/21/2024, 0 05/20/2024, 11/19/2023, Additional history exists Tobacco Screening 11/21/2025 11/21/2024 DTaP/Tdap/Td Vaccines (2 - Td or Tdap) [...] Procedure Name Priority Date/Time Associated Diagnosis Comments CASE PRESENTATION, DETAILED AND EXTENSIVE TREATMENT PLANNING Routine 11/21/2024 3:00 PM EDT Localized gingival recession Missing teeth, acquired ORAL HYGIENE INSTRUCTIONS Routine 11/21/2024 3:00 PM EDT Dental calculus Localized gingival recession Missing teeth, acquired PROPHYLAXIS - ADULT Routine 11/21/2024 3 :00 PM EDT Dental calculus INTRAORAL - COMPLETE SERIES OF RADIOGRAPHIC IMAGES Routine 05/20/2024 3:00 PM EDT Dental calculus Localized gingival recession Missing teeth, acquired PERIODIC ORAL EVALUATION - ESTABLISHED PATIENT Routine 05/20/2024 3:00 PM EDT from Last 3 Months or Most Recently Relevant to Health Maintenance Insurance [facility] DENTAL - HSN PARTIAL (MEDICAID)
--- OUTSIDE RECORDS SUMMARY | 2024-11-22 07:06 | XMS_ITS | Encounter Summary ---
Author Organization [employer] Address [address] [facility] 7 [place] [address] Care Team Providers Care Aircraft Time Clerk Name Role Phone Unavailable Primary Care Provider Unavailabl e Encounter Details Date Type Department Care Team (Latest Contact Info) Description 10/05/2021 Abstract [facility] CONVERSIONS Dental, Provider, DDS Social [...] Description 05/26/2025 2:15 PM EDT Office Visit [facility] ADULT DENTAL [address] [place] [address] Joy Arzola [address] [place] [address] documented as of this encounter Visit Diagnoses Not on filedocumented in this encounter
--- OUTSIDE RECORDS SUMMARY | 2024-11-22 07:06 | XMS_ITS | Encounter Summary ---
Author Organization [employer] Address [address] [facility] 7 [place] [address] Care Team Providers Care Douper Name Role Phone Unavailable Primary Care Provider Unavailabl e Encounter Details Date Type Department Care Team (Latest Contact Info) Description 06/23/2020 Abstract [facility] CONVERSIONS Dental, Provider, DDS Social History Tobacco [...] Description 05/26/2025 2:15 PM EDT Office Visit [facility] ADULT DENTAL [address] [place] [address] Joy Arzola [address] [place] [address] documented as of this encounter Visit Diagnoses Not on filedocumented in this encounter
--- OUTSIDE RECORDS SUMMARY | 2024-11-22 07:06 | XMS_ITS | Encounter Summary ---
Author Organization [employer] Address [address] [facility] 7 [place] [address] Care Team Providers Care Medication Coordinator Name Role Phone Unavailable Primary Care Provider Unavailabl e Encounter Details Date Type Department Care Team (Latest Contact Info) Description 02/24/2019 Abstract [facility] CONVERSIONS Dental, Provider, DDS Social History [...] Description 05/26/2025 2:15 PM EDT Office Visit [facility] ADULT DENTAL [address] [place] [address] Joy Arzola [address] [place] [address] documented as of this encounter Visit Diagnoses Not on filedocumented in this encounter
--- OUTSIDE RECORDS SUMMARY | 2024-11-22 07:06 | XMS_ITS | Encounter Summary ---
Author Organization [facility] Address [address] [facility] [address] [place] [address] Phone Care Team Providers Care Hospice Rn Name Role Phone Urszula Reyna MD Primary Care Provider [phone] Encounter Details Date Type Department Care Team (Late st Contact Info) Description 12/12/2021 Documentation Only [facility] [address] [place] [phone] Isabella Sifuentes Social History Tobacco Use Types [...] Visit [facility] [address] [place] [address] Saad Stovall MD [address] [facility] [address] [place] [phone] documented as of this encounter Visit Diagnoses Not on filedocumented in this encounter Care Teams Hospice Rn Relationship Specialty Start Date End Date Urszula Reyna MD [address] [place], [place] PCP - General 03/01/20 documented as of this encounter
[2024-11-22 08:52] LABS: Alanine Aminotransferase 35 U/L (0-31); Albumin Level 4.2 g/dL (3.5-5.0); Alkaline Phosphatase 78 U/L (39-117); Anion Gap 12 (12-20); Aspartate Amino Transferase 28 U/L (5-31); Blood Urea Nitrogen 35 mg/dL (9-16); Calcium 9.8 mg/dL (8.4-10.2); Carbon Dioxide 27 mmol/L (22-29); Chloride 108 mmol/L (96-108); Cholesterol 161 mg/dL (<200); Estimated Glomerular Filt Rate 53; HDL Cholesterol 43 mg/dL (>40); Potassium 4.5 mmol/L (3.3-5.1); Sodium 142 mmol/L (135-145); Total Protein 7.4 g/dL (6.5-8.0); Triglycerides 103 mg/dL (<150)
[2024-11-22 10:38] LABS: Microalbum/Creatinine Ratio Ur 1427.9 ug/mg cr (<30)
== END 2024-11-22 07:05 | disposition home or self-care (01) ==
LOC: HO.LAB 07:04
PROVIDERS: PCP Internal Medicine; Visit Provider Internal Medicine
DX: E11.29 Type 2 diabetes mellitus with other diabetic kidney complication (principal); E78.5 Hyperlipidemia, unspecified; R80.9 Proteinuria, unspecified; E55.9 Vitamin D deficiency, unspecified; Z79.4 Long term (current) use of insulin
CPT/HCPCS: 36415; 80053; 80061; 82043; 82306; 82570

== ENCOUNTER 2024-11-27 14:16 | Outpatient (AMB) | payer OTHER, SELFPAY ==
--- NOTE | 2024-11-27 14:26 | A.OFFVIS_ITS ---
VS Expanded 11/27/24 14:29 Height 5 ft 4 in Weight 151 lb 3.794 oz BMI 26.0 Intake Visit Reasons: T2DM Allergies cortison Adverse Reaction (Mild, Uncoded 11/27/24 16:20) elevated sugers Nutrition Presentation Details: Pt presents for MNT 6 m f/u for T2DM, Pt presents with during this appt. Pt reports working on diet modifications. Reports not having Bettye d/t pharmacy issues. The pharmacy was contacted during this appointment and pharmacy informed Bettye is ready to be picked up. The Pt was informed and agreed to get the med today. Pt reports sometimes having a small meals (about 30 g carbs) and not taking prandial insulin,often reports d/t lack of time at work leading to elevated bg. Today will review options for meal replacements for these situations t BS Monitoring Most Recent Diabetes Results: Microalb/Creat Ratio, (<30) 1427.9 ug/mg cr H 11/22/24 Cholesterol, (<200) 161 mg/dL 11/22/24 HDL Cholesterol, (>40) 43 mg/dL 11/22/24 Triglycerides, (<150) 103 mg/dL 11/22/24 Creatinine, (0.5-1.4) 1.06 mg/dL 11/22/24 BUN, (9-16) 35 mg/dL H 11/22/24 Sodium, (135-145) 142 mmol/L 11/22/24 Potassium, (3.3-5.1) 4.5 mmol/L 11/22/24 Chloride, (96-108) 108 mmol/L 11/22/24 Carbon Dioxide, (22-29) 27 mmol/L 11/22/24 Calcium, (8.4-10.2) 9.8 mg/dL 11/22/24 AST, (5-31) 28 U/L 11/22/24 ALT, (0-31) 35 U/L H 11/22/24 Total Protein, (6.5-8.0) 7.4 g/dL 11/22/24 Albumin, (3.5-5.0) 4.2 g/dL 11/22/24 [facility] Medical History (Updated 11/27/24 @ 17:02 by Emma Ramírez MD) PAD (peripheral artery disease) Goiter Femoral artery occlusion Latent tuberculosis by blood test Hypovitaminosis D S/P angiogram of extremity (~02/13/19) Microalbuminuria Pure hypercholesterolemia Diabetes mellitus Essential hypertension Surgical History History of renal artery stenosis History of bilateral tubal ligation Family History Father No problems noted. Mother Hypertension Social History Housing: Apartment Alcohol intake: never Patient Tobacco Use Status: Never used Tobacco e-Cigarette/Vaping Use: Never Used Second Hand Smoke Exposure: No service: No Current occupational status: employed Current occupational exposures/hazards: No Cognitive needs: No Hearing needs: No Vision needs: No Female Reproductive History Menstrual Age of Menarche: 18 Assessment & Plan Assessment & Plan (1) Diabetes mellitus: Code(s): E11.9 - Type 2 diabetes mellitus without complications Category: Medical Qualifiers: Diabetes mellitus type: type 2 Diabetes mellitus chcf insulin use: with exterminator termite use Diabetes mellitus complication status: with kidney complications Diabetes mellitus complication detail: with microalbuminuria Qualified Code(s): E11.29 - Type 2 diabetes mellitus with other diabetic kidney complication; R80.9 - Proteinuria, unspecified; Z79.4 - terminal superintendent (current) use of insulin Plan: Review meal replacements wt: 65 kg (03/14), 69.5 (06/13) Est kcal needs as per MSJ: 1700 (40% carb, 30% protein/fat) Est fluid needs as per 25-30 ml/d: 1700 Est prot per day as per 1 g/kg bw: 66 Recommend fiber intake : 8-10 g per day and gradually increase to 25-28 g per day for women and 35-38 g for men or as tolerated Recommend sodium intake per day : less than 1500 mg less than 2000 mg Educated patient on: ( R = reviewed V = verbalizes understanding N/R = needs review N/A = not applicable * Food sources of carbohydrate, adequate serving sizes and its role in various health conditions: R * Differences between complex carbohydrates a simple carbohydrates, role of fiber in diet: R * Differences between types of fats and role in diet (mono on saturated fat fatty acids, saturated fatty acids, trans fats): R low fat basic * Food sources of sodium in salt and healthy modifications for heart health in kidney health: R * Healthy plate method concept: R V * Physical activity: Benefits a precaution: R * Hypoglycemia protocol (rule of 15): R * Dietary prevention of Hyperglycemia: R Patient Instructions: Have a meal replacement, lower carb options when lack of time for meal /meal prep - see list of options High protein Ensure/Premier protein - see options Keep your appointment with peer educator for further discussion regarding medication management, diabetes progression Coding Level of Care Code Nutr Indiv Subseq (50941) Diagnoses Type 2 diabetes mellitus with microalbuminuria, with long-term current use of insulin E11.29; R80.9; Z79.4 Diabetes mellitus type: type 2 Diabetes mellitus exterminator termite insulin use: with chcf use Diabetes mellitus complication status: with kidney complications Diabetes mellitus complication detail: with microalbuminuria Time Spent (min) 30
[2024-11-27 14:29] VITALS: BMI 26.0
== END 2024-11-27 15:06 | disposition home or self-care (01) ==
LOC: HO.ENCR 14:17
PROVIDERS: PCP Internal Medicine; Visit Provider Dietitian, Registered
DX: E11.29 Type 2 diabetes mellitus with other diabetic kidney complication (principal); R80.9 Proteinuria, unspecified; Z79.4 Long term (current) use of insulin

== ENCOUNTER → 2024-11-27 14:16 | Outpatient (BNVA) | payer OTHER, SELFPAY | PROVIDERS: PCP Internal Medicine; Visit Provider Dietitian, Registered | DX: Z00.00 Encounter for general adult medical examination without abnormal findings (principal); E11.29 Type 2 diabetes mellitus with other diabetic kidney complication; R80.9 Proteinuria, unspecified; E11.22 Type 2 diabetes mellitus with diabetic chronic kidney disease; I12.9 Hypertensive chronic kidney disease with stage 1 through stage 4 chronic kidney disease, or unspecified chronic kidney disease; N18.30 Chronic kidney disease, stage 3 unspecified; Z79.4 Long term (current) use of insulin; Z71.3 Dietary counseling and surveillance | CPT/HCPCS: 97803; 99396 ==

== ENCOUNTER 2024-11-27 16:11 | Outpatient (AMB) | payer OTHER, SELFPAY ==
[2024-11-27 16:20] VITALS: BP 140/78; PULSE 85; TEMP 36.2; O2SAT 98; BMI 25.9
--- NOTE | 2024-11-27 16:20 | A.OFFPC_ITS ---
Vital Signs 11/27/24 16:20 Height 5 ft 4 in Weight 151 lb 2 oz BMI 25.9 BP 140/78 H Blood Pressure Location Lt brachial Position Sitting Pulse 85 Pulse Source Pulse Oximeter Temp 97.1 F Temp Source Temporal Artery Scan Pulse Oximetry (%) 98 Oxygen Delivery Method Room Air Intake Visit Reasons: PE Intake Note: Patient is here today for a physical. Plug Making Operator Required: Yes Plug Making Operator Language: Phlebotomy Supervisor Name: Neema ([id number]) Information Interpreted: non-clinical & clinical Supervisor Die Casting: Not Required per policy Accompanied by: Self / Same As Patient Allergies cortison Adverse Reaction (Mild, Uncoded 11/27/24 16:20) elevated sugers Tobacco use date assessed: 11/27/24 Dental Screening Dental Screen Date: 07/24/24 HPI HPI Comments History of Present Illness Details The patient is a 64-year-old female presenting for a physical examination and management of chronic conditions. She has a history of Type 2 Diabetes Mellitus, currently managed with insulin and other medications. Her recent HbA1c was 8.5, indicating suboptimal control. The patient also has a history of hypertension, for which she takes losartan. Hyperlipidemia is another chronic condition being managed with atorvastatin. She reports a fungal infection for which fluconazole was prescribed. Preventative care measures include colon cancer screening, which was performed previously, and she is advised to bring results to her next appointment. [facility] Medical History (Updated 11/27/24 @ 17:02 by Emma Ramírez MD) PAD (peripheral artery disease) Goiter Femoral artery occlusion Latent tuberculosis by blood test Hypovitaminosis D S/P angiogram of extremity (~02/13/19) Microalbuminuria Pure hypercholesterolemia Diabetes mellitus Essential hypertension Surgical History History of renal artery stenosis History of bilateral tubal ligation Family History Father No problems noted. Mother Hypertension Social History Housing: Apartment Alcohol intake: never Patient Tobacco Use Status: Never used Tobacco e-Cigarette/Vaping Use: Never Used Second Hand Smoke Exposure: No service: No Current occupational status: employed Current occupational exposures/hazards: No Cognitive needs: No Hearing needs: No Vision needs: No Female Reproductive History Menstrual Age of Menarche: 18 Questionnaire Thrive Questionnaire Date Thrive assessed: 03/19/24 LIA-7 AMB Questionnaire LIA-7 Date LIA - 7 assessed: 03/19/24 Source: Developed by Drs. Saurabh Cason, Reina Marcelo, Orlando Ivey and colleagues, with an educational seema from [employer]. Review of Systems Const Details: Positives besides what was mentioned in HPI are in BOLD Constitutional: No Weight Change, No Fever, No Chills, No Night Sweats, No Fatigue, No Malaise ENT/Mouth: No Hearing Changes, No Ear Pain, No Nasal Congestion, No Sinus Pain, No Hoarseness, No sore throat, No Rhinorrhea, No Swallowing Difficulty Eyes: No Eye Pain, No Swelling, No Redness, No Foreign Body, No Discharge, No Vision Changes Cardiovascular: No Chest Pain, No SOB, No PND, No Dyspnea on Exertion, No Orthopnea, No Claudication, No Edema, No Palpitations Respiratory: No Cough, No Sputum, No Wheezing, No Smoke Exposure, No Dyspnea Gastrointestinal: No Nausea, No Vomiting, No Diarrhea, No Constipation, No Pain, No Heartburn, No Anorexia, No Dysphagia, No Hematochezia, No Melena, No Flatulence, No Jaundice Genitourinary: No Dysmenorrhea, No DUB, No Dyspareunia, No Dysuria, No Urinary Frequency, No Hematuria, No Urinary Incontinence, No Urgency, No Flank Pain, No Urinary Flow Changes, No Hesitancy Musculoskeletal: No Arthralgias, No Myalgias, No Joint Swelling, No Joint Stiffness, No Back Pain, No Neck Pain, No Injury History Skin: No Skin Lesions, No Pruritis, No Hair Changes, No Breast/Skin Changes, No Nipple Discharge Neuro: No Weakness, No Numbness, No Paresthesias, No Loss of Consciousness, No Syncope, No Dizziness, No Headache, No Coordination Changes, No Recent Falls Psych: No Anxiety/Panic, No Depression, No Insomnia, No Personality Changes, No Delusions, No Rumination, No SI/HI/AH/VH, No Social Issues, No Memory Changes, No Violence/Abuse Hx., No Eating Concerns Heme/Lymph: No Bruising, No Bleeding, No Transfusions History, No Lymphadenopathy Endocrine: No Polyuria, No Polydipsia, No Temperature Intolerance Physical exam (Primary Care) Vital Signs: Last Vital Signs Temp 97.1 F 11/27/24 16:20 Pulse 85 11/27/24 16:20 BP 140/78 H 11/27/24 16:20 Pulse Ox 98 11/27/24 16:20 Oxygen Delivery Method Room Air 11/27/24 16:20 BMI result Body Mass Index 25.9 Tobacco/Smoking Status: Tobacco use Status Tobacco use date assessed 11/27/24 11/27/24 16:25 Patient Tobacco Use Status Never used Tobacco 11/27/24 16:25 e-Cigarette/Vaping Use Never Used 11/27/24 16:25 Thrive Assessment: Date of Thrive Assessment Date Thrive assessed 03/19/24 11/27/24 16:25 Const Other: Pertinent findings are in BOLD GENERAL APPEARANCE NAD, activity normal for age, well developed/ well nourished, no cyanosis, pallor, or diaphoresis. EYES lids/conjunctiva normal. EARS/NOSE/THROAT Mucous membranes moist, nares normal, lips/teeth normal uvula midline without oral pharyngeal erythema, exudate or swelling TMs normal bilaterally. No lymphangitis/lymphedema. HEAD/NECK normocephalic atraumatic, no facial trauma, neck is supple. RESPIRATORY respiratory effort normal, speaks in full sentences, no tripod position, no accessory muscle use. Lungs clear to auscultation without rhonchi, wheezes, rales CARDIAC Regular rate and rhythm, no edema. ABDOMINAL Soft, ND/NT. No evidence of fluid wave. No pulsatile masses on exam, rebound tenderness, Montiel sign or pain over Mcburney's point. MUSCLES/EXTREMITIES No abnormal range of motion, no swelling. SKIN Warm, pink and dry. No rashes, dermatoses, petechiae or lesions. NEUROLOGICAL Speech is clear and appropriate. Normal level of consciousness. Gait and coordination are normal. 5/5 strength in all extremities. PSYCH Normal mood and affect. Judgement/competence is appropriate Coding Level of Care Code Est Pt Level 4 (15807) Est Pt Prev Care 40-64y(16549) Diagnoses Healthcare maintenance Z00.00 Type 2 diabetes mellitus with microalbuminuria, with long-term current use of insulin E11.29; R80.9; Z79.4 Diabetes mellitus type: type 2 Diabetes mellitus [facility] insulin use: with intermediate school teacher use Diabetes mellitus complication status: with kidney complications Diabetes mellitus complication detail: with microalbuminuria CKD (chronic kidney disease) stage 3, GFR 30-59 ml/min N18.30 Physical exam Z00.00 HTN (hypertension) I10 Time Spent (min) 30 Assessment & Plan Assessment & Plan (1) Healthcare maintenance: Code(s): Z00.00 - Encounter for general adult medical examination without abnormal findings Category: Medical Plan: CBC, CMP, Lipid panel, A1C, TSH w T4, vit D. Ordered. Shingles 2 doses when >50 yo. Patient will consider getting it from [facility]. COVID: two doses. Done in the past. Tdap: Next due in 2025. Pneumococcal: 19-64 Flu vaccine: Declined. Colonoscopy: 45-75. Patient reports she had colonoscopy a while ago. Told patient to bring report with her next visit to see when she is next due. AAA: 65 -75. NI. CT lun - 80. NI. HPV: Reports she had one in June. HIV: Declined. HBV: Declined HCV: Declined. Dexa: NI. Mammogram: Reports she had one in August. (2) Diabetes mellitus: Code(s): E11.9 - Type 2 diabetes mellitus without complications Category: Medical Qualifiers: Diabetes mellitus type: type 2 Diabetes mellitus intermediate school teacher insulin use: with intermediate school teacher use Diabetes mellitus complication status: with kidney complications Diabetes mellitus complication detail: with microalbuminuria Qualified Code(s): E11.29 - Type 2 diabetes mellitus with other diabetic kidney complication; R80.9 - Proteinuria, unspecified; Z79.4 - senior living (current) use of insulin Plan: Continue medicaitons. She had recent eye doctor apnt. Follows with endocrinology. (3) CKD (chronic kidney disease) stage 3, GFR 30-59 ml/min: Code(s): N18.30 - Chronic kidney disease, stage 3 unspecified Category: Medical Plan: - Continue losartan for blood pressure management. (4) Physical exam: Code(s): Z00.00 - Encounter for general adult medical examination without abnormal f indings Category: Medical Plan: No pertinent findings on PE. (5) HTN (hypertension): Code(s): I10 - Essential (primary) hypertension Category: Medical Plan: - Continue losartan for blood pressure management. Plan During the visit, we discussed the management of Type 2 Diabetes Mellitus, emphasizing the importance of maintaining glycemic control and considering medication adjustments due to the current HbA1c level of 8.55. We also reviewed the patient's hypertension and hyperlipidemia management, continuing current medications. Preventative care measures, including colon cancer screening and flu vaccination, were discussed, with the patient declining the flu shot at this time.
== END 2024-11-27 16:52 | disposition home or self-care (01) ==
LOC: HO.HMCH 16:12
PROVIDERS: PCP Internal Medicine; Visit Provider Internal Medicine
DX: Z00.00 Encounter for general adult medical examination without abnormal findings (principal); I12.9 Hypertensive chronic kidney disease with stage 1 through stage 4 chronic kidney disease, or unspecified chronic kidney disease; E11.29 Type 2 diabetes mellitus with other diabetic kidney complication; Z79.4 Long term (current) use of insulin; N18.30 Chronic kidney disease, stage 3 unspecified; R80.9 Proteinuria, unspecified

== ENCOUNTER 2024-12-15 15:28 | Outpatient (AMB) | payer OTHER, SELFPAY ==
--- NOTE | 2024-12-15 15:32 | MHC.PC.OV ---
Vital Signs 12/15/24 15:33 Height 5 ft 4 in Weight 148 lb 6 oz BMI 25.5 BP 120/60 Blood Pressure Location Lt brachial Position Sitting Pulse 78 Pulse Source Pulse Oximeter Pulse Oximetry (%) 97 Oxygen Delivery Method Room Air Intake Visit Reasons: dm Cover Seamer Required: No Accompanied by: Self / Same As Patient Allergies cortison Adverse Reaction (Mild, Uncoded 12/15/24 15:57) elevated sugers Medication List - Last Reconciled 12/15/24 by Urszula Taylor MD atorvastatin 80 mg PO BEDTIME 90 days blood sugar diagnostic (FreeStyle Lite Strips) As directed 1-2x daily blood-glucose meter (FreeStyle [place] Lite kit) USE DIRECTED blood-glucose meter (FreeStyle Lite Meter kit) As directed blood-glucose sensor (FreeStyle Rosa Isela 3 Plus Sensor device) As directed every 15 days chlorthalidone 25 mg PO DAILY 90 days cholecalciferol (vitamin D3) 25 mcg PO DAILY 90 days clonidine HCl 0.3 mg PO TID 90 days docusate sodium (Colace) 100 mg PO BID empagliflozin (Jardiance) 25 mg PO DAILY 90 days ezetimibe 10 mg PO DAILY 90 days finerenone (Kerendia) 10 mg PO DAILY 90 days FreeStyle Rosa Isela 3 [place] (blood-glucose,dealmaker,cont) As directed for use with sensor NS Humalog KwikPen Insulin (insulin lispro) Inject 12 units subcutaneously with breakfast, 18 units with dinner NS insulin glargine U-300 conc (Toujeo Max U-300 SoloStar) 34 units (0.1133 mL) subcut BEDTIME 30 days lancets (TRUEplus Lancets) TEST BLOOD SUGAR 1-2 times daily losartan 100 mg PO DAILY miscellaneous medical supply (Blood Pressure Cuff) As directed montelukast 10 mg PO BEDTIME 90 days pen needle, diabetic (Pentips Pen Needle) USE DIRECTED THREE TIMES DAILY WITH INSULIN tirzepatide (Mounjaro) 2.5 mg (0.5 mL) subcut QWEEK Tobacco use date assessed: 12/15/24 Dental Screening Dental Screen Date: 12/15/24 Did you have a dental visit in the last 12 months?: Yes Did you have a dental problem in the last 6 months where you did not have access to dental care?: No Was dental information given to patient?: Patient has dentist HPI HPI Comments History of Present Illness Details The patient is a 64-year-old female presenting for a follow-up visit for management of hypertension, diabetes, hypercholesterolemia, and microalbuminuria. She has a known allergy to cortisone. Regarding her diabetes, her last HbA1c in September was 8.7%. She reports her blood glucose levels are sometimes less than 200, and she notes her glucose sensor provides inaccurate low readings at night. Her medications for diabetes include Jardiance 25 mg and Mounjaro 2.5 mg, which was started two weeks ago. For chronic kidney disease, her renal function has improved, with the GFR increasing from 39 to 53. However, her microalbuminuria has worsened, increasing from 769 to 983. The patient believes the increase is due to her inability to obtain Kerendia because of insurance issues, a medication she felt was very helpful. The patient has a history of peripheral arterial disease with an iliac stent and is followed by Dr. Salgado. Her condition is considered stable, with a recommended follow-up in one year. Her current medications include atorvastatin 80 mg and ezetimibe 10 mg for hypercholesterolemia; chlorthalidone, clonidine 0.3 mg three times a day, and losartan 100 mg for hypertension; as well as vitamin D, Colace for constipation, and montelukast. [facility] Medical History PAD (peripheral artery disease) Goiter Femoral artery occlusion Latent tuberculosis by blood test Hypovitaminosis D S/P angiogram of extremity (~02/13/19) Microalbuminuria Pure hypercholesterolemia Diabetes mellitus Essential hypertension Surgical History History of renal artery stenosis History of bilateral tubal ligation Family History Father No problems noted. Mother Hypertension Social History Housing: Apartment Alcohol intake: never Patient Tobacco Use Status: Never used Tobacco e-Cigarette/Vaping Use: Never Used Second Hand Smoke Exposure: No service: No Current occupational status: employed Current occupational exposures/hazards: No Cognitive needs: No Hearing needs: No Vision needs: No Female Reproductive History Menstrual Age of Menarche: 18 Questionnaire Thrive Questionnaire Date Thrive assessed: 03/19/24 AUDIT C Alcohol Use Questionnaire (AUDIT-C) 1. How often do you have a drink containing alcohol?: Never 3. How often do you have six or more drinks on one occasion?: Never Total Score: 0 Score Reviewed/Action Taken: No LIA-7 AMB Questionnaire LIA-7 Date LIA - 7 assessed: 03/19/24 Source: Developed by Drs. Saurabh Cason, Reina Marcelo, Orlando Ivey and colleagues, with an educational seema from [employer]. Review of Systems Const All systems reviewed & are unremarkable except as noted in HPI and below Card Denies chest pain at rest, Denies chest pain with activity, Denies edema, Denies irregular heart rhythm, Denies claudication, Denies dyspnea, Denies dyspnea on exertion, Denies orthopnea, Denies paroxysmal nocturnal dyspnea and Denies slow heart rate Resp Denies cough, Denies dyspnea and Denies dyspnea on exertion GI Denies abdominal pain, Denies change in bowel habits, Denies excessive flatus, Denies nausea and Denies vomiting Physical exam (Primary Care) Vital Signs: Last Vital Signs Pulse 78 12/15/24 15:33 BP 120/60 12/15/24 15:33 Pulse Ox 97 12/15/24 15:33 Oxygen Delivery Method Room Air 12/15/24 15:33 BMI result Body Mass Index 25.5 Tobacco/Smoking Status: Tobacco use Status Tobacco use date assessed 12/15/24 12/15/24 15:37 Patient Tobacco Use Status Never used Tobacco 12/15/24 15:37 e-Cigarette/Vaping Use Never Used 12/15/24 15:37 Thrive Assessment: Date of Thrive Assessment Date Thrive assessed 03/19/24 12/15/24 15:37 Resp Effort & Inspection: normal respiratory effort Auscultation: clear to auscultation bilaterally Cardio Jugular venous distension: no JVD Rate: regular rate Rhythm: regular rhythm Heart sounds: S1 normal heart sound present and S2 normal heart sound present Extrem General: Yes full ROM Coding Level of Care Code Est Pt Level 4 (49716) Complex EM visit Add On G2211 Diagnoses Essential hypertension I10 PAD (peripheral artery disease) I73.9 Type 2 diabetes mellitus with microalbuminuria, with long-term current use of insulin E11.29; R80.9; Z79.4 Diabetes mellitus type: type 2 Diabetes mellitus [facility] insulin use: with [facility] use Diabetes mellitus complication status: with kidney complications Diabetes mellitus complication detail: with microalbuminuria CKD (chronic kidney disease) stage 3, GFR 30-59 ml/min N18.30 Microalbuminuria R80.9 Pure hypercholesterolemia E78.00 Time Spent (min) 23 Assessment & Plan Assessment & Plan (1) Essential hypertension: Code(s): I10 - Essential (primary) hypertension Category: Medical (2) PAD (peripheral artery disease): Comment: 02/13/2019- left common iliac stent Code(s): I73.9 - Peripheral vascular disease, unspecified Category: Medical (3) Diabetes mellitus: Code(s): E11.9 - Type 2 diabetes mellitus without complications Category: Medical Qualifiers: Diabetes mellitus type: type 2 Diabetes mellitus superintendent marine oil terminal insulin use: with [facility] use Diabetes mellitus complication status: with kidney complications Diabetes mellitus complication detail: with microalbuminuria Qualified Code(s): E11.29 - Type 2 diabetes mellitus with other diabetic kidney complication; R80.9 - Proteinuria, unspecified; Z79.4 - superintendent container terminal (current) use of insulin (4) CKD (chronic kidney disease) stage 3, GFR 30-59 ml/min: Code(s): N18.30 - Chronic kidney disease, stage 3 unspecified Category: Medical (5) Microalbuminuria: Code(s): R80.9 - Proteinuria, unspecified Category: Medical (6) Pure hypercholesterolemia: Code(s): E78.00 - Pure hypercholesterolemia, unspecified Category: Medical Plan Plan Patient was informed and verbally consented to the use of an ambient scribe for clinic note documentation during this visit. 1. Type 2 Diabetes Mellitus The patient's last HbA1c was 8.7% in September. She recently started Mounjaro 2.5 mg two weeks ago. Management is deferred to her electronic components assembler, and her current medications will be continued without change. 2. Hypercholesterolemia The patient's LDL cholesterol is 98 mg/dL, which is above the target of 70 mg/dL but is not considered to be at a critical level. The plan is to continue her current regimen of atorvastatin 80 mg and ezetimibe 10 mg. 3. Hypertension The patient's blood pressure is reported to be well-controlled. The plan is to continue her current medications without change. 4. Peripheral Arterial Disease The patient's peripheral arterial disease is stable following an iliac stent placement. She will continue to be followed by her specialist, Dr. Salgado, with a follow-up scheduled in one year. Orders: Orders Lipid Panel 4 Months E78.5 - Hyperlipidemia, unspecified Microalbumin, Random (w Creat) 4 Months R80.9 - Proteinuria, unspecified Vitamin D 25-OH Total 4 Months E55.9 - Vitamin D deficiency, unspecified Comprehensive [place]. Panel Fast 4 Months E11.29 - Type 2 diabetes mellitus with other diabetic kidney complication, R80.9 - Proteinuria, unspecified, Z79.4 - superintendent container terminal (current) use of insulin
[2024-12-15 15:33] VITALS: BP 120/60; PULSE 78; O2SAT 97; BMI 25.5
--- OUTSIDE RECORDS SUMMARY | 2024-12-15 18:38 | XMS_ITS | Encounter Summary ---
Author Organization [employer] Address [address] [facility] 7 [place] [address] Care Team Providers Care Appian Developer Name Role Phone Unavailable Primary Care Provider Unavailabl e Encounter Details Date Type Department Care Team (Latest Contact Info) Description 06/23/2020 Abstract [facility] CONVERSIONS Dental, Provider, DDS Social History [...] Description 05/26/2025 2:15 PM EDT Office Visit [facility] ADULT DENTAL [address] [place] [address] Joy Arzola [address] [place] [address] documented as of this encounter Visit Diagnoses Not on filedocumented in this encounter
--- OUTSIDE RECORDS SUMMARY | 2024-12-15 18:38 | XMS_ITS | Encounter Summary ---
Author Organization [employer] Address [address] [facility] 7 [place] [address] Care Team Providers Care Videotape Recording Engineer Name Role Phone Unavailable Primary Care Provider Unavailabl e Encounter Details Date Type Department Care Team (Latest Contact Info) Description 02/24/2019 Abstract [facility] CONVERSIONS Dental, Provider, DDS Social [...] Description 05/26/2025 2:15 PM EDT Office Visit [facility] ADULT DENTAL [address] [place] [address] Joy Arzola [address] [place] [address] documented as of this encounter Visit Diagnoses Not on filedocumented in this encounter
--- OUTSIDE RECORDS SUMMARY | 2024-12-15 18:38 | XMS_ITS | Clinical Summary ---
Author Organization [employer] Address [address] [facility] 7t [place] [address] Care Team Providers Care Yard Demurrage Clerk Name Role Phone Unavailable Primary Care [...] [facility] ADULT DENTAL [address] [place] [address] Joy Arzola Dental calculus (Primary Dx); Localized [...] Description 05/26/2025 2:15 PM EDT Office Visit [facility] ADULT DENTAL [address] [place] [address] Joy Arzola [address] [place] [address] Health Maintenance Due Date Last Done Comments [...] Most Recently Relevant to Health Maintenance Insurance [facility] STAND ADULT
--- OUTSIDE RECORDS SUMMARY | 2024-12-15 18:38 | XMS_ITS | Encounter Summary ---
Author Organization [facility] Address [address] [facility] [address] [place] [address] Phone Care Team Providers Care Battery Tester And Repairer Name Role Phone Urszula Reyna MD Primary Care Provider [phone] Encounter Details Date Type Department Care Team (Late st Contact Info) Description 12/12/2021 Documentation Only [facility] [address] [facility] [address] [place] [phone] Isabella Sifuentes Social History Tobacco Use Types [...] [facility] [address] [place] [address] Saad Stovall MD [address] [facility] [address] [place] [phone] documented as of this encounter Visit Diagnoses Not on filedocumented in this encounter Care Teams Battery Tester And Repairer Relationship Specialty Start Date End Date Urszula Reyna MD [address] [place], [place] PCP - General 03/01/20 documented as of this encounter
--- OUTSIDE RECORDS SUMMARY | 2024-12-15 18:38 | XMS_ITS | Encounter Summary ---
Author Organization [employer] Address [address] [facility] 7 [place] [address] Care Team Providers Care Java Solutions Architect Name Role Phone Unavailable Primary Care Provider Unavailabl e Encounter Details Date Type Department Care Team (Latest Contact Info) Description 10/05/2021 Abstract [facility] CONVERSIONS Dental, Provider, DDS Social [...] 05/26/2025 2:15 PM EDT Office Visit [facility] ADULT DENTAL [address] [place] [address] Joy Arzola [address] [place] [address] documented as of this encounter Visit Diagnoses Not on filedocumented in this encounter
--- OUTSIDE RECORDS SUMMARY | 2024-12-15 18:38 | XMS_ITS | Clinical Summary ---
Author Organization [facility] Address [address] [place] [phone] Phone Care Team Providers Care Associate Director Of Nursing Name Role Phone Urszula Reyna MD Primary Care Provider [phone] Allergies No known active allergies Medications insulin [...] (one) time each day 90 tablet 2 06/17/19 25 2025 Active losartan (COZAAR) 100 MG tablet TAKE 1 TABLET BY MOUTH EVERY DAY 30 tablet 3 12/09/19 25 Active losartan (COZAAR) 100 MG tablet TAKE 1 TABLET BY MOUTH EVERY DAY 30 tablet 3 09/11/19 25 2024 Discontinued Active Problems Problem Noted Date Diagnosed Date Localized gingival recession 07/14/202208/2022 Dental calculus 07/14/2022 10/26/2022 Chronic kidney disease stage 2 07/05/2020 Essential hypertension 07/05/2020 Proteinuria 07/05/2020 Renal disorder due to type 2 diabetes mellitus 0 07/05/2020 Encounters Date Type Department Care Team Description 12/07/2024 Refill [facility] [address] [facility] [address] [place] [address] Saad Stovall MD from Last 3 Months [...] Visit [facility] [address] [place] [address] [place] [phone] Saad Stovall MD [address] [facility] [address] [place] [phone] Health Maintenance Due Date Last Done Comments [...] age to complete this topic [place] Care Teams Associate Director Of Nursing Relationship Specialty Start Date End Date Urszula Reyna MD [address] [place] [address] PCP - General 03/01/20
== END 2024-12-15 16:09 | disposition home or self-care (01) ==
LOC: HO.HMCH 15:29
PROVIDERS: PCP Internal Medicine; Visit Provider Internal Medicine
DX: I12.9 Hypertensive chronic kidney disease with stage 1 through stage 4 chronic kidney disease, or unspecified chronic kidney disease (principal); E11.29 Type 2 diabetes mellitus with other diabetic kidney complication; Z79.4 Long term (current) use of insulin; N18.30 Chronic kidney disease, stage 3 unspecified; I73.9 Peripheral vascular disease, unspecified; R80.9 Proteinuria, unspecified; E78.00 Pure hypercholesterolemia, unspecified

== ENCOUNTER → 2024-12-15 15:28 | Outpatient (BNVA) | payer OTHER, SELFPAY | PROVIDERS: PCP Internal Medicine; Visit Provider Internal Medicine | DX: E11.22 Type 2 diabetes mellitus with diabetic chronic kidney disease (principal); E11.51 Type 2 diabetes mellitus with diabetic peripheral angiopathy without gangrene; E11.29 Type 2 diabetes mellitus with other diabetic kidney complication; I12.9 Hypertensive chronic kidney disease with stage 1 through stage 4 chronic kidney disease, or unspecified chronic kidney disease; N18.30 Chronic kidney disease, stage 3 unspecified; E78.00 Pure hypercholesterolemia, unspecified; R80.9 Proteinuria, unspecified; Z79.4 Long term (current) use of insulin; Z79.899 Other long term (current) drug therapy | CPT/HCPCS: 99212 ==

== ENCOUNTER 2025-02-16 07:55 | Outpatient (AMB) | payer OTHER, SELFPAY ==
[2025-02-16 07:58] VITALS: BP 144/72; PULSE 72; O2SAT 99; BMI 25.0
--- NOTE | 2025-02-16 07:58 | A.OFFVIS_ITS ---
Vital Signs 02/16/25 07:58 Height 5 ft 4 in Weight 145 lb 11.609 oz BMI 25.0 BP 144/72 H Blood Pressure Location Lt brachial Position Sitting Pulse 72 Pulse Source Pulse Oximeter Pulse Oximetry (%) 99 Oxygen Delivery Method Room Air Intake Visit Reasons: T2DM Intake Note: Patient present today for Type 2 Diabetes Mellitus Last Diabetic eye exam: Last eye exam was in June 2024 Last Podiatry Visit: Doesn't have one Random Glucose: 113 mg/dl HgA1C: 10.0% Senior Test Analyst Required: Yes Senior Test Analyst Language: Transit Operator Services: Senior Test Analyst Present Senior Test Analyst Name: Julio [id number] Information Interpreted: non-clinical & clinical Accompanied by: Self / Same As Patient Allergies cortison Adverse Reaction (Mild, Uncoded 02/16/25 08:03) elevated sugers Medication List - Last Reconciled 02/16/25 by Aaliyah Simmons PA-C atorvastatin 80 mg PO BEDTIME 90 days blood sugar diagnostic (FreeStyle Lite Strips) As directed 1-2x daily blood-glucose meter (FreeStyle [place] Lite kit) USE DIRECTED blood-glucose meter (FreeStyle Lite Meter kit) As directed blood-glucose sensor (FreeStyle Rosa Isela 3 Plus Sensor device) As directed every 15 days chlorthalidone 25 mg PO DAILY 90 days cholecalciferol (vitamin D3) 25 mcg PO DAILY 90 days clonidine HCl 0.3 mg PO TID 90 days docusate sodium (Colace) 100 mg PO BID empagliflozin (Jardiance) 25 mg PO DAILY 90 days ezetimibe 10 mg PO DAILY 90 days FreeStyle Rosa Isela 3 [place] (blood-glucose,production controller,cont) As directed for use with sensor NS insulin glargine U-300 conc (Toujeo Max U-300 SoloStar) 34 units (0.1133 mL) subcut BEDTIME 30 days insulin lispro (Humalog KwikPen (U-100) Insulin) Inject 12 units subcutaneously with breakfast, 18 units with dinner lancets (TRUEplus Lancets) TEST BLOOD SUGAR 1-2 times daily losartan 100 mg PO DAILY miscellaneous medical supply (Blood Pressure Cuff) As directed montelukast 10 mg PO BEDTIME 90 days pen needle, diabetic (Pentips Pen Needle) USE DIRECTED THREE TIMES DAILY WITH INSULIN tirzepatide (Mounjaro) 5 mg (0.5 mL) subcut QWEEK HPI HPI T2DM: Details: Patient is a 64-year-old female who was seen today for follow up of type 2 diabetes. She was previously managed by my colleague. Senior Test Analyst: Julio [id number] Endo: Dm-most recent A1c 10. Initially diagnosed with T2DM in 2014. She was seen by endocrine when first diagnosed and has been followed by Dr. Parsons since 09/2021. Current regimen Jardiance 25 mg daily Toujeo 34 units Lispro twice per day 12 with breakfast 18 units with supper Mounjaro 2.5 mg weekly -noncompliant with metformin due to stomach upset -was previously on Trulicity but this was discontinued at her last visit for gi upset, ozempic is causing constipation. She stopped metformin due to gi upset (does not matter the dosage) cgm- GMI 7.0%. very hyperglycemic 4%, hyperglycemic 25%, in range 69%, hypoglycemic 2%, very hypoglycemic 0% -no real blood sugars- states the machine reads falsely low. States they are mostly high. No Family history of T2DM. CV: Blood pressure today in the office is 144/72. She is currently on chlorthalidone 25 mg daily, losartan 100 mg daily. Cholesterol is managed with Zetia 10 mg and atorvastatin 80 mg daily [facility] Medical History PAD (peripheral artery disease) Goiter Femoral artery occlusion Latent tuberculosis by blood test Hypovitaminosis D S/P angiogram of extremity (~02/13/19) Microalbuminuria Pure hypercholesterolemia Diabetes mellitus Essential hypertension Surgical History History of renal artery stenosis History of bilateral tubal ligation Family History Father No problems noted. Mother Hypertension Social History Housing: Apartment Alcohol intake: never Patient Tobacco Use Status: Never used Tobacco e-Cigarette/Vaping Use: Never Used Second Hand Smoke Exposure: No service: No Current occupational status: employed Current occupational exposures/hazards: No Cognitive needs: No Hearing needs: No Vision needs: No Female Reproductive History Menstrual Age of Menarche: 18 Physical Exam Vital Signs: Last Vital Signs Pulse 72 02/16/25 07:58 BP 144/72 H 02/16/25 07:58 Pulse Ox 99 02/16/25 07:58 Oxygen Delivery Method Room Air 02/16/25 07:58 BMI result Body Mass Index 25.0 Const Orientation/consciousness: patient oriented x3 HEENT Ears: hearing grossly normal bilaterally Neck Neck: Yes no lymphadenopathy Thyroid: Thyroid normal Carotids: no bruits Lymphatic: no lymphadenopathy noted Resp Auscultation: clear to auscultation bilaterally Cardio Rate: regular rate Rhythm: regular rhythm Heart sounds: S1 normal heart sound present and S2 normal heart sound present Peripheral pulses: dorsalis pedis present Skin General skin exam: no rashes or lesions noted Neuro General: patient oriented x3, gait normal and no focal motor deficits Extrem Other: Monofilament sensation intact bilaterally. Vibratory sensation intact bilaterally. Skin intact. General: Yes normal to inspection Results AMB Hemoglobin A1c AMB Hemoglobin A1c 10.0 % Last Edit by ROSLYN Houser on 02/16/25 08:15 Results Reviewed Results Reviewed: Laboratory Last Values Glucose (Clinic) 113 mg/dL (60-115) 02/16/25 08:06 Hgb A1c (Clinic) 10.0 % (4.0-6.0) H 02/16/25 08:14 Assessment & Plan Assessment & Plan (1) Uncontrolled type 2 diabetes mellitus with hyperglycemia, with long-term current use of insulin: Code(s): E11.65 - Type 2 diabetes mellitus with hyperglycemia; Z79.4 - medical terminologist (current) use of insulin Category: Medical Plan: increase mounjaro 5 mg weekly increase toujeo 40 units continue humalog continue jardiance Colace order to use for constipation. 1 month f.u or sooner prn (2) Essential hypertension: Code(s): I10 - Essential (primary) hypertension Category: Medical Plan: continue current plan (3) Pure hypercholesterolemia: Code(s): E78.00 - Pure hypercholesterolemia, unspecified Category: Medical Plan: continue current plan Orders: Orders AMB Hemoglobin A1c Today E11.65 - Type 2 diabetes mellitus with hyperglycemia, Z13.9 - Encounter for screening, unspecified, Z79.4 - [facility] (current) use of insulin Medications: New tirzepatide (Mounjaro) 5 mg (0.5 mL) subcut QWEEK 2 mL 5RF Changed From insulin glargine U-300 conc (Toujeo Max U-300 SoloStar) 34 units (0.1133 mL) subcut BEDTIME 30 days 6 mL 2RF To insulin glargine U-300 conc (Toujeo Max U-300 SoloStar) 40 units (0.1333 mL) subcut BEDTIME 6 mL 2RF 30 days Discontinued tirzepatide (Mounjaro) Discontinued Reason: Doctor's Order 2.5 mg (0.5 mL) subcut QWEEK 2 mL 3RF Coding Level of Care Code Est Pt Level 4 (13892) Add On Problem Visit Only Diagnoses Uncontrolled type 2 diabetes mellitus with hyperglycemia, with long-term current use of insulin E11.65; Z79.4 Essential hypertension I10 Pure hypercholesterolemia E78.00
--- OUTSIDE RECORDS SUMMARY | 2025-02-16 07:59 | XMS_ITS | Clinical Summary ---
Author Organization [facility] Address [address] [address] Phone Care Team Providers Care Transfusion Aide Name Role Phone Urszula Reyna MD Primary Care Provider [phone] Allergies No known active allergies Medications insulin [...] [facility] [address] [facility] [address] [place] [phone] Saad Stovall MD from Last 3 Months [...] Visit [facility] [address] [place] [address] [place] [phone] Saad Stovall MD [address] [facility] [address] [place] [phone] Health Maintenance Due Date Last Done Comments [...] Insurance Medicaid [place] Care Teams Transfusion Aide Relationship Specialty Start Date End Date Urszula Reyna MD [address] [place] [address] PCP - General 03/01/20
--- OUTSIDE RECORDS SUMMARY | 2025-02-16 07:59 | XMS_ITS | Clinical Summary ---
Author Organization [employer] Address [address] [facility] 7t [place] [address] Care Team Providers Care Greeting Card Editor Name Role Phone Unavailable Primary Care Provider [...] Description 11/21/2024 3:00 PM EDT Office Visit [facility] [address] [place] [address] Joy Arzola Dental calculus (Primary Dx); Localized [...] Description 05/26/2025 2:15 PM EDT Office Visit [facility] [address] [place] [address] Joy Arzola [address] [place] [address] Health Maintenance Due Date Last Done Comments [...] Most Recently Relevant to Health Maintenance Insurance [facility] ST[facility] ADULT
--- OUTSIDE RECORDS SUMMARY | 2025-02-16 07:59 | XMS_ITS | Encounter Summary ---
Author Organization [employer] Address [address] [facility] 7 [place] [address] Care Team Providers Care Radiosonde Operator Name Role Phone Unavailable Primary Care Provider Unavailabl e Encounter Details Date Type Department Care Team (Latest Contact Info) Description 10/05/2021 Abstract [facility] CONVERSIONS Dental, Provider, DDS Social History [...] Description 05/26/2025 2:15 PM EDT Office Visit [facility] [address] [place] [address] Joy Arzola [address] [place] [address] documented as of this encounter Visit Diagnoses Not on filedocumented in this encounter
--- OUTSIDE RECORDS SUMMARY | 2025-02-16 08:00 | XMS_ITS | Encounter Summary ---
Author Organization [facility] Address [address] [facility] [address] [place] [address] Phone Care Team Providers Care Bias Cutting Machine Operator Vertical Name Role Phone Urszula Reyna MD Primary Care Provider [phone] Encounter Details Date Type Department Care Team (Late st Contact Info) Description 12/12/2021 Documentation Only [facility] [address] [facility] [address] [place] [phone] Isabella Sifuentes Social History Tobacco Use Types [...] Visit [facility] [address] [place] [address] Saad Stovall MD [address] [facility] [address] [place] [phone] documented as of this encounter Visit Diagnoses Not on filedocumented in this encounter Care Teams Bias Cutting Machine Operator Vertical Relationship Specialty Start Date End Date Urszula Reyna MD [address] [place], [place] PCP - General 03/01/20 documented as of this encounter
--- OUTSIDE RECORDS SUMMARY | 2025-02-16 08:00 | XMS_ITS | Encounter Summary ---
Author Organization [employer] Address [address] [facility] 7 [place] [address] Care Team Providers Care Coat Operator Name Role Phone Unavailable Primary Care Provider Unavailabl e Encounter Details Date Type Department Care Team (Latest Contact Info) Description 06/23/2020 Abstract [facility] CONVERSIONS Dental, Provider, DDS Social History Tobacco [...] Description 05/26/2025 2:15 PM EDT Office Visit [facility] [address] [place] [address] Joy Arzola [address] [place] [address] documented as of this encounter Visit Diagnoses Not on filedocumented in this encounter
--- OUTSIDE RECORDS SUMMARY | 2025-02-16 08:00 | XMS_ITS | Encounter Summary ---
Author Organization [employer] Address [address] [facility] 7 [place] [address] Care Team Providers Care Earth Mover Name Role Phone Unavailable Primary Care Provider Unavailabl e Encounter Details Date Type Department Care Team (Latest Contact Info) Description 02/24/2019 Abstract [facility] CONVERSIONS [...] [facility] [address] [place] [address] Joy Arzola [address] [place] [address] documented as of this encounter Visit Diagnoses Not on filedocumented in this encounter
[2025-02-16 08:10] LABS: Glucose, Whole Blood 113 mg/dL (60-115)
== END 2025-02-16 08:43 | disposition home or self-care (01) ==
LOC: HO.ENCR 07:55
PROVIDERS: PCP Internal Medicine; Visit Provider Physician Assistant
DX: E11.65 Type 2 diabetes mellitus with hyperglycemia (principal); Z79.4 Long term (current) use of insulin; I10 Essential (primary) hypertension; E78.00 Pure hypercholesterolemia, unspecified; Z13.9 Encounter for screening, unspecified

== ENCOUNTER → 2025-02-16 07:55 | Outpatient (BNVA) | payer OTHER, SELFPAY | PROVIDERS: PCP Internal Medicine; Visit Provider Physician Assistant | DX: E11.65 Type 2 diabetes mellitus with hyperglycemia (principal); I10 Essential (primary) hypertension; E78.00 Pure hypercholesterolemia, unspecified; Z79.4 Long term (current) use of insulin; Z79.85 Long-term (current) use of injectable non-insulin antidiabetic drugs | CPT/HCPCS: 82947; 83036; 99212 ==